=== PATIENT | male | born 1970 | race Caucasian/White ===

== ENCOUNTER → 2024-03-19 | Outpatient (CLI) | payer BC, SELFPAY ==
[2024-03-19 14:05] LABS: Absolute Neutrophil Count 3.6 X10^3/uL (2.0-7.7); Basophil# 0.04 X10^3/uL; Basophil% 0.6 % (0-1); Eosinophil# 0.04 X10^3/uL; Eosinophils% 0.6 % (0-5); Hematocrit 43.3 % (40-54); Hemoglobin 15.1 g/dL (13.0-16.5); Lymphocyte % 36.5 % (19-41); Mean Corp Hgb Conc 34.9 g/dL (32-36); Mean Corpuscular Volume 80.3 fL (80-94); Mean Platelet Vol. 10.5 fl (6.2-12.0); Monocyte# 0.48 X10^3/uL; Monocyte% 7.3 % (0-10); NRBC Flagged by Analyzer 0 % (0-5); Neutrophil % 54.8 % (47-70); Platelet Count 256 K/mm3 (150-450); RBC Distribution Width CV 13.5 % (11.6-14.6); RBC Distribution Width SD 38.9 fl (35.1-43.9); Red Blood Count 5.39 M/mm3 (4.6-6.2); White Blood Count 6.6 K/mm3 (4.4-11.0)
[2024-03-19 15:43] LABS: ALB/GLOB Ratio 0.8 RATIO (0.9-2.4); AST(SGOT) 39 U/L (15-37); Alanine Aminotransfer ALT/SGPT 36 U/L (16-61); Albumin, Serum 3.1 g/dL (3.2-5.0); Alkaline Phosphatase 90 U/L (45-117); Anion Gap 10 (5-15); BUN 10 mg/dL (7-18); BUN/Creat Ratio 11.9 RATIO (10-20); Calcium,Total 8.3 mg/dL (8.5-10.1); Chloride 100 mmol/L (98-107); Creatinine, Serum 0.84 mg/dL (0.70-1.30); EST Glomerular Filtration Rate 102 mL/min (>60); Est Glom Filt Rate - Afr Amer 123 mL/min (>60); Globulin 3.7 g/dL (2.2-4.2); Glucose 394 mg/dL (74-106); Potassium 4.3 mmol/L (3.5-5.1); Protein, Total 6.8 g/dL (6.4-8.2); Sodium Level 134 mmol/L (136-145)
== END | disposition home or self-care (01) ==
PROVIDERS: PCP Family Medicine
DX: Z01.818 Encounter for other preprocedural examination (principal); R10.9 Unspecified abdominal pain
CPT/HCPCS: 36415; 80053; 85025

== ENCOUNTER → 2024-03-22 | Outpatient (CLI) | payer BC, SELFPAY ==
--- NOTE | 2024-03-22 17:52 | CT_ITS ---
INDICATION: abdominal pain COMPARISON: None. IV Contrast dosage and agent: Oral Tamp;amp; IV Readi-CAT Tamp;amp; 100mL Isovue-300 IV. A radiation dose optimization technique was used for this scan. RADIATION DOSAGE (If Supplied By Facility): CTDIvol/DLP = ( 13.67 ) / ( 920.97 ) mGy/mGycm FINDINGS: Contrast enhanced serial CT axial images through the abdomen and pelvis with coronal and sagittal reformatted series. PANCREAS: No peripancreatic fat stranding. BOWEL/MESENTERY: No dilated bowel loops. No significant free fluid. No free air. GALLBLADDER: No pericholecystic fat stranding. LIVER/STOMACH: Marked fatty infiltration the liver. Likely associated hepatomegaly measuring up to 23 cm in the craniocaudal dimension. APPENDIX: Absent appendix with pericecal suture line. URINARY COLLECTING SYSTEM/ KIDNEYS: No obstructing ureteral calculus. No significant renal parenchymal abnormality. LUNG BASES: 10 mm posterior left lower lobe pulmonary nodule. BONES: Unremarkable for age. CT/Abdomen/Pelvis WITH Contrast IMPRESSION: Marked fatty infiltration the liver. Likely associated hepatomegaly. 10 mm posterior left lower lobe pulmonary nodule. Recommend comparison with previous imaging to document long-term stability versus follow-up evaluation as per Fleischner guidelines as neoplastic process is not excluded. No acute abdominal abnormality is identified. Electronically Signed: Dheeraj Maloney MD at 7:13 EDT ,
== END | disposition home or self-care (01) ==
LOC: CT 17:50
PROVIDERS: PCP Family Medicine; Referring Provider Surgery; Visit Provider Surgery
DX: R10.9 Unspecified abdominal pain (principal)
CPT/HCPCS: 74177; Q9967

== ENCOUNTER → 2024-03-26 | Outpatient (CLI) | payer BC, SELFPAY ==
--- NOTE | 2024-03-26 13:47 | EKG12_ITS ---
Test Reason : PREOP Blood Pressure : / mmHG Vent. Rate : 089 BPM Atrial Rate : 089 BPM P-R Int : 184 ms QRS Dur : 116 ms QT Int : 366 ms P-R-T Axes : 029 -11 010 degrees QTc Int : 445 ms Normal sinus rhythm Inferior infarct , age undetermined Abnormal ECG Confirmed by Tor Sykes ([id number]), assistant production editor FRANK MARINO ([id number]) on 03/27/2024 8:53:29 AM Referred By: MICHA CLEMENS Confirmed By:Tor Sykes
[2024-03-26 14:32] LABS: Absolute Neutrophil Count 4.1 X10^3/uL (2.0-7.7); Basophil# 0.05 X10^3/uL; Basophil% 0.7 % (0-1); Eosinophil# 0.07 X10^3/uL; Eosinophils% 0.9 % (0-5); Hematocrit 44.4 % (40-54); Hemoglobin 15.2 g/dL (13.0-16.5); Lymphocyte % 37.9 % (19-41); Mean Corp Hgb Conc 34.2 g/dL (32-36); Mean Corpuscular Hgb 27.7 pg (27.0-32.0); Mean Platelet Vol. 10.5 fl (6.2-12.0); Monocyte# 0.51 X10^3/uL; Monocyte% 6.7 % (0-10); NRBC Flagged by Analyzer 0 % (0-5); Neutrophil # 4.09 X10^3/uL (2.7-7.7); Neutrophil % 53.4 % (47-70); Platelet Count 258 K/mm3 (150-450); RBC Distribution Width CV 13.2 % (11.6-14.6); RBC Distribution Width SD 38.7 fl (35.1-43.9); Red Blood Count 5.48 M/mm3 (4.6-6.2); White Blood Count 7.7 K/mm3 (4.4-11.0)
[2024-03-26 15:13] LABS: AST(SGOT) 16 U/L (15-37); Alanine Aminotransfer ALT/SGPT 32 U/L (16-61); Albumin, Serum 3.5 g/dL (3.2-5.0); Alkaline Phosphatase 81 U/L (45-117); Anion Gap 9 (5-15); BUN 12 mg/dL (7-18); BUN/Creat Ratio 13.3 RATIO (10-20); Calcium,Total 8.8 mg/dL (8.5-10.1); Chloride 100 mmol/L (98-107); EST Glomerular Filtration Rate 94 mL/min (>60); Est Glom Filt Rate - Afr Amer 113 mL/min (>60); Globulin 3.5 g/dL (2.2-4.2); Glucose 234 mg/dL (74-106); Potassium 3.7 mmol/L (3.5-5.1); Sodium Level 132 mmol/L (136-145)
== END | disposition home or self-care (01) ==
PROVIDERS: PCP Family Medicine
DX: Z01.818 Encounter for other preprocedural examination (principal); R10.9 Unspecified abdominal pain
CPT/HCPCS: 36415; 80053; 85025; 93005

== ENCOUNTER → 2024-08-16 | Outpatient (CLI) | payer BC, SELFPAY ==
--- NOTE | 2024-08-16 10:25 | RAD_ITS ---
INDICATION: left thumb injury EXAMINATION/TECHNIQUE: X-RAY - LEFT HAND XR Fingers Min 2 Views 4 VIEWS COMPARISON: No relevant prior comparison study available FINDINGS: SOFT TISSUES: Mild soft tissue swelling involving the distal aspect of the thumb. No soft tissue gas. No radiopaque foreign body. BONES/JOINTS: No acute fracture or subluxation.. Normal alignment. Preservation of the joint space.. No sclerotic or destructive changes observed. RAD/Finger(s) Min 2 Views IMPRESSION: 1. Soft tissue swelling involving the distal thumb. No evidence of fracture, malalignment, no soft tissue gas or radiopaque foreign body noted. Electronically Signed: Navarro Suggs MD at 19:51 EDT ,
== END | disposition home or self-care (01) ==
LOC: MTRAD 10:21
PROVIDERS: PCP Family Medicine; Referring Provider Family Medicine; Visit Provider Family Medicine
DX: S69.90XA Unspecified injury of unspecified wrist, hand and finger(s), initial encounter (principal); X58.XXXA Exposure to other specified factors, initial encounter
CPT/HCPCS: 73140

== ENCOUNTER → 2025-07-24 | Outpatient (CLI) | payer OTHER, SELFPAY ==
[2025-07-24 12:32] LABS: Hematocrit 45.8 % (40-54); Hemoglobin 15.8 g/dL (13.0-16.5); Mean Corp Hgb Conc 34.5 g/dL (32-36); Mean Corpuscular Volume 81.8 fL (80-94); Mean Platelet Vol. 10.3 fl (6.2-12.0); Platelet Count 266 K/mm3 (150-450); RBC Distribution Width CV 12.8 % (11.6-14.6); RBC Distribution Width SD 38.2 fl (35.1-43.9); Red Blood Count 5.60 M/mm3 (4.6-6.2); White Blood Count 7.3 K/mm3 (4.4-11.0)
[2025-07-24 18:30] LABS: AST(SGOT) 17 U/L (<=37); Alanine Aminotransfer ALT/SGPT 22 U/L (<=46); Albumin, Serum 3.9 g/dL (3.5-5.0); Alkaline Phosphatase 78 U/L (40-129); Anion Gap 13 (5-15); BUN 8 mg/dL (4-19); BUN/Creat Ratio 10.9 RATIO (10-20); Calcium,Total 9.2 mg/dL (7.6-11.0); Carbon Dioxide 21.0 mmol/L (21.0-32.0); Chloride 100 mmol/L (98-108); Cholesterol 339 mg/dL (<=200); Globulin 2.9 g/dL (2.2-4.2); Glucose 235 mg/dL (70-99); Low Density Lipoprotein Calc. 174 mg/dL; Potassium 4.1 mmol/L (3.3-5.1); Triglycerides 629 mg/dL; Very Low Density Lipoprotein 126 mg/dL (5-40); cholesterol:hdl ratio screen 8.60
== END | disposition home or self-care (01) ==
LOC: MFPLAB 11:25
PROVIDERS: PCP Family Medicine; Visit Provider Family Medicine
DX: Z13.220 Encounter for screening for lipoid disorders (principal); R73.03 Prediabetes; R03.0 Elevated blood-pressure reading, without diagnosis of hypertension
CPT/HCPCS: 36415; 80053; 80061; 83036; 84443; 85027

== ENCOUNTER 2025-08-17 19:12 | Emergency (ER) | payer OTHER, SELFPAY ==
[2025-08-17 19:13] VITALS: BP 136/88; PULSE 101; RESP 17; TEMP 36.8; O2SAT 100; BMI 27.9
[2025-08-17 19:56] LABS: Hematocrit 44.5 % (40-54); Hemoglobin 15.2 g/dL (13.0-16.5); Immature Granulocytes Count 0.020 X10^3/uL (0.0-0.0); Mean Corp Hgb Conc 34.2 g/dL (32-36); Mean Corpuscular Volume 81.7 fL (80-94); Mean Platelet Vol. 9.1 fl (6.2-12.0); NRBC Flagged by Analyzer 0 % (0-5); Platelet Count 299 K/mm3 (150-450); RBC Distribution Width CV 12.5 % (11.6-14.6); RBC Distribution Width SD 37.2 fl (35.1-43.9); Red Blood Count 5.45 M/mm3 (4.6-6.2); White Blood Count 7.4 K/mm3 (4.4-11.0)
[2025-08-17] MEDS: 0.9% Normal Saline (1000mL) 1,000 ML 999 ML IV (19:57)
--- NOTE | 2025-08-17 20:14 | EDS_ITS ---
HPI HPI - GI History of Present Illness Chief Complaint: Abd Pain Informant: patient Abdominal Pain/Flank Pain Onset: Weeks (1-2) Context: Gradual Onset Timing: Continuous Quality: Stabbing Location: LLQ Worsened by: Nothing Relieved by: Nothing Nausea/Vomiting/Emesis GI Symptom: Positive for Nausea and Vomiting Quality: Positive for Nonbilious; Negative for Blood streaks, Coffee ground or Hematemesis Diarrhea/Melena/Hematochezia GI Symptom: Negative for Diarrhea, Melena or Hematochezia Associated Symptoms Associated Symptoms: Negative for Dysuria, Frequency or Hematuria Narrative Narrative: Patient presents with abdominal pain that has been getting worse over the past 1 to 2 weeks. Patient states his pain is mainly over the left lower abdomen. Patient describes it as stabbing. Patient states it has been constant. Patient states his pain radiates up into the left side of his neck and back. Patient states nothing makes it worse and nothing makes it better. Patient admits to some nausea and vomiting. Patient denies any hematemesis or coffee-ground emesis. Patient denies any diarrhea, melena, or hematochezia. Patient denies any dysuria, frequency, or hematuria. [facility] Medical History Abdominal pain Abdominal hernia Home Medications ?Medication ?Instructions ?Recorded ?Last Taken ?Type amlodipine 5 mg tablet 5 mg PO DAILY 08/17/25 Unkno wn History ciprofloxacin HCl 500 mg tablet 500 mg PO Q8H 08/17/25 Unknown History glipizide 5 mg tablet 5 mg PO DAILY 08/17/25 Unkno wn History hydrocodone-acetaminophen 5-325mg 1 tab PO Q6H PRN PRN Pain 3 days 08/17/25 Unknown Rx 5mg-325mg #10 TABLETS metformin 500 mg tablet 500 mg PO BID 08/17/25 Unkno wn History ondansetron HCl 4 mg tablet 4 mg PO BID PRN PRN nausea and 08/17/25 Unknown History vomiting semaglutide 0.25 mg or 0.5 mg (2 0.5 mg subcut QWEEK 1 Unknown History mg/3 mL) subcutaneous pen injector (Ozempic) trazodone 50 mg tablet 50 mg PO QHS 08/17/25 Unknow n History Allergy/AdvReac Type Severity Reaction Status Date / Time Penicillins Allergy Severe Hives Verified 08/17/25 19:19 Family History (System 04/10/24 @ 12:38 by Vianney Kelly) Father Diabetes Heart disease Hypertension CVA (cerebral vascular accident) High cholesterol Surgical History History of eye surgery History of appendectomy Social History Smoking Status: Never smoker alcohol intake: current alcohol intake frequency: a few times a month substance use type: does not use ROS ROS ED Constitutional Constitutional ED: Denies chills or fever(s) Eyes Eyes: Denies blurry vision or change in vision ENT ENT ED: Denies rhinorrhea or sore throat Cardiovascular Cardiovascular: Denies chest pain or palpitations Respiratory/Chest Respiratory/Chest: Denies cough or dyspnea Gastrointestinal Gastrointestinal: Reports abdominal pain, nausea and vomiting Genitourinary Genitourinary ED: Denies dysuria or hematuria Musculoskeletal Musculoskeletal: Reports neck pain; Denies back pain Integumentary Denies abscess or rash Neurologic Neurologic: Reports headache(s); Denies weakness Allergic/Immunologic Allergic/Immunologic ED: Denies mouth swelling or urticaria EXAM Physical Exam Const Vital Signs: 08/17/25 19:13 08/17/25 21:13 08/17/25 23:00 Temperature 98.3 F Temperature Source Oral Pulse Rate 101 H 68 77 Respiratory Rate 17 16 18 Blood Pressure 136/88 H 117/84 H 116/78 Blood Pressure Mean 104 95 90 Pulse Ox 100 97 97 Oxygen Delivery Method Room Air Room Air Room Air 08/17/25 23:50 Temperature 98.1 F Temperature Source Pulse Rate 74 Respiratory Rate 18 Blood Pressure 118/84 H Blood Pressure Mean 95 Pulse Ox 98 Oxygen Delivery Method Positive well nourished and well developed Constitutional Narrative: BMI is 29.0. General Appearance ED: well developed and NAD HEENT Reports moist mucous membranes normocephalic and atraumatic Neck supple and no JVD Resp normal respiratory effort and clear to auscultation bilaterally Cardio regular rate and regular rhythm GI non-distended Palpation: soft and tender LLQ and LUQ; Negative for guarding or rebound tenderness present Neuro CN's II-XII intact bilaterally, moves all extremities and no sensory deficits noted Sensorium / Orientation: alert Motor Exam: strength 5/5 throughout Psych mental status grossly normal MDM MDM MDM Narrative Medical decision making narrative: Differential diagnosis includes but is not limited to bowel obstruction, perforation, diverticulitis, electrolyte abnormality, urinary tract infection, pyelonephritis, ureteral calculus, and viral illness. CBC will be obtained to assess for leukocytosis and anemia. Comprehensive metabolic profile will be obtained to assess for hepatic function, renal function, and electrolyte abnormality. Urinalysis will be obtained to assess for urinary tract infection and hematuria. CT scan of the abdomen and pelvis will be obtained to assess for bowel obstruction, diverticulitis, ureteral calculus, pyelonephritis, and bowel perforation. Lab Data Attestation: I reviewed the patient's lab results. Lab results narrative: CBC was reviewed and was within normal limits. Comprehensive metabolic profile was reviewed. Glucose was mildly elevated at 186. The remainder is within normal limits. Urinalysis was reviewed. There is no evidence of urinary tract infection or hematuria. Labs: Laboratory Results - last 24 hr 08/17/25 08/17/25 19:42 22:45 WBC 7.4 RBC 5.45 Hgb 15.2 Hct 44.5 MCV 81.7 MCH 27.9 MCHC 34.2 RDW Std Deviation 37.2 RDW Coeff of Mike 12.5 Plt Count 299 MPV 9.1 Immature Gran % (Auto) 0.300 Neut % (Auto) 54.3 Lymph % (Auto) 35.0 [place] % (Auto) 9.7 Eos % (Auto) 0.4 Baso % (Auto) 0.3 Absolute Neuts (auto) 4.0 Absolute Lymphs (auto) 2.60 Nucleated RBC % 0 Sodium 137 Potassium 4.3 Chloride 101 Carbon Dioxide 23.9 Anion Gap 12 BUN 17 Creatinine 0.74 Estim Creat Clear Calc 108.76 Est GFR (MDRD) Non-Af 108 BUN/Creatinine Ratio 22.6 H Glucose 186 H Calcium 9.4 Total Bilirubin 0.66 AST 14 ALT 20 Alkaline Phosphatase 68 Total Protein 7.2 Albumin 4.3 Globulin 2.9 Albumin/Globulin Ratio 1.5 Urine Color Yellow Urine Clarity Clear Urine pH 6.0 Ur Specific [place] 1.010 Urine Protein Negative Urine Glucose (UA) 50 H Urine Ketones Negative Urine Occult Blood Negative Urine Nitrite Negative Urine Bilirubin Negative Urine Urobilinogen Normal Ur Leukocyte Esterase Negative Urine RBC 0 SEEN Urine WBC 0 SEEN Ur Squamous Epith Cells 0 SEEN Urine Bacteria 0 SEEN Urine Mucus 0 SEEN Radiography Diagnostic Testing: Clinical Impression(s) from Imaging Studies Abdomen/Pelvis CT 08/17/25 20:52 IMPRESSION: 3 mm obstructive stone at the right UVJ with associated minimal upstream hydroureteronephrosis. Reading Location: [facility] CT scan of the abdomen and pelvis was obtained. There is a 3 mm obstructive stone at the right ureterovesicular junction causing hydronephrosis and hydroureter. There is no free air or free fluid. There is no other acute abnormality noted. This was interpreted by the radiologist and was also independently reviewed by myself. Treatment and Re-Evaluation :: Patient was given IV fluids, morphine, and Zofran. Patient was advised of his findings. Patient was instructed to drink plenty of fluids. Patient was given a prescription for [place]. Patient was instructed to follow-up with his primary care physician in 5 to 7 days. Patient was also given a referral for urology. Patient understood and was agreeable with the plan. All questions were answered. Discharge Plan Triage Chief Complaint: Abd Pain ED Provider: Brandon Abraham Dx/Rx/DC Orders Clinical Impression: Calculus of distal right ureter, Abdominal pain Instructions: ED Kidney Stone with Pain Prescriptions: New hydrocodone-acetaminophen 5-325 mg tablet 1 tab PO Q6H PRN PRN (Reason: Pain) 3 Days Qty: 10 0RF No Action amlodipine 5 mg tablet 5 mg PO DAILY ciprofloxacin HCl 500 mg tablet 500 mg PO Q8H metformin 500 mg tablet 500 mg PO BID trazodone 50 mg tablet 50 mg PO QHS ondansetron HCl 4 mg tablet 4 mg PO BID PRN PRN (Reason: nausea and vomiting) glipizide 5 mg tablet 5 mg PO DAILY Ozempic 0.25 mg or 0.5 mg (2 mg/3 mL) pen injector 0.5 mg subcut QWEEK Stand Alone Forms: ED Work / School Excuse Primary Care Provider: Ronald Tong Referrals: Ronald Tong MD [Primary Care Provider, Family Practice] - 3-5 Days Zachariah Garcia MD [Med Staff - Active Staff, Urology] - 3-5 Days Print Language: Macanese Disposition Disposition: Home, Self Care Discharge Date/Time: 08/17/25 23:53
[2025-08-17 20:19] LABS: AST(SGOT) 14 U/L (<=37); Alanine Aminotransfer ALT/SGPT 20 U/L (<=46); Albumin, Serum 4.3 g/dL (3.5-5.0); Alkaline Phosphatase 68 U/L (40-129); Anion Gap 12 (5-15); BUN 17 mg/dL (4-19); BUN/Creat Ratio 22.6 RATIO (10-20); Calcium,Total 9.4 mg/dL (7.6-11.0); Carbon Dioxide 23.9 mmol/L (21.0-32.0); Chloride 101 mmol/L (98-108); Estimated Creatinine Clearance 108.76 ml/min (50-250); Globulin 2.9 g/dL (2.2-4.2); Glucose 186 mg/dL (70-99); Potassium 4.3 mmol/L (3.3-5.1)
--- NOTE | 2025-08-17 20:52 | CT_ITS ---
PROCEDURE: ABDOMEN/PELVIS W IV CONT ONLY 08/17/2025 REASON FOR EXAM: ABDOMINAL PAIN TECHNIQUE: Procedure Code: CTABDPELIV Modality: CT Procedure: ABDOMEN/PELVIS W IV CONT ONLY Coronal and Sagittal reconstruction series were provided. CONTRAST: 100 mL of Isovue 370 One or more dose reduction techniques were used (e.g., Automated exposure control, adjustment of the mA and/or kV according to patient size, use of iterative reconstruction technique. RADIATION DOSE SUMMARY: DLP: 768 mGycm COMPARISON: None FINDINGS: Limited sections of the lung bases demonstrate no focal pulmonary mass or consolidations. The liver, spleen, pancreas, and both adrenal glands demonstrate no acute findings. Hepatic steatosis. Minimal hepatomegaly. The gallbladder is unremarkable. The stomach is unremarkable. The small bowel loops are not dilated. The appendix is surgically removed No colonic obstruction. Scattered colonic diverticuli without acute diverticulitis. There is no free air or significant free fluid. 3 mm obstructive stone at the right UVJ with associated minimal upstream hydroureteronephrosis. The left kidney is unremarkable. The urinary bladder is distended. The pelvic structures are intact. There is no solid pelvic mass. No significant lymphadenopathy. The aorta and IVC demonstrate no acute findings. Visualized osseous structures demonstrate no acute abnormality. CT/Abdomen/Pelvis W IV Cont ONLY IMPRESSION: 3 mm obstructive stone at the right UVJ with associated minimal upstream hydrou reteronephrosis. Reading Location: [id number]
[2025-08-17 21:13] VITALS: BP 117/84; PULSE 68; RESP 16; O2SAT 97
[2025-08-17 22:50] LABS: Mucous, Urine 0 SEEN /hpf (<or=2+); Red Blood Cells-Urine 0 SEEN /hpf (0-5); Squamous Epithelial Cells - UA 0 SEEN /hpf (0-5)
[2025-08-17 22:54] LABS: Color, Urine Yellow (Yellow); Glucose, Dipstick 50 mg/dl (Normal); Ketone-Dipstick Negative (Negative); Leukocyte Esterase-Dipstick Negative /ul (Negative); Nitrite-Dipstick Negative (Negative); Occult Blood-Urine Negative /ul (Negative); Protein-Dipstick Negative (Negative); Specific Gravity, Urine 1.010 (1.002-1.030); Urine Bilirubin Dipstick Negative (Negative)
[2025-08-17 23:00] VITALS: BP 116/78; PULSE 77; RESP 18; O2SAT 97
[2025-08-17 23:50] VITALS: BP 118/84; PULSE 74; RESP 18; TEMP 36.7; O2SAT 98
== END 2025-08-17 23:53 | disposition home or self-care (01) ==
PROVIDERS: Emergency Provider Emergency Medicine; PCP Family Medicine; Visit Provider Emergency Medicine
DX: N20.1 Calculus of ureter (principal); R10.9 Unspecified abdominal pain; R11.2 Nausea with vomiting, unspecified; Z79.899 Other long term (current) drug therapy; Z79.84 Long term (current) use of oral hypoglycemic drugs; Z79.85 Long-term (current) use of injectable non-insulin antidiabetic drugs
CPT/HCPCS: 74177; 80053; 81001; 85025; 96361; 96374; 96375; 99283; Q9967; A4216; J2405

== ENCOUNTER 2025-08-25 16:19 | Inpatient (IN) | payer OTHER, SELFPAY ==
[2025-08-25 16:19] VITALS: BP 132/80; PULSE 84; RESP 14; TEMP 36.6; O2SAT 98
[2025-08-25 16:30] VITALS: BMI 26.8
[2025-08-25] MEDS: Lactated Ringers 1,000 ML 125 ML IV (17:29)
[2025-08-25] MEDS: Cefazolin 2 GM in 0.9% Normal Saline (100mL Bag) 100 ML IV ×2 (17:30→21:06)
[2025-08-25] MEDS: 0.9% Saline Lock 10 ML Syringe IV (17:30)
[2025-08-25 17:42] LABS: Hematocrit 45.5 % (40-54); Hemoglobin 15.8 g/dL (13.0-16.5); Immature Granulocytes Count 0.080 X10^3/uL (0.0-0.0); Mean Corp Hgb Conc 34.7 g/dL (32-36); Mean Corpuscular Volume 82.1 fL (80-94); Mean Platelet Vol. 9.9 fl (6.2-12.0); NRBC Flagged by Analyzer 0 % (0-5); Platelet Count 280 K/mm3 (150-450); RBC Distribution Width CV 12.3 % (11.6-14.6); RBC Distribution Width SD 37.1 fl (35.1-43.9); Red Blood Count 5.54 M/mm3 (4.6-6.2); White Blood Count 15.3 K/mm3 (4.4-11.0)
[2025-08-25 19:09] LABS: Anion Gap 15 (5-15); BUN 11 mg/dL (4-19); BUN/Creat Ratio 10.6 RATIO (10-20); Calcium,Total 9.3 mg/dL (7.6-11.0); Carbon Dioxide 22.6 mmol/L (21.0-32.0); Chloride 95 mmol/L (98-108); Estimated Creatinine Clearance 73.27 ml/min (50-250); Glucose 235 mg/dL (70-99); Potassium 4.6 mmol/L (3.3-5.1)
[2025-08-25 21:20] VITALS: BP 114/73; PULSE 83; RESP 16; TEMP 36.8; O2SAT 96
[2025-08-26] MEDS: Lactated Ringers 1,000 ML 125 ML IV ×4 (01:45→21:10)
[2025-08-26 02:40] VITALS: BP 107/68; PULSE 93; RESP 16; TEMP 36.9; O2SAT 98
[2025-08-26] MEDS: Cefazolin 2 GM in 0.9% Normal Saline (100mL Bag) 100 ML IV ×3 (05:25→21:08)
--- NOTE | 2025-08-26 07:35 | PCM.HP.STD ---
HPI - General General Date of Admission: 08/25/25 Date of Service: 08/26/25 Chief Complaint: Renal colic HPI Narrative ANDRIA HERNANDEZ, is a 55 male who underwent ureteroscopy dilation of the ureter and stent placement for stone, no stone was found but you have a very tight ureter so the ureter was dilated and the stent was placed did not presented to my office in severe renal colic and stent so we agreed to take the stent out and see how you do having nausea and vomiting. Stent was removed and then later that Kam presented back to my office and needing more severe pain we did a CAT scan that demonstrated ureter with some ureteritis and inflammation along the ureter but no stone no obstruction some mild hydronephrosis so I admitted the patient for pain control this morning the patient's pain is much better he is feeling much better blood count was done yesterday looks okay. If he does okay then we Pyke and then go home later this morning or this afternoon [facility] Medical History (Updated 08/25/25 @ 16:37 by Shahnaz Garcia) Diabetes Kidney stones Hypertension Abdominal pain Abdominal hernia Home Medications ?Medication ?Instructions ?Recorded ?Last Taken ?Type amlodipine 5 mg tablet 5 mg PO DAILY bp 08/17/25 Unknown History glipizide 5 mg tablet 5 mg PO DAILY dm 08/17/25 Unknown History hydrocodone-acetaminophen 5-325mg 1 tab PO Q6H PRN PRN Pain 3 days 08/17/25 Unknown Rx 5mg-325mg #10 TABLETS metformin 500 mg tablet 500 mg PO BID dm 08/17/25 Unknown History ondansetron HCl 4 mg tablet 4 mg PO BID PRN PRN nausea and 08/17/25 Unknown History vomiting atorvastatin 20 mg tablet 20 mg PO DAILY cholesterol 08/25/25 Unknown History tamsulosin 0.4 mg capsule 0.4 mg PO DAILY bph 08/25/25 Unknown History Allergy/AdvReac Type Severity Reaction Status Date / Time Penicillins Allergy Severe Hives Verified 08/17/25 19:19 Family History (System 04/10/24 @ 12:38 by Vianney Kelly) Father Diabetes Heart disease Hypertension CVA (cerebral vascular accident) High cholesterol Surgical History History of eye surgery History of appendectomy Social History Smoking Status: Never smoker alcohol intake: current alcohol intake frequency: a few times a month substance use type: does not use Vital Signs Vital Signs Vital Signs: 08/25/25 16:19 08/25/25 21:00 08/25/25 21:20 Temperature 97.8 F 98.3 F Temperature Source Oral Temporal Pulse Rate 84 83 Respiratory Rate 14 16 Respiratory Effort Normal Non-Labored Respiratory Depth Normal Respiratory Pattern Normal Blood Pressure 132/80 H 114/73 Blood Pressure Mean 97 86 Blood Pressure Source Monitor Monitor Blood Pressure Position Semi-Fowlers Semi-Fowlers Blood Pressure Location Right Arm Right Arm Pulse Ox 98 96 Oxygen Delivery Method Room Air Room Air Room Air 08/26/25 02:40 Temperature 98.4 F Temperature Source Temporal Pulse Rate 93 Respiratory Rate 16 Respiratory Effort Respiratory Depth Respiratory Pattern Blood Pressure 107/68 Blood Pressure Mean 81 Blood Pressure Source Monitor Blood Pressure Position Semi-Fowlers Blood Pressure Location Right Arm Pulse Ox 98 Oxygen Delivery Method Room Air Weight Weight: 75.296 kg Body Mass Index (BMI) 26.8 Results Lab / Micro Data 08/25/25 16:49 08/25/25 16:49 Labs: Laboratory Results - last 24 hr 08/25/25 16:49: WBC 15.3 H, RBC 5.54, Hgb 15.8, Hct 45.5, MCV 82.1, MCH 28.5, MCHC 34.7, RDW Std Deviation 37.1, RDW Coeff of Mike 12.3, Plt Count 280, MPV 9.9, Immature Gran % (Auto) 0.500, Neut % (Auto) 87.0 H, Lymph % (Auto) 4.9 L, [place] % (Auto) 7.2, Eos % (Auto) 0.1, Baso % (Auto) 0.3, Absolute Neuts (auto) 13.4 H, Absolute Lymphs (auto) 0.75 L, Nucleated RBC % 0, Sodium 133, Potassium 4.6, Chloride 95 L, Carbon Dioxide 22.6, Anion Gap 15, BUN 11, Creatinine 1.04, Estim Creat Clear Calc 73.27, Est GFR (MDRD) Non-Af 85, BUN/Creatinine Ratio 10.6, Glucose 235 H, Calcium 9.3 08/25/25 21:05: POC Glucose 226 H
[2025-08-26 07:57] VITALS: BP 110/66; PULSE 77; RESP 14; TEMP 36.6; O2SAT 97
[2025-08-26] MEDS: 0.9% Saline Lock 10 ML Syringe IV ×2 (09:01→12:03)
--- NOTE | 2025-08-26 12:24 | CASEMGMT ---
Dx:kidney spasm/pain LACE:1 6-Clicks:24 Medical record reviewed and patient evaluated for identification of discharge planning needs. Based on this review, at this time criteria are not present to indicate a need for discharge planning. Will remain available to assist with discharge planning needs as identified or requested.
[2025-08-26 15:03] VITALS: BP 123/81; PULSE 92; RESP 15; TEMP 36.4; O2SAT 98
--- NOTE | 2025-08-26 15:46 | CHAPLAIN ---
Type of Pastoral Visit _x__ Initial Visit ___ Follow-up Visit ___ On-call Visit ___ General Patient Visit ___ Spiritual Assessment ___ Family Conference ___ Bereavement ___ Rapid Response ___ Code Blue ___ Other (describe below) Pastoral Care Referral From _x__ Patient ___ Family ___ Nurse ___ Physician ___ Aerospace Engineer ___ Regrinder ___ Other (describe below) Sacrament/Intervention _x__ Active listening ___ Anointing ___ Protestant ___ Bereavement ___ Communion ___ Diana exploration ___ _x__ Life review _x__ Prayer ___ Reconciliation ___ Sacrament of Sick _x__ Supportive presence ___ Wedding ___ Other (describe below) Pastoral Comments
[2025-08-26 20:30] VITALS: BP 126/75; PULSE 59; RESP 16; TEMP 37.3; O2SAT 94
[2025-08-27] VITALS (21 sets, daily range): BP systolic 100–153; BP diastolic 57–89; PULSE 85–145; RESP 18–26; TEMP 36.2–39.4; O2SAT 90–100; BMI 26.8; BMI 28.5
[2025-08-27] MEDS: 0.9% Saline Lock 10 ML Syringe IV ×3 (01:25→23:22)
[2025-08-27] MEDS: Lactated Ringers 1,000 ML 125 ML IV ×2 (05:23→20:02)
[2025-08-27] MEDS: Cefazolin 2 GM in 0.9% Normal Saline (100mL Bag) 100 ML IV ×2 (05:24→14:12)
--- NOTE | 2025-08-27 07:25 | PCM.DC.SUM ---
Providers Date of Admission: 08/25/25 Date of Discharge: 08/27/25 Primary Care Physician: Ronald Tong MD Reason For Visit: KIDNESY SPASM/PAIN Medications at Discharge Home Medications amlodipine 5 mg tablet 5 mg PO DAILY bp 08/17/25 glipizide 5 mg tablet 5 mg PO DAILY dm 08/17/25 hydrocodone-acetaminophen 5-325mg 5mg-325mg 1 tab PO Q6H PRN PRN Pain 3 days #10 TABLETS 08/17/25 metformin 500 mg tablet 500 mg PO BID dm 08/17/25 ondansetron HCl 4 mg tablet 4 mg PO BID PRN PRN nausea and vomiting 08/17/25 atorvastatin 20 mg tablet 20 mg PO DAILY cholesterol 08/25/25 tamsulosin 0.4 mg capsule 0.4 mg PO DAILY bph 08/25/25 Hospital Course Summary of Care Provided Minutes Spent on Discharge: 15 Hospital Course: Patient was admitted to the hospital for stent spasms and stent pain after the stent was removed he was have a lot of spasms in his ureter CAT scan was done and demonstrated no obstruction but about a ureteritis and inflammation along course of the ureter and spasms pain was not controlled as an outpatient so he was admitted to the hospital for IV Toradol pain medicine. He was possibly going home yesterday but he had an episode of severe pain today was not comfortable going home this morning he feels much more comfortable try to have a bowel movement feels little constipated we will give him some bowel laxative to get his bowels moving but he should be able to go home today follow-up in the office in 6 weeks for checkup. Weight / BMI Weight Weight: 75.3 kg Body Mass Index (BMI) 26.8 ABG / Lab / Microbiology Data 08/25/25 16:49 08/25/25 16:49 D/C Instructions DC O2, CPAP, BIPAP Needs Home O2 Discharge instructions: No Meaningful Use Info Meaningful Use Meaningful Use Diagnoses (Choose all that apply): None applicable Discharge Plan Admission Admit Date/Time: 08/25/25 16:19 Attending Provider: Zachariah Garcia Primary Care Provider: Ronald Tong Discharge Orders/Prescriptions Prescriptions: No Action amlodipine 5 mg tablet 5 mg PO DAILY metformin 500 mg tablet 500 mg PO BID ondansetron HCl 4 mg tablet 4 mg PO BID PRN PRN (Reason: nausea and vomiting) glipizide 5 mg tablet 5 mg PO DAILY hydrocodone-acetaminophen 5-325 mg tablet 1 tab PO Q6H PRN PRN (Reason: Pain) 3 Days Qty: 10 0RF atorvastatin 20 mg tablet 20 mg PO DAILY tamsulosin 0.4 mg capsule 0.4 mg PO DAILY Referrals / Follow Up: Ronald Tong MD [Primary Care Provider, Family Practice]
--- NOTE | 2025-08-27 07:30 | DCINST_ITS ---
Discharge Instructions
--- NOTE | 2025-08-27 07:30 | PCM.DC ---
Discharge Instructions DC O2, CPAP, BIPAP needs Home O2 Discharge instructions: No Dressing / Incision Discharge Activity: Return to Normal Activity and May Not Drive (while taking narcotic pain medications.) Dressing / Incision Call your doctor if you observe: Fever of 101 or Higher Follow Up Care Please Follow Up With: Zachariah Garcia MD When: Call [phone] for an appointment Test Results: Test results from this visit will be discussed in further detail at your follow-up appointment, if applicable. Discharge Plan Admission Admit Date/Time: 08/25/25 16:19 Primary Reason for Your Visit: Ureteral spasms Attending Provider: Zachariah Garcia Primary Care Provider: Ronald Tong Discharge Orders/Prescriptions Prescriptions: New ketorolac 10 mg tablet 10 mg PO Q6H Qty: 10 0RF Rx Instructions: maximum total duration of 5 days from all oral, intranasal, or parenteral formulations Continued amlodipine 5 mg tablet 5 mg PO DAILY metformin 500 mg tablet 500 mg PO BID ondansetron HCl 4 mg tablet 4 mg PO BID PRN PRN (Reason: nausea and vomiting) glipizide 5 mg tablet 5 mg PO DAILY hydrocodone-acetaminophen 5-325 mg tablet 1 tab PO Q6H PRN PRN (Reason: Pain) 3 Days Qty: 10 0RF atorvastatin 20 mg tablet 20 mg PO DAILY tamsulosin 0.4 mg capsule 0.4 mg PO DAILY Referrals / Follow Up: Ronald Tong MD [Primary Care Provider, Family Practice] Zachariah Garcia MD [Med Staff - Active Staff, Urology] Disposition Disposition (needs filled in before D/C Order can be placed): Home, Self Care
[2025-08-27] MEDS: Polyethylene Glycol 3350 17 GM PACKET PO (07:57)
--- NOTE | 2025-08-27 12:25 | PCM.PN.BLA ---
Progress Note Planning to discharge the patient home today but the nurse called me back said he is having more severe pain nausea vomiting and chills we will get a CBC and a BMP add him onto the schedule today for cystoscopy right stent placement.
--- NOTE | 2025-08-27 12:52 | PHA.DC_ITS ---
Pharmacy DC Med Rec Counseling
--- NOTE | 2025-08-27 12:52 | PHA.DC.MC.R ---
Pharmacy [facility] Counseling Pharmacy Service has performed discharge medication reconciliation and counseling for this patient. 1. KETOROLAC 10MG PO Q6 X 10 DOSES The patient's discharge medication list was reviewed for discrepancies and discrepancies were resolved. The patient was counseled on the following discharge medications and changes in medications for homegoing were reviewed. The Reason for Use, instructions for use, and potential side effects were reviewed for all new medications. The patient's questions regarding all of their medications were answered. The patient was able to verbally demonstrate an understanding of their discharge medications. Medications at Discharge Home Medications amlodipine 5 mg tablet 5 mg PO DAILY bp 08/17/25 glipizide 5 mg tablet 5 mg PO DAILY dm 08/17/25 hydrocodone-acetaminophen 5-325mg 5mg-325mg 1 tab PO Q6H PRN PRN Pain 3 days #10 TABLETS 08/17/25 metformin 500 mg tablet 500 mg PO BID dm 08/17/25 ondansetron HCl 4 mg tablet 4 mg PO BID PRN PRN nausea and vomiting 08/17/25 atorvastatin 20 mg tablet 20 mg PO DAILY cholesterol 08/25/25 tamsulosin 0.4 mg capsule 0.4 mg PO DAILY bph 08/25/25 ketorolac 10 mg tablet 10 mg PO Q6H #10 tabs 08/27/25
[2025-08-27 13:03] LABS: Hematocrit 38.7 % (40-54); Hemoglobin 13.7 g/dL (13.0-16.5); Immature Granulocytes Count 0.050 X10^3/uL (0.0-0.0); Mean Corp Hgb Conc 35.4 g/dL (32-36); Mean Corpuscular Volume 81.8 fL (80-94); Mean Platelet Vol. 9.3 fl (6.2-12.0); NRBC Flagged by Analyzer 0 % (0-5); POSITIVE DIFFERENTIAL YES; Platelet Count 202 K/mm3 (150-450); RBC Distribution Width CV 12.3 % (11.6-14.6); RBC Distribution Width SD 36.9 fl (35.1-43.9); Red Blood Count 4.73 M/mm3 (4.6-6.2); White Blood Count 15.3 K/mm3 (4.4-11.0)
[2025-08-27 13:43] LABS: Anion Gap 15 (5-15); BUN 13 mg/dL (4-19); BUN/Creat Ratio 9.5 RATIO (10-20); Calcium,Total 8.6 mg/dL (7.6-11.0); Carbon Dioxide 21.6 mmol/L (21.0-32.0); Chloride 97 mmol/L (98-108); Estimated Creatinine Clearance 54.05 ml/min (50-250); Glucose 269 mg/dL (70-99); Potassium 4.1 mmol/L (3.3-5.1)
--- NOTE | 2025-08-27 15:33 | PCM.PRE.AN2 ---
ASA Classification* ASA Classification ASA Classification: 2 and E Assessment & Plan Anesthesia* Anesthesia Assessment Anesthesia Assessment: Discussed sedation and/or anesthesia options, risks, benefits, and alternatives with patient/parents/legal guardian/POA. Questions invited. The patient/parents/legal guardian/POA seems to understand and agrees to proceed with anesthesia plan. Reviewed the physical assessment, medical history, allergy history and patient home medications list prior to surgery/procedure/anesthetic and documented any changes. Performed airway and anesthesia risk assessments. Anesthesia Type Anesthesia Type: MAC Anesthesia Focused Assessment* Temperature: 98.9 F Pulse Rate: 112 Blood Pressure: 129/76 Respiratory Rate: 18 Pulse Ox: 98 Airway Assessment Mouth opens: >3 cm Mallampati Score: II Labs Anesthesia Preop lab: CBC WBC, (4.4-11.0) 15.3 K/mm3 H Today, 12:56 RBC, (4.6-6.2) 4.73 M/mm3 Today, 12:56 Hgb, (13.0-16.5) 13.7 g/dL Today, 12:56 Hct, (40-54) 38.7 % L Today, 12:56 Plt Count, (150-450) 202 K/mm3 Today, 12:56 CHEMISTRY Potassium, (3.3-5.1) 4.1 mmol/L Today, 12:56 Sodium, (133-145) 133 mmol/L Today, 12:56 BUN, (4-19) 13 mg/dL Today, 12:56 Creatinine, (0.70-1.20) 1.41 mg/dL H Today, 12:56 Glucose, (70-99) 269 mg/dL H Today, 12:56 POC Glucose, (74-106) 268 mg/dL H Today, 13:58 TSH, (0.300-4.200) 2.090 uIU/mL 07/24/25, 11:26 COAG Pre-Assessment Diagnosis/Proposed Procedure Planned Operative Procedure(s): Cystoscopy stent placement Anesthesia History Anesthesia History - acute care certified nursing assistant: Anesthesia History - acute care certified nursing assistant Hx Hospitalization Any Problems With Anesthesia Cholinesterase deficiency You/Your Family Experience fever (hyperthermia) with Relationship Recent Exposure to Contagious Disease Does patient have nerve stimulator Patient instructed to have device shut off --Does patient have Pacemaker No 08/27/25 14:37 or ICD? When Was Last Pacemaker Check QUESTION #4 FULL TEXT: You/Your Family Experience fever (hyperthermia) with Anesthesia Last Oral Intake Last Oral intake: Last Oral Intake NPO since 09:00 08/27/25 14:37 Meds taken in AM with sips of Yes 08/27/25 14:37 water? Meds patient instructed to on EMAR 08/27/25 14:37 take am of surgery PONV PONV - acute care certified nursing assistant: PONV - acute care certified nursing assistant Female HX of Motion Sickness HX of N/V After Surgery Non-Smoker Duration of Surgery greater than 60 minutes Number of Risk Factors PONV Score Height & Weight Height & Weight: Anesthesia: Height & Weight Height 5 ft 6 in 08/27/25 14:37 Weight: 75.3 kg 08/27/25 14:37 Body Mass Index (BMI) 26.8 08/27/25 14:37 Respiratory Assessment Respiratory Assessment - acute care certified nursing assistant: Respiratory Tract Infection Hx - acute care certified nursing assistant Hx Respiratory Tract Infection STOP Sleep Apnea STOP Sleep Apnea - acute care certified nursing assistant: STOP Sleep Apnea - acute care certified nursing assistant Hx Hypertension Yes 08/25/25 16:30 Hx Sleep Apnea No 08/25/25 16:30 CPAP BIPAP Do you snore loudly (louder Yes 08/25/25 16:30 than talking or can be heard Do you often feel tired/ No 08/25/25 16:30 fatigued/ sleepy during daytime? Has anyone observed you stop No 08/25/25 16:30 breathing during sleep? STOP Results Positive 08/25/25 16:30 QUESTION #5 FULL TEXT : Do you snore loudly (louder than talking or can be heard through closed doors)? Tobacco Use History Tobacco Use History - acute care certified nursing assistant: Tobacco Use History - acute care certified nursing assistant Tobacco Use Smoking Status Never smoker 08/25/25 16:30 Hx Tobacco Use Yes 08/25/25 16:30 Years Smoking Packs Smoked per Day Smoking Cessation Date was within the last 15 years Hx Smoking Cessation Date Hx Smoking Cessation Counseling Hematologic Medial History Hematologic Hx - acute care certified nursing assistant: Hematologic Medical Hx - documentation improvement specialist Hx of Blood Transfusion No 08/25/25 16:30 Hx of Transfusion in last 3 No 08/25/25 16:30 Months Date of Last Transfusion (if within last 3 months) Ever experience any problems No 08/25/25 16:30 with transfusion(s)? Specify any problems Hx of Preganancy in last 3 N/A 08/25/25 16:30 Months Nurse Filling Out Transfusion TWOLF 08/25/25 16:30 & Questions: Date: 08/25/25 08/25/25 16:30 Time: 16:34 08/25/25 16:30 Patient unable to answer at this time (ie. confused, unrespo /Reproduction History /Reproductive History - acute care certified nursing assistant: /Reproductive Hx- acute care certified nursing assistant Hx Now Gestational Age (in weeks): EDC: Hx Hx Para Hx Section SAB Active Medications Active Medications: Current Medications Generic Name Dose Route Start Last Admin Trade Name Freq PRN Reason Stop Dose Admin Amlodipine Besylate 5 mg 08/25/25 20:00 08/27/25 08:04 Amlodipine 5 Mg Tablet PO 5 mg DAILY ANGEL Administration Protocol Atorvastatin Calcium 20 mg 08/25/25 22:00 08/26/25 21:08 Atorvastatin Calcium 20 Mg Tablet PO 20 mg HS ANGEL Administration Glipizide 5 mg 08/26/25 08:00 08/27/25 08:04 Glipizide 5 Mg Tablet PO 5 mg DAILYCM ANGEL Administration Lactated Ringer's 1,000 mls @ 125 mls/hr 08/25/25 16:30 08/27/25 05:23 IV 125 mls/hr .Q8H ANGEL Administration Sodium Chloride 250 mls @ 15 mls/hr 08/25/25 16:22 IV .[id number] PRN Saline Flush Sodium Chloride 250 mls @ 15 mls/hr 08/25/25 16:22 IV .[id number] PRN Additional IVPB Infusion Cefazolin Sodium 2 gm/ Sodium 110 mls @ 200 mls/hr 08/25/25 16:25 08/27/25 14:50 Chloride IV Infused Q8 ANGEL Infusion Ceftriaxone Sodium 1 gm in 50 mls @ 100 mls/hr 08/27/25 15:00 Rocephin IV Q12H ANGEL Ketorolac Tromethamine 10 mg 08/26/25 15:38 08/27/25 08:08 Ketorolac 10 Mg Tablet PO 08/31/25 15:38 10 mg Q6H PRN PRN Administration Pain Score 1-10 Metformin HCl 500 mg 08/25/25:00 08/27/25 08:04 Metformin Hcl 500 Mg Tablet PO 500 mg BIDCM ANGEL Administration Morphine Sulfate 2 mg 08/25/25 16:23 08/26/25 09:01 Morphine 2 Mg/Ml Syringe IV 2 mg Q2H PRN PRN Administration Pain Score 6-10 Ondansetron HCl 4 mg 08/25/25 16:23 08/27/25 12:17 Ondansetron 4 Mg/2 Ml Vial IV 4 mg Q6H PRN PRN Administration NAUSEA/VOMITING Sodium Chloride 10 - 40 ml 08/25/25 16:22 08/27/25 12:18 0.9% Saline Lock 10 Ml Syringe IV 10 ml UD PRN Administration SALINE FLUSH Tamsulosin HCl 0.4 mg 08/25/25 20:15 08/27/25 08:03 Tamsulosin Hcl 0.4 Mg Capsule PO 0.4 mg DAILY ANGEL Administration PFSH Medical History Diabetes Kidney stones Hypertension Abdominal pain Abdominal hernia Home Medications ?Medication ?Instructions ?Recorded ?Last Taken ?Type amlodipine 5 mg tablet 5 mg PO DAILY bp 08/17/25 Unknown History glipizide 5 mg tablet 5 mg PO DAILY dm 08/17/25 Unknown History hydrocodone-acetaminophen 5-325mg 1 tab PO Q6H PRN PRN Pain 3 days 08/17/25 Unknown Rx 5mg-325mg #10 TABLETS metformin 500 mg tablet 500 mg PO BID dm 08/17/25 Unknown History ondansetron HCl 4 mg tablet 4 mg PO BID PRN PRN nausea and 08/17/25 Unknown History vomiting atorvastatin 20 mg tablet 20 mg PO DAILY cholesterol 08/25/25 Unknown History tamsulosin 0.4 mg capsule 0.4 mg PO DAILY bph 08/25/25 Unknown History ketorolac 10 mg tablet 10 mg PO Q6H #10 tabs 08/27/25 Unknown Rx Allergy/AdvReac Type Severity Reaction Status Date / Time Penicillins Allergy Severe Hives Verified 08/17/25 19:19 Family History Father Diabetes Heart disease Hypertension CVA (cerebral vascular accident) High cholesterol Surgical History History of eye surgery History of appendectomy Social History Smoking Status: Never smoker alcohol intake: current alcohol intake frequency: a few times a month substance use type: does not use Review of Systems (Anesthesia) ROS Narrative System reviewed and no additional complaints, except as documented.
--- NOTE | 2025-08-27 16:12 | OP.PCM_ITS ---
Operative Report (Standard)
--- NOTE | 2025-08-27 16:12 | PCM.OPRPT ---
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 The urethra and genitals were prepped and draped in usual sterile fashion. Using a 21 Azerbaijani rigid cystourethroscope the entire length of the urethra was normal then went into the bladder. Identified the trigone the left and right ureteral orifice. I then cannulated the right ureteral orifice and advanced a wire up into the kidney. I then backloaded a 5 Azerbaijani open ended catheter over the wire and injected contrast to delineate the anatomy. After the retrograde was performed I then used fluoroscopic images and guidance to advanced a wire up into the kidney and over the 0.038 glidewire I advanced a 6 Azerbaijani by 26 cm double pigtail stent. I then pulled the 0.038 Glidewire off and the stent coiled in the kidney bladder good position. The bladder was then drained. We confirmed the position of the stent by fluoroscopy. Patient anesthetic was reversed and was taken back to the PACU in good condition. Surgical Findings: stent placed right side Complications Complications: No Admit VTE Documentation VTE Present on Admission: No VTE Mechan Device Prophylaxis: SCD's VTE Pharm Prophylaxis ordered?: No
[2025-08-27] MEDS: fentaNYL 100 MCG/2 ML Ampul 50 MCG IV (16:13)
[2025-08-27] MEDS: Midazolam 2 MG/2 ML Syringe IV (16:13)
[2025-08-27] MEDS: Lidocaine 1% (5 ml sdv) 5 ML Vial 2 ML IV (16:17)
[2025-08-27] MEDS: Lidocaine Jelly 2% 20 ML Syringe (URO-JET) 1 APPLIC (16:20)
--- NOTE | 2025-08-27 16:35 | POSTOP.ANE_ITS ---
Anesthesia: Postop Eval I
--- NOTE | 2025-08-27 16:35 | PCM.POST.ANE ---
Anesthesia: Postop Eval I Current Vital Signs Temperature: 99.4 F Pulse Rate: 120 Blood Pressure: 113/68 Respiratory Rate: 20 Pulse Ox: 93 Oxygen Delivery Method: Nasal Cannula Oxygen Flow Rate (L/min): 3 Assessment Airway patent: Yes Spontaneous unlabored respirations: Yes Mental status: Awake and Calm nausea: No Vomiting: No Anesthesia Complication: No Fluid Hydration Crystalloid volume administer (ml): 400 Total IV fluid infused: 400 Progress Note Anesthesia document: Postop Eval 1 completed: Yes
--- NOTE | 2025-08-27 17:11 | POSTOPAN2_ITS ---
Anesthesia Postop Eval I Sum
--- NOTE | 2025-08-27 17:11 | PCM.POSTANE2 ---
Anesthesia Postop Eval I Sum Postop Eval Completion status Anesthesia document: Postop Eval 1 completed: Yes Anesthesia Postop Eval I Summary Anesthesia Postop Eval I Summary: Anesthesia Postop Eval I: Assessment Summary Airway patent Yes 08/27/25 16:36 MARKET ASSET PROTECTION MANAGER.[email or web address] Spontaneous unlabored Yes 08/27/25 16:36 MARKET ASSET PROTECTION MANAGER.SHOF respirations Mental status Awake,Calm 08/27/25 16:36 MARKET ASSET PROTECTION MANAGER.SHOF nausea No 08/27/25 16:36 MARKET ASSET PROTECTION MANAGER.SHOF Vomiting No 08/27/25 16:36 MARKET ASSET PROTECTION MANAGER.SHOF Anesthesia Postop Eval I: Fluid Summary Crystalloid volume administer 400 08/27/25 16:36 MARKET ASSET PROTECTION MANAGER.SHOF (ml) Colloids volume administered ( ml) Blood Product volume administered (ml) Total IV fluid infused 400 08/27/25 16:36 MARKET ASSET PROTECTION MANAGER.SHOF Anesthesia Postop Eval I: Summary Notes Anesthesia Complication No 08/27/25 16:36 MARKET ASSET PROTECTION MANAGER.SHOF Anesthesia Complication Comment: Post-operative progress note Anesthesia: Postop Eval II Evaluation Mental status: Awake Pain Level: 0 nausea: No Vomiting: No
--- NOTE | 2025-08-27 17:29 | EKG12_ITS ---
Test Reason : TACHY
--- NOTE | 2025-08-27 17:35 | NURSING ---
TWILL CUTTER UPDATED ON PATIENT.
--- NOTE | 2025-08-27 17:50 | RAD_ITS ---
PROCEDURE: RAD/Chest 1 View (Portable)
--- NOTE | 2025-08-27 17:57 | NURSING ---
CALL CENTER COORDINATOR UPDATED AGAIN
--- NOTE | 2025-08-27 18:14 | PCM.CONS.GEN ---
Assessment & Plan Assessment/Plan (1) Sepsis: PLAN: Plan #Suspected sepsis 2/2 urinary source - Patient febrile with a temp of 103, tachycardic with a heart rate up to 150, tachypneic with respiratory rate of 26, white count 14.5, bicarb 18.6 with a gap of 17 and lactic acid found to be 5.2 with some confusion suspected to be acute metabolic encephalopathy - Bolus with 30 cc/kg, thus far no hypotension - Antibiotics broadened to cefepime due to penicillin allergy - UA and urine culture ordered, blood cultures ordered - Did obtain chest x-ray as patient would not answer any questions but chest x-ray with no acute infectious process - Did not seem to be tender when I was palpating his abdomen, was able to urinate in a urinal during my exam - Exam otherwise nonfocal so suspect underlying infection most likely urinary source - Given elevated lactic acid and significance of patient's tachycardia and temperature we will move patient to ICU, patient not hypotensive send indication for vasopressors, patient remigio stable can be changed to PCU status however still early in course this would benefit from closer monitoring #Renal colic - Status post right ureteral stent with Dr. Garcia 08/27/2025 - Management per primary #Type 2 diabetes mellitus -Glucose checks and sliding scale insulin -Hold home oral hypoglycemics #Chronic BPH with obstruction -Continue home medications #Hypertension - Hold due to the above #DVT ppx: SCDs Kenisha Mcgee MD Time spent in the patient's overall evaluation, decision-making process, review of diagnostic data, adjustment of management, discussion with other providers, nursing and ancillary staff involved in patient's care documentation, 62 Minutes HPI Consult Data Date of Consult: 08/27/25 HPI Narrative Reason for Consultation: Concern for sepsis HPI Narrative: ANDRIA HERNANDEZ, is a 55 y/o M w/ hx of DM II, HTN, BPH, kidney stone presented to [facility] 08/26/25 d/t severe renal colic. Per urology H&P he previously underwent ureteroscopy dilation of the ureter and stent placement for stone however no stone was found but had a very tight ureter so was dilated and stent was placed. Then had severe renal colic with stent so stent was taken out but he presented back to the office in more severe pain and a CAT scan demonstrated ureter with some ureteritis inflammation along the ureter with no stone but some mild hydronephrosis. He was admitted 08/26 for pain control. The following day plan was to send patient home however he was having more severe pain with nausea, vomiting, and chills so he underwent cystoscopy for right stent placement with Dr. Garcia. When he arrived to the floor after stent placement temp was 101.5, heart rate 140s and blood pressure 119/71. IV fluids at 125 an hour were still going and due to concerns for developing sepsis hospitalist contacted for consult. Patient evaluated bedside, temp 103, blood pressure in the 130 systolic but heart rate 140s to 150s with EKG revealing sinus tach. Patient irritable and uncooperative, would not answer specific questions and answered I do not know to every ROS question. Antibiotics broadened, cultures ordered and repeat labs obtained. [facility] Medical History Diabetes Kidney stones Hypertension Abdominal pain Abdominal hernia Home Medications ?Medication ?Instructions ?Recorded ?Last Taken ?Type amlodipine 5 mg tablet 5 mg PO DAILY bp 08/17/25 Unknown History glipizide 5 mg tablet 5 mg PO DAILY dm 08/17/25 Unknown History hydrocodone-acetaminophen 5-325mg 1 tab PO Q6H PRN PRN Pain 3 days 08/17/25 Unknown Rx 5mg-325mg #10 TABLETS metformin 500 mg tablet 500 mg PO BID dm 08/17/25 Unknown History ondansetron HCl 4 mg tablet 4 mg PO BID PRN PRN nausea and 08/17/25 Unknown History vomiting atorvastatin 20 mg tablet 20 mg PO DAILY cholesterol 08/25/25 Unknown History tamsulosin 0.4 mg capsule 0.4 mg PO DAILY bph 08/25/25 Unknown History ketorolac 10 mg tablet 10 mg PO Q6H #10 tabs 08/27/25 Unknown Rx Allergy/AdvReac Type Severity Reaction Status Date / Time Penicillins Allergy Severe Hives Verified 08/17/25 19:19 Family History Father Diabetes Heart disease Hypertension CVA (cerebral vascular accident) High cholesterol Surgical History History of eye surgery History of appendectomy Social History Smoking Status: Never smoker alcohol intake: current alcohol intake frequency: a few times a month substance use type: does not use ROS ROS Narrative Unable to obtain ROS secondary to patient's mental status and cooperation Physical Exam Narrative General: Patient awake but would not answer questions and only repeatedly said I do not know but unclear if there is component of confusion or reluctance of patient to participate in exam HEENT: Atraumatic, normocephalic Eyes: Anicteric, normal conjunctiva, extraocular movements grossly intact Neck: Supple Respiratory: Clear to auscultation bilaterally, slightly tachypneic Cardiovascular: Sinus tachycardia GI: Soft, nontender, nondistended Extremities: No edema Musculoskeletal: Moving all extremities Neuro: No overt focal neurological deficits Skin: No rashes appreciated Psych: Uncooperative Lab / Micro Data 08/27/25 18:07 08/27/25 18:07 Labs: Laboratory Results - last 24 hr 08/27/25 08:02: POC Glucose 275 H 08/27/25 12:12: POC Glucose 218 H 08/27/25 12:56: WBC 15.3 H, RBC 4.73, Hgb 13.7, Hct 38.7 L, MCV 81.8, MCH 29.0, MCHC 35.4, RDW Std Deviation 36.9, RDW Coeff of Mike 12.3, Plt Count 202, MPV 9.3, Immature Gran % (Auto) 0.300, Neut % (Auto) 93.1 H, Lymph % (Auto) 2.7 L, [place] % (Auto) 3.6, Eos % (Auto) 0.0, Baso % (Auto) 0.3, Absolute Neuts (auto) 14.3 H, Absolute Lymphs (auto) 0.41 L, Nucleated RBC % 0, Sodium 133, Potassium 4.1, Chloride 97 L, Carbon Dioxide 21.6, Anion Gap 15, BUN 13, Creatinine 1.41 H, Estim Creat Clear Calc 54.05, Est GFR (MDRD) Non-Af 59 L, BUN/Creatinine Ratio 9.5 L, Glucose 269 H, Calcium 8.6 08/27/25 13:58: POC Glucose 268 H Sepsis Attestation Sepsis Alert: Yes Sepsis Attestation: Agree w/Sepsis Date exam was performed: 08/27/25 Time exam was performed: 18:00 Possible Source of Sepsis: Genitourinary Sepsis Organ Dysfunction Criteria Present: Lactic Acid > 2 mmol/L, Serum CO2 < 20 mmol/L (on BMP) and New/Unexplained change in mental status Fluid Resuscitation Fluid resuscitation indicated?: Yes Fluid Resuscitation ordered: 30 ml/kg fluid bolus ordered Amount of fluid ordered: 2,500 Sepsis Note Date exam was performed: 08/27/25 Time exam was performed: 20:15 Sepsis Attestation: Sepsis re-evaluation was performed (Pt never became hypotensive, fluids ordered for elevated lactic acid, remains normotensive, no indication for vasopressors) Charges/Coding Visit Charges Office Visits / Consults: [id number] OV L5 Est 40min
[2025-08-27 18:40] LABS: Hematocrit 38.0 % (40-54); Hemoglobin 13.3 g/dL (13.0-16.5); Immature Granulocytes Count 0.060 X10^3/uL (0.0-0.0); Mean Corp Hgb Conc 35.0 g/dL (32-36); Mean Corpuscular Volume 81.0 fL (80-94); Mean Platelet Vol. 9.6 fl (6.2-12.0); NRBC Flagged by Analyzer 0 % (0-5); POSITIVE DIFFERENTIAL YES; Platelet Count 208 K/mm3 (150-450); RBC Distribution Width CV 12.5 % (11.6-14.6); RBC Distribution Width SD 36.2 fl (35.1-43.9); Red Blood Count 4.69 M/mm3 (4.6-6.2); White Blood Count 14.5 K/mm3 (4.4-11.0)
[2025-08-27 18:59] LABS: Prothrombin Time (Protime)PT. 15.8 SECONDS (11.7-14.9)
[2025-08-27 19:36] LABS: AST(SGOT) 17 U/L (<=37); Alanine Aminotransfer ALT/SGPT 8 U/L (<=46); Albumin, Serum 3.7 g/dL (3.5-5.0); Alkaline Phosphatase 53 U/L (40-129); Anion Gap 17 (5-15); BUN 13 mg/dL (4-19); BUN/Creat Ratio 9.9 RATIO (10-20); Calcium,Total 8.9 mg/dL (7.6-11.0); Carbon Dioxide 18.6 mmol/L (21.0-32.0); Chloride 98 mmol/L (98-108); Estimated Creatinine Clearance 56.87 ml/min (50-250); Globulin 2.8 g/dL (2.2-4.2); Glucose 265 mg/dL (70-99); Potassium 3.7 mmol/L (3.3-5.1)
[2025-08-27] MEDS: Cefepime HCl 2 GM in 0.9% Normal Saline (100mL MB+) 100 ML IV (20:02)
--- NOTE | 2025-08-27 20:33 | NURSING ---
Pt transferring to ICU due to sepsis per Dr. Mcgee. Report called to JON Pace.
[2025-08-27] MEDS: 0.9% Normal Saline (1000mL) 1,000 ML 999 ML IV ×3 (21:00→23:21)
[2025-08-27 22:33] LABS: Reflex Lactate? Y
[2025-08-28] VITALS (21 sets, daily range): BP systolic 105–146; BP diastolic 65–90; PULSE 74–93; RESP 12–20; TEMP 36.4–37.1; O2SAT 90–99; BMI 28.5
--- NOTE | 2025-08-28 00:05 | PCM.HOSP.N ---
Sepsis Attestation Sepsis Note Date exam was performed: 08/28/25 Time exam was performed: 00:06 Sepsis Attestation: Sepsis re-evaluation was performed Response to fluids: Fluid responsive hypotension (Pt did not have documented hypotension. Sepsis fluids infused for LA, which is now down to 1.8. )
[2025-08-28 03:20] LABS: Hematocrit 34.6 % (40-54); Hemoglobin 11.7 g/dL (13.0-16.5); Immature Granulocytes Count 0.040 X10^3/uL (0.0-0.0); Mean Corp Hgb Conc 33.8 g/dL (32-36); Mean Corpuscular Volume 82.2 fL (80-94); Mean Platelet Vol. 9.2 fl (6.2-12.0); NRBC Flagged by Analyzer 0 % (0-5); Platelet Count 158 K/mm3 (150-450); RBC Distribution Width CV 12.5 % (11.6-14.6); RBC Distribution Width SD 37.6 fl (35.1-43.9); Red Blood Count 4.21 M/mm3 (4.6-6.2); White Blood Count 8.9 K/mm3 (4.4-11.0)
[2025-08-28] MEDS: 0.9% Saline Lock 10 ML Syringe IV (03:20)
[2025-08-28 03:45] LABS: Anion Gap 8 (5-15); BUN 12 mg/dL (4-19); BUN/Creat Ratio 13.7 RATIO (10-20); Calcium,Total 8.1 mg/dL (7.6-11.0); Carbon Dioxide 24.1 mmol/L (21.0-32.0); Chloride 105 mmol/L (98-108); Estimated Creatinine Clearance 95.45 ml/min (50-250); Glucose 173 mg/dL (70-99); Potassium 3.8 mmol/L (3.3-5.1)
[2025-08-28] MEDS: Cefepime HCl 2 GM in 0.9% Normal Saline (100mL MB+) 100 ML IV ×3 (05:05→21:18)
[2025-08-28] MEDS: Lactated Ringers 1,000 ML 125 ML IV (05:06)
--- NOTE | 2025-08-28 07:32 | PCM.PN.GU ---
Subjective Subjective Status post stent placement last night we replaced a stent that was removed earlier this week but he had severe pain after the stent removal was admitted to the hospital for pain control but his pain continued start having fevers and chills I took him to surgery put a stent in afterwards he had developed symptoms criteria for sepsis he has been in the ICU for observation he is stable. Reports that his pain is much better continue with broad-spectrum antibiotics I did cultures of the urine while in surgery await the results of cultures Objective Data Objective Data Vital Signs: Vital Signs Temp Pulse Resp BP Pulse Ox O2 Del Method O2 Flow Rate 97.8 F 76 17 108/68 96 Room Air 2 08/28/25 03:00 08/28/25 07:00 08/28/25 07:00 08/28/25 07:00 08/28/25 07:00 08/28/25 07:00 08/28/25 04:00 Oxygen Flow Rate (L/min) 2 Oxygen Delivery Method Room Air Weight: 80.1 kg Body Mass Index (BMI) 28.5 Intake & Output: Intake and Output for Last 24 Hours 08/26/25 08/27/25 08/28/25 23:59 23:59 23:59 Intake Total 3698.75 / 3698.75 4920 / 4920 1600 / 1600 Output Total 700 / 700 550 / 550 Balance 3698.75 / 3698.75 4220 / 4220 1050 / 1050 Lab / Micro Data 08/28/25 03:14 08/28/25 03:14 Labs: Laboratory Results - last 24 hr 08/27/25 08:02: POC Glucose 275 H 08/27/25 12:12: POC Glucose 218 H 08/27/25 12:56: WBC 15.3 H, RBC 4.73, Hgb 13.7, Hct 38.7 L, MCV 81.8, MCH 29.0, MCHC 35.4, RDW Std Deviation 36.9, RDW Coeff of Mike 12.3, Plt Count 202, MPV 9.3, Immature Gran % (Auto) 0.300, Neut % (Auto) 93.1 H, Lymph % (Auto) 2.7 L, [place] % (Auto) 3.6, Eos % (Auto) 0.0, Baso % (Auto) 0.3, Absolute Neuts (auto) 14.3 H, Absolute Lymphs (auto) 0.41 L, Nucleated RBC % 0, Sodium 133, Potassium 4.1, Chloride 97 L, Carbon Dioxide 21.6, Anion Gap 15, BUN 13, Creatinine 1.41 H, Estim Creat Clear Calc 54.05, Est GFR (MDRD) Non-Af 59 L, BUN/Creatinine Ratio 9.5 L, Glucose 269 H, Calcium 8.6 08/27/25 13:58: POC Glucose 268 H 08/27/25 17:25: POC Glucose 259 H 08/27/25 18:07: WBC 14.5 H, RBC 4.69, Hgb 13.3, Hct 38.0 L, MCV 81.0, MCH 28.4, MCHC 35.0, RDW Std Deviation 36.2, RDW Coeff of Mike 12.5, Plt Count 208, MPV 9.6, Immature Gran % (Auto) 0.400, Neut % (Auto) 92.0 H, Lymph % (Auto) 3.0 L, [place] % (Auto) 4.4, Eos % (Auto) 0.1, Baso % (Auto) 0.1, Absolute Neuts (auto) 13.4 H, Absolute Lymphs (auto) 0.43 L, Nucleated RBC % 0, PT 15.8 H, INR 1.2, Sodium 134, Potassium 3.7, Chloride 98, Carbon Dioxide 18.6 L, Anion Gap 17 H, BUN 13, Creatinine 1.34 H, Estim Creat Clear Calc 56.87, Est GFR (MDRD) Non-Af 63, BUN/Creatinine Ratio 9.9 L, Glucose 265 H, Lactic Acid 5.2 H*, Calcium 8.9, Total Bilirubin 0.85, AST 17, ALT 8, Alkaline Phosphatase 53, Total Protein 6.5, Albumin 3.7, Globulin 2.8, Albumin/Globulin Ratio 1.3 08/27/25 21:56: POC Glucose 267 H 08/27/25 23:04: Lactic Acid 1.8 08/28/25 03:14: WBC 8.9, RBC 4.21 L, Hgb 11.7 L, Hct 34.6 L, MCV 82.2, MCH 27.8, MCHC 33.8, RDW Std Deviation 37.6, RDW Coeff of Mike 12.5, Plt Count 158, MPV 9.2, Immature Gran % (Auto) 0.400, Neut % (Auto) 86.0 H, Lymph % (Auto) 6.8 L, [place] % (Auto) 6.4, Eos % (Auto) 0.2, Baso % (Auto) 0.2, Absolute Neuts (auto) 7.7, Absolute Lymphs (auto) 0.61 L, Nucleated RBC % 0, Sodium 137, Potassium 3.8, Chloride 105, Carbon Dioxide 24.1, Anion Gap 8, BUN 12, Creatinine 0.88, Estim Creat Clear Calc 95.45, Est GFR (MDRD) Non-Af 102, BUN/Creatinine Ratio 13.7, Glucose 173 H, Calcium 8.1 08/28/25 03:54: POC Glucose 186 H 08/28/25 05:32: POC Glucose 203 H Radiography Diagnostic Testing: Radiology Impression Chest X-Ray 08/27/25 17:50 IMPRESSION: Suboptimal inspiration. No appreciable airspace consolidation or pleural effusion. Reading Location: [id number]
--- NOTE | 2025-08-28 09:41 | PN.HOSP_ITS ---
Reason for Visit
--- NOTE | 2025-08-28 09:41 | PCM.PN.HOSP ---
Reason for Visit Chief Complaint: Renal colic Subjective Subjective Saw patient at bedside this morning. Patient was resting comfortably in bed and in no acute distress. He did report some generalized fatigue and myalgias this morning, improved from yesterday. Denies any significant abdominal pain or discomfort. No other acute concerns this morning. Objective Data Objective Data Vital Signs: Vital Signs Temp Pulse Resp BP Pulse Ox O2 Del Method O2 Flow Rate 97.8 F 76 17 108/68 96 Room Air 2 08/28/25 03:00 08/28/25 07:00 08/28/25 07:00 08/28/25 07:00 08/28/25 07:00 08/28/25 07:00 08/28/25 04:00 Oxygen Flow Rate (L/min) 2 Oxygen Delivery Method Room Air Weight: 80.1 kg Body Mass Index (BMI) 28.5 Intake & Output: Intake and Output for Last 24 Hours 08/26/25 08/27/25 08/28/25 23:59 23:59 23:59 Intake Total 3698.75 / 3698.75 4920 / 4920 1600 / 1600 Output Total 700 / 700 550 / 550 Balance 3698.75 / 3698.75 4220 / 4220 1050 / 1050 Lab / Micro Data 08/28/25 03:14 08/28/25 03:14 Labs: Laboratory Results - last 24 hr 08/27/25 12:12: POC Glucose 218 H 08/27/25 12:56: WBC 15.3 H, RBC 4.73, Hgb 13.7, Hct 38.7 L, MCV 81.8, MCH 29.0, MCHC 35.4, RDW Std Deviation 36.9, RDW Coeff of Mike 12.3, Plt Count 202, MPV 9.3, Immature Gran % (Auto) 0.300, Neut % (Auto) 93.1 H, Lymph % (Auto) 2.7 L, [place] % (Auto) 3.6, Eos % (Auto) 0.0, Baso % (Auto) 0.3, Absolute Neuts (auto) 14.3 H, Absolute Lymphs (auto) 0.41 L, Nucleated RBC % 0, Sodium 133, Potassium 4.1, Chloride 97 L, Carbon Dioxide 21.6, Anion Gap 15, BUN 13, Creatinine 1.41 H, Estim Creat Clear Calc 54.05, Est GFR (MDRD) Non-Af 59 L, BUN/Creatinine Ratio 9.5 L, Glucose 269 H, Calcium 8.6 08/27/25 13:58: POC Glucose 268 H 08/27/25 17:25: POC Glucose 259 H 08/27/25 18:07: WBC 14.5 H, RBC 4.69, Hgb 13.3, Hct 38.0 L, MCV 81.0, MCH 28.4, MCHC 35.0, RDW Std Deviation 36.2, RDW Coeff of Mike 12.5, Plt Count 208, MPV 9.6, Immature Gran % (Auto) 0.400, Neut % (Auto) 92.0 H, Lymph % (Auto) 3.0 L, [place] % (Auto) 4.4, Eos % (Auto) 0.1, Baso % (Auto) 0.1, Absolute Neuts (auto) 13.4 H, Absolute Lymphs (auto) 0.43 L, Nucleated RBC % 0, PT 15.8 H, INR 1.2, Sodium 134, Potassium 3.7, Chloride 98, Carbon Dioxide 18.6 L, Anion Gap 17 H, BUN 13, Creatinine 1.34 H, Estim Creat Clear Calc 56.87, Est GFR (MDRD) Non-Af 63, BUN/Creatinine Ratio 9.9 L, Glucose 265 H, Lactic Acid 5.2 H*, Calcium 8.9, Total Bilirubin 0.85, AST 17, ALT 8, Alkaline Phosphatase 53, Total Protein 6.5, Albumin 3.7, Globulin 2.8, Albumin/Globulin Ratio 1.3 08/27/25 21:56: POC Glucose 267 H 08/27/25 23:04: Lactic Acid 1.8 08/28/25 03:14: WBC 8.9, RBC 4.21 L, Hgb 11.7 L, Hct 34.6 L, MCV 82.2, MCH 27.8, MCHC 33.8, RDW Std Deviation 37.6, RDW Coeff of Mike 12.5, Plt Count 158, MPV 9.2, Immature Gran % (Auto) 0.400, Neut % (Auto) 86.0 H, Lymph % (Auto) 6.8 L, [place] % (Auto) 6.4, Eos % (Auto) 0.2, Baso % (Auto) 0.2, Absolute Neuts (auto) 7.7, Absolute Lymphs (auto) 0.61 L, Nucleated RBC % 0, Sodium 137, Potassium 3.8, Chloride 105, Carbon Dioxide 24.1, Anion Gap 8, BUN 12, Creatinine 0.88, Estim Creat Clear Calc 95.45, Est GFR (MDRD) Non-Af 102, BUN/Creatinine Ratio 13.7, Glucose 173 H, Calcium 8.1 08/28/25 03:54: POC Glucose 186 H 08/28/25 05:32: POC Glucose 203 H Radiography Diagnostic Testing: Radiology Impression Chest X-Ray 08/27/25 17:50 IMPRESSION: Suboptimal inspiration. No appreciable airspace consolidation or pleural effusion. Reading Location: [facility] Physical Exam Const alert, oriented x3, no apparent distress and average body habitus Constitutional Narrative: Middle-age male, mildly fatigued appearing, otherwise laying back comfortably in bed, conversing normally, in no acute distress. General Appearance: cooperative and comfortable HEENT normocephalic, head/scalp atraumatic, hearing grossly normal bilaterally, nasal mucous membranes and turbinates normal and moist oral mucous membranes Eyes PERRL, EOMs intact bilaterally and conjunctivae normal Neck full ROM Chest inspection of chest normal Resp normal respiratory effort, normal air movement, no use of accessory muscles and clear to auscultation bilaterally Cardio regular rate, regular rhythm, no murmurs and peripheral pulses 2+ throughout GI normal to inspection, nondistended, normoactive bowel sounds, soft to palpation, non-tender and non-distended Bladder / Kidney Exam: bladder normal to palpation and no CVA tenderness Back/Spine normal ROM Extremity normal to inspection, full ROM and no pedal edema Skin no rashes or lesions noted Psych mental status grossly normal Assessment & Plan Assessment/Plan (1) Sepsis: PLAN: Plan Patient is a 55-year-old male who presented to [facility] on 08/27/2025 for ongoing right ureteral spasms and right ureteritis. Urology primary, cystoscopy with right ureteral stent placement done on 08/27. Given concern for sepsis postop placement, patient was admitted to the ICU and hospitalist was consulted for medical management. 1. Sepsis secondary to UTI, improving ? Urology primary. Had right ureteral stent placement on 08/27. Met sepsis criteria postoperatively with lactic acid 5.2, temp 103F, tachycardia, tachypnea and leukocytosis in setting of UTI. Given 30 cc/kg of IV fluids and patient blood pressure remained stable, has not required any pressors. Lactic acid resolved with IV fluid resuscitation and patient hemodynamically stable and clinically much improved on hospital day 2. Urine culture pending. Will continue to treat with IV cefepime for now. Patient stable for transfer to [facility] at this time. 2. Right ureteral spasms with right ureteritis and renal colic ? Urology primary as above. Had right ureteral stent placement on 08/27 for ongoing right ureteral spasms and right ureteritis with renal colic as above. Has had adequate urine output since the procedure. Further management per urology. Continue home Flomax. 3. ANA, resolved ? Creatinine 1.34 postoperatively, improved back to baseline 0.8 on hospital day 2 after IV fluid resuscitation. 4. Poorly controlled type 2 diabetes mellitus ? A1c 12.3% on 07/24. No prior A1c is available in our system. Home regimen of only glipizide 5 mg daily and metformin 500 twice daily. Patient with decreased p.o. intake to this point given sepsis as above. Okay to treat with sign scale insulin with meals as needed for now. Will need to discuss appropriate regimen for patient on discharge and patient will need close outpatient follow-up with PCP and would recommend establishing with endocrinology. 5. Hypertension/hyperlipidemia ? Holding amlodipine given sepsis as above. Okay to continue home atorvastatin. DVT prophylaxis: Lovenox Total clinical time spent by myself addressing the patient's medical issues, reviewing all the data, and collaborating with patient's care team: 37 minutes. Charges/Coding Visit Charges Inpatient E&M: 21553 Subs Hosp L2
--- NOTE | 2025-08-28 13:11 | CHAPLAIN ---
Type of Pastoral Visit ___ Initial Visit _x__ Follow-up Visit ___ On-call Visit ___ General Patient Visit ___ Spiritual Assessment ___ Family Conference ___ Bereavement ___ Rapid Response ___ Code Blue ___ Other (describe below) Pastoral Care Referral From _x__ Patient _x__ Family ___ Nurse ___ Physician ___ Motor Driver ___ Surgical Appliances Salesperson ___ Other (describe below) Sacrament/Intervention _x__ Active listening ___ Anointing ___ Buddhist ___ Bereavement ___ Communion ___ Diana exploration ___ _x__ Life review _x__ Prayer ___ Reconciliation ___ Sacrament of Sick _x__ Supportive presence ___ Wedding ___ Other (describe below) Pastoral Comments patient's condition declined and thus he had been moved to ICU since previously seen earlier this week; spouse is with him; pt realizes that he was gravely ill and speaks of his thoughts and feelings; spouse is also interactive in the conversation and concerned but optimistic now; presence and prayer welcomed
--- NOTE | 2025-08-28 15:57 | CASEMGMT ---
Social Work SW?to room to meet with patient for initial transition planning/care coordination?assessment.?SW?introduced self and role at [facility].? Pt voices understanding and consents to?assessment.? Pt is A/Ox4 and answers all questions appropriately.?? Care providers, pharmacy, and demographics verified. PCP: Alycia Specialists: Jose, urology Preferred [facility]acy: [facility] Insurance: [employer] Prescription Benefit:?yes Living Will/HPOA:?No. Pt would like additional information. SW to follow up LNOK: Pt Terrie and son Ronny Living Arrangements: Pt lives in a split level home with 2 steps in and steps throughout. 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 Transportation:?Pt drives DME: ? none HHC/SNF: none PLAN: Pt denies any concerns with returning home at time of discharge and denies all dc needs. SW/RNCM to follow if DC needs arise. SW will followup for advance directives. KENTON Cisneros
[2025-08-28] MEDS: 0.9% Normal Saline (250mL Bag) 250 ML 15 ML IV (21:18)
[2025-08-29 04:43] VITALS: BP 141/88; PULSE 84; RESP 15; TEMP 37.3; O2SAT 97
[2025-08-29] MEDS: Cefepime HCl 2 GM in 0.9% Normal Saline (100mL MB+) 100 ML IV ×3 (04:52→21:38)
[2025-08-29 06:05] LABS: Hematocrit 34.5 % (40-54); Hemoglobin 12.1 g/dL (13.0-16.5); Immature Granulocytes Count 0.030 X10^3/uL (0.0-0.0); Mean Corp Hgb Conc 35.1 g/dL (32-36); Mean Corpuscular Volume 79.9 fL (80-94); Mean Platelet Vol. 10.0 fl (6.2-12.0); NRBC Flagged by Analyzer 0 % (0-5); Platelet Count 165 K/mm3 (150-450); RBC Distribution Width CV 12.2 % (11.6-14.6); RBC Distribution Width SD 35.5 fl (35.1-43.9); Red Blood Count 4.32 M/mm3 (4.6-6.2); White Blood Count 6.3 K/mm3 (4.4-11.0)
[2025-08-29 06:27] LABS: Anion Gap 9 (5-15); BUN 7 mg/dL (4-19); BUN/Creat Ratio 11.9 RATIO (10-20); Calcium,Total 8.4 mg/dL (7.6-11.0); Carbon Dioxide 23.1 mmol/L (21.0-32.0); Chloride 100 mmol/L (98-108); Estimated Creatinine Clearance 135.47 ml/min (50-250); Glucose 195 mg/dL (70-99); Potassium 4.1 mmol/L (3.3-5.1)
[2025-08-29 06:40] VITALS: PULSE 86; RESP 15; TEMP 37.2; O2SAT 98
[2025-08-29 09:39] VITALS: BP 118/83; PULSE 80; RESP 16; TEMP 36.7; O2SAT 99
--- NOTE | 2025-08-29 11:25 | CASEMGMT ---
Social Work SW met w/pt regarding completing LW/POA. Pt declined to complete documents at this time. SW reviewed the documents w/pt, and provided to pt blank copies with the rack card to call the SW dept should he want assistance to complete the documents in the future as an outpt. TIO Sherman
--- NOTE | 2025-08-29 12:27 | DCINST_ITS ---
Discharge Instructions
--- NOTE | 2025-08-29 12:27 | PCM.DC ---
Discharge Instructions DC O2, CPAP, BIPAP needs Home O2 Discharge instructions: No Dressing / Incision Discharge Activity: Return to Normal Activity and May Not Drive (while taking narcotic pain medications.) Dressing / Incision Call your doctor if you observe: Fever of 101 or Higher Follow Up Care Please Follow Up With: Zachariah Garcia MD When: Call [phone] for an appointment, 2 weeks to remove stent Test Results: Test results from this visit will be discussed in further detail at your follow-up appointment, if applicable. Discharge Plan Admission Admit Date/Time: 08/25/25 16:19 Primary Reason for Your Visit: Ureteral spasms Attending Provider: Zachariah Garcia Primary Care Provider: Ronald Tong Consulting Providers: Kenisha Mcgee; Anthony Jaime; Lucho Maki Discharge Orders/Prescriptions Prescriptions: New ketorolac 10 mg tablet 10 mg PO Q6H Qty: 10 0RF Rx Instructions: maximum total duration of 5 days from all oral, intranasal, or parenteral formulations Continued amlodipine 5 mg tablet 5 mg PO DAILY metformin 500 mg tablet 500 mg PO BID ondansetron HCl 4 mg tablet 4 mg PO BID PRN PRN (Reason: nausea and vomiting) glipizide 5 mg tablet 5 mg PO DAILY hydrocodone-acetaminophen 5-325 mg tablet 1 tab PO Q6H PRN PRN (Reason: Pain) 3 Days Qty: 10 0RF atorvastatin 20 mg tablet 20 mg PO DAILY tamsulosin 0.4 mg capsule 0.4 mg PO DAILY Referrals / Follow Up: Ronald Tong MD [Primary Care Provider, Family Practice] Zachariah Garcia MD [Med Staff - Active Staff, Urology] Disposition Disposition (needs filled in before D/C Order can be placed): Home, Self Care
--- NOTE | 2025-08-29 12:28 | PCM.DC.SUM ---
Providers Date of Admission: 08/25/25 Primary Care Physician: Ronald Tong MD Consultations 08/27/25 15:03 Consult: Hospitalist Routine Consulting Provider: [facility] Reason for Consult: medical manegment EMERGENT Consult: No MD Notified: Yes Date Notified: 08/27/25 Time Notified: 17:25 Method of Notification: Text Reason For Visit: KIDNEY SPASM/PAIN Diagnosis Discharge Diagnosis (1) Sepsis: Status: Acute Code(s): A41.9 - Sepsis, unspecified organism Medications at Discharge Home Medications amlodipine 5 mg tablet 5 mg PO DAILY bp 08/17/25 glipizide 5 mg tablet 5 mg PO DAILY dm 08/17/25 hydrocodone-acetaminophen 5-325mg 5mg-325mg 1 tab PO Q6H PRN PRN Pain 3 days #10 TABLETS 08/17/25 metformin 500 mg tablet 500 mg PO BID dm 08/17/25 ondansetron HCl 4 mg tablet 4 mg PO BID PRN PRN nausea and vomiting 08/17/25 atorvastatin 20 mg tablet 20 mg PO DAILY cholesterol 08/25/25 tamsulosin 0.4 mg capsule 0.4 mg PO DAILY bph 08/25/25 ketorolac 10 mg tablet 10 mg PO Q6H #10 tabs 08/27/25 Hospital Course Summary of Care Provided Hospital Course: 55-year-old male who underwent ureteroscopic and stent placement for stone on the right side no stone was seen at the time he then came to my office with severe colic from the stent so the stent was removed in the office but he had more pain afterward so he was admitted to the hospital for pain control. He was about to go home to begin a discharge and but then he spiked a fever for fevers and chills and had signs of sepsis so he underwent stent placement after the stent placement he went up in the ICU with sepsis as lactate was elevated cultures came back positive from the blood he was managed by the hospitalist and at this point now he is stabilized and will go home he has a stent in place I will see him in 2 weeks for stent removal and we will keep him on antibiotics and discharge. Weight / BMI Weight Weight: 80.1 kg Body Mass Index (BMI) 28.5 ABG / Lab / Microbiology Data 08/29/25 05:07 08/29/25 05:07 Laboratory: Laboratory Results - last 24 hr 08/28/25 17:15: POC Glucose 279 H 08/28/25 22:28: POC Glucose 207 H 08/29/25 04:45: POC Glucose 192 H 08/29/25 05:07: WBC 6.3, RBC 4.32 L, Hgb 12.1 L, Hct 34.5 L, MCV 79.9 L, MCH 28.0, MCHC 35.1, RDW Std Deviation 35.5, RDW Coeff of Mike 12.2, Plt Count 165, MPV 10.0, Immature Gran % (Auto) 0.500, Neut % (Auto) 75.1 H, Lymph % (Auto) 13.6 L, [place] % (Auto) 10.0, Eos % (Auto) 0.5, Baso % (Auto) 0.3, Absolute Neuts (auto) 4.7, Absolute Lymphs (auto) 0.86, Nucleated RBC % 0, Sodium 133, Potassium 4.1, Chloride 100, Carbon Dioxide 23.1, Anion Gap 9, BUN 7, Creatinine 0.62 L, Estim Creat Clear Calc 135.47, Est GFR (MDRD) Non-Af 114, BUN/Creatinine Ratio 11.9, Glucose 195 H, Calcium 8.4 08/29/25 06:43: POC Glucose 193 H 08/29/25 11:23: POC Glucose 229 H Microbiology: Microbiology 08/27/25 Unknown Urine, Catheterized Urine Culture - 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 D/C Instructions Call your doctor if you observe: Fever of 101 or Higher DC O2, CPAP, BIPAP Needs Home O2 Discharge instructions: No Please Follow Up With: Zachariah Garcia MD When: Call [phone] for an appointment, 2 weeks to remove stent Meaningful Use Info Meaningful Use Meaningful Use Diagnoses (Choose all that apply): None applicable Discharge Plan Admission Admit Date/Time: 08/25/25 16:19 Primary Reason for Your Visit: Ureteral spasms Attending Provider: Zachariah Garcia Primary Care Provider: Ronald Tong Consulting Providers: Kenisha Mcgee; Anthony Jaime; Lucho Maki Discharge Orders/Prescriptions Prescriptions: New ketorolac 10 mg tablet 10 mg PO Q6H Qty: 10 0RF Rx Instructions: maximum total duration of 5 days from all oral, intranasal, or parenteral formulations Continued amlodipine 5 mg tablet 5 mg PO DAILY metformin 500 mg tablet 500 mg PO BID ondansetron HCl 4 mg tablet 4 mg PO BID PRN PRN (Reason: nausea and vomiting) glipizide 5 mg tablet 5 mg PO DAILY hydrocodone-acetaminophen 5-325 mg tablet 1 tab PO Q6H PRN PRN (Reason: Pain) 3 Days Qty: 10 0RF atorvastatin 20 mg tablet 20 mg PO DAILY tamsulosin 0.4 mg capsule 0.4 mg PO DAILY Referrals / Follow Up: Ronald Tong MD [Primary Care Provider, Family Practice] Zachariah Garcia MD [Med Staff - Active Staff, Urology] Disposition Disposition (needs filled in before D/C Order can be placed): Home, Self Care
--- NOTE | 2025-08-29 12:54 | PCM.PN.GU ---
Subjective Subjective clinically dong better wait to discharge once sens back. maybe home tomorrow Objective Data Objective Data Vital Signs: Vital Signs Temp Pulse Resp BP Pulse Ox O2 Del Method O2 Flow Rate 98.1 F 80 16 118/83 H 99 Room Air 2 08/29/25 09:39 08/29/25 09:39 08/29/25 09:39 08/29/25 09:39 08/29/25 09:39 08/29/25 09:39 08/28/25 04:00 Oxygen Flow Rate (L/min) 2 Oxygen Delivery Method Room Air Weight: 80.1 kg Body Mass Index (BMI) 28.5 Intake & Output: Intake and Output for Last 24 Hours 08/27/25 08/28/25 08/29/25 23:59 23:59 23:59 Intake Total 4920 / 4920 3050 / 3050 100 / 100 Output Total 700 / 700 1350 / 1350 Balance 4220 / 4220 1700 / 1700 100 / 100 Lab / Micro Data 08/29/25 05:07 08/29/25 05:07 Labs: Laboratory Results - last 24 hr 08/28/25 17:15: POC Glucose 279 H 08/28/25 22:28: POC Glucose 207 H 08/29/25 04:45: POC Glucose 192 H 08/29/25 05:07: WBC 6.3, RBC 4.32 L, Hgb 12.1 L, Hct 34.5 L, MCV 79.9 L, MCH 28.0, MCHC 35.1, RDW Std Deviation 35.5, RDW Coeff of Mike 12.2, Plt Count 165, MPV 10.0, Immature Gran % (Auto) 0.500, Neut % (Auto) 75.1 H, Lymph % (Auto) 13.6 L, [place] % (Auto) 10.0, Eos % (Auto) 0.5, Baso % (Auto) 0.3, Absolute Neuts (auto) 4.7, Absolute Lymphs (auto) 0.86, Nucleated RBC % 0, Sodium 133, Potassium 4.1, Chloride 100, Carbon Dioxide 23.1, Anion Gap 9, BUN 7, Creatinine 0.62 L, Estim Creat Clear Calc 135.47, Est GFR (MDRD) Non-Af 114, BUN/Creatinine Ratio 11.9, Glucose 195 H, Calcium 8.4 08/29/25 06:43: POC Glucose 193 H 08/29/25 11:23: POC Glucose 229 H Micro: Microbiology 08/27/25 18:11 Blood Culture (Wb) - Left Wrist Blood Culture - Preliminary Gram negative kimi 08/27/25 18:07 Blood Culture (Wb) - Anticubital Left Blood Culture - Preliminary Gram negative kimi 08/27/25 Unknown Urine, Catheterized Urine Culture - Preliminary GNR 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
--- NOTE | 2025-08-29 12:59 | PN.HOSP_ITS ---
Reason for Visit
--- NOTE | 2025-08-29 12:59 | PCM.PN.HOSP ---
Reason for Visit Chief Complaint: Renal colic Subjective Subjective Saw patient bedside this morning. Patient remained fatigued appearing but otherwise was laying back comfortably in bed and in no acute distress. No other new concerns morning. Objective Data Objective Data Vital Signs: Vital Signs Temp Pulse Resp BP Pulse Ox O2 Del Method O2 Flow Rate 98.1 F 80 16 118/83 H 99 Room Air 2 08/29/25 09:39 08/29/25 09:39 08/29/25 09:39 08/29/25 09:39 08/29/25 09:39 08/29/25 09:39 08/28/25 04:00 Oxygen Flow Rate (L/min) 2 Oxygen Delivery Method Room Air Weight: 80.1 kg Body Mass Index (BMI) 28.5 Intake & Output: Intake and Output for Last 24 Hours 08/27/25 08/28/25 08/29/25 23:59 23:59 23:59 Intake Total 4920 / 4920 3050 / 3050 100 / 100 Output Total 700 / 700 1350 / 1350 Balance 4220 / 4220 1700 / 1700 100 / 100 Lab / Micro Data 08/29/25 05:07 08/29/25 05:07 Labs: Laboratory Results - last 24 hr 08/28/25 17:15: POC Glucose 279 H 08/28/25 22:28: POC Glucose 207 H 08/29/25 04:45: POC Glucose 192 H 08/29/25 05:07: WBC 6.3, RBC 4.32 L, Hgb 12.1 L, Hct 34.5 L, MCV 79.9 L, MCH 28.0, MCHC 35.1, RDW Std Deviation 35.5, RDW Coeff of Mike 12.2, Plt Count 165, MPV 10.0, Immature Gran % (Auto) 0.500, Neut % (Auto) 75.1 H, Lymph % (Auto) 13.6 L, [place] % (Auto) 10.0, Eos % (Auto) 0.5, Baso % (Auto) 0.3, Absolute Neuts (auto) 4.7, Absolute Lymphs (auto) 0.86, Nucleated RBC % 0, Sodium 133, Potassium 4.1, Chloride 100, Carbon Dioxide 23.1, Anion Gap 9, BUN 7, Creatinine 0.62 L, Estim Creat Clear Calc 135.47, Est GFR (MDRD) Non-Af 114, BUN/Creatinine Ratio 11.9, Glucose 195 H, Calcium 8.4 08/29/25 06:43: POC Glucose 193 H 08/29/25 11:23: POC Glucose 229 H Micro: Microbiology 08/27/25 18:11 Blood Culture (Wb) - Left Wrist Blood Culture - Preliminary Gram negative kimi 08/27/25 18:07 Blood Culture (Wb) - Anticubital Left Blood Culture - Preliminary Gram negative kimi 08/27/25 Unknown Urine, Catheterized Urine Culture - Preliminary GNR lactose bilingual manager 08/27/25 22:37 Urine, Clean Catch Urine Culture - Preliminary Culture exhibits no growth. Physical Exam Const alert, oriented x3, no apparent distress and average body habitus Constitutional Narrative: Middle-age male, mildly fatigued appearing, otherwise laying back comfortably in bed, conversing normally, in no acute distress. Stable. General Appearance: cooperative and comfortable HEENT normocephalic, head/scalp atraumatic, hearing grossly normal bilaterally, nasal mucous membranes and turbinates normal and moist oral mucous membranes Eyes PERRL, EOMs intact bilaterally and conjunctivae normal Neck full ROM Chest inspection of chest normal Resp normal respiratory effort, normal air movement, no use of accessory muscles and clear to auscultation bilaterally Cardio regular rate, regular rhythm, no murmurs and peripheral pulses 2+ throughout GI normal to inspection, nondistended, normoactive bowel sounds, soft to palpation, non-tender and non-distended Bladder / Kidney Exam: bladder normal to palpation and no CVA tenderness Back/Spine normal ROM Extremity normal to inspection, full ROM and no pedal edema Skin no rashes or lesions noted Psych mental status grossly normal Assessment & Plan Assessment/Plan (1) Sepsis: PLAN: Plan Patient is a 55-year-old male who presented to [facility] on 08/27/2025 for ongoing right ureteral spasms and right ureteritis. Urology primary, cystoscopy with right ureteral stent placement done on 08/27. Given concern for sepsis postop placement, patient was admitted to the ICU and hospitalist was consulted for medical management. 1. Sepsis secondary to gram-negative bacteremia in setting of UTI ? Urology primary. Had right ureteral stent placement on 08/27. Met sepsis criteria postoperatively with lactic acid 5.2, temp 103F, tachycardia, tachypnea and leukocytosis in setting of UTI. Given 30 cc/kg of IV fluids and patient blood pressure remained stable, has not required any pressors. Lactic acid resolved with IV fluid resuscitation and patient hemodynamically stable and clinically much improved on hospital day 2. Stable for transfer to [facility] on 08/28. Blood cultures +2/2 and urine culture prelim positive for gram-negative rods. Will continue to treat with IV cefepime for now, follow-up final cultures. 2. Right ureteral spasms with right ureteritis and renal colic ? Urology primary as above. Had right ureteral stent placement on 08/27 for ongoing right ureteral spasms and right ureteritis with renal colic as above. Has had adequate urine output since the procedure. Further management per urology. Continue home Flomax. 3. ANA, resolved ? Creatinine 1.34 postoperatively, improved back to baseline 0.8 on hospital day 2 after IV fluid resuscitation. 4. Poorly controlled type 2 diabetes mellitus ? A1c 12.3% on 07/24. No prior A1c is available in our system. Home regimen of only glipizide 5 mg daily and metformin 500 twice daily. Patient with decreased p.o. intake to this point given sepsis as above. Okay to treat with sign scale insulin with meals as needed for now. Will need to discuss appropriate regimen for patient on discharge and patient will need close outpatient follow-up with PCP and would recommend establishing with endocrinology. 5. Hypertension/hyperlipidemia ? Holding amlodipine given sepsis as above. Okay to continue home atorvastatin. DVT prophylaxis: Lovenox Total clinical time spent by myself addressing the patient's medical issues, reviewing all the data, and collaborating with patient's care team: 37 minutes. Charges/Coding Visit Charges Inpatient E&M: 60583 Subs Hosp L2
[2025-08-29 15:30] VITALS: BP 128/83; PULSE 76; RESP 16; TEMP 36.9; O2SAT 98
[2025-08-29 20:12] LABS: Mucous, Urine 0 SEEN /hpf (<or=2+); Squamous Epithelial Cells - UA 0 SEEN /hpf (0-5)
[2025-08-29 20:20] LABS: Color, Urine Red (Yellow); Glucose, Dipstick 1000 mg/dl (Normal); Ketone-Dipstick 5 mg/dl (Negative); Leukocyte Esterase-Dipstick 100 /ul (Negative); Nitrite-Dipstick Positive (Negative); Occult Blood-Urine 250 /ul (Negative); Protein-Dipstick 100 mg/dl (Negative); Specific Gravity, Urine 1.015 (1.002-1.030); Urine Bilirubin Dipstick Negative (Negative)
[2025-08-29 20:29] LABS: Red Blood Cells-Urine > 100 SEEN /hpf (0-5)
[2025-08-29 21:37] VITALS: BP 136/82; PULSE 84; RESP 16; TEMP 36.7; O2SAT 97
[2025-08-30 03:44] VITALS: BP 137/86; PULSE 79; RESP 16; TEMP 36.7; O2SAT 97
[2025-08-30 05:41] VITALS: BMI 26.9
[2025-08-30] MEDS: Cefepime HCl 2 GM in 0.9% Normal Saline (100mL MB+) 100 ML IV (06:24)
[2025-08-30 06:56] LABS: Hematocrit 36.3 % (40-54); Hemoglobin 12.9 g/dL (13.0-16.5); Immature Granulocytes Count 0.050 X10^3/uL (0.0-0.0); Mean Corp Hgb Conc 35.5 g/dL (32-36); Mean Corpuscular Volume 79.8 fL (80-94); Mean Platelet Vol. 9.6 fl (6.2-12.0); NRBC Flagged by Analyzer 0 % (0-5); Platelet Count 215 K/mm3 (150-450); RBC Distribution Width CV 12.4 % (11.6-14.6); RBC Distribution Width SD 35.6 fl (35.1-43.9); Red Blood Count 4.55 M/mm3 (4.6-6.2); White Blood Count 6.6 K/mm3 (4.4-11.0)
--- NOTE | 2025-08-30 07:16 | PCM.PN.GU ---
Subjective Subjective home today w antibioics doing well. Objective Data Objective Data Vital Signs: Vital Signs Temp Pulse Resp BP Pulse Ox O2 Del Method O2 Flow Rate 98.1 F 79 16 137/86 H 97 Room Air 2 08/30/25 03:44 08/30/25 03:44 08/30/25 03:44 08/30/25 03:44 08/30/25 03:44 08/30/25 03:44 08/28/25 04:00 Oxygen Flow Rate (L/min) 2 Oxygen Delivery Method Room Air Weight: 75.6 kg Body Mass Index (BMI) 26.9 Intake & Output: Intake and Output for Last 24 Hours 08/28/25 08/29/25 08/30/25 23:59 23:59 23:59 Intake Total 3050 / 3050 750 / 850 100 / 100 Output Total 1350 / 1350 1100 / 1100 Balance 1700 / 1700 -350 / -250 100 / 100 Lab / Micro Data 08/30/25 06:45 08/29/25 05:07 Labs: Laboratory Results - last 24 hr 08/29/25 11:23: POC Glucose 229 H 08/29/25 16:11: POC Glucose 210 H 08/29/25 20:00: Urine Color Red, Urine Clarity Turbid, Urine pH 8.0, Ur Specific [place] 1.015, Urine Protein 100 H, Urine Glucose (UA) 1000 H, Urine Ketones 5 H, Urine Occult Blood 250 H, Urine Nitrite Positive H, Urine Bilirubin Negative, Urine Urobilinogen 1 H, Ur Leukocyte Esterase 100 H, Urine RBC > 100 SEEN, Urine WBC 5-10 SEEN, Ur Squamous Epith Cells 0 SEEN, Urine Bacteria 1+, Urine Mucus 0 SEEN 08/29/25 21:42: POC Glucose 349 H 08/30/25 06:27: POC Glucose 197 H 08/30/25 06:45: WBC 6.6, RBC 4.55 L, Hgb 12.9 L, Hct 36.3 L, MCV 79.8 L, MCH 28.4, MCHC 35.5, RDW Std Deviation 35.6, RDW Coeff of [place] 12.4, Plt Count 215, MPV 9.6, Immature Gran % (Auto) 0.800, Neut % (Auto) 58.3, Lymph % (Auto) 27.2, [place] % (Auto) 11.4 H, Eos % (Auto) 2.0, Baso % (Auto) 0.3, Absolute Neuts (auto) 3.8, Absolute Lymphs (auto) 1.79, Nucleated RBC % 0 Micro: Microbiology 08/27/25 18:11 Blood Culture (Wb) - Left Wrist Blood Culture - Preliminary Gram negative kimi 08/27/25 18:07 Blood Culture (Wb) - Anticubital Left Blood Culture - Preliminary Gram negative kimi 08/27/25 Unknown Urine, Catheterized Urine Culture - Preliminary GNR lactose payroll consultant 08/27/25 22:37 Urine, Clean Catch Urine Culture - Preliminary Culture exhibits no growth.
[2025-08-30 07:21] LABS: Anion Gap 10 (5-15); BUN 9 mg/dL (4-19); BUN/Creat Ratio 14.6 RATIO (10-20); Calcium,Total 8.7 mg/dL (7.6-11.0); Carbon Dioxide 23.8 mmol/L (21.0-32.0); Chloride 103 mmol/L (98-108); Estimated Creatinine Clearance 119.07 ml/min (50-250); Glucose 228 mg/dL (70-99); Potassium 3.8 mmol/L (3.3-5.1)
[2025-08-30 08:45] VITALS: BP 138/84; PULSE 76; RESP 17; TEMP 36.4; O2SAT 100
== END 2025-08-30 14:16 | disposition home or self-care (01) | DRG 659 ==
LOC: MS3 08-28 16:50 → ICU 08-29 14:42
PROVIDERS: Internal Medicine; Admitting Provider Urology; PCP Family Medicine; Referring Provider Urology; Visit Provider Urology
PROC: 0T768DZ Dilation of Right Ureter with Intraluminal Device, Via Natural or Artificial Opening Endoscopic (ICD-10-PCS; principal; 2025-08-27 15:50)
DX: N13.6 Pyonephrosis (principal); G93.41 Metabolic encephalopathy; A41.59 Other Gram-negative sepsis; N13.8 Other obstructive and reflux uropathy; E11.65 Type 2 diabetes mellitus with hyperglycemia; N17.9 Acute kidney failure, unspecified; B96.89 Other specified bacterial agents as the cause of diseases classified elsewhere; I10 Essential (primary) hypertension; E11.69 Type 2 diabetes mellitus with other specified complication; E78.00 Pure hypercholesterolemia, unspecified; N40.1 Benign prostatic hyperplasia with lower urinary tract symptoms; Z79.84 Long term (current) use of oral hypoglycemic drugs; Z79.899 Other long term (current) drug therapy
CPT/HCPCS: 36415; 71045; 76000; 80048; 80053; 81001; 82962; 83605; 85025; 85610; 87040; 87077; 87086; 87088; 87186; 93005; 97802; 99406; A4216; C1769; C2617; J2405

== ENCOUNTER → 2025-08-25 | Outpatient (CLI) | payer OTHER, SELFPAY ==
--- NOTE | 2025-08-25 14:35 | CT_ITS ---
PROCEDURE: ABDOMEN/PELVIS WITHOUT CONT 08/25/2025 REASON FOR EXAM: FLANK PAIN, KIDNEY STONE TECHNIQUE: Procedure Code: CTABDPEL Modality: CT Procedure: ABDOMEN/PELVIS WITHOUT CONT Noncontrast technique limits evaluation of the abdominal and pelvic viscera. Coronal and Sagittal reconstruction series were provided. One or more dose reduction techniques were used (e.g., Automated exposure control, adjustment of the mA and/or kV according to patient size, use of iterative reconstruction technique). RADIATION DOSE SUMMARY: DLP: 446 mGycm COMPARISON: 08/17/2025 FINDINGS: Limited sections of the lung bases demonstrate no focal pulmonary mass or consolidations. 10 mm posterior left lower lobe calcified pulmonary nodule, stable The liver, spleen, pancreas, and both adrenal glands demonstrate no acute findings. Hepatic steatosis and hepatomegaly to 18.5 cm. The gallbladder is unremarkable. Tiny hiatal hernia; otherwise stomach is unremarkable. The small bowel loops are not dilated. The appendix is normal. No colonic obstruction. Colonic diverticulosis without acute diverticulitis. There is no free air or significant free fluid. [id number] right hydroureteronephrosis without definite CT evidence of obstructive ureteral stone although recent passage of stone or ascending infection is not entirely excluded. The left collecting system is unremarkable. The urinary bladder is collapsed The pelvic structures are intact. There is no solid pelvic mass. No significant lymphadenopathy. The aorta and IVC demonstrate no acute findings. Visualized osseous structures demonstrate no acute abnormality. CT/Abdomen/Pelvis without Cont IMPRESSION: [id number] right hydroureteronephrosis without definite CT evidence of ob structive ureteral stone although recent passage of stone or ascending infection is not entirely excluded. Reading Location: [id number]
== END | disposition home or self-care (01) ==
LOC: CT 14:27
PROVIDERS: PCP Family Medicine; Referring Provider Urology; Visit Provider Urology
DX: N20.9 Urinary calculus, unspecified (principal)
CPT/HCPCS: 74176

== ENCOUNTER → 2025-09-05 | Outpatient (CLI) | payer OTHER, SELFPAY ==
[2025-09-05 17:50] LABS: Hematocrit 44.3 % (40-54); Hemoglobin 15.1 g/dL (13.0-16.5); Immature Granulocytes Count 0.170 X10^3/uL (0.0-0.0); Mean Corp Hgb Conc 34.1 g/dL (32-36); Mean Corpuscular Volume 82.8 fL (80-94); Mean Platelet Vol. 8.9 fl (6.2-12.0); NRBC Flagged by Analyzer 0 % (0-5); Platelet Count 489 K/mm3 (150-450); RBC Distribution Width CV 12.9 % (11.6-14.6); RBC Distribution Width SD 38.5 fl (35.1-43.9); Red Blood Count 5.35 M/mm3 (4.6-6.2); White Blood Count 7.9 K/mm3 (4.4-11.0)
== END | disposition home or self-care (01) ==
LOC: MFPLAB 14:48
PROVIDERS: PCP Family Medicine; Visit Provider Family Medicine
DX: D64.9 Anemia, unspecified (principal)
CPT/HCPCS: 36415; 85025

== ENCOUNTER 2025-09-20 11:22 | Emergency (ER) | payer OTHER, SELFPAY ==
[2025-09-20 11:23] VITALS: BP 137/100; PULSE 107; RESP 18; TEMP 36.6; O2SAT 97; BMI 27.5
--- NOTE | 2025-09-20 11:42 | CT_ITS ---
PROCEDURE: ABDOMEN/PELVIS WITHOUT CONT 09/20/2025 REASON FOR EXAM: FLANK PAIN TECHNIQUE: Procedure Code: CTABDPEL Modality: CT Procedure: ABDOMEN/PELVIS WITHOUT CONT Noncontrast technique limits evaluation of the abdominal and pelvic viscera. Coronal and Sagittal reconstruction series were provided. One or more dose reduction techniques were used (e.g., Automated exposure control, adjustment of the mA and/or kV according to patient size, use of iterative reconstruction technique). RADIATION DOSE SUMMARY: CTDlvol: 6.04 mGy DLP: 486.66 mGycm COMPARISON: CT abdomen and pelvis August 2025. FINDINGS: Lung bases: Clear. Liver: Liver steatosis. Gallbladder: Unremarkable. No biliary dilation. Spleen: Unremarkable. Pancreas: Unremarkable. Adrenals: Unremarkable. Kidneys: Perinephric fat stranding. No hydronephrosis. No nephrolithiasis. Bladder: Unremarkable. Reproductive Organs: Unremarkable. Bowel: No bowel obstruction. Colonic diverticulosis. Appendix: Appendectomy. Lymph nodes: No lymphadenopathy. Vasculature: No aneurysm. Peritoneum / Retroperitoneum: No free air or free fluid. Bones: No acute bony elements. CT/Abdomen/Pelvis without Cont IMPRESSION: Perinephric fat stranding concerning for urinary tract infection. No hydroneph rosis or nephrolithiasis. Reading Location: [facility]
--- NOTE | 2025-09-20 11:43 | EX.ED.DYSGE1 ---
HPI History of Present Illness Chief Complaint: Flank Pain Detail of Chief Complaint: Flank pain and generalized weakness Informant: patient Narrative Narrative: Patient presents with flank pain and generalized weakness for the last 3 to 4 days. Recent history of kidney stone with stent placement. He subsequently became septic and spent some time in the ICU 3 weeks ago. Had to have another stent placed. He had the stent removed by urology 5 days ago. Started feeling poorly again with chills and low back pain and pain at times radiating to his groin. No fever. Rates the pain an 8 out of 10. concerned he may be getting septic again. [facility] Medical History Diabetes Kidney stones Hypertension Abdominal pain Abdominal hernia Home Medications Medication Instructions Recorded Last Taken Type amlodipine 5 mg tablet 5 mg PO DAILY bp 08/17/25 Unknown History glipizide 5 mg tablet 5 mg PO DAILY dm 08/17/25 Unknown History hydrocodone-acetaminophen 5-325mg 1 tab PO Q6H PRN PRN Pain 3 days 08/17/25 Unknown Rx 5mg-325mg #10 TABLETS metformin 500 mg tablet 500 mg PO BID dm 08/17/25 Unknown History ondansetron HCl 4 mg tablet 4 mg PO BID PRN PRN nausea and 08/17/25 Unknown History vomiting atorvastatin 20 mg tablet 20 mg PO DAILY cholesterol 08/25/25 Unknown History tamsulosin 0.4 mg capsule 0.4 mg PO DAILY bph 08/25/25 Unknown History ketorolac 10 mg tablet 10 mg PO Q6H #10 tabs 08/27/25 Unknown Rx sulfamethoxazole 800 1 tab PO BID #14 tabs 08/30/25 Unknown Rx mg-trimethoprim 160 mg tablet (Bactrim DS) ondansetron 4 mg disintegrating 4 mg PO Q8H PRN PRN Nausea #10 tabs 09/20/25 Unknown Rx tablet Allergy/AdvReac Type Severity Reaction Status Date / Time Penicillins Allergy Severe Hives Verified 09/20/25 11:22 Family History Father Diabetes Heart disease Hypertension CVA (cerebral vascular accident) High cholesterol Surgical History History of eye surgery History of appendectomy Social History Smoking Status: Never smoker alcohol intake: current alcohol intake frequency: a few times a month substance use type: does not use ROS ROS ED Review of Systems ROS Unobtainable: other Constitutional Constitutional ED: Reports lethargy; Denies chills, fever(s), sweats or weight loss Eyes Eyes: Denies blurry vision, change in vision or diplopia ENT ENT ED: Denies rhinorrhea or sore throat Cardiovascular Cardiovascular: Denies chest pain, orthopnea or racing heartbeat Respiratory/Chest Respiratory/Chest: Denies cough, dyspnea, dyspnea on exertion, orthopnea or sputum Gastrointestinal Gastrointestinal: Reports nausea; Denies abdominal pain, diarrhea or vomiting Genitourinary Genitourinary ED: Denies dysuria, hematuria or urinary frequency Musculoskeletal Musculoskeletal: Reports back pain; Denies arthralgias, myalgias or neck pain Integumentary Denies abscess, Abrasions or rash Neurologic Neurologic: Denies headache(s) or weakness Psychiatric Psychiatric: Denies anxiety, depression or suicidal thoughts Endocrine Endocrinology: Denies polydipsia, polyphagia or polyuria Hematologic/Lymphatic Hematologic/Lymphatic: Denies easy bleeding, easy bruising or lymphadenopathy Allergic/Immunologic Allergic/Immunologic ED: Denies mouth swelling, tongue swelling or urticaria EXAM Physical Exam Const Vital Signs: 09/20/25 11:23 09/20/25 13:22 Temperature 98 F Temperature Source Temporal Pulse Rate 107 H 83 Respiratory Rate 18 14 Blood Pressure 137/100 H 116/80 Blood Pressure Mean 112 92 Pulse Ox 97 96 Oxygen Delivery Method Room Air Room Air Positive well nourished and well developed General Appearance ED: well developed and NAD HEENT Reports TM's clear and moist mucous membranes normocephalic and atraumatic; Negative for trauma or tenderness Tympanic Membrane ED: Yes TM's clear Eyes PERRL and EOMs intact bilaterally General Eye ED: Negative for pale conjunctiva or scleral icterus Neck no lymphadenopathy, supple and no JVD General: Negative for tenderness Chest Wall inspection of chest normal and palpation of chest normal Chest: Negative for tenderness Resp normal respiratory effort and clear to auscultation bilaterally Effort and Inspection: Negative for respiratory distress or pain with movement Auscultation: Negative for rhonchi, wheezes or diminished lung sounds Cardio regular rate, regular rhythm, S1 normal heart sound, S2 normal heart sound and no murmurs Peripheral Pulses: pulses 2+ throughout GI normal to inspection, nondistended, normoactive bowel sounds, soft to palpation, non-tender, non-distended and no masses Back/Spine no thoracic nor lumbar tenderness; Negative for no CVA tenderness Back/Spine Narrative: Mild bilateral CVA tenderness on exam. Extremity normal to inspection General Extremety ED: Negative for edema General Extremity: Negative for edema Neuro oriented x3, CN's II-XII intact bilaterally, no sensory deficits noted and gait normal Sensorium / Orientation: awake, alert, oriented to person, oriented to place and oriented to time Motor Exam: strength 5/5 throughout and strength abnormal Psych mental status grossly normal Skin no rashes or lesions noted and no wounds MDM MDM MDM Narrative Medical decision making narrative: Patient presents with multiple complaints of generalized weakness and some chills. He has not been feeling well. Has been sick for about a month where he had a kidney stone that required stenting and then once it was removed he became septic and had another stent put in it which was removed 5 days ago. He is been on multiple rounds of antibiotics. He denies fevers at home. He has had no vomiting. He does complain of some bilateral back pain that at times radiates to his groin. Clinically looks well on exam. IV line established on arrival. He was medicated with morphine and Toradol. CBC with differential showed a white count of 9.9 with hemoglobin 14.6 and platelet count of 232. Chemistries were unremarkable other than a slightly depressed sodium of 129. LFTs were normal. Urinalysis was normal without white cells or bacteria or leukocyte esterase. Urine culture was sent. CT flank obtained showed some perinephric stranding which may be indicative of infection however his urinalysis is unremarkable. Discussed case with urology and they recommended sending off a urine culture but did not feel any further treatment or antibiotics was indicated. Patient has Toradol at home for pain and does not want thing for pain. He got an appointment with his primary care physician in 2 days and he will keep that. Patient advised to return if worsening pain, fever, vomiting, or condition should worsen anyway. Lab Data Attestation: I reviewed the patient's lab results. Labs: Laboratory Results - last 24 hr 09/20/25 09/20/25 11:46 12:30 WBC 9.9 RBC 5.18 Hgb 14.6 Hct 42.2 MCV 81.5 MCH 28.2 MCHC 34.6 RDW Std Deviation 37.3 RDW Coeff of Mike 12.7 Plt Count 232 MPV 9.5 Immature Gran % (Auto) 0.500 Neut % (Auto) 67.8 Lymph % (Auto) 19.4 [place] % (Auto) 11.6 H Eos % (Auto) 0.3 Baso % (Auto) 0.4 Absolute Neuts (auto) 6.7 Absolute Lymphs (auto) 1.92 Nucleated RBC % 0 Sodium 129 L Potassium 4.1 Chloride 93 L Carbon Dioxide 22.7 Anion Gap 14 BUN 10 Creatinine 0.80 Estim Creat Clear Calc 103.38 Est GFR (MDRD) Non-Af 105 BUN/Creatinine Ratio 12.0 Glucose 297 H Calcium 9.2 Total Bilirubin 0.94 AST 12 ALT 16 Alkaline Phosphatase 86 Total Protein 7.4 Albumin 3.9 Globulin 3.5 Albumin/Globulin Ratio 1.1 Urine Color Yellow Urine Clarity Clear Urine pH 6.0 Ur Specific [place] 1.015 Urine Protein 30 H Urine Glucose (UA) 1000 H Urine Ketones 50 H Urine Occult Blood Negative Urine Nitrite Negative Urine Bilirubin Negative Urine Urobilinogen Normal Ur Leukocyte Esterase Negative Urine RBC 0 SEEN Urine WBC 0 SEEN Ur Squamous Epith Cells 0 SEEN Urine Bacteria 0 SEEN Urine Mucus 0 SEEN Radiography Diagnostic Testing: Clinical Impression(s) from Imaging Studies Abdomen/Pelvis CT 09/20/25 11:42 IMPRESSION: Perinephric fat stranding concerning for urinary tract infection. No hydronephrosis or nephrolithiasis. Reading Location: [facility] Discharge Plan Triage Chief Complaint: Flank Pain ED Provider: Van Veronica Dx/Rx/DC Orders Clinical Impression: Back pain, Weakness Instructions: ED Back Pain (Acute or Chronic), ED Weakness Uncertain Cause Prescriptions: New ondansetron 4 mg tablet,disintegrating 4 mg PO Q8H PRN PRN (Reason: Nausea) Qty: 10 0RF No Action amlodipine 5 mg tablet 5 mg PO DAILY metformin 500 mg tablet 500 mg PO BID ondansetron HCl 4 mg tablet 4 mg PO BID PRN PRN (Reason: nausea and vomiting) glipizide 5 mg tablet 5 mg PO DAILY hydrocodone-acetaminophen 5-325 mg tablet 1 tab PO Q6H PRN PRN (Reason: Pain) 3 Days Qty: 10 0RF atorvastatin 20 mg tablet 20 mg PO DAILY tamsulosin 0.4 mg capsule 0.4 mg PO DAILY ketorolac 10 mg tablet 10 mg PO Q6H Qty: 10 0RF Rx Instructions: maximum total duration of 5 days from all oral, intranasal, or parenteral formulations sulfamethoxazole-trimethoprim [Bactrim DS] 800-160 mg tablet 1 tab PO BID Qty: 14 0RF Primary Care Provider: Ronald Tong Referrals: Ronald Tong MD [Primary Care Provider, Family Practice] - 2 Days Print Language: Indonesian Disposition Disposition: Home, Self Care
[2025-09-20] MEDS: 0.9% Normal Saline (1000mL) 1,000 ML 1000 ML IV (11:56)
--- OUTSIDE RECORDS SUMMARY | 2025-09-20 11:59 | XMS RPT_ITS | CCD ---
Author Organization [facility] Care Team Providers Care Building Inspection Engineer Name Role Phone Kathleen Adorno LPN Unavailable Unavailab Oumou Duque Unavailable Unavailable Oumou Landry Unavailable Unavailable Kathleen Adorno LPN Unavailable Unavailab james HANSEN, MR M JAYNE Primary Care Physician LYNDON HANSEN, MR M JAYNE Primary Care Physician Juan Jose Haney PA-C Primary Care Provider [phone] Ronald Tong MD Primary Care Physician Ronald Tong MD Attending Physician Dr. Brandon Abraham DO Attending Physician Dr. Brandon Abraham DO Emergency Department Physi bashir Dr. Zachariah Mota MD Attending Physician Dr. Zachariah Mota MD Referring Provider Dr. Zachariah Mota MD Admitting Physician Dr. Kenisha Mcgee MD Nurse Practitioner Dr. Anthony Jaime DO Nurse Practitioner Shanthi YU, Dr. Lucho Cisneros Nurse Practitioner Jose YU, Dr. Zachariah Heller Nurse Practitioner [phone] Dr. Kenisha cMgee MD Attending Physician Joseline Britton Attending Physician Dr. Anthony Jaime DO Attending Physician LYNDON HANSEN, MR Juan Jose GODOY Primary Care Unavailthompson MOTA MD, DR ZACHARIAH HELLER Attending Ezra HANSEN, MR Juan Jose GODOY Primary Care Unavailthompson MOTA MD, DR ZACHARIAH HELLER Attending Ronald Levy Attending Unavailable Alycia, Chalon Primary Care Unavailable Kenisha Mcgee Consulting Unavailable Jose, Zachariah Heller Attending Unavailable Jose, Zachariah Heller Referring Unavailable Jose, Zachariah Heller Admitting Unavailable Alycia, Chalon Primary Care Unavailable Anthony Jaime Consulting Unavailable Lucho Maki Consulting Unavailable Anthony Jaime Attending Unavailable Alycia, Chalon Primary Care Unavailable Kenisha Mcgee Consulting Unavailable Jose, Zachariah Heller Referring Unavailable Jose, Zachariah Heller Admitting Unavailable Anthony Jaime Consulting Unavailable Lucho Maki Consulting Unavailable Jose, Zachariah Heller Consulting Unavailable Kenisha Mcgee Attending Unavailable Alycia, Ronald Attending Unavailable Alycia, Chalon Primary Care Unavailable Jose, Zachariah Heller Attending Unavailable Jose, Zachariah Heller Referring Unavailable Alycia, Chalon Primary Care Unavailable Brandon Abraham Attending Unavailable Alycia, Chalon Primary Care Unavailable Allergies Allergy Classification Reported Allergen(s) Allergy Type Date of Onset Reaction(s) Facility (4 sources) penicillin v drug allergy 7 hives and unable to breath [facility] (4 sources) Penicillin; Translations: [penicillins] Drug Allergy Difficulty breathing (finding) [facility] (1 source) Penicillins Drug Intolerance 4 Hives, Swelling [facility] (1 source) Seasonal allergy Allergy to substance 8 Other: See Comments [facility] (2 sources) Penicillins Allergy to substance 4 Hives [facility] Comment on above: SOB (1 source) Penicillins Drug allergy (disorder) 5 [facility] Repository Medications Current Medications Medication Drug Class(es) Dates Sig (Normalized) Sig (Original) 0.25 MG, 0.5 MG Dose 3 ML semaglutide 0.68 MG/ML Pen Injector (2 sources) Start: 08-20-2025 semaglutide 2 mg/3 mL (0.25 mg or 0.5 mg dose) subcutaneous solution Dose : 0.5 mg =, Subcutaneous, Monday, # 1 EA, 0 Refill(s), generic OZEMPIC Start Date: 08/20/25 Status: Ordered Medication Dispense Status: Completed Quantity: 1.0 Unit: EA Total Allowed Fills: 1 Fills Dispensed: 0 acetaminophen 325 mg / HYDROcodone bitartrate 5 mg oral tablet (3 sources) Opioid Agonist Start: 08-20-2025 take 1 tablet by mouth every six hours as needed for pain acetaminophen-hydro codone 325 mg-5 mg oral tablet Dose = 1 tab(s), Oral, q6h, PRN for pain, # 12 tab(s), 0 Refill(s), 77.3 Start Date: 08/20/25 Status: Ordered Medication Dispense Status: Completed Quantity: 12.0 Unit: tab(s) Total Allowed Fills: 1 Fills Dispensed: 0 Start: 08-17-2025 take 1 tablet by mouth every s ix hours as needed for pain [id number] 200 actuat albuterol 0.09 mg/actuat metered dose inhaler (2 sources) beta2-Adrenergic Agonist Start: 10-12-2021 take 2 puff(s) by inhalation every four hours Proventil HFA MDI (90 mcg/inh) inhalation aerosol 2 puff(s), Inhalation, q4h, # 17 gram(s), 0 Refill(s), COVID-19 Hypokalemia Start Date: 10/12/21 Status: Ordered Start: 10-12-2021 take 2 puff(s) by in halation every four hours Proventil HFA MDI (90 mcg/inh) inhalation aerosol 2 puff(s), Inhalation, q4h, # 17 gram(s), 0 Refill(s), COVID-19 Hypokalemia Start Date: 10/12/21 Status: Ordered amLODIPine 5 mg oral tablet (3 sources) Dihydropyridine Calcium Channel Fazal Start: 08-20-2025 amLODIPine 5 mg oral tablet Dose : 5 mg = 1 tab(s), Oral, qDay, # 30 tab(s), 0 Refill(s) Start Date: 08/20/25 Status: Ordered Medication Dispense Status: Completed Quantity: 30.0 Unit: tab(s) Total Allowed Fills: 1 Fills Dispensed: 0 Start: 08-17-2025 take 1 tablet by mouth once da tania atorvastatin 20 mg oral tablet (6 sources) HMG-CoA Reductase Inhibitor Start: 08-25-2025 take 1 tablet by mouth once daily Start: 08-20-2025 atorvastatin 2 0 mg oral tablet Dose : 20 mg = 1 tab(s), Oral, Daily, 0 Refill(s) Start Date: 08/20/25 Status: Ordered Medication Dispense Status: Completed Total Allowed Fills: 1 Fills Dispensed: 0 Start: 01-12-2021 take 1 tablet by abel th once daily at bedtime for hyperlipidemia atorvastatin (LIPITOR) 20 mg tablet Take 1 tablet by mouth daily at bedtime. For cholesterol. 90 tablet 0 01/12/2021 Active Start: 09-08-2018 atorvastatin 1 0 mg oral tablet Dose : 10 mg = 1 tab(s), Oral, qDay, # 30 tab(s), 0 Refill(s) Start Date: 09/08/18 Status: Ordered Blood-Glucose Meter (ONETOUCH VERIO FLEX) misc (1 source) Start: 07-23-2019 Blood-Glucose Meter (ONETOUCH VERIO FLEX) misc Dispense One Kit - Verio Meter Kit Dx: Type 2 DM - Controlled E11.9 1 Each 0 07/23/2019 Active Blood-Glucose Meter (ONETOUCH VERIO SYSTEM) misc (1 source) Start: 07-22-2019 Blood-Glucose Meter (ONETOUCH VERIO SYSTEM) misc Dispense One Kit - Verio Meter Kit Dx: Type 2 DM - Controlled E11.9 1 Each 0 07/22/2019 Active ciprofloxacin 500 mg oral tablet (2 sources) Quinolone Antimicrobial Start: 08-17-2025 End: 08-27-2025 Cipro 500 mg oral tablet Dose : 500 mg = 1 tab(s), Oral, q12h, X 5 day(s), # 10 tab(s), 0 Refill(s), 08/27/25 2:01:00 PM EDT, Pharmacy: [id number], 167, cm, 08/22/25 12:01:00 EDT, Height, 77, kg, 08/22/25 12:01:00 EDT, Dosing Weight Start Date: 08/22/25 Stop Date: 08/27/25 Status: Ordered Medication Dispense Status: Completed Quantity: 10.0 Unit: tab(s) Total Allowed Fills: 1 Fills Dispensed: 0 0.5 ml dulaglutide 3 mg/ml auto-injector (1 source) GLP-1 Receptor Agonist Start: 01-12-2021 dulaglutide (TRULICITY) 1.5 mg/0.5 mL pen injector Indications: Type 2 diabetes mellitus with complication, without long-term current use of insulin (HCC) Inject 1.5 mg subcutaneously one time a week. Inject once per week. Discard Pen After 4 Each 0 01/12/2021 Active fenofibrate 145 mg oral tablet (1 source) Peroxisome Proliferator Receptor alpha Agonist Start: 01-12-2021 take 1 tablet by mouth once daily fenofibrate nanocrystallized (TRICOR) 145 mg tablet Indications: Hypertriglyceridemia Take 1 tablet by mouth once daily. 90 tablet 0 01/12/2021 Active glipiZIDE 5 mg oral tablet (3 sources) Sulfonylurea Start: 08-20-2025 glipiZIDE 5 mg oral tablet Dose : 5 mg = 1 tab(s), Oral, qDayAC, 0 Refill(s) Start Date: 08/20/25 Status: Ordered Medication Dispense Status: Completed Total Allowed Fills: 1 Fills Dispensed: 0 Start: 08-17-2025 take 1 tablet by mouth once da tania ketorolac tromethamine 10 mg oral tablet (1 source) Nonsteroidal Anti-inflammatory Drug, Cyclooxygenase Inhibitor Start: 08-27-2025 take 1 tablet by mouth every six hours Start: 08-27-2025 take 1 tablet by mouth every s ix hours metFORMIN hydrochloride 500 mg oral tablet (6 sources) Biguanide Start: 08-20-2025 metFORMIN 500 mg oral tablet (IR) Dose : 500 mg = 1 tab(s), Oral, BID, # 60 tab(s), 0 Refill(s) Start Date: 08/20/25 Status: Ordered Medication Dispense Status: Completed Quantity: 60.0 Unit: tab(s) Total Allowed Fills: 1 Fills Dispensed: 0 Start: 08-17-2025 take 1 tablet by abel th twice daily Start: 09-08-2018 take 1 tablet by abel th twice daily at mealtime metFORMIN (GLUCOPHAGE) 1,000 mg tablet Indications: Type 2 diabetes mellitus without complication, without long-term current use of insulin (HCC) Take 1 tablet by mouth twice daily with meals. 180 tablet 0 01/12/2021 Active ondansetron 4 mg oral tablet (3 sources) Serotonin-3 Receptor Antagonist Start: 08-20-2025 End: 08-25-2025 ondansetron 4 mg oral tablet Dose : 4 mg = 1 tab(s), Oral, q12h, PRN Nausea/Vomiting Start Date: 08/20/25 Stop Date: 08/25/25 Status: Ordered Medication Dispense Status: Completed Total Allowed Fills: 1 Fills Dispensed: 0 Start: 08-17-2025 take 1 tablet by abel th twice daily as needed for nausea and vomiting oxyCODONE hydrochloride 5 mg oral tablet (1 source) Opioid Agonist Start: 08-22-2025 End: 08-25-2025 oxyCODONE 5 mg oral tablet ( IMMEDIATE release ) Dose : 5 mg = 1 tab(s), Oral, q6h, PRN for pain, X 3 day(s), # 12 tab(s), 0 Refill(s), 08/25/25 2:00:00 PM EDT, Pharmacy: [id number], Bilateral kidney stones, 167, cm, 08/22/25 12:01:00 EDT, Height, 77, kg, 08/22/25 12:01:00 EDT, Dosing Weight Start Date: 08/22/25 Stop Date: 08/25/25 Status: Ordered Medication Dispense Status: Completed Quantity: 12.0 Unit: tab(s) Total Allowed Fills: 1 Fills Dispensed: 0 Indications: Calculus of kidney; Semaglutide [Semaglutide 0.25 Mg Or 0.5 Mg (2 Mg/3 Ml) Subcutaneous Pen Injector] (1 source) Start: 08-17-2025 End: 08-25-2025 Semaglutide [Semaglutide 0.25 Mg Or 0.5 Mg (2 Mg/3 Ml) Subcutaneous Pen Injector] (Semaglutide 0.25 Mg Or 0.5 Mg (2 Mg/3 Ml) Subcutaneous Pen ) 0.25 mg or 0.5 mg (2 mg/3 mL) pen injector Discontinued 0.5 mg SC EVERY WEEK August 17, 2025 12:00am August 25, 2025 4:41pm sulfamethoxazole 800 mg / trimethoprim 160 mg oral tablet (1 source) Dihydrofolate Reductase Inhibitor Antibacterial, Sulfonamide Antimicrobial Start: 08-30-2025 Start: 08-30-2025 tamsulosin hydrochloride 0.4 mg oral capsule (3 sources) alpha-Adrenergic Fazal Start: 08-25-2025 take 1 capsule by mouth once daily Start: 08-20-2025 tamsulosin 0.4 mg oral capsule Dose : 0.4 mg = 1 cap(s), Oral, qDayPC, 0 Refill(s) Start Date: 08/20/25 Status: Ordered Medication Dispense Status: Completed Total Allowed Fills: 1 Fills Dispensed: 0 tiZANidine 4 mg oral tablet (2 sources) Central alpha-2 Adrenergic Agonist Start: 08-20-2025 tiZANidine 4 mg oral tablet Dose : 4 mg = 1 tab(s), Oral, q12h, PRN as needed for muscle spasm, # 90 tab(s), 0 Refill(s) Start Date: 08/20/25 Status: Ordered Medication Dispense Status: Completed Quantity: 90.0 Unit: tab(s) Total Allowed Fills: 1 Fills Dispensed: 0 traZODone hydrochloride 50 mg oral tablet (3 sources) Serotonin Reuptake Inhibitor Start: 08-17-2025 End: 08-25-2025 traZODone 50 mg oral tablet Dose : 50 mg = 1 tab(s), Oral, qHS, PRN Insomnia, # 30 tab(s), 0 Refill(s) Start Date: 08/20/25 Status: Ordered Medication Dispense Status: Completed Quantity: 30.0 Unit: tab(s) Total Allowed Fills: 1 Fills Dispensed: 0 Vitamin D3 50,000 intl units oral capsule (2 sources) Start: 09-08-2018 Vitamin D3 50, 000 intl units oral capsule Dose : 50,000 International_Unit = 1 cap(s), Oral, qWeek, 0 Refill(s) Start Date: 09/08/18 Status: Ordered Completed/Discontinued Medications Medication Drug Class(es) Dates Sig (Normalized) Sig (Original) predniSONE 50 mg oral tablet (2 sources) Start: 10-12-2021 End: 10-17-2021 predniSONE 50 mg oral tablet Dose : 50 mg = 1 tab(s), PO, Daily, # 5 tab(s), 0 Refill(s), COVID-19 Hypokalemia Start Date: 10/12/21 Stop Date: 10/17/21 Status: Ordered Problems Active Problems Problem Classification Problem Date Documented Date Episodic/Chronic Abdominal hernia (2 sources) Hernia of abdominal cavity; Translations: [Unspecified abdominal hernia without obstruction or gangrene] 03-11-2024 Episodic Abdominal pain (3 sources) Abdominal pain; Translations: [Unspecified abdominal pain] Onset: 08-22-2025 03-11-2024 Episodic Administrative/social admission (2 sources) Administrative reason for encounter; Translations: [Encounter for other administrative examinations] 03-14-2019 Episodic Calculus of urinary tract (4 sources) Kidney stone; Translations: [Calculus of kidney] Onset: 08-22-2025 Episodic Deficiency and other anemia (1 source) Anemia, unspecified; Translations: [Anemia, unspecified] Onset: 09-17-2025 Episodic Diabetes mellitus with complications (1 source) Type 2 diabetes mellitus; Translations: [Type 2 diabetes mellitus with unspecified complications] Onset: 04-05-2019 04-05-2019 Chronic Diabetes mellitus without complication (1 source) Hyperglycemia; Translations: [Hyperglycemia, unspecified] Onset: 10-12-2021 Episodic Disorders of lipid metabolism (2 sources) Mixed hyperlipidemia; Translations: [Mixed hyperlipidemia] Onset: 07-11-2019 07-11-2019 Chronic Fluid and electrolyte disorders (1 source) Hypokalemia; Translations: [Hypokalemia] Onset: 10-12-2021 Episodic Intracranial injury (1 source) Concussion with no loss of consciousness; Translations: [Concussion without loss of consciousness, initial encounter] Onset: 02-09-2022 Episodic Other diseases of kidney and ureters (1 source) Hydronephrosis with ureteral stricture, not elsewhere classified; Translations: [Hydronephrosis with ureteral stricture, not elsewhere classified] Onset: 09-17-2025 Episodic Other injuries and conditions due to external causes (1 source) Injury of head; Translations: [Unspecified injury of head, initial encounter] Onset: 02-09-2022 Episodic Other screening for suspected conditions (not mental disorders or infectious disease) (2 sources) Decreased vitamin D; Translations: [Other specified abnormal findings of blood chemistry] Onset: 07-11-2019 07-11-2019 Episodic Other upper respiratory disease (1 source) Seasonal allergic rhinitis; Translations: [Other seasonal allergic rhinitis] Onset: 01-26-2023 01-26-2023 Chronic Septicemia (except in labor) (3 sources) Sepsis; Translations: [Sepsis, unspecified organism] Onset: 09-02-2025 08-27-2025 Episodic Sprains and strains (5 sources) Strain of unspecified muscle(s) and tendon(s) at lower leg level, unspecified leg, initial encounter; Translations: [Injury of muscle and tendon at neck level] Onset: 2017 2017 Episodic Past or Other Problems Problem Classification Problem Date Documented Da te Episodic/Chronic Viral infection (1 source) Disease caused by 2019-nCoV; Translations: [COVID-19] Onset: 10-12-2021 Results Test Name Value Interpretation Reference Range Facility CBC W/Diff, Automatedon 10-3 Absolute Lymph 3.19 X10 3/uL Normal 0.83-4.51 [facility] Comment on above: Performed By: #### L 500.2500, L100.0100 #### [facility] [address] [facility] [place], [address] Absolute Neut 3.6 X10 3/uL Normal 2.0-7.7 [facility] Comment on above: Performed By: #### L 500.2500, L100.0100 #### [facility] [address] [place], [address] Basophils/100 WBC (Bld) 0.8 % Normal 0-1 [facility] Comment on above: Performed By: #### L 500.2500, L100.0100 #### [facility] [address] [facility] [place], [address] Eosinophils/100 WBC (Bld) 2.4 % Normal 0-5 [facility] Comment on above: Performed By: #### L 500.2500, L100.0100 #### [facility] [address] [place], [address] Erythrocyte distribution width (RBC) [Ratio] 12.9 % Normal 11.6-14.6 [facility] Comment on above: Performed By: #### L 500.2500, L100.0100 #### [facility] [address] [place], [address] Hematocrit (Bld) [Volume fraction] 44.3 % Normal 40-54 [facility] Comment on above: Performed By: #### L 500.2500, L100.0100 #### [facility] [address] [place], [address] Hemoglobin (Bld) [Mass/Vol] 15.1 g/dL Normal 13.0-16.5 [facility] Comment on above: Performed By: #### L 500.2500, L100.0100 #### [facility] [address] [place], [address] IG% 2.200 High 0.0-0.9 [facility] Comment on above: Result Comment: IG% - Immature Granulocytes (promyelocytes, myelocytes and metamyelocytes) > 1% indicates that a LEFT SHIFT is Present. Performed By: #### L 500.2500, L100.0100 #### [facility] [address] [place], [address] Lymphocytes/100 WBC (Bld) 40.5 % Normal 19-41 [facility] Comment on above: Performed By: #### L 500.2500, L100.0100 #### [facility] [address] [place], [address] MCH (RBC) [Entitic mass] 28.2 pg Normal 27.0-32.0 [facility] Comment on above: Performed By: #### L 500.2500, L100.0100 #### [facility] [address] [place], [address] MCHC (RBC) [Mass/Vol] 34.1 g/dL Normal 32-36 [facility] Comment on above: Performed By: #### L 500.2500, L100.0100 #### [facility] [address] [place], [address] MCV (RBC) [Entitic vol] 82.8 fL Normal 80-94 [facility] Comment on above: Performed By: #### L 500.2500, L100.0100 #### [facility] [address] [place], [address] Monocytes/100 WBC (Bld) 8.6 % Normal 0-10 [facility] Comment on above: Performed By: #### L 500.2500, L100.0100 #### [facility] [address] [place], [address] Neutrophils/100 WBC (Bld) 45.5 % Low 47-70 [facility] Comment on above: Performed By: #### L 500.2500, L100.0100 #### [facility] [address] [place], [address] Nucleated RBC (Bld) [#/Vol] 0 10*3/uL Normal 0-5 [facility] Comment on above: Performed By: #### L 500.2500, L100.0100 #### [facility] [address] [place], [address] Platelet mean volume (Bld) [Entitic vol] 8.9 fL Normal 6.2-12.0 [facility] Comment on above: Performed By: #### L 500.2500, L100.0100 #### [facility] [address] [place], [address] Platelets (Bld) [#/Vol] 489 10*3/uL High 150-450 [facility] Comment on above: Performed By: #### L 500.2500, L100.0100 #### [facility] [address] [place], [address] RBC (Bld) [#/Vol] 5.35 10*6/uL Normal 4.6-6.2 [facility] Comment on above: Performed By: #### L 500.2500, L100.0100 #### [facility] [address] [place], [address] RDW SD 38.5 fl Normal 35.1-43.9 [facility] Comment on above: Performed By: #### L 500.2500, L100.0100 #### [facility] [address] [place], [address] WBC (Bld) [#/Vol] 7.9 10*3/uL Normal 4.4-11.0 [facility] Comment on above: Performed By: #### L 500.2500, L100.0100 #### [facility] [address] [place], [address] Basic Metabolic Profile (BMP )on 09-03-2025 BUN Normal - [facility] Comment on above: Result Comment: Canc elled via OM: Order cancelled - Patient discharged Performed By: #### L 500.2500, L100.0100 #### [facility] [address] [place], [address] BUN/CRE Normal - [facility] Comment on above: Result Comment: Canc elled via OM: Order cancelled - Patient discharged Performed By: #### L 500.2500, L100.0100 #### [facility] [address] [place], [address] Calcium Normal 7.6-11.0 [facility] Comment on above: Result Comment: Canc elled via OM: Order cancelled - Patient discharged Performed By: #### L 500.2500, L100.0100 #### [facility] [address] [place], [address] CL Normal 98-108 [facility] Comment on above: Result Comment: Canc elled via OM: Order cancelled - Patient discharged Performed By: #### L 500.2500, L100.0100 #### [facility] [address] [place], [address] CO2 Normal 21.0-32.0 [facility] Comment on above: Result Comment: Canc elled via OM: Order cancelled - Patient discharged Performed By: #### L 500.2500, L100.0100 #### [facility] [address] [place], [address] CREAT,SERUM Normal 0.70-1.20 [facility] Comment on above: Result Comment: Canc elled via OM: Order cancelled - Patient discharged Performed By: #### L 500.2500, L100.0100 #### [facility] [address] [place], [address] eGFR Normal >60 [facility] Comment on above: Result Comment: Canc elled via OM: Order cancelled - Patient discharged Performed By: #### L 500.2500, L100.0100 #### [facility] [address] [place], [address] GAP Normal 5-15 [facility] Comment on above: Result Comment: Canc elled via OM: Order cancelled - Patient discharged Performed By: #### L 500.2500, L100.0100 #### [facility] [address] [place], [address] GLU Normal 70-99 [facility] Comment on above: Result Comment: Canc elled via OM: Order cancelled - Patient discharged Performed By: #### L 500.2500, L100.0100 #### [facility] [address] [place], [address] Potassium Normal 3.3-5.1 [facility] Comment on above: Result Comment: Canc elled via OM: Order cancelled - Patient discharged Performed By: #### L 500.2500, L100.0100 #### [facility] [address] [place], [address] Basic Metabolic Profile (BMP) Normal 133-145 [facility] Comment on above: Result Comment: Canc elled via OM: Order cancelled - Patient discharged Performed By: #### L 500.2500, L100.0100 #### [facility] [address] [place], [address] CBC W/Diff, Automatedon 10-2 Absolute Neut Normal 2.0-7.7 [facility] Comment on above: Result Comment: Canc elled via OM: Order cancelled - Patient discharged Performed By: #### L 500.2500, L100.0100 #### [facility] [address] [place], [address] HCT Normal 40-54 [facility] Comment on above: Result Comment: Canc elled via OM: Order cancelled - Patient discharged Performed By: #### L 500.2500, L100.0100 #### [facility] [address] [place], [address] HGB Normal 13.0-16.5 [facility] Comment on above: Result Comment: Canc elled via OM: Order cancelled - Patient discharged Performed By: #### L 500.2500, L100.0100 #### [facility] [address] [place], [address] MCH Normal 27.0-32.0 [facility] Comment on above: Result Comment: Canc elled via OM: Order cancelled - Patient discharged Performed By: #### L 500.2500, L100.0100 #### [facility] [address] [place], [address] MCHC Normal 32-36 [facility] Comment on above: Result Comment: Canc elled via OM: Order cancelled - Patient discharged Performed By: #### L 500.2500, L100.0100 #### [facility] [address] [place], [address] MCV Normal 80-94 [facility] Comment on above: Result Comment: Canc elled via OM: Order cancelled - Patient discharged Performed By: #### L 500.2500, L100.0100 #### [facility] [address] [place], [address] NEUT% Normal 47-70 [facility] Comment on above: Result Comment: Canc elled via OM: Order cancelled - Patient discharged Performed By: #### L 500.2500, L100.0100 #### [facility] [address] [place], [address] PLT Normal 150-450 [facility] [facility] Comment on above: Result Comment: Canc elled via OM: Order cancelled - Patient discharged Performed By: #### L 500.2500, L100.0100 #### [facility] [address] [place], [address] RBC Normal 4.6-6.2 [facility] Comment on above: Result Comment: Canc elled via OM: Order cancelled - Patient discharged Performed By: #### L 500.2500, L100.0100 #### [facility] [address] [place], [address] RDW CV Normal 11.6-14.6 [facility] Comment on above: Result Comment: Canc elled via OM: Order cancelled - Patient discharged Performed By: #### L 500.2500, L100.0100 #### [facility] [address] [place], [address] RDW SD Normal 35.1-43.9 [facility] Comment on above: Result Comment: Canc elled via OM: Order cancelled - Patient discharged Performed By: #### L 500.2500, L100.0100 #### [facility] [address] [place], [address] WBC Normal 4.4-11.0 [facility] Comment on above: Result Comment: Canc elled via OM: Order cancelled - Patient discharged Performed By: #### L 500.2500, L100.0100 #### [facility] [address] [place], [address] Basic Metabolic Profile (BMP )on 09-02-2025 BUN Normal 4-19 [facility] Comment on above: Result Comment: Canc elled via OM: Order cancelled - Patient discharged Performed By: #### L 501.080 #### [facility] [address] [place], [address] BUN/CRE Normal 10-20 [facility] Comment on above: Result Comment: Canc elled via OM: Order cancelled - Patient discharged Performed By: #### L 501.080 #### [facility] [address] [place], [address] Calcium Normal 7.6-11.0 [facility] Comment on above: Result Comment: Canc elled via OM: Order cancelled - Patient discharged Performed By: #### L 501.080 #### [facility] [address] [place], [address] CL Normal 98-108 [facility] Comment on above: Result Comment: Canc elled via OM: Order cancelled - Patient discharged Performed By: #### L 501.080 #### [facility] [address] [place], [address] CO2 Normal 21.0-32.0 [facility] Comment on above: Result Comment: Canc elled via OM: Order cancelled - Patient discharged Performed By: #### L 501.080 #### [facility] [address] [place], [address] CREAT,SERUM Normal 0.70-1.20 [facility] Comment on above: Result Comment: Canc elled via OM: Order cancelled - Patient discharged Performed By: #### L 501.080 #### [facility] [address] [place], [address] eGFR Normal >60 [facility] Comment on above: Result Comment: Canc elled via OM: Order cancelled - Patient discharged Performed By: #### L 501.080 #### [facility] [address] [place], [address] GAP Normal 5-15 [facility] Comment on above: Result Comment: Canc elled via OM: Order cancelled - Patient discharged Performed By: #### L 501.080 #### [facility] [address] [place], [address] GLU Normal 70-99 [facility] Comment on above: Result Comment: Canc elled via OM: Order cancelled - Patient discharged Performed By: #### L 501.080 #### [facility] [address] [place], [address] Potassium Normal 3.3-5.1 [facility] Comment on above: Result Comment: Canc elled via OM: Order cancelled - Patient discharged Performed By: #### L 501.080 #### [facility] [address] [place], [address] Basic Metabolic Profile (BMP) Normal 133-145 [facility] Comment on above: Result Comment: Canc elled via OM: Order cancelled - Patient discharged Performed By: #### L 501.080 #### [facility] [address] [place], [address] CBC W/Diff, Automatedon 10-2 Absolute Neut Normal 2.0-7.7 [facility] Comment on above: Result Comment: Canc elled via OM: Order cancelled - Patient discharged Performed By: #### L 501.080 #### [facility] [address] [place], [address] HCT Normal 40-54 [facility] Comment on above: Result Comment: Canc elled via OM: Order cancelled - Patient discharged Performed By: #### L 501.080 #### [facility] [address] [place], [address] HGB Normal 13.0-16.5 [facility] Comment on above: Result Comment: Canc elled via OM: Order cancelled - Patient discharged Performed By: #### L 501.080 #### [facility] [address] [place], [address] MCH Normal 27.0-32.0 [facility] Comment on above: Result Comment: Canc elled via OM: Order cancelled - Patient discharged Performed By: #### L 501.080 #### [facility] [address] [place], [address] MCHC Normal 32-36 [facility] Comment on above: Result Comment: Canc elled via OM: Order cancelled - Patient discharged Performed By: #### L 501.080 #### [facility] [address] [place], [address] MCV Normal 80-94 [facility] Comment on above: Result Comment: Canc elled via OM: Order cancelled - Patient discharged Performed By: #### L 501.080 #### [facility] [address] [place], [address] NEUT% Normal 47-70 [facility] Comment on above: Result Comment: Canc elled via OM: Order cancelled - Patient discharged Performed By: #### L 501.080 #### [facility] [address] [place], [address] PLT Normal 150-450 [facility] Comment on above: Result Comment: Canc elled via OM: Order cancelled - Patient discharged Performed By: #### L 501.080 #### [facility] [address] [place], [address] RBC Normal 4.6-6.2 [facility] Comment on above: Result Comment: Canc elled via OM: Order cancelled - Patient discharged Performed By: #### L 501.080 #### [facility] [address] [place], [address] RDW CV Normal 11.6-14.6 [facility] Comment on above: Result Comment: Canc elled via OM: Order cancelled - Patient discharged Performed By: #### L 501.080 #### [facility] [address] [place], [address] RDW SD Normal 35.1-43.9 [facility] Comment on above: Result Comment: Canc elled via OM: Order cancelled - Patient discharged Performed By: #### L 501.080 #### [facility] [address] [place], [address] WBC Normal 4.4-11.0 [facility] Comment on above: Result Comment: Canc elled via OM: Order cancelled - Patient discharged Performed By: #### L 501.080 #### [facility] [address] [place], [address] Basic Metabolic Profile (BMP )on 09-01-2025 BUN Normal 4-19 [facility] Comment on above: Result Comment: Canc elled via OM: Order cancelled - Patient discharged Performed By: #### L 500.2500, L100.0100 #### [facility] [address] [place], [address] BUN/CRE Normal 10-20 [facility] Comment on above: Result Comment: Canc elled via OM: Order cancelled - Patient discharged Performed By: #### L 500.2500, L100.0100 #### [facility] [address] [place], [address] Calcium Normal 7.6-11.0 [facility] Comment on above: Result Comment: Canc elled via OM: Order cancelled - Patient discharged Performed By: #### L 500.2500, L100.0100 #### [facility] [address] [place], [address] CL Normal 98-108 [facility] Comment on above: Result Comment: Canc elled via OM: Order cancelled - Patient discharged Performed By: #### L 500.2500, L100.0100 #### [facility] [address] [place], [address] CO2 Normal 21.0-32.0 [facility] Comment on above: Result Comment: Canc elled via OM: Order cancelled - Patient discharged Performed By: #### L 500.2500, L100.0100 #### [facility] [address] [place], [address] CREAT,SERUM Normal 0.70-1.20 [facility] Comment on above: Result Comment: Canc elled via OM: Order cancelled - Patient discharged Performed By: #### L 500.2500, L100.0100 #### [facility] [address] [place], [address] eGFR Normal >60 [facility] Comment on above: Result Comment: Canc elled via OM: Order cancelled - Patient discharged Performed By: #### L 500.2500, L100.0100 #### [facility] [address] [place], [address] GAP Normal 5-15 [facility] Comment on above: Result Comment: Canc elled via OM: Order cancelled - Patient discharged Performed By: #### L 500.2500, L100.0100 #### [facility] [address] [place], [address] GLU Normal 70-99 [facility] Comment on above: Result Comment: Canc elled via OM: Order cancelled - Patient discharged Performed By: #### L 500.2500, L100.0100 #### [facility] [address] [place], [address] Potassium Normal 3.3-5.1 [facility] Comment on above: Result Comment: Canc elled via OM: Order cancelled - Patient discharged Performed By: #### L 500.2500, L100.0100 #### [facility] [address] [place], [address] Basic Metabolic Profile (BMP) Normal 133-145 [facility] Comment on above: Result Comment: Canc elled via OM: Order cancelled - Patient discharged Performed By: #### L 500.2500, L100.0100 #### [facility] [address] [place], [address] CBC W/Diff, Automatedon 10-2 -2024 Absolute Neut Normal 2.0-7.7 [facility] Comment on above: Result Comment: Canc elled via OM: Order cancelled - Patient discharged Performed By: #### L 500.2500, L100.0100 #### [facility] [address] [place], [address] HCT Normal 40-54 [facility] Comment on above: Result Comment: Canc elled via OM: Order cancelled - Patient discharged Performed By: #### L 500.2500, L100.0100 #### [facility] [address] [place], [address] HGB Normal 13.0-16.5 [facility] Comment on above: Result Comment: Canc elled via OM: Order cancelled - Patient discharged Performed By: #### L 500.2500, L100.0100 #### [facility] [address] [place], [address] MCH Normal 27.0-32.0 [facility] Comment on above: Result Comment: Canc elled via OM: Order cancelled - Patient discharged Performed By: #### L 500.2500, L100.0100 #### [facility] [address] [place], [address] MCHC Normal 32-36 [facility] Comment on above: Result Comment: Canc elled via OM: Order cancelled - Patient discharged Performed By: #### L 500.2500, L100.0100 #### [facility] [address] [place], [address] MCV Normal 80-94 [facility] Comment on above: Result Comment: Canc elled via OM: Order cancelled - Patient discharged Performed By: #### L 500.2500, L100.0100 #### [facility] [address] [place], [address] NEUT% Normal 47-70 [facility] Comment on above: Result Comment: Canc elled via OM: Order cancelled - Patient discharged Performed By: #### L 500.2500, L100.0100 #### [facility] [address] [place], [address] PLT Normal 150-450 [facility] Comment on above: Result Comment: Canc elled via OM: Order cancelled - Patient discharged Performed By: #### L 500.2500, L100.0100 #### [facility] [address] [place], [address] RBC Normal 4.6-6.2 [facility] Comment on above: Result Comment: Canc elled via OM: Order cancelled - Patient discharged Performed By: #### L 500.2500, L100.0100 #### [facility] [address] [place], [address] RDW CV Normal 11.6-14.6 [facility] Comment on above: Result Comment: Canc elled via OM: Order cancelled - Patient discharged Performed By: #### L 500.2500, L100.0100 #### [facility] [address] [place], [address] RDW SD Normal 35.1-43.9 [facility] Comment on above: Result Comment: Canc elled via OM: Order cancelled - Patient discharged Performed By: #### L 500.2500, L100.0100 #### [facility] [address] [place], [address] WBC Normal 4.4-11.0 [facility] Comment on above: Result Comment: Canc elled via OM: Order cancelled - Patient discharged Performed By: #### L 500.2500, L100.0100 #### [facility] [address] [place], [address] Basic Metabolic Profile (BMP )on 08-31-2025 BUN Normal 4-19 [facility] Comment on above: Result Comment: Canc elled via OM: Order cancelled - Patient discharged Performed By: #### L 500.2500, L100.0100 #### [facility] [address] [place], [address] BUN/CRE Normal 10-20 [facility] Comment on above: Result Comment: Canc elled via OM: Order cancelled - Patient discharged Performed By: #### L 500.2500, L100.0100 #### [facility] [address] [place], [address] Calcium Normal 7.6-11.0 [facility] Comment on above: Result Comment: Canc elled via OM: Order cancelled - Patient discharged Performed By: #### L 500.2500, L100.0100 #### [facility] [address] [place], [address] CL Normal 98-108 [facility] Comment on above: Result Comment: Canc elled via OM: Order cancelled - Patient discharged Performed By: #### L 500.2500, L100.0100 #### [facility] [address] [place], [address] CO2 Normal 21.0-32.0 [facility] Comment on above: Result Comment: Canc elled via OM: Order cancelled - Patient discharged Performed By: #### L 500.2500, L100.0100 #### [facility] [address] [place], [address] CREAT,SERUM Normal 0.70-1.20 [facility] Comment on above: Result Comment: Canc elled via OM: Order cancelled - Patient discharged Performed By: #### L 500.2500, L100.0100 #### [facility] [address] [place], [address] eGFR Normal >60 [facility] Comment on above: Result Comment: Canc elled via OM: Order cancelled - Patient discharged Performed By: #### L 500.2500, L100.0100 #### [facility] [address] [place], [address] GAP Normal 5-15 [facility] Comment on above: Result Comment: Canc elled via OM: Order cancelled - Patient discharged Performed By: #### L 500.2500, L100.0100 #### [facility] [address] [place], [address] GLU Normal 70-99 [facility] Comment on above: Result Comment: Canc elled via OM: Order cancelled - Patient discharged Performed By: #### L 500.2500, L100.0100 #### [facility] [address] [place], [address] Potassium Normal 3.3-5.1 [facility] Comment on above: Result Comment: Canc elled via OM: Order cancelled - Patient discharged Performed By: #### L 500.2500, L100.0100 #### [facility] [address] [place], [address] Basic Metabolic Profile (BMP) Normal 133-145 [facility] Comment on above: Result Comment: Canc elled via OM: Order cancelled - Patient discharged Performed By: #### L 500.2500, L100.0100 #### [facility] [address] [place], [address] CBC W/Diff, Automatedon 10-2 Absolute Neut Normal 2.0-7.7 [facility] Comment on above: Result Comment: Canc elled via OM: Order cancelled - Patient discharged Performed By: #### L 500.2500, L100.0100 #### [facility] [address] [place], [address] HCT Normal 40-54 [facility] Comment on above: Result Comment: Canc elled via OM: Order cancelled - Patient discharged Performed By: #### L 500.2500, L100.0100 #### [facility] [address] [place], [address] HGB Normal 13.0-16.5 [facility] Comment on above: Result Comment: Canc elled via OM: Order cancelled - Patient discharged Performed By: #### L 500.2500, L100.0100 #### [facility] [address] [place], [address] MCH Normal 27.0-32.0 [facility] Comment on above: Result Comment: Canc elled via OM: Order cancelled - Patient discharged Performed By: #### L 500.2500, L100.0100 #### [facility] [address] [place], [address] MCHC Normal 32-36 [facility] Comment on above: Result Comment: Canc elled via OM: Order cancelled - Patient discharged Performed By: #### L 500.2500, L100.0100 #### [facility] [address] [place], [address] MCV Normal 80-94 [facility] Comment on above: Result Comment: Canc elled via OM: Order cancelled - Patient discharged Performed By: #### L 500.2500, L100.0100 #### [facility] [address] [place], [address] NEUT% Normal 47-70 [facility] Comment on above: Result Comment: Canc elled via OM: Order cancelled - Patient discharged Performed By: #### L 500.2500, L100.0100 #### [facility] [address] [place], [address] PLT Normal 150-450 [facility] Comment on above: Result Comment: Canc elled via OM: Order cancelled - Patient discharged Performed By: #### L 500.2500, L100.0100 #### [facility] [address] [place], [address] RBC Normal 4.6-6.2 [facility] Comment on above: Result Comment: Canc elled via OM: Order cancelled - Patient discharged Performed By: #### L 500.2500, L100.0100 #### [facility] [address] [place], [address] RDW CV Normal 11.6-14.6 [facility] Comment on above: Result Comment: Canc elled via OM: Order cancelled - Patient discharged Performed By: #### L 500.2500, L100.0100 #### [facility] [address] [place], [address] RDW SD Normal 35.1-43.9 [facility] Comment on above: Result Comment: Canc elled via OM: Order cancelled - Patient discharged Performed By: #### L 500.2500, L100.0100 #### [facility] [address] [place], [address] WBC Normal 4.4-11.0 [facility] Comment on above: Result Comment: Canc elled via OM: Order cancelled - Patient discharged Performed By: #### L 500.2500, L100.0100 #### [facility] [address] [place], [address] Absolute lymphocyte countOrd ered By: Kenisha Mcgee on 08-30-2025 Lymphocytes Auto (Unsp spec) [#/Vol] 1.79 10*3/uL 0.83-4.51 [facility] Absolute neutrophil countOrd ered By: Kenisha Mcgee on 08-30-2025 Neutrophils (Bld) [#/Vol] 3.8 10*3/uL 2.0-7.7 [facility] Anion gap in Serum or Plasma Ordered By: Kenisha Mcgee on 08-30-2025 Anion gap [Moles/Vol] 10 mmol/L - [facility] Automated lymphocyte count a s percentage of total leukocytesOrdered By: Kenisha Mcgee on 08-30-2025 Lymphocytes/100 WBC Auto (Unsp spec) 27.2 % - [facility] BUN/creatinine ratioOrdered By: Kenisha Mcgee on 08-30-2025 Urea nitrogen/Creatinine [Mass ratio] 14.6 mg/mg - [facility] Basic Metabolic Profile (BMP )on 08-30-2025 BUN/CRE 14.6 RATIO Normal - [facility] Comment on above: Performed By: #### L 500.2500, L100.0100 #### [facility] [address] [place], [address] Calcium [Mass/Vol] 8.7 mg/dL Normal 7.6-11.0 [facility] Comment on above: Performed By: #### L 500.2500, L100.0100 #### [facility] [address] [place], [address] Chloride [Moles/Vol] 103 mmol/L Normal 98-108 [facility] Comment on above: Performed By: #### L 500.2500, L100.0100 #### [facility] [address] [place], [address] CO2 [Moles/Vol] 23.8 mmol/L Normal 21.0-32.0 [facility] Comment on above: Performed By: #### L 500.2500, L100.0100 #### [facility] [address] [place], [address] Creatinine [Mass/Vol] 0.64 mg/dL Low 0.70-1.20 [facility] Comment on above: Performed By: #### L 500.2500, L100.0100 #### [facility] [address] [place], [address] ECRCL 119.07 ml/min Normal 50-250 [facility] Comment on above: Performed By: #### L 500.2500, L100.0100 #### [facility] [address] [place], [address] GAP 10 Normal 5-15 [facility] Comment on above: Performed By: #### L 500.2500, L100.0100 #### [facility] [address] [place], [address] GFR/1.73 sq M.predicted among non-blacks MDRD (S/P/Bld) [Vol rate/Area] 112 mL/min/{1.73_m2} Normal >60 [facility] Comment on above: Result Comment: mL/m in/1.73m2 CKD-EPI Creatinine Equation (2020) Performed By: #### L 500.2500, L100.0100 #### [facility] [address] [place], [address] Glucose [Mass/Vol] 228 mg/dL High 70-99 [facility] Comment on above: Performed By: #### L 500.2500, L100.0100 #### [facility] [address] [place], [address] Potassium [Moles/Vol] 3.8 mmol/L Normal 3.3-5.1 [facility] Comment on above: Performed By: #### L 500.2500, L100.0100 #### [facility] [address] [place], [address] Sodium [Moles/Vol] 136 mmol/L Normal 133-145 [facility] Comment on above: Performed By: #### L 500.2500, L100.0100 #### [facility] [address] [place], [address] Urea nitrogen [Mass/Vol] 9 mg/dL Normal 4-19 [facility] Comment on above: Performed By: #### L 500.2500, L100.0100 #### [facility] [address] [place], [address] Basophil percentageOrdered B y: Kenishacamilo Mcgee on 08-30-2025 Basophils/100 WBC (Bld) 0.3 % 0-1 [facility] Bedside Glucoseon 08-30-2025 [place] GLU 197 mg/dL High 74-106 [facility] Comment on above: Result Comment: KATIE BENJAMIN OF PATIENT CARE PER NURSING PROTOCOL Performed By: #### L 501.080 #### [facility] [address] [place], [address] CBC W/Diff, Automatedon 08-07 Absolute Lymph 1.79 X10 3/uL Normal 0.83-4.51 [facility] Comment on above: Performed By: #### L 500.2500, L100.0100 #### [facility] [address] [place], [address] Absolute Neut 3.8 X10 3/uL Normal 2.0-7.7 [facility] Comment on above: Performed By: #### L 500.2500, L100.0100 #### [facility] [address] [place], [address] Basophils/100 WBC (Bld) 0.3 % Normal 0-1 [facility] Comment on above: Performed By: #### L 500.2500, L100.0100 #### [facility] [address] [place], [address] Eosinophils/100 WBC (Bld) 2.0 % Normal 0-5 [facility] Comment on above: Performed By: #### L 500.2500, L100.0100 #### [facility] [address] [place], [address] Erythrocyte distribution width (RBC) [Ratio] 12.4 % Normal 11.6-14.6 [facility] Comment on above: Performed By: #### L 500.2500, L100.0100 #### [facility] [address] [place], [address] Hematocrit (Bld) [Volume fraction] 36.3 % Low 40-54 [facility] Comment on above: Performed By: #### L 500.2500, L100.0100 #### [facility] [address] [place], [address] Hemoglobin (Bld) [Mass/Vol] 12.9 g/dL Low 13.0-16.5 [facility] Comment on above: Performed By: #### L 500.2500, L100.0100 #### [facility] [address] [place], [address] IG% 0.800 Normal 0.0-0.9 [facility] Comment on above: Result Comment: IG% - Immature Granulocytes (promyelocytes, myelocytes and metamyelocytes) > 1% indicates that a LEFT SHIFT is Present. Performed By: #### L 500.2500, L100.0100 #### [facility] [address] [place], [address] Lymphocytes/100 WBC (Bld) 27.2 % Normal 19-41 [facility] Comment on above: Performed By: #### L 500.2500, L100.0100 #### [facility] [address] [place], [address] MCH (RBC) [Entitic mass] 28.4 pg Normal 27.0-32.0 [facility] Comment on above: Performed By: #### L 500.2500, L100.0100 #### [facility] [address] [place], [address] MCHC (RBC) [Mass/Vol] 35.5 g/dL Normal 32-36 [facility] Comment on above: Performed By: #### L 500.2500, L100.0100 #### [facility] [address] [place], [address] MCV (RBC) [Entitic vol] 79.8 fL Low 80-94 [facility] Comment on above: Performed By: #### L 500.2500, L100.0100 #### [facility] [address] [place], [address] Monocytes/100 WBC (Bld) 11.4 % High 0-10 [facility] Comment on above: Performed By: #### L 500.2500, L100.0100 #### [facility] [address] [place], [address] Neutrophils/100 WBC (Bld) 58.3 % Normal 47-70 [facility] Comment on above: Performed By: #### L 500.2500, L100.0100 #### [facility] [address] [place], [address] Nucleated RBC (Bld) [#/Vol] 0 10*3/uL Normal 0-5 [facility] Comment on above: Performed By: #### L 500.2500, L100.0100 #### [facility] [address] [place], [address] Platelet mean volume (Bld) [Entitic vol] 9.6 fL Normal 6.2-12.0 [facility] Comment on above: Performed By: #### L 500.2500, L100.0100 #### [facility] [address] [place], [address] Platelets (Bld) [#/Vol] 215 10*3/uL Normal 150-450 [facility] Comment on above: Performed By: #### L 500.2500, L100.0100 #### [facility] [address] [place], [address] RBC (Bld) [#/Vol] 4.55 10*6/uL Low 4.6-6.2 [facility] Comment on above: Performed By: #### L 500.2500, L100.0100 #### [facility] [address] [place], [address] RDW SD 35.6 fl Normal 35.1-43.9 [facility] Comment on above: Performed By: #### L 500.2500, L100.0100 #### [facility] [address] [place], [address] WBC (Bld) [#/Vol] 6.6 10*3/uL Normal 4.4-11.0 [facility] Comment on above: Performed By: #### L 500.2500, L100.0100 #### [facility] [address] [place], [address] Carbon dioxide, total [Moles /volume] in Central venous bloodOrdered By: Kenisha Mcgee on 08-30-2025 CO2 [Moles/Vol] 23.8 mmol/L 21.0-32.0 [facility] Chloride assayOrdered By: Willy Mcgee on 08-30-2025 Chloride [Moles/Vol] 103 mmol/L 98-108 [facility] Culture, Blood (WB)on 2024 CUB Blood cultures x2, f rom two different sites AEROBIC BOTTLE GRAM STAIN: GRAM NEGATIVE RODS Culture, Blood (WB) RESULTS CALLED TO LON DUGGAN 08/28/25 181 Milan Duncan. REPORT READ BACK BY SAME. Culture, Blood (WB) Copy of report sent to Infection Control Printer [id number] 08/30/25 1313 ASNLING. Burkholderia gladioli Amount Growth Growth Burkholderia gladioli: REACTION Aztreonam Islt SATHISH 32 Doxycycline Islt SATHISH 1 S Imipenem Islt SATHISH <=0.5 S levoFLOXacin Islt SATHISH 1 S Meropenem Islt SATHISH 1 S Pip+Tazo Islt SATHISH <=4 S TMP SMX Islt SATHISH <=20 S Normal [facility] Comment on above: Performed By: #### L 500.2500, L100.0100 #### [facility] [address] [place], [address] Eosinophil percentageOrdered By: Kenisha Mcgee on 08-30-2025 Eosinophils/100 WBC (Bld) 2.0 % 0-5 [facility] Erythrocyte distribution wid th ratioOrdered By: Kenisha Mcgee on 08-30-2025 Erythrocyte distribution width (RBC) [Ratio] 12.4 % 11.6-14.6 [facility] Erythrocyte distribution wid th standard deviationOrdered By: Kenisha Mcgee on 08-30-2025 Erythrocyte distribution width (RBC) [Ratio] 35.6 fl 35.1-43.9 [facility] Glomerular filtration rate ( GFR) estimation/1.73 sq m using serum, plasma, or whole bOrdered By: Kenisha Mcgee on 08-30-2025 GFR/1.73 sq M.predicted among non-blacks MDRD (S/P/Bld) [Vol rate/Area] 112 mL/min/{1.73_m2} >60 [facility] Comment on above: mL/min/1.73m2 CKD-EP I Creatinine Equation (2020) [facility] deOrdered By: Zachariah oMta on 08-30-2025 Glucose [Mass/Vol] 197 mg/dL High 74-106 [facility] Comment on above: MANAGEMENT OF PATIEN T CARE PER NURSING PROTOCOL Hematocrit Auto (Bld) [Volum e fraction]Ordered By: Kenisha Mcgee on 08-30-2025 Hematocrit (Bld) [Volume fraction] 36.3 % Low 40-54 [facility] Hemoglobin measurementOrdere d By: Kenisha Mcgee on 08-30-2025 Hemoglobin (Bld) [Mass/Vol] 12.9 g/dL Low 13.0-16.5 [facility] Immature granulocytes/100 WB C Auto (Bld)Ordered By: Kenisha Mcgee on 08-30-2025 Immature granulocytes/100 WBC (Bld) 0.800 % 0.0-0.9 [facility] Comment on above: IG% - Immature Granu locytes (promyelocytes, myelocytes and metamyelocytes) > 1% indicates that a LEFT SHIFT is Present. MCV (mean corpuscular volume ) determinationOrdered By: Kenisha Mcgee on 08-30-2025 MCV (RBC) [Entitic vol] 79.8 fL Low 80-94 [facility] Mean corpuscular hemoglobin (MCH) determinationOrdered By: Kenisha Mcgee on 08-30-2025 MCH (RBC) [Entitic mass] 28.4 pg 27.0-32.0 [facility] Mean corpuscular hemoglobin concentration (MCHC) determinationOrdered By: Kenisha Mcgee on 08-30-2025 MCHC (RBC) [Mass/Vol] 35.5 g/dL 32-36 [facility] Mean platelet volume determi nationOrdered By: Kenisha Mcgee on 08-30-2025 Platelet mean volume (Bld) [Entitic vol] 9.6 fL 6.2-12.0 [facility] Monocyte percentageOrdered B y: Kenisha Mcgee on 08-30-2025 Monocytes/100 WBC (Bld) 11.4 % High 0-10 [facility] Neutrophil percentageOrdered By: Kenisha Mcgee on 08-30-2025 Neutrophils/100 WBC (Bld) 58.3 % 47-70 [facility] Nucleated red blood cell per centageOrdered By: Kenisha Mcgee on 08-30-2025 Nucleated RBC/100 WBC (Bld) [Ratio] 0 % 0-5 [facility] Platelet countOrdered By: Willy Mcgee on 08-30-2025 Platelets (Bld) [#/Vol] 215 10*3/uL 150-450 [facility] Potassium measurement (mass/ volume)Ordered By: Kenisha Mcgee on 08-30-2025 Potassium (Unsp spec) [Mass/Vol] 3.8 mmol/L 3.3-5.1 [facility] RBC Auto (Bld) [#/Vol]Ordere d By: Kenisha Mcgee on 08-30-2025 RBC (Bld) [#/Vol] 4.55 10*6/uL Low 4.6-6.2 [facility] Serum creatinine measurement (mass/volume)Ordered By: Kenisha Mcgee on 08-30-2025 Creatinine [Mass/Vol] 0.64 mg/dL Low 0.70-1.20 [facility] Serum glucose measurement (m ass/volume)Ordered By: Kenisha Mcgee on 08-30-2025 Glucose [Mass/Vol] 228 mg/dL High 70-99 [facility] Serum or plasma calcium agus urement (mass/volume)Ordered By: Kenisha Mcgee on 08-30-2025 Calcium [Mass/Vol] 8.7 mg/dL 7.6-11.0 [facility] Serum or plasma urea nitroge n measurement (mass/volume)Ordered By: Kenisha Mcgee on 08-30-2025 Urea nitrogen [Mass/Vol] 9 mg/dL 4-19 [facility] Sodium levelOrdered By: Lola Mcgee on 08-30-2025 Sodium [Moles/Vol] 136 mmol/L 133-145 [facility] Urine Cultureon 08-30-2025 [facility] Comments: urine for culture collected in OR Burkholderia glachen [place] Count 11,000-25,000 Burkholderia gladioli: REACTION levoFLOXacin Islt SATHISH 1 Meropenem Islt SATHISH 1 S Pip+Tazo Islt SATHISH <=4 S TMP SMX Islt SATHISH <=20 S Normal [facility] Comment on above: Performed By: #### L 501.080 #### [facility] [address] [place], [place], [id number] [facility] Culture exhibits no growth. Normal [facility] Comment on above: Performed By: #### L 500.2500, L100.0100 #### [facility] [address] [place], [address] White blood cell (WBC) count Ordered By: Kenisha Mcgee on 08-30-2025 WBC (Bld) [#/Vol] 6.6 10*3/uL 4.4-11.0 [facility] Basic Metabolic Profile (BMP )on 08-29-2025 BUN/CRE 11.9 RATIO Normal 10-20 [facility] Comment on above: Performed By: #### L 500.2500, L100.0100 #### [facility] [address] [place], [address] Calcium [Mass/Vol] 8.4 mg/dL Normal 7.6-11.0 [facility] Comment on above: Performed By: #### L 500.2500, L100.0100 #### [facility] [address] [place], [address] Chloride [Moles/Vol] 100 mmol/L Normal 98-108 [facility] Comment on above: Performed By: #### L 500.2500, L100.0100 #### [facility] [address] [place], [address] CO2 [Moles/Vol] 23.1 mmol/L Normal 21.0-32.0 [facility] Comment on above: Performed By: #### L 500.2500, L100.0100 #### [facility] [address] [place], [address] Creatinine [Mass/Vol] 0.62 mg/dL Low 0.70-1.20 [facility] Comment on above: Performed By: #### L 500.2500, L100.0100 #### [facility] [address] [place], [address] ECRCL 135.47 ml/min Normal 50-250 [facility] Comment on above: Performed By: #### L 500.2500, L100.0100 #### [facility] [address] [place], [address] GAP 9 Normal 5-15 [facility] Comment on above: Performed By: #### L 500.2500, L100.0100 #### [facility] [address] [place], [address] GFR/1.73 sq M.predicted among non-blacks MDRD (S/P/Bld) [Vol rate/Area] 114 mL/min/{1.73_m2} Normal >60 [facility] Comment on above: Result Comment: mL/m in/1.73m2 CKD-EPI Creatinine Equation (2020) Performed By: #### L 500.2500, L100.0100 #### [facility] [address] [place], [address] Glucose [Mass/Vol] 195 mg/dL High 70-99 [facility] Comment on above: Performed By: #### L 500.2500, L100.0100 #### [facility] [address] [place], [address] Potassium [Moles/Vol] 4.1 mmol/L Normal 3.3-5.1 [facility] Comment on above: Performed By: #### L 500.2500, L100.0100 #### [facility] [address] [place], [address] Sodium [Moles/Vol] 133 mmol/L Normal 133-145 [facility] Comment on above: Performed By: #### L 500.2500, L100.0100 #### [facility] [address] [place], [address] Urea nitrogen [Mass/Vol] 7 mg/dL Normal 4-19 [facility] Comment on above: Performed By: #### L 500.2500, L100.0100 #### [facility] [address] [place], [address] Bedside Glucoseon 10-24-2025 FINGERSTICK GLU 349 mg/dL High [address] [place] [address] Comment on above: Result Comment: KATIE GEMENT OF PATIENT CARE PER NURSING PROTOCOL Performed By: #### L 500.2500, L100.0100 #### [facility] [address] [place], [address] FINGERSTICK GLU 210 mg/dL [address] Comment on above: Result Comment: KATIE GEMENT OF PATIENT CARE PER NURSING PROTOCOL Performed By: #### L 500.2500, L100.0100 #### [facility] [address] [place], [address] FINGERSTICK GLU 229 mg/dL High [address] [place] [address] Comment on above: Result Comment: KATIE GEMENT OF PATIENT CARE PER NURSING PROTOCOL Performed By: #### L 501.080 #### [facility] [address] [place], [address] FINGERSTICK GLU 193 mg/dL [address] Comment on above: Result Comment: KATIE GEMENT OF PATIENT CARE PER NURSING PROTOCOL Performed By: #### L 501.080 #### [facility] [address] [place], [address] FINGERSTICK GLU 192 mg/dL [address] Comment on above: Result Comment: KATIE GEMENT OF PATIENT CARE PER NURSING PROTOCOL Performed By: #### L 500.2500, L100.0100 #### [facility] [address] [place], [address] Bilirubin Test strip Ql (U)O rdered By: Kenisha Mcgee on 08-29-2025 Bilirubin Ql (U) Negative Negative [facility] CBC W/Diff, Automatedon 08-07 Absolute Lymph 0.86 X10 3/uL Normal 0.83-4.51 [facility] Comment on above: Performed By: #### L 500.2500, L100.0100 #### [facility] [address] [place], [address] Absolute Neut 4.7 X10 3/uL Normal 2.0-7.7 [facility] Comment on above: Performed By: #### L 500.2500, L100.0100 #### [facility] [address] [place], [address] Basophils/100 WBC (Bld) 0.3 % Normal 0-1 [facility] Comment on above: Performed By: #### L 500.2500, L100.0100 #### [facility] [address] [place], [address] Eosinophils/100 WBC (Bld) 0.5 % Normal 0-5 [facility] Comment on above: Performed By: #### L 500.2500, L100.0100 #### [facility] [address] [place], [address] Erythrocyte distribution width (RBC) [Ratio] 12.2 % Normal 11.6-14.6 [facility] Comment on above: Performed By: #### L 500.2500, L100.0100 #### [facility] [address] [place], [address] Hematocrit (Bld) [Volume fraction] 34.5 % Low 40-54 [facility] Comment on above: Performed By: #### L 500.2500, L100.0100 #### [facility] [address] [place], [address] Hemoglobin (Bld) [Mass/Vol] 12.1 g/dL Low 13.0-16.5 [facility] Comment on above: Performed By: #### L 500.2500, L100.0100 #### [facility] [address] [place], [address] IG% 0.500 Normal 0.0-0.9 [facility] Comment on above: Result Comment: IG% - Immature Granulocytes (promyelocytes, myelocytes and metamyelocytes) > 1% indicates that a LEFT SHIFT is Present. Performed By: #### L 500.2500, L100.0100 #### [facility] [address] [place], [address] Lymphocytes/100 WBC (Bld) 13.6 % Low 19-41 [facility] Comment on above: Performed By: #### L 500.2500, L100.0100 #### [facility] [address] [place], [address] MCH (RBC) [Entitic mass] 28.0 pg Normal 27.0-32.0 [facility] Comment on above: Performed By: #### L 500.2500, L100.0100 #### [facility] [address] [place], [address] MCHC (RBC) [Mass/Vol] 35.1 g/dL Normal 32-36 [facility] Comment on above: Performed By: #### L 500.2500, L100.0100 #### [facility] [address] [place], [address] MCV (RBC) [Entitic vol] 79.9 fL Low 80-94 [facility] Comment on above: Performed By: #### L 500.2500, L100.0100 #### [facility] [address] [place], [address] Monocytes/100 WBC (Bld) 10.0 % Normal 0-10 [facility] Comment on above: Performed By: #### L 500.2500, L100.0100 #### [facility] [address] [place], [address] Neutrophils/100 WBC (Bld) 75.1 % High 47-70 [facility] Comment on above: Performed By: #### L 500.2500, L100.0100 #### [facility] [address] [place], [address] Nucleated RBC (Bld) [#/Vol] 0 10*3/uL Normal 0-5 [facility] Comment on above: Performed By: #### L 500.2500, L100.0100 #### [facility] [address] [place], [address] Platelet mean volume (Bld) [Entitic vol] 10.0 fL Normal 6.2-12.0 [facility] Comment on above: Performed By: #### L 500.2500, L100.0100 #### [facility] [address] [place], [address] Platelets (Bld) [#/Vol] 165 10*3/uL Normal 150-450 [facility] Comment on above: Performed By: #### L 500.2500, L100.0100 #### [facility] [address] [place], [address] RBC (Bld) [#/Vol] 4.32 10*6/uL Low 4.6-6.2 [facility] Comment on above: Performed By: #### L 500.2500, L100.0100 #### [facility] [address] [place], [address] RDW SD 35.5 fl Normal 35.1-43.9 [facility] Comment on above: Performed By: #### L 500.2500, L100.0100 #### [facility] [address] [place], [address] WBC (Bld) [#/Vol] 6.3 10*3/uL Normal 4.4-11.0 [facility] Comment on above: Performed By: #### L 500.2500, L100.0100 #### [facility] [address] [place], [address] Discharge Instructionon 08-07 Discharge Instruction [facility] Medical Records Department [address] [place] [address] Instructions for Home/Discharge Instructions 08/29/25 1227 MR#: [id number] Acct: [id number] Name: ANDRIA HERNANDEZ Rep #: [id number] : 1970 55 From: Zachariah Mota MD PCP: Dr. Ronald Tong MD Status:ADM IN Discharge Instructions DC O2, CPAP, BIPAP needs Home O2 Discharge instructions: No Dressing / Incision Discharge Activity: Return to Normal Activity and May Not Drive (while taking narcotic pain medications.) Dressing / Incision Call your doctor if you observe: Fever of 101 or Higher Follow Up Care Please Follow Up With: Zachariah Mota MD When: Call [phone] for an appointment, 2 weeks to remove stent Test Results: Test results from this visit will be discussed in further detail at your follow-up appointment, if applicable. Discharge Plan Admission Admit Date/Time: 08/25/25 16:19 Primary Reason for Your Visit: Ureteral spasms Attending Provider: Zachariah Mota Primary Care Provider: Ronald Tong Consulting Providers: Kenisha Mcgee; Anthony Jaime; Lucho Maki Discharge Orders/Prescriptions Prescriptions: New ketorolac 10 mg tablet 10 mg PO Q6H Qty: 10 0RF Rx Instructions: maximum total duration of 5 days from all oral, intranasal, or parenteral formulations Continued amlodipine 5 mg tablet 5 mg PO DAILY metformin 500 mg tablet 500 mg PO BID ondansetron HCl 4 mg tablet 4 mg PO BID PRN PRN (Reason: nausea and vomiting) glipizide 5 mg tablet 5 mg PO DAILY hydrocodone-acetaminoph en 5-325 mg tablet 1 tab PO Q6H PRN PRN (Reason: Pain) 3 Days Qty: 10 0RF atorvastatin 20 mg tablet 20 mg PO DAILY tamsulosin 0.4 mg capsule 0.4 mg PO DAILY Referrals / Follow Up: Ronald Tong MD [Primary Care Provider, Family Practice] Zachariah Mota MD [Med Staff - Active Staff, Urology] Disposition Disposition (needs filled in before D/C Order can be placed): Home, Self Care 08/29/25 1228 Zachariah Mota MD CC: Dr. Anthony Jaime DO; Dr. Ronald Tong MD; Dr. Lucho Maki MD; Dr. Kenisha Mcgee MD Signed Normal [facility] Ketones Test strip Ql (U)Ord ered By: Kenisha Mcgee on 08-29-2025 Ketones Ql (U) 5 mg/dl High Negative [facility] Microscopic analysis of urin e for red blood cells (RBC)Ordered By: Kenisha Mcgee on 08-29-2025 Microscopic analysis of urine for red blood cells (RBC) > 100 SEEN /hpf 0-5 [facility] Mucus LM Ql (Urine sed)Order ed By: Kenisha Mcgee on 08-29-2025 Mucus Ql (Urine sed) 0 SEEN /hpf [facility] Nitrite Test strip Ql (U)Ord ered By: Kenisha Mcgee on 08-29-2025 Nitrite Ql (U) Positive High Negative [facility] Protein Test strip Ql (U)Ord ered By: Kenisha Mcgee on 08-29-2025 Protein Ql (U) 100 mg/dl High Negative [facility] Squamous epithelial cells de tection in urine sediment by light microscopyOrdered By: Kenisha Mcgee on 08-29-2025 Epithelial cells.squamous LM Ql (Urine sed) 0 SEEN /hpf 0- [facility] Urinalysis, Completeon 08-29 BACTERIA 1+ /hpf Normal None Seen [facility] Comment on above: Order Comment: COLOR OF URINE MAY AFFECT DIPSTICK RESULTS.CLEAN CATCH Performed By: #### L 500.2500, L100.0100 #### [facility] [address] [place], [address] RBC > 100 SEEN Normal 0-5 [facility] Comment on above: Order Comment: COLOR OF URINE MAY AFFECT DIPSTICK RESULTS.CLEAN CATCH Performed By: #### L 500.2500, L100.0100 #### [facility] [address] [place], [address] WBC 5-10 SEEN Normal 0-5 [facility] Comment on above: Order Comment: COLOR OF URINE MAY AFFECT DIPSTICK RESULTS.CLEAN CATCH Performed By: #### L 500.2500, L100.0100 #### [facility] [address] [place], [address] EPI,SQUAMOUS 0 SEEN Normal 0-5 [facility] Comment on above: Order Comment: COLOR OF URINE MAY AFFECT DIPSTICK RESULTS.CLEAN CATCH Performed By: #### L 500.2500, L100.0100 #### [facility] [address] [place], [address] Mucus Ql (Urine sed) [address] [facility] Comment on above: Order Comment: COLOR OF URINE MAY AFFECT DIPSTICK RESULTS.CLEAN CATCH Performed By: #### L 500.2500, L100.0100 #### [facility] [address] [place], [address] Urine clarityOrdered By: Rena Mcgee on 08-29-2025 Clarity (U) Turbid Clear [facility] Urine color determinationOrd ered By: Kenisha Mcgee on 08-29-2025 Color (U) Red Yellow [facility] Urine cultureOrdered By: Rena Mcgee on 08-29-2025 Bacteria identified Cx Nom (U) Culture exhibits no growth. [facility] Urine glucose detectionOrder ed By: Kenisha Mcgee on 08-29-2025 Glucose Ql (U) 1000 mg/dl High Normal [facility] Urine leukocyte esterase det ection by dipstickOrdered By: Kenisha Mcgee on 08-29-2025 Leukocyte esterase Test strip Ql (U) 100 /ul High Negative [facility] Urine pHOrdered By: Kenisha hannah on 08-29-2025 pH (U) 8.0 [pH] 5.0 - 8.0 [facility] Urine sediment bacteria coun t by microscopy (number/high power field)Ordered By: Kenisha Mcgee on 08-29-2025 Bacteria LM.HPF (Urine sed) [#/Area] 1 /[HPF] None Seen [facility] Urine specific gravity measu rementOrdered By: Kenisha Mcgee on 08-29-2025 Specific gravity (U) [Rel density] 1.015 1.002-1.030 [facility] Urine urobilinogen measureme ntOrdered By: Kenisha Mcgee on 08-29-2025 Urobilinogen Ql (U) 1 mg/dl High Normal [facility] White blood cell countOrdere d By: Kenisha Mcgee on 08-29-2025 White blood cell count 5-10 SEEN /hpf 0-5 [facility] Basic Metabolic Profile (BMP )on 08-28-2025 BUN/CRE 13.7 RATIO Normal 10-20 [facility] Comment on above: Performed By: #### L 500.2500, L100.0100 #### [facility] [address] [place], [address] Calcium [Mass/Vol] 8.1 mg/dL Normal 7.6-11.0 [facility] Comment on above: Performed By: #### L 500.2500, L100.0100 #### [facility] [address] [place], [address] Chloride [Moles/Vol] 105 mmol/L Normal 98-108 [facility] Comment on above: Performed By: #### L 500.2500, L100.0100 #### [facility] [address] [place], [address] CO2 [Moles/Vol] 24.1 mmol/L Normal 21.0-32.0 [facility] Comment on above: Performed By: #### L 500.2500, L100.0100 #### [facility] [address] [place], [address] Creatinine [Mass/Vol] 0.88 mg/dL Normal 0.70-1.20 [facility] Comment on above: Performed By: #### L 500.2500, L100.0100 #### [facility] [address] [place], [address] ECRCL 95.45 ml/min Normal 50-250 [facility] Comment on above: Performed By: #### L 500.2500, L100.0100 #### [facility] [address] [place], [address] GAP 8 Normal 5-15 [facility] Comment on above: Performed By: #### L 500.2500, L100.0100 #### [facility] [address] [place], [address] GFR/1.73 sq M.predicted among non-blacks MDRD (S/P/Bld) [Vol rate/Area] 102 mL/min/{1.73_m2} Normal >60 [facility] Comment on above: Result Comment: mL/m in/1.73m2 CKD-EPI Creatinine Equation (2020) Performed By: #### L 500.2500, L100.0100 #### [facility] [address] [place], [address] Glucose [Mass/Vol] 173 mg/dL High 70-99 [facility] Comment on above: Performed By: #### L 500.2500, L100.0100 #### [facility] [address] [place], [address] Potassium [Moles/Vol] 3.8 mmol/L Normal 3.3-5.1 [facility] Comment on above: Performed By: #### L 500.2500, L100.0100 #### [facility] [address] [place], [address] Sodium [Moles/Vol] 137 mmol/L Normal 133-145 [facility] Comment on above: Performed By: #### L 500.2500, L100.0100 #### [facility] [address] [place], [address] Urea nitrogen [Mass/Vol] 12 mg/dL Normal 4-19 [facility] Comment on above: Performed By: #### L 500.2500, L100.0100 #### [facility] [address] [place], [address] Bedside Glucoseon 08-28-2025 FINGERSTICK GLU 207 mg/dL High 74-106 [facility] Comment on above: Result Comment: KATIE GEMENT OF PATIENT CARE PER NURSING PROTOCOL Performed By: #### L 500.2499, L100.0100 #### [facility] [address] [place], [address] FINGERSTICK GLU 279 mg/dL High -106 [facility] Comment on above: Result Comment: KATIE GEMENT OF PATIENT CARE PER NURSING PROTOCOL Performed By: #### L 501.080 #### [facility] [address] [place], [address] FINGERSTICK GLU 162 mg/dL High [facility]106 [facility] Comment on above: Result Comment: KATIE GEMENT OF PATIENT CARE PER NURSING PROTOCOL Performed By: #### L 500.2499, L100.0100 #### [facility] [address] [place], [address] FINGERSTICK GLU 203 mg/dL High [facility]106 [facility] Comment on above: Result Comment: KATIE GEMENT OF PATIENT CARE PER NURSING PROTOCOL Performed By: #### L 501.080 #### [facility] [address] [place], [address] FINGERSTICK GLU 186 mg/dL High -106 [facility] Comment on above: Result Comment: KATIE GEMENT OF PATIENT CARE PER NURSING PROTOCOL Performed By: #### L 500.2499, L100.0100 #### [facility] [address] [place], [address] CBC W/Diff, Automatedon 10-2 Absolute Lymph 0.61 X10 3/uL Low 0.83-4.51 [facility] Comment on above: Performed By: #### L 500.2500, L100.0100 #### [facility] [address] [place], [address] Absolute Neut 7.7 X10 3/uL Normal 2.0-7.7 [facility] Comment on above: Performed By: #### L 500.2500, L100.0100 #### [facility] [address] [place], [address] Basophils/100 WBC (Bld) 0.2 % Normal 0-1 [facility] Comment on above: Performed By: #### L 500.2500, L100.0100 #### [facility] [address] [place], [address] Eosinophils/100 WBC (Bld) 0.2 % Normal 0-5 [facility] Comment on above: Performed By: #### L 500.2500, L100.0100 #### [facility] [address] [place], [address] Erythrocyte distribution width (RBC) [Ratio] 12.5 % Normal 11.6-14.6 [facility] Comment on above: Performed By: #### L 500.2500, L100.0100 #### [facility] [address] [place], [address] Hematocrit (Bld) [Volume fraction] 34.6 % Low 40-54 [facility] Comment on above: Performed By: #### L 500.2500, L100.0100 #### [facility] [address] [place], [address] Hemoglobin (Bld) [Mass/Vol] 11.7 g/dL Low 13.0-16.5 [facility] Comment on above: Performed By: #### L 500.2500, L100.0100 #### [facility] [address] [place], [address] IG% 0.400 Normal 0.0-0.9 [facility] Comment on above: Result Comment: IG% - Immature Granulocytes (promyelocytes, myelocytes and metamyelocytes) > 1% indicates that a LEFT SHIFT is Present. Performed By: #### L 500.2500, L100.0100 #### [facility] [address] [place], [address] Lymphocytes/100 WBC (Bld) 6.8 % Low 19-41 [facility] Comment on above: Performed By: #### L 500.2500, L100.0100 #### [facility] [address] [place], [address] MCH (RBC) [Entitic mass] 27.8 pg Normal 27.0-32.0 [facility] Comment on above: Performed By: #### L 500.2500, L100.0100 #### [facility] [address] [place], [address] MCHC (RBC) [Mass/Vol] 33.8 g/dL Normal 32-36 [facility] Comment on above: Performed By: #### L 500.2500, L100.0100 #### [facility] [address] [place], [address] MCV (RBC) [Entitic vol] 82.2 fL Normal 80-94 [facility] Comment on above: Performed By: #### L 500.2500, L100.0100 #### [facility] [address] [place], [address] Monocytes/100 WBC (Bld) 6.4 % Normal 0-10 [facility] Comment on above: Performed By: #### L 500.2500, L100.0100 #### [facility] [address] [place], [address] Neutrophils/100 WBC (Bld) 86.0 % High 47-70 [facility] Comment on above: Performed By: #### L 500.2500, L100.0100 #### [facility] [address] [place], [address] Nucleated RBC (Bld) [#/Vol] 0 10*3/uL Normal 0-5 [facility] Comment on above: Performed By: #### L 500.2500, L100.0100 #### [facility] [address] [place], [address] Platelet mean volume (Bld) [Entitic vol] 9.2 fL Normal 6.2-12.0 [facility] Comment on above: Performed By: #### L 500.2500, L100.0100 #### [facility] [address] [place], [address] Platelets (Bld) [#/Vol] 158 10*3/uL Normal 150-450 [facility] Comment on above: Performed By: #### L 500.2500, L100.0100 #### [facility] [address] [place], [address] RBC (Bld) [#/Vol] 4.21 10*6/uL Low 4.6-6.2 [facility] Comment on above: Performed By: #### L 500.2500, L100.0100 #### [facility] [address] [place], [address] RDW SD 37.6 fl Normal 35.1-43.9 [facility] Comment on above: Performed By: #### L 500.2500, L100.0100 #### [facility] [address] [place], [address] WBC (Bld) [#/Vol] 8.9 10*3/uL Normal 4.4-11.0 [facility] Comment on above: Performed By: #### L 500.2500, L100.0100 #### [facility] [address] [place], [address] Urine Cultureon 08-28-2025 URC Culture exhibits no growth. Normal [facility] Comment on above: Performed By: #### M 100.2200 #### [facility] [address] [place], [address] 12 Lead EKGon 08-27-2025 12 Lead EKG [facility] [address] [place] [address] 12 Lead EKG 08/27/25 1734 MR#: [id number] Acct: [id number] Name: ANDRIA HERNANDEZ Rep #: [id number] : 1970 55 From: Tor Sykes MD Attending Dr: Dr. Zachariah Mota MD Status: ADM IN Ordering Dr: Kenisha Mcgee MD Date: 08/27/25 Location: [facility]3 Sex: M C Admitted: 08/25/25 Test Reason : TACHY Blood Pressure : */* mmHG Vent. Rate : 137 BPM Atrial Rate : 137 BPM P-R Int : 120 ms QRS Dur : 110 ms QT Int : 340 ms P-R-T Axes : * -8 22 degrees QTcB Int : 513 ms Sinus tachycardia Incomplete right bundle branch block Inferior infarct , age undetermined Abnormal ECG When compared with ECG of 27-Aug-2025 14:01, MANUAL COMPARISON REQUIRED DATA IS UNCONFIRMED Confirmed by Tor Sykes ([id number]), fan mail editor CHEVY MOLINA ([id number]) on 08/29/2025 7:09:41 AM Referred By: Zachariah Mota Confirmed By: Tor Sykes 08/29/25 0709 Date Tor Sykes MD CC: Dr. Ronald Tong MD; Dr. Zachariah Mota MD; Dr. Kenisha Mcgee MD Signed Normal [facility] 12 Lead EKG [facility] [address] [facility] [place] [address] 12 Lead EKG 08/27/25 1401 MR#: [id number] Acct: [id number] Name: ANDRIA HERNANDEZ Rep #: [id number] : 1970 55 From: Tor Sykes MD Attending Dr: Dr. Zachariah Mota MD Status: ADM IN Ordering Dr: Craig Rudolph MD Date: 08/27/25 Location: [facility]3 Sex: M C Admitted: 08/25/25 Test Reason : P Blood Pressure : */* mmHG Vent. Rate : 112 BPM Atrial Rate : 112 BPM P-R Int : 196 ms QRS Dur : 110 ms QT Int : 312 ms P-R-T Axes : 28 4 20 degrees QTcB Int : 425 ms Sinus tachycardia Incomplete right bundle branch block Inferior infarct (cited on or before 26-Mar-2024) Abnormal ECG When compared with ECG of 26-Mar-2024 13:53, No significant change was found Confirmed by Tor Sykes ([id number]), fan mail editor CHEVY MOLINA ([id number]) on 08/29/2025 7:09:51 AM Referred By: Zachariah Mota Confirmed By: Tor Sykes 08/29/25708 Date Tor Sykes MD CC: Dr. Craig Rudolph MD; Dr. Ronald Tong MD; Dr. Zachariah Mota MD Signed Normal [facility] Basic Metabolic Profile (BMP )on 08-27-2025 BUN/CRE 9.5 RATIO Low 08-25 [facility] Comment on above: Performed By: #### L 500.2500, L100.0100 #### [facility] [address] [place], [address] Calcium [Mass/Vol] 8.6 mg/dL Normal 7.6-11.0 [facility] Comment on above: Performed By: #### L 500.2500, L100.0100 #### [facility] [address] [place], [address] Chloride [Moles/Vol] 97 mmol/L Low 98-108 [facility] Comment on above: Performed By: #### L 500.2500, L100.0100 #### [facility] [address] [place], [address] CO2 [Moles/Vol] 21.6 mmol/L Normal 21.0-32.0 [facility] Comment on above: Performed By: #### L 500.2500, L100.0100 #### [facility] [address] [place], [address] Creatinine [Mass/Vol] 1.41 mg/dL High 0.70-1.20 [facility] Comment on above: Performed By: #### L 500.2500, L100.0100 #### [facility] [address] [place], [address] ECRCL 54.05 ml/min Normal 50-250 [facility] Comment on above: Performed By: #### L 500.2500, L100.0100 #### [facility] [address] [place], [address] GAP 15 Normal 5-15 [facility] Comment on above: Performed By: #### L 500.2500, L100.0100 #### [facility] [address] [place], [address] GFR/1.73 sq M.predicted among non-blacks MDRD (S/P/Bld) [Vol rate/Area] 59 mL/min/{1.73_m2} Low >60 [facility] Comment on above: Result Comment: mL/m in/1.73m2 CKD-EPI Creatinine Equation (2020) Performed By: #### L 500.2500, L100.0100 #### [facility] [address] [place], [address] Glucose [Mass/Vol] 269 mg/dL High 70-99 [facility] Comment on above: Performed By: #### L 500.2500, L100.0100 #### [facility] [address] [place], [address] Potassium [Moles/Vol] 4.1 mmol/L Normal 3.3-5.1 [facility] Comment on above: Performed By: #### L 500.2500, L100.0100 #### [facility] [address] [place], [address] Sodium [Moles/Vol] 133 mmol/L Normal 133-145 [facility] Comment on above: Performed By: #### L 500.2500, L100.0100 #### [facility] [address] [place], [address] Urea nitrogen [Mass/Vol] 13 mg/dL Normal 4-19 [facility] Comment on above: Performed By: #### L 500.2500, L100.0100 #### [facility] [address] [place], [address] Bedside Glucoseon 08-27-2025 FINGERSTICK GLU 267 mg/dL High 74-106 [facility] Comment on above: Result Comment: KATIE GEMENT OF PATIENT CARE PER NURSING PROTOCOL Performed By: #### L 500.2500, L100.0100 #### [facility] [address] [place], [address] FINGERSTICK GLU 259 mg/dL High 74-106 [facility] Comment on above: Result Comment: KATIE GEMENT OF PATIENT CARE PER NURSING PROTOCOL Performed By: #### L 500.2500, L100.0100 #### [facility] [address] [place], [address] FINGERSTICK GLU 268 mg/dL High 74-106 [facility] Comment on above: Result Comment: KATIE GEMENT OF PATIENT CARE PER NURSING PROTOCOL Performed By: #### L 500.2500, L100.0100 #### [facility] [address] [place], [address] FINGERSTICK GLU 218 mg/dL High 74-106 [facility] Comment on above: Result Comment: KATIE GEMENT OF PATIENT CARE PER NURSING PROTOCOL Performed By: #### L 501.080 #### [facility] [address] [place], [address] FINGERSTICK GLU 275 mg/dL High 74-106 [facility] Comment on above: Result Comment: KATIE BENJAMIN OF PATIENT CARE PER NURSING PROTOCOL Performed By: #### L 500.2500, L100.0100 #### [facility] [address] [place], [address] Bilirubin, totalOrdered By: Kenisha Mcgee on 08-27-2025 Bilirubin [Mass/Vol] 0.85 mg/dL 0.00-1.30 [facility] Blood cultureOrdered By: Rena Mcgee on 08-27-2025 Bacteria identified Cx Nom (Bld) Negative Abnormal [facility] Bacteria identified Cx Nom (Bld) Burkholderia gladioli Abnormal [facility] CBC W/Diff, Automatedon 08-07 Absolute Lymph 0.43 X10 3/uL Low 0.83-4.51 [facility] Comment on above: Performed By: #### L 501.080 #### [facility] [address] [place], [address] Absolute Neut 13.4 X10 3/uL High 2.0-7.7 [facility] Comment on above: Performed By: #### L 501.080 #### [facility] [address] [place], [address] Basophils/100 WBC (Bld) 0.1 % Normal 0-1 [facility] Comment on above: Performed By: #### L 501.080 #### [facility] [address] [place], [address] Eosinophils/100 WBC (Bld) 0.1 % Normal 0-5 [facility] Comment on above: Performed By: #### L 501.080 #### [facility] [address] [place], [address] Erythrocyte distribution width (RBC) [Ratio] 12.5 % Normal 11.6-14.6 [facility] Comment on above: Performed By: #### L 501.080 #### [facility] [address] [place], [address] Hematocrit (Bld) [Volume fraction] 38.0 % Low 40-54 [facility] Comment on above: Performed By: #### L 501.080 #### [facility] [address] [place], [address] Hemoglobin (Bld) [Mass/Vol] 13.3 g/dL Normal 13.0-16.5 [facility] Comment on above: Performed By: #### L 501.080 #### [facility] [address] [place], [address] IG% 0.400 Normal 0.0-0.9 [facility] Comment on above: Result Comment: IG% - Immature Granulocytes (promyelocytes, myelocytes and metamyelocytes) > 1% indicates that a LEFT SHIFT is Present. Performed By: #### L 501.080 #### [facility] [address] [place], [address] Lymphocytes/100 WBC (Bld) 3.0 % Low 19-41 [facility] Comment on above: Performed By: #### L 501.080 #### [facility] [address] [place], [address] MCH (RBC) [Entitic mass] 28.4 pg Normal 27.0-32.0 [facility] Comment on above: Performed By: #### L 501.080 #### [facility] [address] [place], [address] MCHC (RBC) [Mass/Vol] 35.0 g/dL Normal 32-36 [facility] Comment on above: Performed By: #### L 501.080 #### [facility] [address] [place], [address] MCV (RBC) [Entitic vol] 81.0 fL Normal 80-94 [facility] Comment on above: Performed By: #### L 501.080 #### [facility] [address] [place], [address] Monocytes/100 WBC (Bld) 4.4 % Normal 0-10 [facility] Comment on above: Performed By: #### L 501.080 #### [facility] [address] [place], [address] Neutrophils/100 WBC (Bld) 92.0 % High 47-70 [facility] Comment on above: Performed By: #### L 501.080 #### [facility] [address] [place], [address] Nucleated RBC (Bld) [#/Vol] 0 10*3/uL Normal 0-5 [facility] Comment on above: Performed By: #### L 501.080 #### [facility] [address] [place], [address] Platelet mean volume (Bld) [Entitic vol] 9.6 fL Normal 6.2-12.0 [facility] Comment on above: Performed By: #### L 501.080 #### [facility] [address] [place], [address] Platelets (Bld) [#/Vol] 208 10*3/uL Normal 150-450 [facility] Comment on above: Performed By: #### L 501.080 #### [facility] [address] [place], [address] RBC (Bld) [#/Vol] 4.69 10*6/uL Normal 4.6-6.2 [facility] Comment on above: Performed By: #### L 501.080 #### [facility] [address] [place], [address] RDW SD 36.2 fl Normal 35.1-43.9 [facility] Comment on above: Performed By: #### L 501.080 #### [facility] [address] [place], [address] WBC (Bld) [#/Vol] 14.5 10*3/uL High 4.4-11.0 [facility] Comment on above: Performed By: #### L 501.080 #### [facility] [address] [place], [address] Absolute Lymph 0.41 X10 3/uL Low 0.83-4.51 [facility] Comment on above: Performed By: #### L 500.2500, L100.0100 #### [facility] [address] [place], [address] Absolute Neut 14.3 X10 3/uL High 2.0-7.7 [facility] Comment on above: Performed By: #### L 500.2500, L100.0100 #### [facility] [address] [place], [address] Basophils/100 WBC (Bld) 0.3 % Normal 0-1 [facility] Comment on above: Performed By: #### L 500.2500, L100.0100 #### [facility] [address] [place], [address] Eosinophils/100 WBC (Bld) 0.0 % Normal 0-5 [facility] Comment on above: Performed By: #### L 500.2500, L100.0100 #### [facility] [address] [place], [address] Erythrocyte distribution width (RBC) [Ratio] 12.3 % Normal 11.6-14.6 [facility] Comment on above: Performed By: #### L 500.2500, L100.0100 #### [facility] [address] [place], [address] Hematocrit (Bld) [Volume fraction] 38.7 % Low 40-54 [facility] Comment on above: Performed By: #### L 500.2500, L100.0100 #### [facility] [address] [place], [address] Hemoglobin (Bld) [Mass/Vol] 13.7 g/dL Normal 13.0-16.5 [facility] Comment on above: Performed By: #### L 500.2500, L100.0100 #### [facility] [address] [place], [address] IG% 0.300 Normal 0.0-0.9 [facility] Comment on above: Result Comment: IG% - Immature Granulocytes (promyelocytes, myelocytes and metamyelocytes) > 1% indicates that a LEFT SHIFT is Present. Performed By: #### L 500.2500, L100.0100 #### [facility] [address] [place], [address] Lymphocytes/100 WBC (Bld) 2.7 % Low 19-41 [facility] Comment on above: Performed By: #### L 500.2500, L100.0100 #### [facility] [address] [place], [address] MCH (RBC) [Entitic mass] 29.0 pg Normal 27.0-32.0 [facility] Comment on above: Performed By: #### L 500.2500, L100.0100 #### [facility] [address] [place], [address] MCHC (RBC) [Mass/Vol] 35.4 g/dL Normal 32-36 [facility] Comment on above: Performed By: #### L 500.2500, L100.0100 #### [facility] [address] [place], [address] MCV (RBC) [Entitic vol] 81.8 fL Normal 80-94 [facility] Comment on above: Performed By: #### L 500.2500, L100.0100 #### [facility] [address] [place], [address] Monocytes/100 WBC (Bld) 3.6 % Normal 0-10 [facility] Comment on above: Performed By: #### L 500.2500, L100.0100 #### [facility] [address] [place], [address] Neutrophils/100 WBC (Bld) 93.1 % High 47-70 [facility] Comment on above: Performed By: #### L 500.2500, L100.0100 #### [facility] [address] [place], [address] Nucleated RBC (Bld) [#/Vol] 0 10*3/uL Normal 0-5 [facility] Comment on above: Performed By: #### L 500.2500, L100.0100 #### [facility] [address] [place], [address] Platelet mean volume (Bld) [Entitic vol] 9.3 fL Normal 6.2-12.0 [facility] Comment on above: Performed By: #### L 500.2500, L100.0100 #### [facility] [address] [place], [address] Platelets (Bld) [#/Vol] 202 10*3/uL Normal 150-450 [facility] Comment on above: Performed By: #### L 500.2500, L100.0100 #### [facility] [address] [place], [address] RBC (Bld) [#/Vol] 4.73 10*6/uL Normal 4.6-6.2 [facility] Comment on above: Performed By: #### L 500.2500, L100.0100 #### [facility] [address] [place], [address] RDW SD 36.9 fl Normal 35.1-43.9 [facility] Comment on above: Performed By: #### L 500.2500, L100.0100 #### [facility] [address] [place], [address] WBC (Bld) [#/Vol] 15.3 10*3/uL High 4.4-11.0 [facility] Comment on above: Performed By: #### L 500.2500, L100.0100 #### [facility] [address] [place], [address] Chest 1 View (Portable)on Chest 1 View (Portable) [facility] Imaging Services [address] [place] [address] Chest 1 View (Portable) MR#: [id number] Acct: [id number] Name: ANDRIA HERNANDEZ Rep #: [id number] : 1970 M 55 From: Anthony Andujar MD PCP: Dr. Ronald Tong MD Status: ADM IN Study: Chest 1 View (Portable) Date of Exam: 08/27/25 Exam# [id number] Ordering Dr: Kenisha Mcgee MD PROCEDURE: CHEST 1 VIEW (PORTABLE) 08/27/2025 REASON FOR EXAM: CONCERN FOR SEPSIS TECHNIQUE: Frontal view of the chest. COMPARISON: None. FINDINGS: Suboptimal inspiration. No appreciable consolidation, pneumothorax or pleural effusion. Cardiac silhouette appears normal in size. No vascular congestion. No significant osseous abnormality. RAD/Chest 1 View (Portable) IMPRESSION: Suboptimal inspiration. No appreciable airspace consolidation or pleural effusion. Reading Location: [id number] CC: Dr. Ronald Tong MD; Dr. Kenisha Mcgee MD Bisque Cleaner: Signed Normal [facility] Comprehensive Metabolic Prof ilon 08-27-2025 Albumin [Mass/Vol] 3.7 g/dL Normal 3.5-5.0 [facility] Comment on above: Performed By: #### L 501.080 #### [facility] [address] [place], [address] Albumin/Globulin [Mass ratio] 1.3 {ratio} Normal 0.9-2.4 [facility] Comment on above: Performed By: #### L 501.080 #### [facility] [address] [place], [address] ALK PHOS 53 U/L Normal 40-129 [facility] Comment on above: Performed By: #### L 501.080 #### [facility] [address] [place], [address] ALT [Catalytic activity/Vol] 8 U/L Normal <=46 [facility] Comment on above: Performed By: #### L 501.080 #### [facility] [address] [place], [address] AST [Catalytic activity/Vol] 17 U/L Normal <=37 [facility] Comment on above: Performed By: #### L 501.080 #### [facility] [address] [place], [address] Bilirubin [Mass/Vol] 0.85 mg/dL Normal 0.00-1.30 [facility] Comment on above: Performed By: #### L 501.080 #### [facility] [address] [place], [address] BUN/CRE 9.9 RATIO Low 10-20 [facility] Comment on above: Performed By: #### L 501.080 #### [facility] [address] [place], [address] Calcium [Mass/Vol] 8.9 mg/dL Normal 7.6-11.0 [facility] Comment on above: Performed By: #### L 501.080 #### [facility] [address] [place], [address] Chloride [Moles/Vol] 98 mmol/L Normal 98-108 [facility] Comment on above: Performed By: #### L 501.080 #### [facility] [address] [place], [address] CO2 [Moles/Vol] 18.6 mmol/L Low 21.0-32.0 [facility] Comment on above: Performed By: #### L 501.080 #### [facility] [address] [place], [address] Creatinine [Mass/Vol] 1.34 mg/dL High 0.70-1.20 [facility] Comment on above: Performed By: #### L 501.080 #### [facility] [address] [place], [address] ECRCL 56.87 ml/min Normal 50-250 [facility] Comment on above: Performed By: #### L 501.080 #### [facility] [address] [place], [address] GAP 17 High 5-15 [facility] Comment on above: Performed By: #### L 501.080 #### [facility] [address] [place], [address] GFR/1.73 sq M.predicted among non-blacks MDRD (S/P/Bld) [Vol rate/Area] 63 mL/min/{1.73_m2} Normal >60 [facility] Comment on above: Result Comment: mL/m in/1.73m2 CKD-EPI Creatinine Equation (2020) Performed By: #### L 501.080 #### [facility] [address] [place], [address] Globulin (S) [Mass/Vol] 2.8 g/dL Normal 2.2-4.2 [facility] Comment on above: Performed By: #### L 501.080 #### [facility] [address] [place], [address] Glucose [Mass/Vol] 265 mg/dL High 70-99 [facility] Comment on above: Performed By: #### L 501.080 #### [facility] [address] [place], [address] Potassium [Moles/Vol] 3.7 mmol/L Normal 3.3-5.1 [facility] Comment on above: Performed By: #### L 501.080 #### [facility] [address] [place], [address] Sodium [Moles/Vol] 134 mmol/L Normal 133-145 [facility] Comment on above: Performed By: #### L 501.080 #### [facility] [address] [place], [address] T PROT 6.5 g/dL Normal 5.9-8.4 [facility] Comment on above: Performed By: #### L 501.080 #### [facility] [address] [place], [address] Urea nitrogen [Mass/Vol] 13 mg/dL Normal 4-19 [facility] Comment on above: Performed By: #### L 501.080 #### [facility] [address] [place], [address] Consultation - [facility]iston 08-27-2025 Consultation - Hospitalist [facility] Medical Records Department [address] [place] [address] Consultation - Hospitalist 08/27/25 1814 MR#: [id number] Acct: [id number] Name: ANDRIA HERNANDEZ Rep #: [id number] : 1970 55 From: Kenisha Mcgee MD PCP: Dr. Ronald Tong MD Status:ADM IN [facility] Plan Assessment/Plan (1) Sepsis: PLAN: Plan #Suspected sepsis 2/2 urinary source - Patient febrile with a temp of 103, tachycardic with a heart rate up to 150, tachypneic with respiratory rate of 26, white count 14.5, bicarb 18.6 with a gap of 17 and lactic acid found to be 5.2 with some confusion suspected to be acute metabolic encephalopathy - Bolus with 30 cc/kg, thus far no hypotension - Antibiotics broadened to cefepime due to penicillin allergy - UA and urine culture ordered, blood cultures ordered - Did obtain chest x-ray as patient would not answer any questions but chest x-ray with no acute infectious process - Did not seem to be tender when I was palpating his abdomen, was able to urinate in a urinal during my exam - Exam otherwise nonfocal so suspect underlying infection most likely urinary source - Given elevated lactic acid and significance of patient's tachycardia and temperature we will move patient to ICU, patient not hypotensive send indication for vasopressors, patient remigio stable can be changed to PCU status however still early in course this would benefit from closer monitoring #Renal colic - Status post right ureteral stent with Dr. Mota 08/27/2025 - Management per primary #Type 2 diabetes mellitus -Glucose checks and sliding scale insulin -Hold home oral hypoglycemics #Chronic BPH with obstruction -Continue home medications #Hypertension - Hold due to the above #DVT ppx: SCDs Kenisha Mcgee MD Time spent in the patient's overall evaluation, decision-making process, review of diagnostic data, adjustment of management, discussion with other providers, nursing and ancillary staff involved in patient's care documentation, 62 Minutes HPI Consult Data Date of Consult: 08/27/25 HPI Narrative Reason for Consultation: Concern for sepsis HPI Narrative: ANDRIA HERNANDEZ, is a 55 y/o M w/ hx of DM II, HTN, BPH, kidney stone presented to [facility] 08/26/25 d/t severe renal colic. Per urology H P he previously underwent ureteroscopy dilation of the ureter and stent placement for stone however no stone was found but had a very tight ureter so was dilated and stent was placed. Then had severe renal colic with stent so stent was taken out but he presented back to the office in more severe pain and a CAT scan demonstrated ureter with some ureteritis inflammation along the ureter with no stone but some mild hydronephrosis. He was admitted 08/26 for pain control. The following day plan was to send patient home however he was having more severe pain with nausea, vomiting, and chills so he underwent cystoscopy for right stent placement with Dr. Mota. When he arrived to the floor after stent placement temp was 101.5, heart rate 140s and blood pressure 119/71. IV fluids at 125 an hour were still going and due to concerns for developing sepsis hospitalist contacted for consult. Patient evaluated bedside, temp 103, blood pressure in the 130 systolic but heart rate 140s to 150s with EKG revealing sinus tach. Patient irritable and uncooperative, would not answer specific questions and answered "I do not know" to every ROS question. Antibiotics broadened, cultures ordered and repeat labs obtained. [facility] Medical History Diabetes Kidney stones Hypertension Abdominal pain Abdominal hernia Home Medications ???Medication ???Instructions ???Recorded ???Last Taken ???Type amlodipine 5 mg tablet 5 mg PO DAILY bp 08/17/25 Unknown History glipizide 5 mg tablet 5 mg PO DAILY dm 08/17/25 Unknown History hydrocodone-acetaminoph en 5-325mg 1 tab PO Q6H PRN PRN Pain 3 days 08/17/25 Unknown Rx 5mg-325mg #10 TABLETS metformin 500 mg tablet 500 mg PO BID dm 08/17/25 Unknown History ondansetron HCl 4 mg tablet 4 mg PO BID PRN PRN nausea and 10/30 Unknown History vomiting atorvastatin 20 mg tablet 20 mg PO DAILY cholesterol 5 Unknown History tamsulosin 0.4 mg capsule 0.4 mg PO DAILY bph 08/25/25 Unkno wn History ketorolac 10 mg tablet 10 mg PO Q6H #10 tabs 08/27/25 Unk nown Rx Allergy/AdvReac Type Severity Reaction Status Date / Time Penicillins Allergy Severe Hives Verified 08/17/25 19:19 Family History Father Diabetes Heart disease Hypertension CVA (cerebral vascular accident) High cholesterol Surgical History History of eye (more content not included)... Normal [facility] Discharge Instructionon 10-2 Discharge Instruction [facility] Medical Records Department [address] [place] [address] Instructions for Home/Discharge Instructions 08/27/25729 MR#: [id number] Acct: [id number] Name: ANDRIA HERNANDEZ Rep #: [id number] : 1970 55 From: Zachariah Mota MD PCP: Dr. Ronald Tong MD Status:ADM IN Discharge Instructions DC O2, CPAP, BIPAP needs Home O2 Discharge instructions: No Dressing / Incision Discharge Activity: Return to Normal Activity and May Not Drive (while taking narcotic pain medications.) Dressing / Incision Call your doctor if you observe: Fever of 101 or Higher Follow Up Care Please Follow Up With: Zachariah Mota MD When: Call [phone] for an appointment Test Results: Test results from this visit will be discussed in further detail at your follow-up appointment, if applicable. Discharge Plan Admission Admit Date/Time: 08/25/25 16:19 Primary Reason for Your Visit: Ureteral spasms Attending Provider: Zachariah Mota Primary Care Provider: Ronald Tong Discharge Orders/Prescriptions Prescriptions: New ketorolac 10 mg tablet 10 mg PO Q6H Qty: 10 0RF Rx Instructions: maximum total duration of 5 days from all oral, intranasal, or parenteral formulations Continued amlodipine 5 mg tablet 5 mg PO DAILY metformin 500 mg tablet 500 mg PO BID ondansetron HCl 4 mg tablet 4 mg PO BID PRN PRN (Reason: nausea and vomiting) glipizide 5 mg tablet 5 mg PO DAILY hydrocodone-acetaminoph en 5-325 mg tablet 1 tab PO Q6H PRN PRN (Reason: Pain) 3 Days Qty: 10 0RF atorvastatin 20 mg tablet 20 mg PO DAILY tamsulosin 0.4 mg capsule 0.4 mg PO DAILY Referrals / Follow Up: Ronald Tong MD [Primary Care Provider, Family Practice] Zachariah Mota MD [Med Staff - Active Staff, Urology] Disposition Disposition (needs filled in before D/C Order can be placed): Home, Self Care 08/27/25729 Zachariah Mota MD CC: Dr. Ronald Tong MD Signed Normal [facility] International normalized rat io (INR) calculationOrdered By: Kenisha Mcgee on 08-27-2025 INR Coag (Bld) [Relative time] 1.2 {INR} [facility] - Chemistry and C hemistry - challengeOrdered By: Kenisha Mcgee on 08-27-2025 AST [Catalytic activity/Vol] 17 U/L <38 [facility] Lactic Acidon 08-27-2025 Lactate [Moles/Vol] 1.8 mmol/L Normal 0.0-2.0 [facility] Comment on above: Performed By: #### L 500.2500, L100.0100 #### [facility] [address] [facility] [facility] [place], [address] Lactate [Moles/Vol] 5.2 mmol/L Invalid Interpretation Code 0.0-2.0 [facility] Comment on above: Order Comment: Comme nts: if result >2, system reflex orders 2nd test @ 4hrsY Result Comment: Crit ical Result(s) Called ANY at: 1950 by: ONEAL??Results read back by same. Performed By: #### L 500.2500, L100.0100 #### [facility] [address] [place], [address] Lactic acid measurementOrder ed By: Kenisha Mcgee on 08-27-2025 Lactate [Moles/Vol] 1.8 mmol/L 0.0-2.0 [facility] MR/POSTOP.ANEon 08-27-2025 MR/POSTOP.ANE [facility] Medical Records Department [address] [place] [address] Anesthesia Postop Eval I 08/27/25 1635 MR#: [id number] Acct: [id number] Name: ANDRIA HERNANDEZ Rep #: [id number] : 1970 55 From: Huang Iniguez CRNA PCP: Dr. Ronald Tong MD Status:ADM IN Y Race: C [facility] Anesthesia: Postop Eval I Current Vital Signs Temperature: 99.4 F Pulse Rate: 120 Blood Pressure: 113/68 Respiratory Rate: 20 Pulse Ox: 93 Oxygen Delivery Method: Nasal Cannula Oxygen Flow Rate (L/min): 3 Assessment Airway patent: Yes Spontaneous unlabored respirations: Yes Mental status: Awake and Calm nausea: No Vomiting: No Anesthesia Complication: No Fluid Hydration Crystalloid volume administer (ml): 400 Total IV fluid infused: 400 Progress Note Anesthesia document: Postop Eval 1 completed: Yes 08/27/25 1636 Date Huang Iniguez CELLULOSE INSULATION HELPER Cosigner Signature: Date CC: Signed Normal [facility]/[id number] 08-27-2025 /[facility] Medical Records Department [address] [place] [address] Anesthesia Postop Eval II 08/27/25 1711 MR#: [id number] Acct: [id number] Name: ANDRIA HERNANDEZ SORAIDA Rep #: [id number] : 1970 55 From: Craig Rudolph MD PCP: Dr. Ronald Tong MD Status:ADM IN Y Race: C Location: [place] [address] Anesthesia Postop Eval I Sum Postop Eval Completion status Anesthesia document: Postop Eval 1 completed: Yes Anesthesia Postop Eval I Summary Anesthesia Postop Eval I Summary: Anesthesia Postop Eval I: Assessment Summary Airway patent Yes 08/27/25 16:36 CELLULOSE INSULATION HELPER.SHOF Spontaneous unlabored Yes 08/27/25 16:36 CELLULOSE INSULATION HELPER.SHOF respirations Mental status Awake,Calm 08/27/25 16:36 CELLULOSE INSULATION HELPER.SHOF nausea No 08/27/25 16:36 CELLULOSE INSULATION HELPER.SHOF Vomiting No 08/27/25 16:36 CELLULOSE INSULATION HELPER.SHOF Anesthesia Postop Eval I: Fluid Summary Crystalloid volume administer 400 08/27/25 16:36 CELLULOSE INSULATION HELPER.SHOF (ml) Colloids volume administered ( ml) Blood Product volume administered (ml) Total IV fluid infused 400 08/27/25 16:36 CELLULOSE INSULATION HELPER.SHOF Anesthesia Postop Eval I: Summary Notes Anesthesia Complication No 08/27/25 16:36 CELLULOSE INSULATION HELPER.SHOF Anesthesia Complication Comment: Post-operative progress note Anesthesia: Postop Eval II Evaluation Mental status: Awake Pain Level: 0 nausea: No Vomiting: No 08/27/25 1712 Date Craig Kaufman Signature: Date CC: Signed Normal [facility] Operative Reporton 5 Operative Report [facility] Medical Records Department [address] [place] [address] Operative Report 08/27/25 1612 MR#: [id number] Acct: [id number] Name: ANDRIA HERNANDEZ Rep #: [id number] : 1970 55 From: Zachariah Mota MD PCP: Dr. Ronald Tong MD Status:ADM IN [facility] Oper[facility] Report (Standard) Operative Information Date of Procedure: 08/27/25 Pre-Operative Diagnosis: Right ureteral spasms right ureteritis Post-Operative Diagnosis: The same Surgery/Procedure Performed: Cystoscopy right retrograde pyelogram right stent placement disability insurance claim examiner: No Type of Anesthesia: General RN Documented Start/Stop Times: Operation Date: 08/27/25 16:00 Case Time Into Pre-Op 08/27/25 14:45 Anesthesia Start 08/27/25 16:05 Into Room 08/27/25 16:05 Procedure Start Time: 16:13 Procedure Stop Time: 16:25 Select all DRAINS/GRAFTS/IMPLANTS that apply: Drains Drain details: right stent Estimated Blood Loss: 0 Specimen collected: Yes Description of specimen(s) removed: urine Cx Description of surgery: Patient was taken back to the operating room after induction of general anesthesia, the patient was placed in dorsolithotomy position. The urethra and genitals were prepped and draped in usual sterile fashion. Using a 21 [place] rigid cystourethroscope the entire length of the urethra was normal then went into the bladder. Identified the trigone the left and right ureteral orifice. I then cannulated the right ureteral orifice and advanced a wire up into the kidney. I then backloaded a 5 [place] open ended catheter over the wire and injected contrast to delineate the anatomy. After the retrograde was performed I then used fluoroscopic images and guidance to advanced a wire up into the kidney and over the 0.038 glidewire I advanced a 6 [place] by 26 cm double pigtail stent. I then pulled the 0.038 Glidewire off and the stent coiled in the kidney bladder good position. The bladder was then drained. We confirmed the position of the stent by fluoroscopy. Patient anesthetic was reversed and was taken back to the PACU in good condition. Surgical Findings: stent placed right side Complications Complications: No Admit VTE Documentation VTE Present on Admission: No VTE Mechan Device Prophylaxis: SCD's VTE Pharm Prophylaxis ordered?: No 08/27/25 6070 Cosigner Signature (if applicable): CC: Dr. Ronald Tong MD; Dr. Zachariah Mota MD Signed Normal [facility] Prothrombin Time w/INRon INR Coag (PPP) [Relative time] 1.2 {INR} Normal [facility] Comment on above: Performed By: #### L 501.080 #### [facility] [address] [place], [place], [id number] (107) PT Coag (PPP) [Time] 15.8 s High 11.7-14.9 [facility] Comment on above: Performed By: #### L 501.080 #### [facility] [address] [place], [address] Prothrombin timeOrdered By: Kenisha Mcgee on 08-27-2025 PT Coag (PPP) [Time] 15.8 s High 11.7-14.9 [facility] Serum globulin measurementOr dered By: Kenisha Mcgee on 08-27-2025 Globulin (S) [Mass/Vol] 2.8 g/dL 2.2-4.2 [facility] Serum or plasma alanine dixon otransferase (ALT) measurementOrdered By: Kenisha Mcgee on 08-27-2025 ALT [Catalytic activity/Vol] 8 U/L <47 [facility] Serum or plasma albumin agus urement (mass/volume)Ordered By: Kenisha Mcgee on 08-27-2025 Albumin [Mass/Vol] 3.7 g/dL 3.5-5.0 [facility] Serum or plasma albumin/glob ulin mass ratioOrdered By: Kenisha Mcgee on 08-27-2025 Albumin/Globulin [Mass ratio] 1.3 {ratio} 0.9-2.4 [facility] Serum or plasma alkaline tom sphatase measurementOrdered By: Kenisha Mcgee on 08-27-2025 ALP [Catalytic activity/Vol] 53 U/L 40-129 [facility] Total proteinOrdered By: Rena Mcgee on 08-27-2025 Protein [Mass/Vol] 6.5 g/dL 5.9-8.4 [facility] Urine cultureOrdered By: Wing Mota on 08-27-2025 Bacteria identified Cx Nom (U) Burkholderia gladioli Abnormal [facility] Bacteria identified Cx Nom (U) Culture exhibits no growth. [facility] Abdomen/Pelvis without Conto n 08-25-2025 Abdomen/Pelvis without Cont [facility] Imaging Services [address] [place] [address] Abdomen/Pelvis without Cont MR#: [id number] Acct: [id number] Name: ANDRIA HERNANDEZ Rep #: [id number] : 1970 M 55 From: Phu Ford PCP: Dr. Ronald Tong MD Status: REG CLI Study: Abdomen/Pelvis without Cont Date of Exam: 08/07 Exam# [id number] Ordering Dr: Zachariah Mota MD PROCEDURE: ABDOMEN/PELVIS WITHOUT CONT 08/25/2025 REASON FOR EXAM: FLANK PAIN, KIDNEY STONE TECHNIQUE: Procedure Code: CTABDPEL Modality: CT Procedure: ABDOMEN/PELVIS WITHOUT CONT Noncontrast technique limits evaluation of the abdominal and pelvic viscera. Coronal and Sagittal reconstruction series were provided. One or more dose reduction techniques were used (e.g., Automated exposure control, adjustment of the mA and/or kV according to patient size, use of iterative reconstruction technique). RADIATION DOSE SUMMARY: DLP: 446 mGycm COMPARISON: 08/17/2025 FINDINGS: Limited sections of the lung bases demonstrate no focal pulmonary mass or consolidations. 10 mm posterior left lower lobe calcified pulmonary nodule, stable The liver, spleen, pancreas, and both adrenal glands demonstrate no acute findings. Hepatic steatosis and hepatomegaly to 18.5 cm. The gallbladder is unremarkable. Tiny hiatal hernia; otherwise stomach is unremarkable. The small bowel loops are not dilated. The appendix is normal. No colonic obstruction. Colonic diverticulosis without acute diverticulitis. There is no free air or significant free fluid. Zkql-ot-ckmahfwo right hydroureteronephrosis without definite CT evidence of obstructive ureteral stone although recent passage of stone or ascending infection is not entirely excluded. The left collecting system is unremarkable. The urinary bladder is collapsed The pelvic structures are intact. There is no solid pelvic mass. No significant lymphadenopathy. The aorta and IVC demonstrate no acute findings. Visualized osseous structures demonstrate no acute abnormality. CT/Abdomen/Pelvis without Cont IMPRESSION: Ysjr-[id number]-umvaaxrv right hydroureteronephrosis without definite CT evidence of obstructive ureteral stone although recent passage of stone or ascending infection is not entirely excluded. Reading Location: [facility] CC: Dr. Ronald Tong MD; Dr. Zachariah Mota MD Bisque Cleaner: Signed Normal [facility] Basic Metabolic Profile (BMP )on 08-25-2025 BUN/CRE 10.6 RATIO Normal 08-25 [facility] Comment on above: Performed By: #### L 501.080 #### [facility] [address] [place], [address] Calcium [Mass/Vol] 9.3 mg/dL Normal 7.6-11.0 [facility] Comment on above: Performed By: #### L 501.080 #### [facility] [address] [place], [address] Chloride [Moles/Vol] 95 mmol/L Low 98-108 [facility] Comment on above: Performed By: #### L 501.080 #### [facility] [address] [place], [address] CO2 [Moles/Vol] 22.6 mmol/L Normal 21.0-32.0 [facility] Comment on above: Performed By: #### L 501.080 #### [facility] [address] [place], [address] Creatinine [Mass/Vol] 1.04 mg/dL Normal 0.70-1.20 [facility] Comment on above: Performed By: #### L 501.080 #### [facility] [address] [place], [address] ECRCL 73.27 ml/min Normal 50-250 [facility] Comment on above: Performed By: #### L 501.080 #### [facility] [address] [place], [address] GAP 15 Normal 5-15 [facility] Comment on above: Performed By: #### L 501.080 #### [facility] [address] [place], [address] GFR/1.73 sq M.predicted among non-blacks MDRD (S/P/Bld) [Vol rate/Area] 85 mL/min/{1.73_m2} Normal >60 [facility] Comment on above: Result Comment: mL/m in/1.73m2 CKD-EPI Creatinine Equation (2020) Performed By: #### L 501.080 #### [facility] [address] [place], [address] Glucose [Mass/Vol] 235 mg/dL High 70-99 [facility] Comment on above: Performed By: #### L 501.080 #### [facility] [address] [place], [address] Potassium [Moles/Vol] 4.6 mmol/L Normal 3.3-5.1 [facility] Comment on above: Performed By: #### L 501.080 #### [facility] [address] [place], [address] Sodium [Moles/Vol] 133 mmol/L Normal 133-145 [facility] Comment on above: Performed By: #### L 501.080 #### [facility] [address] [place], [address] Urea nitrogen [Mass/Vol] 11 mg/dL Normal 4-19 [facility] Comment on above: Performed By: #### L 501.080 #### [facility] [address] [place], [address] Bedside Glucoseon --2024 FINGERSTICK GLU 226 mg/dL High 74-106 [facility] Comment on above: Result Comment: KATIE BENJAMIN OF PATIENT CARE PER NURSING PROTOCOL Performed By: #### L 501.080 #### [facility] [address] [place], [address] CBC W/Diff, Automatedon 10-2 0-2024 Absolute Lymph 0.75 X10 3/uL Low 0.83-4.51 [facility] Comment on above: Performed By: #### L 100.0100, L500.2500 #### [facility] [address] [place], [address] Absolute Neut 13.4 X10 3/uL High 2.0-7.7 [facility] Comment on above: Performed By: #### L 100.0100, L500.2500 #### [facility] [address] [place], [address] Basophils/100 WBC (Bld) 0.3 % Normal 0-1 [facility] Comment on above: Performed By: #### L 100.0100, L500.2500 #### [facility] [address] [place], [address] Eosinophils/100 WBC (Bld) 0.1 % Normal 0-5 [facility] Comment on above: Performed By: #### L 100.0100, L500.2500 #### [facility] [address] [place], [address] Erythrocyte distribution width (RBC) [Ratio] 12.3 % Normal 11.6-14.6 [facility] Comment on above: Performed By: #### L 100.0100, L500.2500 #### [facility] [address] [place], [address] Hematocrit (Bld) [Volume fraction] 45.5 % Normal 40-54 [facility] Comment on above: Performed By: #### L 100.0100, L500.2500 #### [facility] [address] [place], [address] Hemoglobin (Bld) [Mass/Vol] 15.8 g/dL Normal 13.0-16.5 [facility] Comment on above: Performed By: #### L 100.0100, L500.2500 #### [facility] [address] [place], [address] IG% 0.500 Normal 0.0-0.9 [facility] Comment on above: Result Comment: IG% - Immature Granulocytes (promyelocytes, myelocytes and metamyelocytes) > 1% indicates that a LEFT SHIFT is Present. Performed By: #### L 100.0100, L500.2500 #### [facility] [address] [place], [address] Lymphocytes/100 WBC (Bld) 4.9 % Low 19-41 [facility] Comment on above: Performed By: #### L 100.0100, L500.2500 #### [facility] [address] [place], [address] MCH (RBC) [Entitic mass] 28.5 pg Normal 27.0-32.0 [facility] Comment on above: Performed By: #### L 100.0100, L500.2500 #### [facility] [address] [place], [address] MCHC (RBC) [Mass/Vol] 34.7 g/dL Normal 32-36 [facility] Comment on above: Performed By: #### L 100.0100, L500.2500 #### [facility] [address] [place], [address] MCV (RBC) [Entitic vol] 82.1 fL Normal 80-94 [facility] Comment on above: Performed By: #### L 100.0100, L500.2500 #### [facility] [address] [place], [address] Monocytes/100 WBC (Bld) 7.2 % Normal 0-10 [facility] Comment on above: Performed By: #### L 100.0100, L500.2500 #### [facility] [address] [place], [address] Neutrophils/100 WBC (Bld) 87.0 % High 47-70 [facility] Comment on above: Performed By: #### L 100.0100, L500.2500 #### [facility] [address] [place], [address] Nucleated RBC (Bld) [#/Vol] 0 10*3/uL Normal 0-5 [facility] Comment on above: Performed By: #### L 100.0100, L500.2500 #### [facility] [address] [place], [address] Platelet mean volume (Bld) [Entitic vol] 9.9 fL Normal 6.2-12.0 [facility] Comment on above: Performed By: #### L 100.0100, L500.2500 #### [facility] [address] [place], [address] Platelets (Bld) [#/Vol] 280 10*3/uL Normal 150-450 [facility] Comment on above: Performed By: #### L 100.0100, L500.2500 #### [facility] [address] [place], [address] RBC (Bld) [#/Vol] 5.54 10*6/uL Normal 4.6-6.2 [facility] Comment on above: Performed By: #### L 100.0100, L500.2500 #### [facility] [address] [place], [address] RDW SD 37.1 fl Normal 35.1-43.9 [facility] Comment on above: Performed By: #### L 100.0100, L500.2500 #### [facility] [address] [place], [address] WBC (Bld) [#/Vol] 15.3 10*3/uL High 4.4-11.0 [facility] Comment on above: Performed By: #### L 100.0100, L500.2500 #### [facility] [address] [place], [address] LABORATORYOrdered By: Ivone Hitchcock on 08-22-2025 Glucose [Mass/Vol] 193 mg/dL High 70 - 110 mg/dL [facility] XR FLUORO < 1HR TECH TIMEon 08-22-2025 XR FLUORO < 1HR TECH TIME ORIGINAL Images acquired, not reported on this accession number. Normal [facility] Abdomen/Pelvis W IV Cont ONL Yon 08-17-2025 Abdomen/Pelvis W IV Cont ONLY [facility] Services [address] [place] [address] Abdomen/Pelvis W IV Cont ONLY MR#: [id number] Acct: [id number] Name: ANDRIA HERNANDEZ Rep #: [id number] : 1970 M 55 From: [place] PCP: Dr. Ronald Tong MD Status: REG ER Study: Abdomen/Pelvis W IV Cont ONLY Date of Exam: Exam# [id number] Ordering Dr: Brandon Abraham DO PROCEDURE: ABDOMEN/PELVIS W IV CONT ONLY 08/17/2025 REASON FOR EXAM: ABDOMINAL PAIN TECHNIQUE: Procedure Code: [id number] Modality: CT Procedure: ABDOMEN/PELVIS W IV CONT ONLY Coronal and Sagittal reconstruction series were provided. CONTRAST: 100 mL of Isovue 370 One or more dose reduction techniques were used (e.g., Automated exposure control, adjustment of the mA and/or kV according to patient size, use of iterative reconstruction technique. RADIATION DOSE SUMMARY: DLP: 768 mGycm COMPARISON: None FINDINGS: Limited sections of the lung bases demonstrate no focal pulmonary mass or consolidations. The liver, spleen, pancreas, and both adrenal glands demonstrate no acute findings. Hepatic steatosis. Minimal hepatomegaly. The gallbladder is unremarkable. The stomach is unremarkable. The small bowel loops are not dilated. The appendix is surgically removed No colonic obstruction. Scattered colonic diverticuli without acute diverticulitis. There is no free air or significant free fluid. 3 mm obstructive stone at the right UVJ with associated minimal upstream hydroureteronephrosis. The left kidney is unremarkable. The urinary bladder is distended. The pelvic structures are intact. There is no solid pelvic mass. No significant lymphadenopathy. The aorta and IVC demonstrate no acute findings. Visualized osseous structures demonstrate no acute abnormality. CT/Abdomen/Pelvis W IV Cont ONLY IMPRESSION: 3 mm obstructive stone at the right UVJ with associated minimal upstream hydroureteronephrosis. Reading Location: [facility] CC: Dr. Ronald Tong MD; Dr. Brandon Abraham DO Bisque Cleaner: Signed Normal [facility] Absolute lymphocyte countOrd ered By: Brandon Abraham on 08-17-2025 Lymphocytes Auto (Unsp spec) [#/Vol] 2.60 10*3/uL 0.83-4.51 [facility] Absolute neutrophil countOrd ered By: Brandon Abraham on 08-17-2025 Neutrophils (Bld) [#/Vol] 4.0 10*3/uL 2.0-7.7 [facility] Anion gap in Serum or Plasma Ordered By: Brandon Abraham on 08-17-2025 Anion gap [Moles/Vol] 12 mmol/L - [facility] Automated lymphocyte count a s percentage of total leukocytesOrdered By: Brandon Abraham on 08-17-2025 Lymphocytes/100 WBC Auto (Unsp spec) 35.0 % [facility] BUN/creatinine ratioOrdered By: Brandon Abraham on 08-17-2025 Urea nitrogen/Creatinine [Mass ratio] 22.6 mg/mg High 08-25 [facility] Basophil percentageOrdered B y: Brandon Abraham on 08-17-2025 Basophils/100 WBC (Bld) 0.3 % 0-1 [facility] Bilirubin Test strip Ql (U)O rdered By: Brandon Abraham on 08-17-2025 Bilirubin Ql (U) Negative Negative [facility] Bilirubin, totalOrdered By: Brandon Abraham on 08-17-2025 Bilirubin [Mass/Vol] 0.66 mg/dL 0.00-1.30 [facility] CBC W/Diff, Automatedon 08-06 Absolute Lymph 2.60 X10 3/uL Normal 0.83-4.51 [facility] Comment on above: Performed By: #### L 501.080 #### [facility] [address] [place], [address] Absolute Neut 4.0 X10 3/uL Normal 2.0-7.7 [facility] Comment on above: Performed By: #### L 501.080 #### [facility] [address] [place], [address] Basophils/100 WBC (Bld) 0.3 % Normal 0-1 [facility] Comment on above: Performed By: #### L 501.080 #### [facility] [address] [place], [address] Eosinophils/100 WBC (Bld) 0.4 % Normal 0-5 [facility] Comment on above: Performed By: #### L 501.080 #### [facility] [address] [place], [address] Erythrocyte distribution width (RBC) [Ratio] 12.5 % Normal 11.6-14.6 [facility] Comment on above: Performed By: #### L 501.080 #### [facility] [address] [place], [address] Hematocrit (Bld) [Volume fraction] 44.5 % Normal 40-54 [facility] Comment on above: Performed By: #### L 501.080 #### [facility] [address] [place], [address] Hemoglobin (Bld) [Mass/Vol] 15.2 g/dL Normal 13.0-16.5 [facility] Comment on above: Performed By: #### L 501.080 #### [facility] [address] [place], [address] IG% 0.300 Normal 0.0-0.9 [facility] Comment on above: Result Comment: IG% - Immature Granulocytes (promyelocytes, myelocytes and metamyelocytes) > 1% indicates that a LEFT SHIFT is Present. Performed By: #### L 501.080 #### [facility] [address] [place], [address] Lymphocytes/100 WBC (Bld) 35.0 % Normal 19-41 [facility] Comment on above: Performed By: #### L 501.080 #### [facility] [address] [place], [address] MCH (RBC) [Entitic mass] 27.9 pg Normal 27.0-32.0 [facility] Comment on above: Performed By: #### L 501.080 #### [facility] [address] [place], [address] MCHC (RBC) [Mass/Vol] 34.2 g/dL Normal 32-36 [facility] Comment on above: Performed By: #### L 501.080 #### [facility] [address] [place], [address] MCV (RBC) [Entitic vol] 81.7 fL Normal 80-94 [facility] Comment on above: Performed By: #### L 501.080 #### [facility] [address] [place], [address] Monocytes/100 WBC (Bld) 9.7 % Normal 0-10 [facility] Comment on above: Performed By: #### L 501.080 #### [facility] [address] [place], [address] Neutrophils/100 WBC (Bld) 54.3 % Normal 47-70 [facility] Comment on above: Performed By: #### L 501.080 #### [facility] [address] [place], [address] Nucleated RBC (Bld) [#/Vol] 0 10*3/uL Normal 0-5 [facility] Comment on above: Performed By: #### L 501.080 #### [facility] [address] [place], [address] Platelet mean volume (Bld) [Entitic vol] 9.1 fL Normal 6.2-12.0 [facility] Comment on above: Performed By: #### L 501.080 #### [facility] [address] [place], [address] Platelets (Bld) [#/Vol] 299 10*3/uL Normal 150-450 [facility] Comment on above: Performed By: #### L 501.080 #### [facility] [address] [place], [address] RBC (Bld) [#/Vol] 5.45 10*6/uL Normal 4.6-6.2 [facility] Comment on above: Performed By: #### L 501.080 #### [facility] [address] [place], [address] RDW SD 37.2 fl Normal 35.1-43.9 [facility] Comment on above: Performed By: #### L 501.080 #### [facility] [address] [place], [address] WBC (Bld) [#/Vol] 7.4 10*3/uL Normal 4.4-11.0 [facility] Comment on above: Performed By: #### L 501.080 #### [facility] [address] [place], [address] Carbon dioxide, total [Moles /volume] in Central venous bloodOrdered By: Brandon Abraham on 08-17-2025 CO2 [Moles/Vol] 23.9 mmol/L 21.0-32.0 [facility] Chloride assayOrdered By: Kwesi Abraham on 08-17-2025 Chloride [Moles/Vol] 101 mmol/L 98-108 [facility] Comprehensive Metabolic Prof ilon 08-17-2025 Albumin [Mass/Vol] 4.3 g/dL Normal 3.5-5.0 [facility] Comment on above: Performed By: #### L 501.080 #### [facility] [address] [place], [address] Albumin/Globulin [Mass ratio] 1.5 {ratio} Normal 0.9-2.4 [facility] Comment on above: Performed By: #### L 501.080 #### [facility] [address] [place], [address] ALK PHOS 68 U/L Normal 40-129 [facility] Comment on above: Performed By: #### L 501.080 #### [facility] [address] [place], [address] ALT [Catalytic activity/Vol] 20 U/L Normal <=46 [facility] Comment on above: Performed By: #### L 501.080 #### [facility] [address] [place], [address] AST [Catalytic activity/Vol] 14 U/L Normal <=37 [facility] Comment on above: Performed By: #### L 501.080 #### [facility] [address] [place], [address] Bilirubin [Mass/Vol] 0.66 mg/dL Normal 0.00-1.30 [facility] Comment on above: Performed By: #### L 501.080 #### [facility] [address] [place], [address] BUN/CRE 22.6 RATIO High 10-20 [facility] Comment on above: Performed By: #### L 501.080 #### [facility] [address] [place], [address] Calcium [Mass/Vol] 9.4 mg/dL Normal 7.6-11.0 [facility] Comment on above: Performed By: #### L 501.080 #### [facility] [address] [place], [address] Chloride [Moles/Vol] 101 mmol/L Normal 98-108 [facility] Comment on above: Performed By: #### L 501.080 #### [facility] [address] [place], [address] CO2 [Moles/Vol] 23.9 mmol/L Normal 21.0-32.0 [facility] Comment on above: Performed By: #### L 501.080 #### [facility] [address] [place], [address] Creatinine [Mass/Vol] 0.74 mg/dL Normal 0.70-1.20 [facility] Comment on above: Performed By: #### L 501.080 #### [facility] [address] [place], [address] ECRCL 108.76 ml/min Normal 50-250 [facility] Comment on above: Performed By: #### L 501.080 #### [facility] [address] [place], [address] GAP 12 Normal 5-15 [facility] Comment on above: Performed By: #### L 501.080 #### [facility] [address] [place], [address] GFR/1.73 sq M.predicted among non-blacks MDRD (S/P/Bld) [Vol rate/Area] 108 mL/min/{1.73_m2} Normal >60 [facility] Comment on above: Result Comment: mL/m in/1.73m2 CKD-EPI Creatinine Equation (2020) Performed By: #### L 501.080 #### [facility] [address] [place], [address] Globulin (S) [Mass/Vol] 2.9 g/dL Normal 2.2-4.2 [facility] Comment on above: Performed By: #### L 501.080 #### [facility] [address] [place], [address] Glucose [Mass/Vol] 186 mg/dL High 70-99 [facility] Comment on above: Performed By: #### L 501.080 #### [facility] [address] [place], [address] Potassium [Moles/Vol] 4.3 mmol/L Normal 3.3-5.1 [facility] Comment on above: Performed By: #### L 501.080 #### [facility] [address] [place], [place], [address] Sodium [Moles/Vol] 137 mmol/L Normal 133-145 [facility] Comment on above: Performed By: #### L 501.080 #### [facility] [address] [place], [place], [address] T PROT 7.2 g/dL Normal 5.9-8.4 [facility] Comment on above: Performed By: #### L 501.080 #### [facility] [address] [place], [place], [address] Urea nitrogen [Mass/Vol] 17 mg/dL Normal 4-19 [facility] Comment on above: Performed By: #### L 501.080 #### [facility] [address] [place], [place], [address] Emergency Department Summary on 08-17-2025 Emergency Department Summary [facility] Medical Records Department [address] [place] [address] Emergency Department Summary 08/17/25 MR#: [id number] Acct: [id number] Name: ANDRIA HERNANDEZ Rep #: [id number] : 1970 55 From: Brandon Abraham DO PCP: Dr. Ronald Tong MD Status:DEP ER Location: ED HPI HPI - GI History of Present Illness Chief Complaint: Abd Pain Informant: patient Abdominal Pain/Flank Pain Onset: Weeks (1-2) Context: Gradual Onset Timing: Continuous Quality: Stabbing Location: LLQ Worsened by: Nothing Relieved by: Nothing Nausea/Vomiting/Emesis GI Symptom: Positive for Nausea and Vomiting Quality: Positive for Nonbilious; Negative for Blood streaks, Coffee ground or Hematemesis Diarrhea/Melena/Hematoc hezia GI Symptom: Negative for Diarrhea, Melena or Hematochezia Associated Symptoms Associated Symptoms: Negative for Dysuria, Frequency or Hematuria Narrative Narrative: Patient presents with abdominal pain that has been getting worse over the past 1 to 2 weeks. Patient states his pain is mainly over the left lower abdomen. Patient describes it as stabbing. Patient states it has been constant. Patient states his pain radiates up into the left side of his neck and back. Patient states nothing makes it worse and nothing makes it better. Patient admits to some nausea and vomiting. Patient denies any hematemesis or coffee-ground emesis. Patient denies any diarrhea, melena, or hematochezia. Patient denies any dysuria, frequency, or hematuria. [facility] Medical History Abdominal pain Abdominal hernia Home Medications ???Medication ???Instructions ???Recorded ???Last Taken ???Type amlodipine 5 mg tablet 5 mg PO DAILY 08/17/25 Unknown His tory ciprofloxacin HCl 500 mg tablet 500 mg PO Q8H 08/17/25 Unknown His tory glipizide 5 mg tablet 5 mg PO DAILY 08/17/25 Unknown His tory hydrocodone-acetaminoph en 5-325mg 1 tab PO Q6H PRN PRN Pain 3 days 08/17/25 Unknown Rx 5mg-325mg #10 TABLETS metformin 500 mg tablet 500 mg PO BID 08/17/25 Unknown His tory ondansetron HCl 4 mg tablet 4 mg PO BID PRN PRN nausea and 10/30 Unknown History vomiting semaglutide 0.25 mg or 0.5 mg (2 0.5 mg subcut QWEEK 08/17/25 Unkno wn History mg/3 mL) subcutaneous pen injector (Ozempic) trazodone 50 mg tablet 50 mg PO QHS 08/17/25 Unknown Hist ory Allergy/AdvReac Type Severity Reaction Status Date / Time Penicillins Allergy Severe Hives Verified 08/17/25 19:19 Family History (System 04/10/24 @ 12:38 by Vianney Kelly) Father Diabetes Heart disease Hypertension CVA (cerebral vascular accident) High cholesterol Surgical History History of eye surgery History of appendectomy Social History Smoking Status: Never smoker alcohol intake: current alcohol intake frequency: a few times a month substance use type: does not use ROS ROS ED Constitutional Constitutional ED: Denies chills or fever(s) Eyes Eyes: Denies blurry vision or change in vision ENT ENT ED: Denies rhinorrhea or sore throat Cardiovascular Cardiovascular: Denies chest pain or palpitations Respiratory/Chest Respiratory/Chest: Denies cough or dyspnea Gastrointestinal Gastrointestinal: Reports abdominal pain, nausea and vomiting Genitourinary Genitourinary ED: Denies dysuria or hematuria Musculoskeletal Musculoskeletal: Reports neck pain; Denies back pain Integumentary Denies abscess or rash Neurologic Neurologic: Reports headache(s); Denies weakness Allergic/Immunologic Allergic/Immunologic ED: Denies mouth swelling or urticaria EXAM Physical Exam Const Vital Signs: 08/17/25 19:13 08/17/25 21:13 08/17/25 23:00 Temperature 98.3 F Temperature Source Oral Pulse Rate 101 H 68 77 Respiratory Rate 17 16 18 Blood Pressure 136/88 H 117/84 H 116/78 Blood Pressure Mean 104 95 90 Pulse Ox 100 97 97 Oxygen Delivery Method Room Air Room Air Room Air 08/17/25 23:50 Temperature 98.1 F Temperature Source Pulse Rate 74 Respiratory Rate 18 Blood Pressure 118/84 H Blood Pressure Mean 95 Pulse Ox 98 Oxygen Delivery Method Positive well nourished and well developed Constitutional Narrative: BMI is 29.0. General Appearance ED: well developed and NAD HEENT Reports moist mucous membranes normocephalic and atraumatic Neck supple and no JVD Resp normal respiratory effort and clear to auscultation bilaterally Cardio regular rate and regular rhythm GI non-distended Palpation: soft and tender LLQ and LUQ; Negative for guarding or rebound tenderness present Neuro CN's II-XII intact bilaterally, moves (more content not included)... Normal [facility] Eosinophil percentageOrdered By: Brandon Abraham on 08-17-2025 Eosinophils/100 WBC (Bld) 0.4 % 0-5 [facility] Erythrocyte distribution wid th ratioOrdered By: Brandon Abraham on 08-17-2025 Erythrocyte distribution width (RBC) [Ratio] 12.5 % 11.6-14.6 [facility] Erythrocyte distribution wid th standard deviationOrdered By: Brandon Abraham on 08-17-2025 Erythrocyte distribution width (RBC) [Ratio] 37.2 fl 35.1-43.9 [facility] Glomerular filtration rate ( GFR) estimation/1.73 sq m using serum, plasma, or whole bOrdered By: Brandon Abraham on 08-17-2025 GFR/1.73 sq M.predicted among non-blacks MDRD (S/P/Bld) [Vol rate/Area] 108 mL/min/{1.73_m2} >60 [facility] Comment on above: mL/min/1.73m2 CKD-EP I Creatinine Equation (2020) Hematocrit Auto (Bld) [Volum e fraction]Ordered By: Brandon Abraham on 08-17-2025 Hematocrit (Bld) [Volume fraction] 44.5 % 40-54 [facility] Hemoglobin measurementOrdere d By: Brandon Abraham on 08-17-2025 Hemoglobin (Bld) [Mass/Vol] 15.2 g/dL 13.0-16.5 [facility] Immature granulocytes/100 WB C Auto (Bld)Ordered By: Brandon Abraham on 08-17-2025 Immature granulocytes/100 WBC (Bld)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 W/O VELA Patrizia 02-09-2022 CT SPINE CERVICAL W/O CONTRAST ORIGINAL EXAMINATION: CT OF THE CERVICAL SPINE WITHOUT CONTRAST02/09/2022 8:18 pm TECHNIQUE: CT of the cervical spine was performed without the administration of intravenous contrast. Multiplanar reformatted images are provided for review. Dose modulation, iterative reconstruction, and/or weight based adjustment of the mA/kV was utilized to reduce the radiation dose to as low as reasonably achievable. COMPARISON: None. HISTORY: ORDERING SYSTEM PROVIDED HISTORY: Reason for Exam: INJURY FINDINGS: No fracture or traumatic malalignment. Vertebral body heights are maintained. There are mild multilevel degenerative changes. The prevertebral and paraspinal soft tissues demonstrate no acute abnormality. IMPRESSION: No acute fracture or traumatic malalignment. Interpreted by: Kam Casiano MD Preliminary Report By: Kam Casiano MD Electronically signed By Kam Casiano MD Dictated Date: 02/09/2022 8:40:14 PM Prelim Date: 02/09/2022 8:42:02 PM Sign Date: 02/09/2022 8:42:02 PM Ordering Provider: ESTEFANI [facility] ([place]) .Auto Diffon 10-12-2021 Basophil, Absolute 0.00 10 3/mcL Normal 0.00-0.19 [facility] ([place]) Comment on above: Performed By: #### P BNP, TROPHS, BMP, GFR, CBC, ADIFF, ANEU #### [address] [address] Basophils/100 WBC (Bld) 0.2 % Normal 0.0-2.5 [facility] ([place]) Comment on above: Performed By: #### P BNP, TROPHS, BMP, GFR, CBC, ADIFF, ANEU #### [address] [address] Eosinophil, Absolute 0.00 10 3/mcL Normal 0.00-0.40 A [facility] ([place]) Comment on above: Performed By: #### P BNP, TROPHS, BMP, GFR, CBC, ADIFF, ANEU #### [address] [address] Eosinophils/100 WBC (Bld) 0.0 % Normal 0.0-7.0 [facility] ([place]) Comment on above: Performed By: #### P BNP, TROPHS, BMP, GFR, CBC, ADIFF, ANEU #### [address] [address] Lymphocyte, Absolute 0.70 10 3/mcL Low 0.77-3.85 A [facility] ([place]) Comment on above: Performed By: #### P BNP, TROPHS, BMP, GFR, CBC, ADIFF, ANEU #### [address] [address] Lymphocytes/100 WBC (Bld) 10.3 % Normal 10.0-50.0 [facility] ([place]) Comment on above: Performed By: #### P BNP, TROPHS, BMP, GFR, CBC, ADIFF, ANEU #### [address] [address] Monocyte, Absolute 0.60 10 3/mcL Normal 0.15-1.00 [facility] ([place]) Comment on above: Performed By: #### P BNP, TROPHS, BMP, GFR, CBC, ADIFF, ANEU #### [address] [address] Monocytes/100 WBC (Bld) 8.0 % Normal 1.7-13.0 [facility] ([place]) Comment on above: Performed By: #### P BNP, TROPHS, BMP, GFR, CBC, ADIFF, ANEU #### [address] [address] Neutrophils/100 WBC (Bld) 81.5 % High 37.0-80.0 [facility] ([place]) Comment on above: Performed By: #### P BNP, TROPHS, BMP, GFR, CBC, ADIFF, ANEU #### [address] [address] .GFRon 10-12-2021 GFR 114 ml/min/1.73sqm Normal [facility] ([place]) Comment on above: Result Comment: GFR Population mean for , Non- Americans Ages 20-29 = 116 mL/min/1.73 sq.m. Ages 30-39 = 107 mL/min/1.73 sq.m. Ages 40-49 = 99 mL/min/1.73 sq.m. Ages 50-59 = 93 mL/min/1.73 sq.m. Ages 60-69 = 85 mL/min/1.73 sq.m. Ages 70+ = 75 mL/min/1.73 sq.m. Chronic Kidney Disease: Less than 60 mL/min/1.73 square meters End Stage Renal Disease: Less than 15 mL/min/1.73 square meters Performed By: #### P BNP, TROPHS, BMP, GFR, CBC, ADIFF, ANEU #### [address] [address] GFR Non- 94 ml/min/1.73sqm Normal [facility] ([place]) Comment on above: Result Comment: GFR Population mean for , Non- Americans Ages 20-29 = 116 mL/min/1.73 sq.m. Ages 30-39 = 107 mL/min/1.73 sq.m. Ages 40-49 = 99 mL/min/1.73 sq.m. Ages 50-59 = 93 mL/min/1.73 sq.m. Ages 60-69 = 85 mL/min/1.73 sq.m. Ages 70+ = 75 mL/min/1.73 sq.m. Chronic Kidney Disease: Less than 60 mL/min/1.73 square meters End Stage Renal Disease: Less than 15 mL/min/1.73 square meters Performed By: #### P BNP, TROPHS, BMP, GFR, CBC, ADIFF, ANEU #### [address] [address] .NEUABSon 10-12-2021 Neutrophil, Absolute 5.70 10 3/mcL Normal 2.85-6.16 A [facility] ([place]) Comment on above: Performed By: #### P BNP, TROPHS, BMP, GFR, CBC, ADIFF, ANEU #### [address] [address] BMPon 10-12-2021 BUN/Creatinine Ratio 10 ratio Normal 7-27 [facility] ([place]) Comment on above: Performed By: #### P BNP, TROPHS, BMP, GFR, CBC, ADIFF, ANEU #### [address] [address] Calcium [Mass/Vol] 8.4 mg/dL Normal 8.4-10.2 [facility] ([place]) Comment on above: Performed By: #### P BNP, TROPHS, BMP, GFR, CBC, ADIFF, ANEU #### [address] [address] Chloride [Moles/Vol] 94 mmol/L Low 98-107 [facility] ([place]) Comment on above: Performed By: #### P BNP, TROPHS, BMP, GFR, CBC, ADIFF, ANEU #### [address] [address] CO2 [Moles/Vol] 26 mmol/L Normal 22-29 [facility] ([place]) Comment on above: Performed By: #### P BNP, TROPHS, BMP, GFR, CBC, ADIFF, ANEU #### [address] [address] Creatinine [Mass/Vol] 0.86 mg/dL Normal 0.70-1.30 [facility] ([place]) Comment on above: Performed By: #### P BNP, TROPHS, BMP, GFR, CBC, ADIFF, ANEU #### [address] [address] Electrolyte Balance 13.0 mEq/L Normal [facility] ([place]) Comment on above: Performed By: #### P BNP, TROPHS, BMP, GFR, CBC, ADIFF, ANEU #### [address] [address] Glucose [Mass/Vol] 259 mg/dL High 70-105 [facility] ([place]) Comment on above: Performed By: #### P BNP, TROPHS, BMP, GFR, CBC, ADIFF, ANEU #### [address] [address] Potassium [Moles/Vol] 3.3 mmol/L Low 3.5-5.1 [facility] ([place]) Comment on above: Performed By: #### P BNP, TROPHS, BMP, GFR, CBC, ADIFF, ANEU #### [address] [address] Sodium [Moles/Vol] 133 mmol/L Low 136-145 [facility] ([place]) Comment on above: Performed By: #### P BNP, TROPHS, BMP, GFR, CBC, ADIFF, ANEU #### [address] [address] Urea nitrogen [Mass/Vol] 9 mg/dL Normal 7-18 [facility] ([place]) Comment on above: Performed By: #### P BNP, TROPHS, BMP, GFR, CBC, ADIFF, ANEU #### [address] [address] CBCon 10-12-2021 Erythrocyte distribution width (RBC) [Ratio] 13.6 % Normal 11.5-14.5 [facility] ([place]) Comment on above: Performed By: #### P BNP, TROPHS, BMP, GFR, CBC, ADIFF, ANEU #### [place] [address] Hematocrit (Bld) [Volume fraction] 42.8 % Normal 42.0-52.0 [facility] ([place] Comment on above: Performed By: #### P BNP, TROPHS, BMP, GFR, CBC, ADIFF, ANEU #### [place] [address] Hgb 14.6 G/dL Normal 14.0-18.0 [facility] ([place]) Comment on above: Performed By: #### P BNP, TROPHS, BMP, GFR, CBC, ADIFF, ANEU #### [place] [address] MCH (RBC) [Entitic mass] 27.5 pg Normal 27.0-31.2 [facility] ([place] Comment on above: Performed By: #### P BNP, TROPHS, BMP, GFR, CBC, ADIFF, ANEU #### [place] [address] MCHC 34.1 G/dL Normal 31.8-35.4 [facility] ([place] Comment on above: Performed By: #### P BNP, TROPHS, BMP, GFR, CBC, ADIFF, ANEU #### [place] [address] MCV (RBC) [Entitic vol] 80.6 fL Normal 80.0-94.0 [facility] ([place]) Comment on above: Performed By: #### P BNP, TROPHS, BMP, GFR, CBC, ADIFF, ANEU #### [place] [id number] Platelet 338 10 3/mcL Normal 130-400 [facility] ([place] Comment on above: Performed By: #### P BNP, TROPHS, BMP, GFR, CBC, ADIFF, ANEU #### [place] [address] Platelet mean volume (Bld) [Entitic vol] 8.3 fL Normal 7.4-10.4 [facility] ([place] Comment on above: Performed By: #### P BNP, TROPHS, BMP, GFR, CBC, ADIFF, ANEU #### [place] [address] RBC 5.31 10 6/mcL Normal 4.04-6.13 [facility] ([place] Comment on above: Performed By: #### P BNP, TROPHS, BMP, GFR, CBC, ADIFF, ANEU #### [place] [address] WBC 7.00 10 3/mcL Normal 4.60-10.80 [facility] ([place]) Comment on above: Performed By: #### P BNP, TROPHS, BMP, GFR, CBC, ADIFF, ANEU #### [place] [address] [id number] 10-12-2021 Date of Onset [id number] Invalid Interpretation Code [facility] ([place] Comment on above: Performed By: #### C OVD19 #### [place] [address] Employed in Healthcare No [facility] ([place]) Comment on above: Performed By: #### C OVD19 #### [place] [address] First Test No [facility] ([place]) Comment on above: Performed By: #### C OVD19 #### [place] [address] Hospitalized No [facility] ([place]) Comment on above: Performed By: #### C OVD19 #### [place] [address] ICU No [facility] ([place]) Comment on above: Performed By: #### C OVD19 #### [place] [address] Not [facility] ([place]) Comment on above: Performed By: #### C OVD19 #### [place] [id number] [place], [place] [address] Resides in Congregate Care Setting No Normal [facility] ([place] Comment on above: Performed By: #### C OVD19 #### [place] [id number] [place], [place] [address] SARS-CoV-2 (COVID-19) RNA JULY+probe Ql (Unsp spec) Positive Abnormal Negative [facility] ([place]) Comment on above: Performed By: #### C OVD19 #### [place] [address] SARS-CoV-2 (COVID-19) RNA JULY+probe Ql (Unsp spec) Normal [facility] ([place]) Comment on above: Result Comment: Posi tive results are indicative of the presence of SARS-CoV-2 RNA; clinical correlation with patient history and other diagnostic information is necessary to determine patient infection status. Positive results do not rule out bacterial infection or co-infection with other viruses. The agent detected may not be the definite cause of disease. Laboratories within the [facility] and its territories are required to report all positive results to the appropriate public health authorities. Detection of analyte target(s) does not imply that the corresponding virus(es) are infectious or are the causative agents for clinical symptoms. There is a risk of false positive values resulting from cross-contamination by target organisms, their nucleic acids or amplified product, or from non-specific signals in the assay. ARIEL SARS-CoV-2 Assay is a Real-Time reverse-transcriptase polymerase chain reaction (RT-PCR) based qualitative in vitro diagnostic test intended for the qualitative detection of nucleic acid from the SARS-CoV-2 in nasopharyngeal swab specimens collected from individuals suspected of COVID-19 by their healthcare provider. Testing is limited to laboratories certified under the Clinical Laboratory Improvement Amendments of 1988 (CLIA), 42 U.S.C. ?263a, to perform moderate and high complexity tests. COVID-19 Int Performed By: #### C OVD19 #### [place] [address] [address] Symptomatic as Defined by CDC Yes Normal [facility] ([place]) Comment on above: Performed By: #### C OVD19 #### [facility] [address] [place], [place] [address] LABORATORYOrdered By: Lulú Lo on 10-12-2021 Blood Glucose Interventions Notify physician (10/12/21 8:29 AM) [facility] Blood Glucose Testing Reason Routine (10/12/21 8:29 AM) [facility] Glucose [Mass/Vol] 302 mg/dL Invalid Interpretation Code 70 - 110 mg/dL [facility] LABORATORYOrdered By: Jessica Siegel on 10-12-2021 ADMITTED TO INTENSIVE CARE UNIT FOR CONDITION OF INTEREST:FIND:PT:^SHAWNA ENT:ORD: No (10/12/21 1:37 AM) Invalid Interpretation Code AO Auto Urine SS Basophil, Absolute 0.00 103/mcL Invalid Interpretation Code 0.00 - 0.19 10^3/mcL AO Auto Heme SS Basophils/100 WBC (Bld) 0.2 % Invalid Interpretation Code 0.0 - 2.5 % AO Auto Heme SS Calcium [Mass/Vol] 8.4 mg/dL Invalid Interpretation Code 8.4 - 10.2 mg/dL AO ADM SS Chloride [Moles/Vol] 94 mmol/L Invalid Interpretation Code 98 - 107 mmol/L AO ADM SS CO2 [Moles/Vol] 26 mmol/L Invalid Interpretation Code 22 - 29 mmol/L AO ADM SS Creatinine [Mass/Vol] 0.86 mg/dL Invalid Interpretation Code 0.70 - 1.30 mg/dL AO ADM SS Electrolyte Balance 13.0 mEq/L Invalid Interpretation Code AO ADM SS EMPLOYED IN A HEALTHCARE SETTING:FIND:PT:^PATIE NT:ORD: No (10/12/21 1:37 AM) Invalid Interpretation Code AO Auto Urine SS Eosinophil, Absolute 0.00 103/mcL Invalid Interpretation Code 0.00 - 0.40 10^3/mcL AO Auto Heme SS Eosinophils/100 WBC (Bld) 0.0 % Invalid Interpretation Code 0.0 - 7.0 % AO Auto Heme SS Erythrocyte distribution width (RBC) [Ratio] 13.6 % Invalid Interpretation Code 11.5 - 14.5 % AO Auto Heme SS FIRST TEST FOR CONDITION OF INTEREST:FIND:PT:^SHAWNA ENT:ORD: No (10/12/21 1:37 AM) Invalid Interpretation Code AO Auto Urine SS Glucose [Mass/Vol] 259 mg/dL Invalid Interpretation Code 70 - 105 mg/dL AO ADM SS HAS SYMPTOMS RELATED TO CONDITION OF INTEREST:FIND:PT:^SHAWNA ENT:ORD: Yes (10/12/21 1:37 AM) Invalid Interpretation Code AO Auto Urine SS Hematocrit (Bld) [Volume fraction] 42.8 % Invalid Interpretation Code 42.0 - 52.0 % AO Auto Heme SS Hemoglobin (Bld) [Mass/Vol] 14.6 G/dL Invalid Interpretation Code 14.0 - 18.0 G/dL AO Auto Heme SS Illness or injury onset date and time [id number] Invalid Interpretation Code AO Auto Urine SS Lymphocyte, Absolute 0.70 103/mcL Invalid Interpretation Code 0.77 - 3.85 10^3/mcL AO Auto Heme SS Lymphocytes/100 WBC (Bld) 10.3 % Invalid Interpretation Code 10.0 - 50.0 % AO Auto Heme SS MCH (RBC) [Entitic mass] 27.5 pg Invalid Interpretation Code 27.0 - 31.2 pg AO Auto Heme SS MCHC (RBC) [Mass/Vol] 34.1 G/dL Invalid Interpretation Code 31.8 - 35.4 G/dL AO Auto Heme SS MCV (RBC) [Entitic vol] 80.6 fL Invalid Interpretation Code 80.0 - 94.0 fL AO Auto Heme SS Monocyte, Absolute 0.60 103/mcL Invalid Interpretation Code 0.15 - 1.00 10^3/mcL AO Auto Heme SS Monocytes/100 WBC (Bld) 8.0 % Invalid Interpretation Code 1.7 - 13.0 % AO Auto Heme SS Natriuretic peptide.B prohormone N-Terminal [Mass/Vol] 27 pg/mL Invalid Interpretation Code 0 - 125 pg/mL AO ADM SS Neutrophil, Absolute 5.70 103/mcL Invalid Interpretation Code 2.85 - 6.16 10^3/mcL AO Auto Heme SS Neutrophils/100 WBC (Bld) 81.5 % Invalid Interpretation Code 37.0 - 80.0 % AO Auto Heme SS Patient was hospitalized because of this condition No (10/12/21 1:37 AM) Invalid Interpretation Code AO Auto Urine SS Platelet mean volume (Bld) [Entitic vol] 8.3 fL Invalid Interpretation Code 7.4 - 10.4 fL AO Auto Heme SS Platelets (Bld) [#/Vol] 338 103/mcL Invalid Interpretation Code 130 - 400 10^3/mcL AO Auto Heme SS Potassium [Moles/Vol] 3.3 mmol/L Invalid Interpretation Code 3.5 - 5.1 mmol/L AO ADM SS status Not (10/12/21 1:37 AM) Invalid Interpretation Code AO Auto Urine SS RBC (Bld) [#/Vol] 5.31 106/mcL Invalid Interpretation Code 4.04 - 6.13 10^6/mcL AO Auto Heme SS RESIDES IN A CONGREGATE CARE SETTING:FIND:PT:^PATIE NT:ORD: No (10/12/21 1:37 AM) Invalid Interpretation Code AO Auto Urine SS SARS-CoV-2 (COVID-19) RNA JULY+probe Ql (Resp) Positive *ABN* (10/12/21 1:37 AM) Invalid Interpretation Code Negative AO Auto Urine SS SARS-CoV-2 (COVID-19) RNA JULY+probe Ql (Unsp spec) Positive results are indicative of the presence of SARS-CoV-2 RNA; clinical correlation with patient history and other diagnostic information is necessary to determine patient infection status. Positive results do not rule out bacterial infection or co-infection with other viruses. The agent detected may not be the definite cause of disease. Laboratories within the [place] and its territories are required to report all positive results to the appropriate public health authorities.Detection of analyte target(s) does not imply that the corresponding virus(es) are infectious or are the causative agents for clinical symptoms.There is a risk of false positive values resulting from cross-contamination by target organisms, their nucleic acids or amplified product, or from non-specific signals in the assay.ARIEL SARS-CoV-2 Assay is a Real-Time reverse-transcriptase polymerase chain reaction (RT-PCR) based qualitative in vitro diagnostic test intended for the qualitative detection of nucleic acid from the SARS-CoV-2 in nasopharyngeal swab specimens collected from individuals suspected of COVID-19 by their healthcare provider. Testing is limited to laboratories certified under the Clinical Laboratory Improvement Amendments of 1988 (CLIA), 42 U.S.C. 263a, to perform moderate and high complexity tests. Invalid Interpretation Code AO Auto Urine SS Sodium [Moles/Vol] 133 mmol/L Invalid Interpretation Code 136 - 145 mmol/L AO ADM SS Troponin I.cardiac DL <= 0.01 ng/mL [Mass/Vol] 12.7 ng/L Invalid Interpretation Code 0.0 - 76.2 ng/L AO ADM SS Urea nitrogen [Mass/Vol] 9 mg/dL Invalid Interpretation Code 7 - 18 mg/dL AO ADM SS Urea nitrogen/Creatinine [Mass ratio] 10 ratio Invalid Interpretation Code 7 - 27 ratio AO ADM SS WBC (Bld) [#/Vol] 7.00 103/mcL Invalid Interpretation Code 4.60 - 10.80 10^3/mcL AO Auto Heme SS LABORATORYOrdered By: SYSTEM SYSTEM on 10-12-2021 GFR 114 ml/min/1.73sqm Invalid Interpretation Code AO Chemistry S GFR Non- 94 ml/min/1.73sqm Invalid Interpretation Code AO Chemistry S PBNPon 10-12-2021 Natriuretic peptide B (Bld) [Mass/Vol] 27 pg/mL Normal 0-125 [facility] [place] Comment on above: Result Comment: NT-p roBNP results of less than 300 pg/mL effectively rules out acute congestive heart failure with 99% negative predictive value. Performed By: #### P BNP, TROPHS, BMP, GFR, CBC, ADIFF, ANEU #### [address] 10-12-2021 Troponin I High Sensitivity 12.7 ng/L Normal 0.0-76.2 [facility] ([place]) Comment on above: Performed By: #### P BNP, TROPHS, BMP, GFR, CBC, ADIFF, ANEU #### [address] [address] XR CHEST 1 VIEWon 10-12-2021 XR CHEST 1 VIEW ORIGINAL EXAMINATION: ONE XRAY VIEW OF THE CHEST10/12/2021 3:20 am COMPARISON: None. HISTORY: ORDERING SYSTEM PROVIDED HISTORY: Reason for Exam: SOB/cough/fever. FINDINGS: Mediastinum: Cardiomediastinal contours are normal. No pneumomediastinum. Lungs: Airspace and interstitial opacities are noted predominantly involving the right lung base. Pleura: No pleural effusion or pneumothorax. Bones: Bony thorax is unremarkable. IMPRESSION: Airspace and interstitial disease most prominent in the right lung base his concerning for pneumonia. I have personally reviewed the images of this examination, and agree with the resident's findings and interpretation. Interpreted by: Rylan Padgett MD Preliminary Report By: Edd Garcia Electronically signed By Rylan Padgett MD Dictated Date: 10/12/2021 3:25:39 AM Prelim Date: 10/12/2021 3:27:36 AM Sign Date: 10/12/2021 3:57:42 AM Ordering Provider: HUANG WEN [facility] ([place]) Office Visit: [facility] f/u: R knee injuryon 05-29-2017 Documentation of current medications (procedure) Done Invalid Interpretation Code [facility] Work Phone: Documentation of current medications (procedure) T Invalid Interpretation Code [facility] Work Phone: Fall risk assessment No [facility] Work Phone: Protein mass conc Done [facility] Work Phone: Protein mass conc T [facility] Work Phone: Tobacco smoking status NHIS Current [facility] Work Phone: Tobacco smoking status NHIS Never smoker [facility] [facility] Work Phone: Tobacco use HS Never smoker Invalid Interpretation Code [facility] Work Phone: Office Visit: [facility], rt. knee injury, [place] 2017 Documentation of current medications (procedure) Done Invalid Interpretation Code [facility] Documentation of current medications (procedure) T Invalid Interpretation Code [facility] Tobacco smoking status NHIS Current Invalid Interpretation Code [facility] Tobacco use CPHS Never smoker Invalid Interpretation Code [facility] Vital Signs Date Time Vital Sign Value Performing Clinician Facility 08-30-2025 08:45-0400 Body temperature 97.5 [degF] Ronald Tong MD Work Phone: [facility] 08-30-2025 08:45-0400 Diastolic blood pressure 84 mm[Hg] Ronald Tong MD Work Phone: [facility] 08-30-2025 08:45-0400 Heart rate 76 /min Ronald Tong MD Work Phone: [facility] 08-30-2025 08:45-0400 Respiratory rate 17 /min Ronald Tong MD Work Phone: [facility] 08-30-2025 08:45-0400 SaO2% (BldA) [Mass fraction] 100 % Ronald Tong MD Work Phone: [facility] 08-30-2025 08:45-0400 Systolic blood pressure 138 mm[Hg] Ronald Tong MD Work Phone: [facility] 08-30-2025 05:41-0400 Body mass index (BMI) [Ratio] 26.9 kg/m2 Ronald Tong MD Work Phone: [facility] 08-30-2025 05:41-0400 Body weight 75.6 kg Ronald Tong MD Work Phone: [facility] 08-28-2025 04:00-0400 Inhaled oxygen flow rate 2 L/min Ronald Tong MD Work Phone: [facility] 08-27-2025 14:37-0400 Body height 167.64 cm Ronald Tong MD Work Phone: [facility] 08-22-2025 14:40-0400 Diastolic Blood Pressure Non-Invasive 84 mm[Hg] DR ZACHARIAH MOTA MD [facility] 08-22-2025 14:40-0400 Heart rate 78 /min DR ZACHARIAH MOTA MD [facility] 08-22-2025 14:40-0400 Respiratory rate 12 /min DR ZACHARIAH MOTA MD [facility] 08-22-2025 14:40-0400 Systolic Blood Pressure Non-Invasive 130 mm[Hg] DR ZACHARIAH MOTA MD [facility] 08-22-2025 14:35-0400 Diastolic Blood Pressure Non-Invasive 86 mm[Hg] DR ZACHARIAH MOTA MD [facility] 08-22-2025 14:35-0400 Heart rate 80 /min DR ZACHARIAH MOTA MD [facility] 08-22-2025 14:35-0400 Respiratory rate 13 /min DR ZACHARIAH MOTA MD [facility] 08-22-2025 14:35-0400 Systolic Blood Pressure Non-Invasive 124 mm[Hg] DR ZACHARIAH MOTA MD [facility] 08-22-2025 14:30-0400 Diastolic Blood Pressure Non-Invasive 87 mm[Hg] DR ZACHARIAH MOTA MD [facility] 08-22-2025 14:30-0400 Heart rate 85 /min DR ZACHARIAH MOTA MD [facility] 08-22-2025 14:30-0400 Respiratory rate 16 /min DR ZACHARIAH MOTA MD [facility] 08-22-2025 14:30-0400 Systolic Blood Pressure Non-Invasive 132 mm[Hg] DR ZACHARIAH MOTA MD [facility] 08-22-2025 14:00-0400 Body temperature 97.34 [degF] DR ZACHARIAH MOTA MD [facility] 08-22-2025 13:55-0400 Respiratory Rate - Anes 12 br/min DR ZACHARIAH MOTA MD [facility] 08-22-2025 13:50-0400 Respiratory Rate - Anes 14 br/min DR ZACHARIAH MOTA MD [facility] 08-22-2025 13:45-0400 Respiratory Rate - Anes 13 br/min DR ZACHARIAH MOTA MD [facility] 08-22-2025 13:30-0400 Body temperature 96.8 [degF] DR ZACHARIAH MOTA MD [facility] 08-22-2025 13:25-0400 Body temperature 96.8 [degF] DR ZACHARIAH MOTA MD [facility] 08-22-2025 11:56-0400 Body height [address] ZACHARIAH MOTA MD [facility] 08-22-2025 11:56-0400 Body temperature 96.98 [degF] DR ZACHARIAH MOTA MD [facility] 08-22-2025 11:56-0400 Body weight [address] ZACHARIAH MOTA MD [facility] 08-22-2025 11:56-0400 Heart rate 87 /min DR ZACHARIAH MOTA MD [facility] 08-20-2025 11:07-0400 Body height 167.[address] ZACHARIAH MOTA MD [facility] 08-20-2025 11:07-0400 Body weight 77.[address] ZACHARIAH MOTA MD [facility] 08-20-2025 11:07-0400 Body weight 27.52 kg/m2 DR ZACHARIAH MOTA MD [facility] 08-20-2025 11:07-0400 Diastolic Blood Pressure Non-Invasive 86 mm[Hg] DR ZACHARIAH MOTA MD [facility] 08-20-2025 11:07-0400 Heart rate 92 /min DR ZACHARIAH MOTA MD [facility] 08-20-2025 11:07-0400 Respiratory rate 20 /min DR ZACHARIAH MOTA MD [facility] 08-20-2025 11:07-0400 Systolic Blood Pressure Non-Invasive 147 mm[Hg] DR ZACHARIAH MOTA MD [facility] 08-17-2025 23:50-0400 Body temperature 98.1 [degF] Ronald Tong MD Work Phone: [facility] 08-17-2025 23:50-0400 Diastolic blood pressure 84 mm[Hg] Ronald Tong MD Work Phone: [facility] 08-17-2025 23:50-0400 Heart rate 74 /min Ronald Tong MD Work Phone: [facility] 08-17-2025 23:50-0400 Respiratory rate 18 /min Ronald Tong MD Work Phone: [facility] 08-17-2025 23:50-0400 SaO2% (BldA) [Mass fraction] 98 % Ronald Tong MD Work Phone: [facility] 08-17-2025 23:50-0400 Systolic blood pressure 118 mm[Hg] Ronald Tong MD Work Phone: [facility] 08-17-2025 19:13-0400 Body mass index (BMI) [Ratio] 27.9 kg/m2 Ronald Tong MD Work Phone: [facility] 08-17-2025 19:13-0400 Body weight 76.2 kg Ronald Tong MD Work Phone: [facility] 02-09-2022 19:45-0400 Body height 167.6 cm ESTEFANI ROMO MD [facility] 02-09-2022 19:45-0400 Body temperature 98.06 [degF] ESTEFANI ROMO MD [facility] 02-09-2022 19:45-0400 Body weight 77.3 kg ESTEFANI ROMO MD [facility] 02-09-2022 19:45-0400 Diastolic blood pressure 95 mm[Hg] ESTEFANI ROMO MD [facility] 02-09-2022 19:45-0400 Heart rate 92 /min ESTEFANI ROMO MD [facility] 02-09-2022 19:45-0400 Respiratory rate 18 /min ESTEFANI ROMO MD [facility] 02-09-2022 19:45-0400 Systolic blood pressure 146 mm[Hg] ESTEFANI ROMO MD [facility] 10-12-2021 11:00-0500 Diastolic blood pressure 78 mm[Hg] KIMBERLEE FROMMELT DO [facility] 10-12-2021 11:00-0500 Systolic blood pressure 134 mm[Hg] KIMBERLEE FROMMELT DO [facility] 10-12-2021 09:32-0500 Diastolic blood pressure 87 mm[Hg] KIMBERLEE FROMMELT DO [facility] 10-12-2021 09:32-0500 Heart rate 82 /min KIMBERLEE FROMMELT DO [facility] 10-12-2021 09:32-0500 Respiratory rate 16 /min KIMBERLEE FROMBRIGETTET DO [facility] 10-12-2021 09:32-0500 Systolic blood pressure 136 mm[Hg] KIMBERLEE FROMMELT DO [facility] 10-12-2021 08:30-0500 Body temperature 97.52 [degF] KIMBERLEE FROMMELT DO [facility] 10-12-2021 08:30-0500 Diastolic blood pressure 99 mm[Hg] KIMBERLEE FROMBRIGETTET DO [facility] 10-12-2021 08:30-0500 Heart rate 83 /min KIMBERLEE GRIFFITHT DO [facility] 10-12-2021 08:30-0500 Systolic blood pressure 145 mm[Hg] KIMBERLEE FROMMELT DO [facility] 10-12-2021 02:30-0500 Body temperature 99.14 [degF] KIMBERLEE FROMMELT DO [facility] 10-12-2021 01:01-0500 Body height 165.1 cm KIMBERLEE FROMMELT DO [facility] 10-12-2021 01:01-0500 Body temperature 101.48 [degF] KIMBERLEE FROMMELT DO [facility] 10-12-2021 01:01-0500 Body weight 80.9 kg KIMBERLEE MCRAE DO [facility] 10-12-2021 01:01-0500 Heart rate 111 /min KIMBERLEE MCRAE DO [facility] 05-29-2017 08:49-0400 BMI (Body Mass Index) 32.54 kg/m2 Kathleen Adorno [facility] Work Phone: 05-29-2017 08:49-0400 Body Temperature 98.6 [degF] Kathleen Adorno [facility] Work Phone: 05-29-2017 08:49-0400 BP Diastolic 82 mm[Hg] Kathleen Adorno [facility] Work Phone: 05-29-2017 08:49-0400 BP Systolic 126 mm[Hg] Kathleen Adorno [employer] [facility] Work Phone: 05-29-2017 08:49-0400 Height 167.64 cm Kathleen Adorno LPN [facility] Work Phone: 05-29-2017 08:49-0400 Pulse (Heart Rate) 95 /min Kathleen Adorno [facility] Work Phone: 05-29-2017 08:49-0400 Respiratory Rate 14 /min Kathleen Adorno [employer] [facility] Work Phone: 05-29-2017 08:49-0400 Weight 91.45 kg Kathleen Adorno LPN [facility] Work Phone: 2017 09:24-0400 BMI (Body Mass Index) 32.83 kg/m2 [facility] 2017 09:24-0400 Body Temperature 98.8 [degF] [facility] 2017 09:24-0400 BP Diastolic 92 mm[Hg] [facility] 2017 09:24-0400 BP Systolic 138 mm[Hg] [facility] 2017 09:24-0400 Height 167.64 cm [facility] 2017 09:24-0400 Pulse (Heart Rate) 96 /min [facility] 2017 09:24-0400 Respiratory Rate 12 /min [facility] 2017 09:24-0400 Weight 92.26 kg [facility] Encounters Encounter Date Encounter Type Care Provider Facility Start: 09-05-2025 End: 09-05-2025 ambulatory Ronald oTng Facility:[facility] Start: 08-25-2025 ambulatory Anthony Packer ility:[facility] Start: 08-25-2025 End: 08-30-2025 Evaluation and management of inpatient Kenisha Mcgee Facility:[facility] Start: 08-25-2025 End: 08-25-2025 ambulatory Zachariah Mota Facility:[facility] Start: 08-22-2025 End: 08-22-2025 ambulatory MR Ingram JAYNE HANSEN Facility:[facility] Start: 08-22-2025 End: 08-22-[address] ZACHARIAH MOTA MD [facility] Start: 08-20-2025 End: 08-20-[address] ZACHARIAH MOTA MD [facility] Start: 08-20-2025 End: 08-20-2025 ambulatory MR Ingram JAYNE HANSEN Facility:[facility] Start: 08-17-2025 End: 08-17-2025 Emergency department patient visit Dr. Brandon Abraham DO -Emergency Department Work Phone: Start: 07-24-2025 End: 07-24-2025 ambulatory Ronald Tong MD Work Phone: -Laboratory [facility] Start: 07-24-2025 End: 07-24-[address] Ronald Tong MD -Laboratory [facility] Start: 07-24-2025 End: 07-24-2025 ambulatory Ronald Tong Facility:[facility] Start: 02-07-2024 Admission to [facility] Juan Jose Jayne Haney PA-C Work Phone: Ambulatory Surgery Comment on above: colorectal cancer sc reening Start: 02-07-2024 ambulatory Juan Jose Jayne dennis PA-C Work Phone: Ambulatory Surgery Start: 02-09-2022 End: 02-09-2022 Emergency department patient visit ESTEFANI ROMO MD [facility] Start: 10-12-2021 End: 10-12-2021 Emergency department patient visit KIMBERLEE MCRAE DO [facility] Procedures Date Procedure Procedure Detail Performing Clinician Start: 08-30-2025 Estimated creatinine clearance Ronald Tong MD Work Phone: Start: 08-29-2025 Urnls dip stick/tabl et reagent auto microscopy Ronald Tong MD Work Phone: Start: 08-22-2025 History of ureterosc opic laser fragmentation of ureteric calculus DR ZACHARIAH MOTA MD Start: 08-17-2025 Urnls dip stick/tabl et reagent auto microscopy Ronald Tong MD Work Phone: Start: 08-17-2025 Ct abdomen & pelvis w/contrast material Ronald Tong MD Work Phone: Start: 08-17-2025 Estimated creatinine clearance Ronald Tong MD Work Phone: Appendectomy DR ZACHARIAH MOTA MD Structure of eye pro per (body structure) KIMBERLEE MCRAE DO Structure of eye pro per (body structure) DR ZACHARIAH MOTA MD Comment on above: bilateral Plan of Treatment Date Care Activity Detail Author Start: 09-08-2028 Urine microalbumin profile DTaP,Tdap,Td Vaccine (3 - Td or Tdap) [facility] Start: 08-30-2025 Patient discharge [facility] Start: 08-29-2025 Urine culture Urine Culture [facility] Start: 08-29-2025 Non-patient / Non-visit Non-patient / Non-visit -[facility] Work Phone: Start: 08-28-2025 [facility] Start: 08-28-2025 Non-patient / Non-visit Non-patient / Non-visit -[facility] Work Phone: Start: 08-27-2025 Non-patient / Non-visit Non-patient / Non-visit -[facility] Work Phone: Start: 08-27-2025 Plain chest X-ray Chest 1 View (Portable) [facility] Start: 08-27-2025 Care regimes management [facility] Start: 08-27-2025 Notification of physician [facility] Start: 08-27-2025 Catheterization of vein [facility] Start: 08-27-2025 End: 08-27-2025 [facility] Start: 08-27-2025 Fluoroscopic guidance O.R. Fluoro for C-Arm [facility] Start: 08-27-2025 Introduction to urinary tract Cysto,Insertion Stent (Right) [facility] Start: 08-27-2025 Consultation [facility] Start: 08-27-2025 Blood culture Blood Culture [facility] Start: 08-27-2025 Urine culture Urine Culture [facility] Start: 08-27-2025 [facility] Start: 08-25-2025 Application of intermittent pneumatic compression device [facility] Start: 08-25-2025 Following clinical pathway protocol [facility] Start: 08-25-2025 Vital signs measurements [facility] Start: 08-25-2025 Admission procedure [facility] Start: 08-25-2025 End: 08-30-2025 Evaluation and management of inpatient Sepsis -[facility] 3 Work Phone: Start: 08-25-2025 CT of abdomen and pelvis without contrast Abdomen/Pelvis without Cont [facility] Start: 08-25-2025 End: 08-25-2025 Patient encounter procedure Departed Clinical -Cat Scan [facility] Work Phone: Start: 08-25-2025 Patient referral to dietitian [facility] Start: 08-17-2025 [facility] Start: 07-07-2024 Influenza vaccination Influenza Vaccine (Season Ended) [facility] Start: 01-27-2024 Annual PCP Team Chronic Disease Visit Annual PCP Team Chronic Disease Visit [facility] Start: 01-27-2024 Diabetic foot examination Diabetic Foot Exam [facility] Start: 12-12-2023 Glaucoma screening Dilated Retinal Exam [facility] Start: 11-06-2023 Behavioral Health Screening Behavioral Health Screening [facility] Start: 2021 Shingrix Vaccine (1 of 2) Shingrix Vaccine (1 of 2) [facility] Start: 12-27-2020 Hepatitis B surface antibody level LDL Cholesterol [facility] Start: 03-26-2020 [facility] Start: 05-29-2017 End: 05-29-2017 Appointment [facility] Start: 2017 End: 2017 Appointment Appointment [facility] Start: 2016 Screening for malignant neoplasm of colon [facility] Start: 1990 Hepatitis B Vaccine (1 of 3 - 19+ 3-dose series) Hepatitis B Vaccine (1 of 3 - 19+ 3-dose series) [facility] Start: 1989 Hepatitis C screening Hepatitis C Screening [facility] Start: 1989 HIV screening HIV Screening [facility] Start: 1977 Pneumococcal vaccination Pneumococcal Vaccine (1 of 2 - PCV) [facility] Patient Education ED Kidney Ston e with Pain [facility] Work Phone: Immunizations Immunization Date Immunization Notes Care Provider Fa cyrus 09-08-2018 tetanus toxoid, redu kris diphtheria toxoid, and acellular pertussis vaccine, adsorbed KIMBERLEE MCRAE DO [facility] 10-06-2016 influenza virus vaccine, unspecified formulation HERACLIO Haney YULY Work Phone: [facility] 03-30-2016 tetanus toxoid, redu kris diphtheria toxoid, and acellular pertussis vaccine, adsorbed NA Lyndon EMERY Work Phone: [facility] Payers Date Payer Category Payer Private Health Insurance [id number] 2025 Private Health Insurance [id number] 2025 Self-pay 2022 Unknown [employer] PPO OOS [id number] 2022-Present [phone] [address] [place] [address] PPO [id number] 1970 Unknown [id number] 1970 Unknown [id number] Self-pay [id number] Unknown [id number] Unknown . Unknown [id number] Unknown [id number] Unknown [id number] Unknown [id number] Unknown [id number] Unknown [id number] Unknown [id number] Unknown 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 Monthly or less [facility] How many standard dr inks containing alcohol do you have on a typical day? 1 or 2 [facility] How often do you hav e 6 or more drinks on 1 occasion? Never [facility] Do you feel stress - tense, restless, nervous, or anxious, or unable to sleep at night because your mind is troubled all the time - these days [OSQ] Not at all [facility] (I/We) worried annabelle (my/our) food would run out before (I/we) got money to buy more. Never true [facility] In the past 12 month s, was there a time when you were not able to pay the mortgage or rent on time? No [facility] Start: 04-22-2020 Education 12 [facility] Start: 1970 Sex Assigned At Not on file [facility] Start: 1970 Sex Assigned At Male [facility] Start: 08-20-2025 Tobacco smoking status Ex-smoker (fi nding) [facility] Start: 02-06-2015 Sex Male (finding) [facility] Start: 08-20-2025 End: 08-22-2025 Not applicable (qualifier value) [facility] Medical Equipment Procedure Code Equipment Code Equipment Origin al Text Equipment Identifier Dates Cystoscopic insertion of stent STENT,URETERAL PIGTAIL [id number] FDA Start: 08-27-2025 Test blood sugar (s) 2 times daily. Dx: Type 2 DM - Controlled E11.9 Insulin: Yes [id number] Start: 07-26-2019 Test blood sugar (s) 2 daily. Dx: Type 2 DM - Controlled E11.9 Insulin: Yes [id number] Start: 07-26-2019 Goals Date Patient Goal Desired Activity /State Functional Status Date Assessment Result Facility 08-30-2025 Functional status Independent [facility] Work Phone: 08-27-2025 Functional status Patient Activity Ambula nisha [facility] Work Phone: 08-22-2025 Functional Status Repositions self [facility] 08-22-2025 Functional Status Maintained, More than 8 hours [facility] 08-20-2025 Functional Status Sensory Deficits None A [facility] 02-09-[address] [facility] 02-09-[address] [facility] Mental Status Date Assessment Result Facility 08-30-2025 Cognitive function Voice/Name [facility] Work Phone: 08-22-2025 Mental Status Orientation Oriented x 4 [facility] 08-22-2025 [facility] 02-09-2022 Mental Status [facility] 02-09-2022 Mental Status [facility] Clinical Notes 10-12-2021 to 08-29-2025 Note Date & Type Note Facility 08-29-2025 Note [facility] Medical Records Department [address] [place] [address] Discharge Summary 08/29/25 1228 MR#: [id number] Acct: [id number] Name: ANDRIA HERNANDEZ Rep #: [id number] : 1970 55 From: Zachariah Mota MD PCP: Dr. Ronald Tong MD Status:[id number] Prov[facility] Date of Admission: 08/25/25 Primary Care Physician: Ronald Tong MD Consultations 08/27/25 15:03 Consult: Hospitalist Routine Consulting Provider: [facility] Reason for Consult: medical manegment EMERGENT Consult: No MD Notified: Yes Date Notified: 08/27/25 Time Notified: 17:25 Method of Notification: Text Reason For Visit: KIDNEY SPASM/PAIN Diagnosis Discharge Diagnosis (1) Sepsis: Status: Acute Code(s): A41.9 - Sepsis, unspecified organism Medications at Discharge Home Medications amlodipine 5 mg tablet 5 mg PO DAILY bp 08/17/25 glipizide 5 mg tablet 5 mg PO DAILY dm 08/17/25 hydrocodone-acetaminophen 5-325mg 5mg-325mg 1 tab PO Q6H PRN PRN Pain 3 days #10 TABLETS 08/17/25 metformin 500 mg tablet 500 mg PO BID dm 08/17/25 ondansetron HCl 4 mg tablet 4 mg PO BID PRN PRN nausea and vomiting 08/17/25 atorvastatin 20 mg tablet 20 mg PO DAILY cholesterol 08/25/25 tamsulosin 0.4 mg capsule 0.4 mg PO DAILY bph 08/25/25 ketorolac 10 mg tablet 10 mg PO Q6H #10 tabs 08/27/25 Hospital Course Summary of Care Provided Hospital Course: 55-year-old male who underwent ureteroscopic and stent placement for stone on the right side no stone was seen at the time he then came to my office with severe colic from the stent so the stent was removed in the office but he had more pain afterward so he was admitted to the hospital for pain control. He was about to go home to begin a discharge and but then he spiked a fever for fevers and chills and had signs of sepsis so he underwent stent placement after the stent placement he went up in the ICU with sepsis as lactate was elevated cultures came back positive from the blood he was managed by the hospitalist and at this point now he is stabilized and will go home he has a stent in place I will see him in 2 weeks for stent removal and we will keep him on antibiotics and discharge. Weight / BMI Weight Weight: 80.1 kg Body Mass Index (BMI) 28.5 ABG / Lab / Microbiology Data 08/29/25 05:07 08/29/25 05:07 Laboratory: Laboratory Results - last 24 hr 08/28/25 17:15: POC Glucose 279 H 08/28/25 22:28: POC Glucose 207 H 08/29/25 04:45: POC Glucose 192 H 08/29/25 05:07: WBC 6.3, RBC 4.32 L, Hgb 12.1 L, Hct 34.5 L, MCV 79.9 L, MCH 28.0, MCHC 35.1, RDW Std Deviation 35.5, RDW Coeff of Mike 12.2, Plt Count 165, MPV 10.0, Immature Gran % (Auto) 0.500, N eut % (Auto) 75.1 H, Lymph % (Auto) 13.6 L, Hamb[place] % (Auto) 10.0, Eos % (Auto) 0.5, Baso % (Auto) 0.3, Absolute Neuts (auto) 4.7, Absolute Lymphs (auto) 0.86, Nucleated RBC % 0, Sodium 133, Potassium 4.1, Chloride 100, Carbon Dioxide 23.1, Anion Gap 9, BUN 7, Creatinine 0.62 L, Estim Creat Clear Calc 135.47, Est GFR (MDRD) Non-Af 114, BUN/Creatinine Ratio 11.9, Glucose 195 H, Calcium 8.4 08/29/25 06:43: POC Glucose 193 H 08/29/25 11:23: POC Glucose 229 H Microbiology: Microbiology 08/27/25 Unknown Urine, Catheterized Urine Culture - Preliminary GNR lactose vp packaging 08/27/25 18:11 Blood Culture (Wb) - Left Wrist Blood Culture - Preliminary 08/27/25 18:07 Blood Culture (Wb) - Anticubital Left Blood Culture - Preliminary 08/27/25 22:37 Urine, Clean Catch Urine Culture - Preliminary Culture exhibits no growth. D/C Instructions Call your doctor if you observe: Fever of 101 or Higher DC O2, CPAP, BIPAP Needs Home O2 Discharge instructions: No Please Follow Up With: Zachariah Mota MD When: Call [phone] for an appointment, 2 weeks to remove stent Meaningful Use Info Meaningful Use Meaningful Use Diagnoses (Choose all that apply): None applicable Discharge Plan Admission Admit Date/Time: 08/25/25 16:19 Primary Reason for Your Visit: Ureteral spasms Attending Provider: Zachariah Mota Primary Care Provider: Ronald Tong Consulting Providers: Kenisha Mcgee; Anthony Jaime; Lucho Maki Discharge Orders/Prescriptions Prescriptions: New ketorolac 10 mg tablet 10 mg PO Q6H Qty: 10 0RF Rx Instructions: maximum total duration of 5 days from all oral, intranasal, or parenteral formulations Continued amlodipine 5 mg tablet 5 mg PO DAILY metformin 500 mg tablet 500 mg PO BID ondansetron HCl 4 mg tablet 4 mg PO BID PRN PRN (Reason: nausea and vomiting) glipizide 5 mg tablet 5 mg PO DAILY hydrocodone-acetaminophen 5-325 mg tablet 1 tab PO Q6H PRN PRN (Reason: Pain) 3 Days Qty: 10 0RF atorvastatin 20 mg tablet 20 mg PO DAILY tamsulosin 0.4 mg capsule 0.4 mg PO DAILY Refe (more content not included)... [facility] 08-27-2025 Note [facility] Medical Records Department [address] [place] [address] Discharge Summary 08/27/25 0725 MR#: [id number] Acct: [id number] Name: ANDRIA HERNANDEZ Rep #: [id number] : 1970 55 From: Zachariah Mota MD PCP: Dr. Ronald Tong MD Status:ADM IN Location: [facility] [place] [id number] Providers Date of Admission: 08/25/25 Date of Discharge: 08/27/25 Primary Care Physician: Ronald Tong MD Reason For Visit: KIDNESY SPASM/PAIN Medications at Discharge Home Medications amlodipine 5 mg tablet 5 mg PO DAILY bp 08/17/25 glipizide 5 mg tablet 5 mg PO DAILY dm 08/17/25 hydrocodone-acetaminophen 5-325mg 5mg-325mg 1 tab PO Q6H PRN PRN Pain 3 days #10 TABLETS 08/17/25 metformin 500 mg tablet 500 mg PO BID dm 08/17/25 ondansetron HCl 4 mg tablet 4 mg PO BID PRN PRN nausea and vomiting 08/17/25 atorvastatin 20 mg tablet 20 mg PO DAILY cholesterol 08/25/25 tamsulosin 0.4 mg capsule 0.4 mg PO DAILY bph 08/25/25 Hospital Course Summary of Care Provided Minutes Spent on Discharge: 15 Hospital Course: Patient was admitted to the hospital for stent spasms and stent pain after the stent was removed he was have a lot of spasms in his ureter CAT scan was done and demonstrated no obstruction but about a ureteritis and inflammation along course of the ureter and spasms pain was not controlled as an outpatient so he was admitted to the hospital for IV Toradol pain medicine. He was possibly going home yesterday but he had an episode of severe pain today was not comfortable going home this morning he feels much more comfortable try to have a bowel movement feels little constipated we will give him some bowel laxative to get his bowels moving but he should be able to go home today follow- up in the office in 6 weeks for checkup. Weight / BMI Weight Weight: 75.3 kg Body Mass Index (BMI) 26.8 ABG / Lab / Microbiology Data 08/25/25 16:49 08/25/25 16:49 D/C Instructions DC O2, CPAP, BIPAP Needs Home O2 Discharge instructions: No Meaningful Use Info Meaningful Use Meaningful Use Diagnoses (Choose all that apply): None applicable Discharge Plan Admission Admit Date/Time: 08/25/25 16:19 Attending Provider: Zachariah Mota Primary Care Provider: Ronald Tong Discharge Orders/Prescriptions Prescriptions: No Action amlodipine 5 mg tablet 5 mg PO DAILY metformin 500 mg tablet 500 mg PO BID ondansetron HCl 4 mg tablet 4 mg PO BID PRN PRN (Reason: nausea and vomiting) glipizide 5 mg tablet 5 mg PO DAILY hydrocodone-acetaminophen 5-325 mg tablet 1 tab PO Q6H PRN PRN (Reason: Pain) 3 Days Qty: 10 0RF atorvastatin 20 mg tablet 20 mg PO DAILY tamsulosin 0.4 mg capsule 0.4 mg PO DAILY Referrals / Follow Up: Ronald Tong MD [Primary Care Provider, Family Practice] 08/27/25 0727 Cosigner Signature (if applicable): CC: Dr. Ronald Tong MD; Dr. Zachariah Mota MD Signed [facility] 08-26-2025 Note [facility] Medical Records Department [address] [place] [address] History Physical Exam 08/26/25 0735 MR#: [id number] Acct: [id number] Name: ANDRIA HERNANDEZ Rep #: [id number] : 1970 55 From: Zachariah Mota MD PCP: Dr. Ronald Tong MD Status:ADM IN Location: [facility] [id number] HPI - General General Date of Admission: 08/25/25 Date of Service: 08/26/25 Chief Complaint: Renal colic HPI Narrative ANDRIA HERNANDEZ, is a 55 male who underwent ureteroscopy dilation of the ureter and stent placement for stone, no stone was found but you have a very tight ureter so the ureter was dilated and the stent was placed did not presented to my office in severe renal colic and stent so we agreed to take the stent out and see how you do having nausea and vomiting. Stent was removed and then later that Kam presented back to my office and needing more severe pain we did a CAT scan that demonstrated ureter with some ureteritis and inflammation along the ureter but no stone no obstruction some mild hydronephrosis so I admitted the patient for pain control this morning the patient's pain is much better he is feeling much better blood count was done yesterday looks okay. If he does okay then we Pyke and then go home later this morning or this afternoon [facility] Medical History (Updated 08/25/25 @ 16:37 by Shahnaz Garcia) Diabetes Kidney stones Hypertension Abdominal pain Abdominal hernia Home Medications ???Medication ???Instructions ???Recorded ???Last Taken ???Type amlodipine 5 mg tablet 5 mg PO DAILY bp 08/17/25 Unknown History glipizide 5 mg tablet 5 mg PO DAILY dm 08/17/25 Unknown History hydrocodone-acetaminophen 5-325mg 1 tab PO Q6H PRN PRN Pain 3 days 08/17/25 Unknown Rx 5mg-325mg #10 TABLETS metformin 500 mg tablet 500 mg PO BID dm 08/17/25 Unknown History ondansetron HCl 4 mg tablet 4 mg PO BID PRN PRN nausea and 10/30 Unknown History vomiting atorvastatin 20 mg tablet 20 mg PO DAILY cholesterol 5 Unknown History tamsulosin 0.4 mg capsule 0.4 mg PO DAILY bph 08/25/25 Unkno wn History Allergy/AdvReac Type Severity Reaction Status Date / Time Penicillins Allergy Severe Hives Verified 08/17/25 19:19 Family History (System 04/10/24 @ 12:38 by Vianney Kelly) Father Diabetes Heart disease Hypertension CVA (cerebral vascular accident) High cholesterol Surgical History History of eye surgery History of appendectomy Social History Smoking Status: Never smoker alcohol intake: current alcohol intake frequency: a few times a month substance use type: does not use Vital Signs Vital Signs Vital Signs: 08/25/25 16:19 08/25/25 21:00 08/25/25 21:20 Temperature 97.8 F 98.3 F Temperature Source Oral Temporal Pulse Rate 84 83 Respiratory Rate 14 16 Respiratory Effort Normal Non-Labored Respiratory Depth Normal Respiratory Pattern Normal Blood Pressure 132/80 H 114/73 Blood Pressure Mean 97 86 Blood Pressure Source Monitor Monitor Blood Pressure Position Semi-Fowlers Semi-Fowlers Blood Pressure Location Right Arm Right Arm Pulse Ox 98 96 Oxygen Delivery Method Room Air Room Air Room Air 08/26/25 02:40 Temperature 98.4 F Temperature Source Temporal Pulse Rate 93 Respiratory Rate 16 Respiratory Effort Respiratory Depth Respiratory Pattern Blood Pressure 107/68 Blood Pressure Mean 81 Blood Pressure Source Monitor Blood Pressure Position Semi-Fowlers Blood Pressure Location Right Arm Pulse Ox 98 Oxygen Delivery Method Room Air Weight Weight: 75.296 kg Body Mass Index (BMI) 26.8 Results Lab / Micro Data 08/25/25 16:49 08/25/25 16:49 Labs: Laboratory Results - last 24 hr 08/25/25 16:49: WBC 15.3 H, RBC 5.54, Hgb 15.8, Hct 45.5, MCV 82.1, MCH 28.5, MCHC 34.7, RDW Std Deviation 37.1, RDW Coeff of Mike 12.3, Plt Count 280, MPV 9.9, Immature Gran % (Auto) 0.500, Neut % (Auto) 87.0 H, Lymph % (Auto) 4.9 L, Hamblen % (Auto) 7.2, Eos % (Auto) 0.1, Baso % (Auto) 0.3, A bsolute Neuts (auto) 13.4 H, Absolute Lymphs (auto) 0.75 L, Nucleated RBC % 0, Sodium 133, Potassium 4.6, Chloride 95 L, Carbon Dioxide 22.6, Anion Gap 15, BUN 11, Creatinine 1.04, Estim Creat Clear Calc 73.27, Est GFR (MDRD) Non-Af 85, BUN/Creatinine Ratio 10.6, Glucose 235 H, Calcium 9.3 08/25/25 21:05: POC Glucose 226 H 08/26/25 0737 Cosigner Signature (if applicable): CC: Dr. Ronald Tong MD; Dr. Zachariah Mota MD Signed [facility] 08-22-2025 Hospital Discharge instructions Patient Education 08/22/2025 14:37:22 How to Use an Incentive Spirometer How To Use an Incentive Spirometer An incentive spirometer is a tool that measures how well you are filling your lungs with each breath. Learning to take long, deep breaths using this tool can help you keep your lungs clear and active. This may help to reverse or lessen your chance of developing breathing (pulmonary) problems, especially infection. You may be asked to use a spirometer: After a surgery. If you have a lung problem or a history of smoking. After a long period of time when you have been unable to move or be active. If the spirometer includes an indicator to show the highest number that you have reached, your health care provider or respiratory therapist will help you set a goal. Keep a list (log) of your progress as told by your health care provider. What are the risks? Breathing too quickly may cause dizziness or cause you to pass out. Take your time so you do not get dizzy or light-headed. If you are in pain, you may need to take pain medicine before doing incentive spirometry. It is harder to take a deep breath if you are having pain. How to use your incentive spirometer 1.Sit up on the edge of your bed or on a chair. 2.Hold the incentive spirometer so that it is in an upright position. 3.Before you use the spirometer, breathe out normally. 4.Place the mouthpiece in your mouth. Make sure your lips are closed tightly around it. 5.Breathe in slowly and as deeply as you can through your mouth, causing the piston or the ball to rise toward the top of the chamber. 6.Hold your breath for 3 5 seconds, or for as long as possible. If the spirometer includes a coach builder indicator, use this to guide you in breathing. Slow down your breathing if the indicator goes above the marked areas. 7.Remove the mouthpiece from your mouth and breathe out normally. The piston or ball will return to the bottom of the chamber. 8.Rest for a few seconds, then repeat the steps 10 or more times. Take your time and take a few normal breaths between deep breaths so that you do not get dizzy or light-headed. Do this every 1 2 hours when you are awake. 9.If the spirometer includes a goal marker to show the highest number you have reached (best effort), use this as a goal to work toward during each repetition. 10.After each set of 10 deep breaths, cough a few times. This will help to make sure that your lungs are clear. If you have an incision on your chest or abdomen from surgery, place a pillow or a rolled-up towel firmly against the incision when you cough. This can help to reduce pain from coughing. General tips When you become able to get out of bed, walk around often and continue to cough to help clear your lungs. Keep using the incentive spirometer until your health care provider says it is okay to stop using it. If you have been in the hospital, you may be told to keep using the spirometer at home. Contact a health care provider if: You are having difficulty using the spirometer. You have trouble using the spirometer as often as instructed. Your pain medicine is not giving enough relief for you to use the spirometer as told. You have a fever. You develop shortness of breath. Get help right away if: You develop a cough with bloody mucus from the lungs (bloody sputum). You have fluid or blood coming from an incision site after you cough. Summary An incentive spirometer is a tool that can help you learn to take long, deep breaths to keep your lungs clear and active. You may be asked to use a spirometer after a surgery, if you have a lung problem or a history of smoking, or if you have been inactive for a long period of time. Use your incentive spirometer as instructed every 1 2 hours while you are awake. If you have an incision on your chest or abdomen, place a pillow or a rolled-up towel firmly against your incision when you cough. This will help to reduce pain. This information is not intended to replace advice given to you by your health care provider. Make sure you discuss any questions you have with your health care provider. Document Released: 03/04/2008 Document Revised: 11/15/2018 Document Reviewed: 09/05/2018 [employer] Patient Education 2020 [employer]. 08/22/2025 14:37:15 Ureteral Stent Implantation, Care After Ureteral Stent Implantation, Care After This sheet gives you information about how to care for yourself after your procedure. Your health care provider may also give you more specific instructions. If you have problems or questions, contact your health care provider. What can I expect after the procedure? After the procedure, it is common to have: Nausea. Mild pain when you urinate. You may feel this pain in your lower back or lower abdomen. The pain should stop within a few minutes after you urinate. This may last for up to 1 week. A small amount of blood in your urine for several days. Follow these instructions at home: Medicines Take camq-uuw-gfisugu and prescription medicines only as told by your health care provider. If you were prescribed an antibiotic medicine, take it as told by your health care provider. Do not stop taking the antibiotic even if you start to feel better. Do not drive for 24 hours if you were given a sedative during your procedure. Ask your health care provider if the medicine prescribed to you requires you to avoid driving or using heavy machinery. Activity Rest as told by your health care provider. Avoid sitting for a long time without moving. Get up to take short walks every 1 2 hours. This is important to improve blood flow and breathing. Ask for help if you feel weak or unsteady. Return to your normal activities as told by your health care provider. Ask your health care provider what activities are safe for you. General instructions Watch for any blood in your urine. Call your health care provider if the amount of blood in your urine increases. If you have a catheter: ?Follow instructions from your health care provider about taking care of your catheter and collection bag. ?Do not take baths, swim, or use a hot tub until your health care provider approves. Ask your health care provider if you may take showers. You may only be allowed to take sponge baths. Drink enough fluid to keep your urine pale yellow. Do not use any products that contain nicotine or tobacco, such as cigarettes, e-cigarettes, and chewing tobacco. These can delay healing after surgery. If you need help quitting, ask your health care provider. Keep all follow-up visits as told by your health care provider. This is important. Contact a health care provider if: You have pain that gets worse or does not get better with medicine, especially pain when you urinate. You have difficulty urinating. You feel nauseous or you vomit repeatedly during a period of more than 2 days after the procedure. Get help right away if: Your urine is dark red or has blood clots in it. You are leaking urine (have incontinence). The end of the stent comes out of your urethra. You cannot urinate. You have sudden, sharp, or severe pain in your abdomen or lower back. You have a fever. You have swelling or pain in your legs. You have difficulty breathing. Summary After the procedure, it is common to have mild pain when you urinate that goes away within a few minutes after you urinate. This may last for up to 1 week. Watch for any blood in your urine. Call your health care provider if the amount of blood in your urine increases. Take [id number]-zipqcsj and prescription medicines only as told by your health care provider. Drink enough fluid to keep your urine pale yellow. This information is not intended to replace advice given to you by your health care provider. Make sure you discuss any questions you have with your health care provider. Document Released: 06/25/2014 Document Revised: 07/30/2019 Document Reviewed: 07/31/2019 [employer] Patient Education 2020 [employer]. 08/22/2025 14:37:03 Ureteroscopy, Care After Ureteroscopy, Care After This sheet gives you information about how to care for yourself after your procedure. Your health care provider may also give you more specific instructions. If you have problems or questions, contact your health care provider. What can I expect after the procedure? After the procedure, it is common to have: A burning sensation when you urinate. Blood in your urine. Mild discomfort in the bladder area or kidney area when urinating. Needing to urinate more often or urgently. Follow these instructions at home: Medicines Take dtxh-qpp-nrpmkfc and prescription medicines only as told by your health care provider. If you were prescribed an antibiotic medicine, take it as told by your health care provider. Do not stop taking the antibiotic even if you start to feel better. General instructions Do not drive for 24 hours if you were given a medicine to help you relax (sedative) during your procedure. To relieve burning, try taking a warm bath or holding a warm washcloth over your groin. Drink enough fluid to keep your urine clear or pale yellow. ?Drink two 8-ounce glasses of water every hour for the first 2 hours after you get home. ?Continue to drink water often at home. You can eat what you usually do. Keep all follow-up visits as told by your health care provider. This is important. ?If you had a tube placed to keep urine flowing (ureteral stent), ask your health care provider when you need to return to have it removed. Contact a health care provider if: You have chills or a fever. You have burning pain for longer than 24 hours after the procedure. You have blood in your urine for longer than 24 hours after the procedure. Get help right away if: You have large amounts of blood in your urine. You have blood clots in your urine. You have very bad pain. You have chest pain or trouble breathing. You are unable to urinate and you have the feeling of a full bladder. This information is not intended to replace advice given to you by your health care provider. Make sure you discuss any questions you have with your health care provider. Document Released: 10/28/2014 Document Revised: 10/05/2018 Document Reviewed: 08/04/2017 [employer] Patient Education 2020 [employer] 08/22/2025 14:36:40 General Anesthesia, Adult, Care After General Anesthesia, Adult, Care After This sheet gives you information about how to care for yourself after your procedure. Your health care provider may also give you more specific instructions. If you have problems or questions, contact your health care provider. What can I expect after the procedure? After the procedure, the following side effects are common: Pain or discomfort at the IV site. Nausea. Vomiting. Sore throat. Trouble concentrating. Feeling cold or chills. Weak or tired. Sleepiness and fatigue. Soreness and body aches. These side effects can affect parts of the body that were not involved in surgery. Follow these instructions at home: For at least 24 hours after the procedure: Have a responsible adult stay with you. It is important to have someone help care for you until you are awake and alert. Rest as needed. Do not: ?Participate in activities in which you could fall or become injured. ?Drive. ?Use heavy machinery. ?Drink alcohol. ?Take sleeping pills or medicines that cause drowsiness. ?Make important decisions or sign legal documents. ?Take care of children on your own. Eating and drinking Follow any instructions from your health care provider about eating or drinking restrictions. When you feel hungry, start by eating small amounts of foods that are soft and easy to digest (bland), such as toast. Gradually return to your regular diet. Drink enough fluid to keep your urine pale yellow. If you vomit, rehydrate by drinking water, juice, or clear broth. General instructions If you have sleep apnea, surgery and certain medicines can increase your risk for breathing problems. Follow instructions from your health care provider about wearing your sleep device: ?Anytime you are sleeping, including during daytime naps. ?While taking prescription pain medicines, sleeping medicines, or medicines that make you drowsy. Return to your normal activities as told by your health care provider. Ask your health care provider what activities are safe for you. Take bkwd-vpa-tvxtnmk and prescription medicines only as told by your health care provider. If you smoke, do not smoke without supervision. Keep all follow-up visits as told by your health care provider. This is important. Contact a health care provider if: You have nausea or vomiting that does not get better with medicine. You cannot eat or drink without vomiting. You have pain that does not get better with medicine. You are unable to pass urine. You develop a skin rash. You have a fever. You have redness around your IV site that gets worse. Get help right away if: You have difficulty breathing. You have chest pain. You have blood in your urine or stool, or you vomit blood. Summary After the procedure, it is common to have a sore throat or nausea. It is also common to feel tired. Have a responsible adult stay with you for the first 24 hours after general anesthesia. It is important to have someone help care for you until you are awake and alert. When you feel hungry, start by eating small amounts of foods that are soft and easy to digest (bland), such as toast. Gradually return to your regular diet. Drink enough fluid to keep your urine pale yellow. Return to your normal activities as told by your health care provider. Ask your health care provider what activities are safe for you. This information is not intended to replace advice given to you by your health care provider. Make sure you discuss any questions you have with your health care provider. Document Released: 01/29/2002 Document Revised: 10/26/2018 Document Reviewed: 06/08/2018 [employer] Patient Education 2020 [employer]. Follow Up Care 08/19/2025 14:47:18 With:ZACHARIAH MOTA Address: [address] [facility] [place] [place] [address]- [phone] Business (1) When: Unknown Comments:CALL TO SCHEDULE FOLLOW UP WITHIN 2 WEEKS [facility] 08-22-2025 Note Discharge Instructions Thank you for allowing [facility] to assist you with your healthcare needs. The following is important discharge information regarding your hospital visit. Your Care Team Juan Jose HANEY Your Diagnosis Bilateral kidney stones What to do next Follow Up Appointments Follow Up with ZACHARIAH MOTA Where:[address] [place] [address]- [phone] Business (1) Additional Information: CALL TO SCHEDULE FOLLOW UP WITHIN 2 WEEKS Allergies penicillin Difficulty breathing Medications Please ask your primary doctor or pharmacist before taking any other medication not listed, including over the counter drugs, herbal medications, vitamins and or supplements as they may interact with your home medications. What How Much When Why Instructions Last Dose New ciprofloxacin (Cipro 500 mg oral tablet) 1 tab(s) by mouth Every 12 hours Duration: 5 Days Pickup at [facility] New oxyCODONE (oxyCODONE 5 mg oral tablet ( IMMEDIATE release )) 1 tab(s) by mouth Every 6 hours as needed for for pain Bilateral kidney stones Duration: 3 Days Pickup at [facility] Unchanged acetaminophen-hydrocodone (acetaminophen-hydrocodone 325 mg-5 mg oral tablet) 1 tab(s) by mouth Every 6 hours as needed for for pain Unchanged amLODIPine (amLODIPine 5 mg oral tablet) 1 tab(s) by mouth Once a day Unchanged atorvastatin (atorvastatin 20 mg oral tablet) 1 tab(s) by mouth Every day Unchanged glipiZIDE (glipiZIDE 5 mg oral tablet) 1 tab(s) by mouth Once a day before a meal Unchanged metFORMIN (metFORMIN 500 mg oral tablet (IR)) 1 tab(s) by mouth Two (2) times a day Unchanged ondansetron (ondansetron 4 mg oral tablet) 1 tab(s) by mouth Every 12 hours as needed for Nausea/Vomiting Unchanged semaglutide (semaglutide 2 mg/ 3 mL (0.25 mg or 0.5 mg dose) subcutaneous solution) 0.5 Milligram Subcutaneous Every Monday Unchanged tamsulosin (tamsulosin 0.4 mg oral capsule) 1 cap by mouth Once a day after a meal Unchanged tiZANidine (tiZANidine 4 mg oral tablet) 1 tab(s) by mouth Every 12 hours as needed for as needed for muscle spasm Unchanged traZODone (traZODone 50 mg oral tablet) 1 tab(s) by mouth Daily at bedtime as needed for Insomnia Pharmacy Information [facility]: [address] [place], [place] [phone] Please take this list to your next doctor s visit. Bring all medications you take, including over the counter medications, herbals and other supplements with you to your doctor s visit. Patients and families are reminded to discard old lists and to update any records with all medication providers or retail pharmacies. Education Materials How To Use an Incentive Spirometer An incentive spirometer is a tool that measures how well you are filling your lungs with each breath. Learning to take long, deep breaths using this tool can help you keep your lungs clear and active. This may help to reverse or lessen your chance of developing breathing (pulmonary) problems, especially infection. You may be asked to use a spirometer: After a surgery. If you have a lung problem or a history of smoking. After a long period of time when you have been unable to move or be active. If the spirometer includes an indicator to show the highest number that you have reached, your health care provider or respiratory therapist will help you set a goal. Keep a list (log) of your progress as told by your health care provider. What are the risks? Breathing too quickly may cause dizziness or cause you to pass out. Take your time so you do not get dizzy or light-headed. If you are in pain, you may need to take pain medicine before doing incentive spirometry. It is harder to take a deep breath if you are having pain. How to use your incentive spirometer 1. Sit up on the edge of your bed or on a chair. 2. Hold the incentive spirometer so that it is in an upright position. 3. Before you use the spirometer, breathe out normally. 4. Place the mouthpiece in your mouth. Make sure your lips are closed tightly around it. 5. Breathe in slowly and as deeply as you can through your mouth, causing the piston or the ball to rise toward the top of the chamber. 6. Hold your breath for 3 5 seconds, or for as long as possible. If the spirometer includes a coach builder indicator, use this to guide you in breathing. Slow down your breathing if the indicator goes above the marked areas. 7. Remove the mouthpiece from your mouth and breathe out normally. The piston or ball will return to the bottom of the chamber. 8. Rest for a few seconds, then repeat the steps 10 or more times. Take your time and take a few normal breaths between deep breaths so that you do not get dizzy or light-headed. Do this every 1 2 hours when you are awake. 9. If the spirometer includes a goal marker to show the highest number you have reached (best effort), use this as a goal to work toward during each repetition. 10. After each set of 10 deep breaths, cough a few times. This will help to make sure that your lungs are clear. If you have an incision on your chest or abdomen from surgery, place a pillow or a rolled-up towel firmly against the incision when you cough. This can help to reduce pain from coughing. General tips When you become able to get out of bed, walk around often and continue to cough to help clear your lungs. Keep using the incentive spirometer until your health care provider says it is okay to stop using it. If you have been in the hospital, you may be told to keep using the spirometer at home. Contact a health care provider if: You are having difficulty using the spirometer. You have trouble using the spirometer as often as instructed. Your pain medicine is not giving enough relief for you to use the spirometer as told. You have a fever. You develop shortness of breath. Get help right away if: You develop a cough with bloody mucus from the lungs (bloody sputum). You have fluid or blood coming from an incision site after you cough. Summary An incentive spirometer is a tool that can help you learn to take long, deep breaths to keep your lungs clear and active. You may be asked to use a spirometer after a surgery, if you have a lung problem or a history of smoking, or if you have been inactive for a long period of time. Use your incentive spirometer as instructed every 1 2 hours while you are awake. If you have an incision on your chest or abdomen, place a pillow or a rolled-up towel firmly against your incision when you cough. This will help to reduce pain. This information is not intended to replace advice given to you by your health care provider. Make sure you discuss any questions you have with your health care provider. Document Released: 03/04/2008 Document Revised: 11/15/2018 Document Reviewed: 09/05/2018 [employer] Patient Education 2020 [employer] Ureteral Stent Implantation, Care After This sheet gives you information about how to care for yourself after your procedure. Your health care provider may also give you more specific instructions. If you have problems or questions, contact your health care provider. What can I expect after the procedure? After the procedure, it is common to have: Nausea. Mild pain when you urinate. You may feel this pain in your lower back or lower abdomen. The pain should stop within a few minutes after you urinate. This may last for up to 1 week. A small amount of blood in your urine for several days. Follow these instructions at home: Medicines Take lban-rad-rjbljou and prescription medicines only as told by your health care provider. If you were prescribed an antibiotic medicine, take it as told by your health care provider. Do not stop taking the antibiotic even if you start to feel better. Do not drive for 24 hours if you were given a sedative during your procedure. Ask your health care provider if the medicine prescribed to you requires you to avoid driving or using heavy machinery. Activity Rest as told by your health care provider. Avoid sitting for a long time without moving. Get up to take short walks every 1 2 hours. This is important to improve blood flow and breathing. Ask for help if you feel weak or unsteady. Return to your normal activities as told by your health care provider. Ask your health care provider what activities are safe for you. General instructions Watch for any blood in your urine. Call your health care provider if the amount of blood in your urine increases. If you have a catheter: ? Follow instructions from your health care provider about taking care of your catheter and collection bag. ? Do not take baths, swim, or use a hot tub until your health care provider approves. Ask your health care provider if you may take showers. You may only be allowed to take sponge baths. Drink enough fluid to keep your urine pale yellow. Do not use any products that contain nicotine or tobacco, such as cigarettes, e-cigarettes, and chewing tobacco. These can delay healing after surgery. If you need help quitting, ask your health care provider. Keep all follow-up visits as told by your health care provider. This is important. Contact a health care provider if: You have pain that gets worse or does not get better with medicine, especially pain when you urinate. You have difficulty urinating. You feel nauseous or you vomit repeatedly during a period of more than 2 days after the procedure. Get help right away if: Your urine is dark red or has blood clots in it. You are leaking urine (have incontinence). The end of the stent comes out of your urethra. You cannot urinate. You have sudden, sharp, or severe pain in your abdomen or lower back. You have a fever. You have swelling or pain in your legs. You have difficulty breathing. Summary After the procedure, it is common to have mild pain when you urinate that goes away within a few minutes after you urinate. This may last for up to 1 week. Watch for any blood in your urine. Call your health care provider if the amount of blood in your urine increases. Take uppr-tdd-ovklcsu and prescription medicines only as told by your health care provider. Drink enough fluid to keep your urine pale yellow. This information is not intended to replace advice given to you by your health care provider. Make sure you discuss any questions you have with your health care provider. Document Released: 06/25/2014 Document Revised: 07/30/2019 Document Reviewed: 07/31/2019 [employer] Patient Education 2020 [employer]. Ureteroscopy, Care After This sheet gives you information about how to care for yourself after your procedure. Your health care provider may also give you more specific instructions. If you have problems or questions, contact your health care provider. What can I expect after the procedure? After the procedure, it is common to have: A burning sensation when you urinate. Blood in your urine. Mild discomfort in the bladder area or kidney area when urinating. Needing to urinate more often or urgently. Follow these instructions at home: Medicines Take spgt-ult-slbwjit and prescription medicines only as told by your health care provider. If you were prescribed an antibiotic medicine, take it as told by your health care provider. Do not stop taking the antibiotic even if you start to feel better. General instructions Do not drive for 24 hours if you were given a medicine to help you relax (sedative) during your procedure. To relieve burning, try taking a warm bath or holding a warm washcloth over your groin. Drink enough fluid to keep your urine clear or pale yellow. ? Drink two 8-ounce glasses of water every hour for the first 2 hours after you get home. ? Continue to drink water often at home. You can eat what you usually do. Keep all follow-up visits as told by your health care provider. This is important. ? If you had a tube placed to keep urine flowing (ureteral stent), ask your health care provider when you need to return to have it removed. Contact a health care provider if: You have chills or a fever. You have burning pain for longer than 24 hours after the procedure. You have blood in your urine for longer than 24 hours after the procedure. Get help right away if: You have large amounts of blood in your urine. You have blood clots in your urine. You have very bad pain. You have chest pain or trouble breathing. You are unable to urinate and you have the feeling of a full bladder. This information is not intended to replace advice given to you by your health care provider. Make sure you discuss any questions you have with your health care provider. Document Released: 10/28/2014 Document Revised: 10/05/2018 Document Reviewed: 08/04/2017 [employer] Patient Education 2020 [employer]. General Anesthesia, Adult, Care After This sheet gives you information about how to care for yourself after your procedure. Your health care provider may also give you more specific instructions. If you have problems or questions, contact your health care provider. What can I expect after the procedure? After the procedure, the following side effects are common: Pain or discomfort at the IV site. Nausea. Vomiting. Sore throat. Trouble concentrating. Feeling cold or chills. Weak or tired. Sleepiness and fatigue. Soreness and body aches. These side effects can affect parts of the body that were not involved in surgery. Follow these instructions at home: For at least 24 hours after the procedure: Have a responsible adult stay with you. It is important to have someone help care for you until you are awake and alert. Rest as needed. Do not: ? Participate in activities in which you could fall or become injured. ? Drive. ? Use heavy machinery. ? Drink alcohol. ? Take sleeping pills or medicines that cause drowsiness. ? Make important decisions or sign legal documents. ? Take care of children on your own. Eating and drinking Follow any instructions from your health care provider about eating or drinking restrictions. When you feel hungry, start by eating small amounts of foods that are soft and easy to digest (bland), such as toast. Gradually return to your regular diet. Drink enough fluid to keep your urine pale yellow. If you vomit, rehydrate by drinking water, juice, or clear broth. General instructions If you have sleep apnea, surgery and certain medicines can increase your risk for breathing problems. Follow instructions from your health care provider about wearing your sleep device: ? Anytime you are sleeping, including during daytime naps. ? While taking prescription pain medicines, sleeping medicines, or medicines that make you drowsy. Return to your normal activities as told by your health care provider. Ask your health care provider what activities are safe for you. Take ehfl-wlc-ihzncxa and prescription medicines only as told by your health care provider. If you smoke, do not smoke without supervision. Keep all follow-up visits as told by your health care provider. This is important. Contact a health care provider if: You have nausea or vomiting that does not get better with medicine. You cannot eat or drink without vomiting. You have pain that does not get better with medicine. You are unable to pass urine. You develop a skin rash. You have a fever. You have redness around your IV site that gets worse. Get help right away if: You have difficulty breathing. You have chest pain. You have blood in your urine or stool, or you vomit blood. Summary After the procedure, it is common to have a sore throat or nausea. It is also common to feel tired. Have a responsible adult stay with you for the first 24 hours after general anesthesia. It is important to have someone help care for you until you are awake and alert. When you feel hungry, start by eating small amounts of foods that are soft and easy to digest (bland), such as toast. Gradually return to your regular diet. Drink enough fluid to keep your urine pale yellow. Return to your normal activities as told by your health care provider. Ask your health care provider what activities are safe for you. This information is not intended to replace advice given to you by your health care provider. Make sure you discuss any questions you have with your health care provider. Document Released: 01/29/2002 Document Revised: 10/26/2018 Document Reviewed: 06/08/2018 [employer] Patient Education 2020 [employer]. Additional Information VACCINATE! IT SAVES LIVES! Members of the community who have not yet received the COVID-19 vaccine and would like to receive it can visit one of [facility] vaccine clinics. There are many vaccine clinic locations within the [facility]. For locations and available times, please visit https://[email or web address].o hio.gov/. It is important to note that some COVID mobile vaccine clinics are held outdoors and may be canceled in rainy or stormy conditions. To learn more about pediatric vaccinations (ages 5-11), we invite you to visit the [facility] webpage. [email or web address] To learn more about the COVID-19 vaccine, we invite you to visit the CDC website for a list of frequently asked questions.https://www.cdc.gov/co ronavirus/2019-ncov/vaccines/faq .html [facility] Patient Portal Access Instructions: Stay connected with your healthcare team and access your personal medical information anytime with the [facility] Patient Portal. Please follow the directions below to create your [facility] account: 1.Access the email account you provided upon registration to the hospital/physician office.2.Look for an invitation email from [facility].3.Open the email and access the invitation link: Accept Invitation to [facility].4.Fill in the required stuart to create your account. To access your account, visit [email or web address] or scan the [email or web address] code above. Click the blue button labeled "Access Patient Portal" and then log in with the username and password that you created in the steps above. You will be able to view your test results, lab results, a summary of your visits, upcoming appointments and more. There is also a convenient messaging option where you can send secure messages to your provider. In addition, you will have the ability to download any documents or summaries to your computer and/or send the information securely to a physician. Remember that your healthcare information is confidential, so carefully consider who you will allow to register on the [facility] Patient Portal for access to your information. You can also access the [facility] Patient Portal on the [facility] stoney. Simply click on "Patient Portal" and then log into your account. If you would like to receive a full copy of your medical records, please contact the [facility] Medical Records Department by calling [phone], Monday through Monday between 8 a.m. and 4:30 p.m. HOW TO SAFELY DISPOSE OF PRESCRIPTION MEDICATIONS Please use one of the following methods to safely dispose of your unused medications. 1.Use a drug disposal kit: the drug disposal pouch allows you to safely discard your old and unused drugs. Ask your nurse to give you one when you are discharged.2.Visit a local take-back location: Many local pharmacies and police departments have programs that collect old and unwanted prescription drugs. Call your local pharmacy or go to http://bit.ly/2I3Hn6d to find one close to you.3.Make use of household items: Use cat litter or old coffee grounds to dispose medications if other options are not available. Mix your drugs with these household products, seal them in an airtight container and throw it into the garbage. Call [facility]: [phone] to be sure your drugs can be disposed of in this way. Some medicines may require a different approach.4.Never flush your medications down the toilet. IF YOU HAVE BEEN PRESCRIBED AN OPIOID FOR PAIN If you have been prescribed an opioid (such as hydrocodone, oxycodone or morphine), it is critical to understand the possible side effects and risks of opioid pain medications. Even when taken as directed, opioids can have several side effects including: Tolerance, meaning you might need to take more of a medication for the same pain relief. Nausea, vomiting and/or constipation. Sleepiness, dizziness, dry mouth, confusion, depression or itching. Physical dependence, meaning you have withdrawal symptoms when a medication is stopped, can develop within a few days. KNOW YOUR RESPONSIBILITIES It is important to know exactly how much and how often to take the opioid pain medications you are prescribed. Never take opioids in higher amounts or more often than prescribed. Do not combine opioids with alcohol or other drugs that cause drowsiness, such as benzodiazepines, also known as benzos, including diazepam and alprazolam, muscle relaxants or sleep aids. Never sell or share prescription opioids. This is illegal. Store opioids in a secure place and out of reach of others (including children, family, friends and visitors). The last page of this document has been signed and retained as a CHART COPY. Signatures Patient Education Materials How to Use an Incentive Spirometer Ureteral Stent Implantation, Care After Ureteroscopy, Care After General Anesthesia, Adult, Care After Medication Leaflets My discharge plan and instructions have been reviewed and explained to me and I,ANDRIA HERNANDEZ understand my current condition and have read and understand these discharge instructions. I have received a written copy of the plan/instructions. If I have questions, I am aware that I should contact my doctor. 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 [facility]10-17-2025 Anesthesiology Consult note Patient: ANDRIA HERNANDEZ Age: 55 years Sex: Male : 1970 Associated Diagnoses: None Author: MYRTLE CORDOVA CHIEF BUSINESS OFFICER-CELLULOSE INSULATION HELPER Assessment Postanesthesia assessment Vitals: Vital signs from flowsheet : Vital Signs 08/22/2025 13:55 EDT Respiratory Rate - Anes 12 br/min br/min 08/22/2025 13:50 EDT Heart Rate Monitored 75 bpm bpm Respiratory Rate - Anes 14 br/min br/min Systolic Blood Pressure Non-Invasive 96 mmHg mmHg Diastolic Blood Pressure Non-Invasive 61 mmHg mmHg 08/22/2025 13:45 EDT Heart Rate Monitored 79 bpm bpm Respiratory Rate - Anes 13 br/min br/min Systolic Blood Pressure Non-Invasive 99 mmHg mmHg Diastolic Blood Pressure Non-Invasive 62 mmHg mmHg 08/22/2025 13:40 EDT Heart Rate Monitored 79 bpm bpm Respiratory Rate - Anes 12 br/min br/min Systolic Blood Pressure Non-Invasive 103 mmHg mmHg Diastolic Blood Pressure Non-Invasive 63 mmHg mmHg 08/22/2025 13:35 EDT Heart Rate Monitored 88 bpm bpm Respiratory Rate - Anes 24 br/min br/min Systolic Blood Pressure Non-Invasive 123 mmHg mmHg Diastolic Blood Pressure Non-Invasive 74 mmHg mmHg 08/22/2025 13:30 EDT Temperature (Route Not Specified) 36 DegC DegC Heart Rate Monitored 87 bpm bpm Respiratory Rate - Anes 19 br/min br/min Systolic Blood Pressure Non-Invasive 115 mmHg mmHg Diastolic Blood Pressure Non-Invasive 73 mmHg mmHg 08/22/2025 13:25 EDT Temperature (Route Not Specified) 36 DegC DegC Heart Rate Monitored 93 bpm bpm Respiratory Rate - Anes 4 br/min br/min Systolic Blood Pressure Non-Invasive 120 mmHg mmHg Diastolic Blood Pressure Non-Invasive 88 mmHg mmHg 08/22/2025 13:21 EDT Systolic Blood Pressure Non-Invasive 130 mmHg mmHg Diastolic Blood Pressure Non-Invasive 89 mmHg mmHg 08/22/2025 11:56 EDT Temperature Temporal Artery 36.1 DegC Peripheral Pulse Rate 87 bpm Respiratory Rate 14 br/min Systolic Blood Pressure Non-Invasive 134 mmHg Diastolic Blood Pressure Non-Invasive 92 mmHg HI . Mental status: alert & oriented x 4. Respiratory function: lungs are clear to auscultation. Respiratory support: oxygen (===L/min, 2 L/min). CV function: Normal rate. Cardiovascular support: none. Pain: Reviewed Results: Pain assessment from flowsheet : Results(Date Range: 08/22/2024 0:00 EDT - 08/22/2025 14:05 EDT) . Nausea status: see nursing documentation of medications. Postoperative hydration status: within normal limits. Digitally Signed by MYRTLE CORDOVA on 08/22/2025 02:05 PM Digitally Signed by MYRTLE CORDOVA on 08/22/2025 02:05 PM [facility]10-17-2025 Anesthesiology Consult note Patient: ANDRIA HERNANDEZ Age: 55 years Sex: Male : 1970 Associated Diagnoses: None Author: MYRTLE CORDOVA Preoperative Information Time of last food or liquid consumption: 08/21/2025 22:00:00 Anesthesia history Patient's history: negative. Family's history: negative. Review of Systems Ear/Nose/Mouth/Throat: Negative except as documented in history of present illness. Respiratory: Negative except as documented in history of present illness. Cardiovascular: Negative except as documented in history of present illness. Gastrointestinal: Negative except as documented in history of present illness. Genitourinary: Negative except as documented in history of present illness. Endocrine: Negative except as documented in history of present illness. Musculoskeletal: Negative except as documented in history of present illness. Integumentary: Negative except as documented in history of present illness. Neurologic: Negative except as documented in history of present illness. Health Status Allergies: Allergic Reactions (Selected) Severity Not Documented Penicillin- Difficulty breathing., Allergies (1) ActiveSeverityReaction penicillinDifficulty breathing Current medications: (Selected) Inpatient Medications Ordered Kefzol: 2 gram(s), 200 mL/hr, IV Piggyback, PREOP pharm NS 1,000 mL: 50 mL/hr, Intravenous Documented Medications Documented acetaminophen-hydrocodone 325 mg-5 mg oral tablet: 1 tab(s), Oral, q6h, PRN: for pain, 12 tab(s), 0Refill(s) amLODIPine 5 mg oral tablet: 5 mg, 1 tab(s), Oral, qDay, 30 tab(s), 0 Refill(s) atorvastatin 20 mg oral tablet: 20 mg, 1 tab(s), Oral, Daily, 0 Refill(s) glipiZIDE 5 mg oral tablet: 5 mg, 1 tab(s), Oral, qDayAC, 0 Refill(s) metFORMIN 500 mg oral tablet (IR): 500 mg, 1 tab(s), Oral, BID, 60 tab(s), 0 Refill(s) ondansetron 4 mg oral tablet: 4 mg, 1 tab(s), Oral, q12h, PRN: Nausea/Vomiting semaglutide 2 mg/3 mL (0.25 mg or 0.5 mg dose) subcutaneous solution: 0.5 mg, Subcutaneous, Monday, 1 EA, 0 Refill(s) tamsulosin 0.4 mg oral capsule: 0.4 mg, 1 cap(s), Oral, qDayPC, 0 Refill(s) tiZANidine 4 mg oral tablet: 4 mg, 1 tab(s), Oral, q12h, PRN: as needed for muscle spasm, 90 tab(s), 0 Refill(s) traZODone 50 mg oral tablet: 50 mg, 1 tab(s), Oral, qHS, PRN: Insomnia, 30 tab(s), 0 Refill(s), Medications (2) Active Scheduled: (1) ceFAZolin 2 gram(s), IV Piggyback, PREOP pharm Continuous: (1) NS (0.9% nacl) 1,000 mL 1,000 mL, Intravenous, 50 mL/hr PRN: (0) Problem list: No problem items selected or recorded., Active Problems (3) Diabetes HTN (hypertension) Kidney stone Histories Past Medical History: No active or resolved past medical history items have been selected or recorded. Family History: Heart disease Father Stroke Father Procedure history: History of ureteroscopy and laser lithotripsy ([id number]) on 08/22/2025 at 55 Years. Eye ([id number]). Comments: 08/20/2025 11:04 EDT - Lindy Moreno RN bilateral Appendectomy ([id number]). Social History: Social & Psychosocial Habits Alcohol 08/22/2025Risk Assessment: Denies Alcohol Use 08/22/2025 Use: Current Frequency: 1-2 times per year Comment: [facility] - 02/09/2022 19:53 - Chetan, Huang Ingram RN Substance Abuse 08/22/2025Risk Assessment: Denies Substance Abuse 08/22/2025 Use: Never Tobacco 08/22/2025Risk Assessment: No Risk 08/22/2025 Tobacco Use: Former smoker, quit more Type: Oral (Snuff, Chew) Number of years: 20 Stopped at age: 54 Years Smokeless tobacco use: Former smokeless tobacco Home/Environment 08/22/2025 Living situation: Home/Independent Domestic Concerns None Primary Wallet Assembler: Self Current Home Treatments Blood Glucose monitoring Special Services and Community Resources None Spouse Name Terrie Marital Status of Patient if Patient Independent Adult: Nutrition/Health 08/22/2025 Type of diet: Regular Appetite Good Eating Difficulties None Physical Examination Vital Signs 08/22/2025 11:56 EDT Temperature Temporal Artery 36.1 DegC Peripheral Pulse Rate 87 bpm Respiratory Rate 14 br/min Systolic Blood Pressure Non-Invasive 134 mmHg Diastolic Blood Pressure Non-Invasive 92 mmHg ND Vital Signs (last 24 hrs) Last Charted Temp Cvfmnyxx31.1 DegC (AUG 22 11:56) CMC400 mmHg (AUG 22 11:56) DBPH 92 mmHg (AUG 22 11:56) Measurements from flowsheet : Measurements 08/22/2025 11:56 EDT Height 167 cm Admission Weight 77 kg Beatrice Body Weight 63.22 kg Pain assessment: Pain Assessment 08/22/2025 11:56 EDT Primary Pain Location Groin Primary Pain Laterality Left Primary Pain Intensity 3 Pain Scale Type 0-10 Pain scale . General: Alert and oriented. Airway: Normal neck range of motion. Mallampati classification: II (soft palate, fauces, uvula visible). Head: Normocephalic. Dentition Evaluation: Intact, Own teeth. Neck: Full range of motion. Respiratory: Lungs are clear to auscultation. Cardiovascular: Normal rate. Heart Sounds: Normal. Gastrointestinal: Soft. Musculoskeletal Normal range of motion. Integumentary: Intact, Warm, Dry. Neurologic: Alert, Oriented. Review / Management Results review: No qualifying data available , Lab results 08/22/2025 12:22 EDT SN - Preop - CTm Pt Ready for OR/Proced 08/22/2025 12:22 08/22/2025 12:16 EDT Sodium Chloride 0.9% Begin Bag 1,000 mL mL 08/22/2025 12:15 EDT Continuous IV Infusions ns Antecubital Right 08/22/2025 20 gauge Peripheral IV Activity: Insert new site Peripheral IV Dressing Condition: Clean, Dry, Intact Peripheral IV Dressing Activity: Applied, Transparent dressing Peripheral IV Line Status/Patency: Flushes easily Peripheral IV Line Care: Secured with tape Peripheral IV Site Condition: No complications Peripheral IV Equipment: Extension set, PRN Adaptor Peripheral IV Number of Attempts: 2 08/22/2025 12:10 EDT Blood Glucose, Capillary 193 mg/dL HI Respirations Unlabored Respiratory Pattern Regular Breath Sounds Auscultated Anterior and posterior All Lobes Breath Sounds Clear 08/22/2025 11:56 EDT Height 167 cm Admission Weight 77 kg Beatrice Body Weight 63.22 kg Temperature Temporal Artery 36.1 DegC Peripheral Pulse Rate 87 bpm Respiratory Rate 14 br/min Systolic Blood Pressure Non-Invasive 134 mmHg Diastolic Blood Pressure Non-Invasive 92 mmHg HI Primary Pain Location Groin Primary Pain Laterality Left Primary Pain Intensity 3 Pain Scale Type 0-10 Pain scale Heart Sounds ICU S1S2 Heart Rhythm Regular Oxygen Therapy Room air Oxygen Saturation 100 % Abdomen Description Non-distended Bowel Sounds All Quadrants Present Urinary Elimination Voiding, no difficulties Skin Description Normal for ethnicity Skin Integrity Intact IV Present Present Characteristics of Speech Clear Level of Consciousness Alert Affect/Behavior Appropriate, Calm, Cooperative Orientation Oriented x 4 Allergies Yes Hobbing Press Operator On Yes Consent Form Signed Yes Patient Dressed In Hospital gown Pre-op Preparation Glasses removed History & Physical Update On Chart Yes History & Physical On Chart Yes Belongings At Bedside Shirt, Shoes, Socks, T-shirt, Undergarments Positioning Repositions self Activity Status ADL Awake, Up ad sudhir Sequential Compression Device bilateral knee high applied/on NPO Status Maintained, More than 8 hours Standard Safety ID band on, Allergy Band on, Call device within reach, Bed in low position, Wheels locked, Safety level maintained, Non-Slip footwear Allergy Band on and Verified Yes Patient ID Band on and Verified Yes Implants Verified No Pacemaker/AICD Verified No Site Verified by Patient/Family Yes Anesthesia Consent Signed Yes Blood Consent Signed Yes Last Fluid Intake 08/21/2025 23:07 Last Food Intake 08/21/2025 20:00 Last Void 08/22/2025 11:57 08/22/2025 11:54 EDT Designated Person #1 We May Share PHI Terrie Hernandez [phone] Designated Person #1 Relationship Spouse Designated Person #2 We May Share PHI Ronny Hernandez [phone] Designated Person #2 Relationship Son Privacy Restrictions Requested None Status N/A Sensory Deficits None Sleep Apnea Snore No Sleep Apnea Tired No Sleep Apnea Obstruction No Sleep Apnea Pressure Yes Sleep Apnea BMI No Sleep Apnea Age Yes Sleep Apnea Neck No Sleep Apnea Gender Yes Sleep Apnea Score 3 Diagnosed With Sleep Apnea No Advanced Directives No - refuses information Infectious Disease Symptoms Patient states no symptoms Infectious Disease Recent Exposure No Alcohol and Drug Use No Employee of Institutional Living No Health Care Employee No History of Exposure to TB No History of Positive Chest X-Ray for TB No History of Positive TB Skin Test No Homeless No Known Immunosuppression No Recent Immigrant No Resident of Institutional Living No Bloody Sputum No Fatigue No Fever No Loss of Appetite No Night Sweats No Persistent Cough > 3 Weeks No Weight Loss No Pre-Op Patient Education NPO after midnight, No jewelry, Responsible Alliance Party, Aware of surgery location, Pre-op education done, Instructed to take ordered medications, SSI prevention handout given SN - Preprocedure Comments Spoke with patient, Verbalizes/Nonverbally indicates understanding, Other: amlodipine Barriers to Learning None evident Teaching Method Explanation, Printed materials Preferred Spoken Language Zambian Preferred Written Language Zambian Teaching Evaluation No further teaching needed Safety Brochure Information Reviewed Yes Ashley Russ Video Viewed No Patient's Current Physicians Patient's Current Physicians History of Malignant Hyperthermia No Discharge To, Anticipated Home independently Prev Test Positive/Diagnosis w/COVID-19 No Current Quarantine/Isolated any Illness No Any Contact with Sick Animals/Birds No Traveled Anywhere in Last 30 Days No Lost Weight Unintentionally Recently No Eat Poorly Due to Decreased Appetite No Total MST Score 0 N/A Personal Devices, Patient Valuables Glasses Anesthesia/Transfusions Prior anesthesia Admission Note-Nursing Same Day Patient History . Assessment and Plan [place] [employer] (ASA) physical status classification: Class II. Anesthetic Preoperative Plan Premedication: intravenous. Anesthetic technique: General. Induction: intravenously. Maintenance airway: Laryngeal mask airway. Postoperative pain management: Per surgeon. Risks discussed: nausea, vomiting, headache, sore throat, dental injury, hypotension, allergic reaction, serious complications. Informed consent: signed by patient. Digitally Signed by MYRTLE CORDOVA on 08/22/2025 01:17 PM [facility]10-12-2025 Discharge summary [facility] Medical Records Department [address] [place] [id number] Emergency Department Summary 08/17/25 MR#: [id number] Acct: [id number] Name: ANDRIA HERNANDEZ Rep #:[id number] : 1970 55 From: Brandon Gonzales PCP: Dr. Ronald Tong MD Status:DEP ER Location: ED HPI HPI - GI History of Present Illness Chief Complaint: Abd Pain Informant: patient Abdominal Pain/Flank Pain Onset: Weeks (1-2) Context: Gradual Onset Timing: Continuous Quality: Stabbing Location: LLQ Worsened by: Nothing Relieved by: Nothing Nausea/Vomiting/Emesis GI Symptom: Positive for Nausea and Vomiting Quality: Positive for Nonbilious; Negative for Blood streaks, Coffee ground or Hematemesis Diarrhea/Melena/Hematochezia GI Symptom: Negative for Diarrhea, Melena or Hematochezia Associated Symptoms Associated Symptoms: Negative for Dysuria, Frequency or Hematuria Narrative Narrative: Patient presents with abdominal pain that has been getting worse over the past 1to 2 weeks. Patientstates his pain is mainly over the left lower abdomen. Patient describes it as stabbing. Patient states it has been constant. Patientstates his pain radiates up into the left side of his neck and back. Patient states nothing makes it worse and nothing makes it better. Patient admits to some nausea and vomiting. Patient denies any hematemesis or coffee- ground emesis. Patient denies any diarrhea, melena, or hematochezia. Patient denies any dysuria, frequency, or hematuria. PFSH PFSH Medical History Abdominal pain Abdominal hernia Home Medications ?Medication ?Instructions ?Recorded ?Last Taken ?Type amlodipine 5 mg tablet 5 mg PO DAILY 08/17/25 Unkno wn History ciprofloxacin HCl 500 mg tablet 500 mg PO Q8H 08/17/25 Unknown History glipizide 5 mg tablet 5 mg PO DAILY 08/17/25 Unkno wn History hydrocodone-acetaminophen 5-325mg 1 tab PO Q6H PRN PRN Pain 3 days 08/17/25 Unknown Rx 5mg-325mg #10 TABLETS metformin 500 mg tablet 500 mg PO BID 08/17/25 Unkno wn History ondansetron HCl 4 mg tablet 4 mg PO BID PRN PRN nausea and 08/17/25 Unknown History vomiting semaglutide 0.25 mg or 0.5 mg (2 0.5 mg subcut QWEEK 1 Unknown History mg/3 mL) subcutaneous pen injector ([employer]) trazodone 50 mg tablet 50 mg PO QHS 08/17/25 Unknow n History Allergy/AdvReac Type Severity Reaction Status Date / Time Penicillins Allergy Severe Hives Verified 08/17/25 19:19 Family History (System 04/10/24 @ 12:38 by Vianeny Kelly) Father Diabetes Heart disease Hypertension CVA (cerebral vascular accident) High cholesterol Surgical History History of eye surgery History of appendectomy Social History Smoking Status: Never smoker alcohol intake: current alcohol intake frequency: a few times a month substance use type: does not use ROS ROS ED Constitutional Constitutional ED: Denies chills or fever(s) Eyes Eyes: Denies blurry vision or change in vision ENT ENT ED: Denies rhinorrhea or sore throat Cardiovascular Cardiovascular: Denies chest pain or palpitations Respiratory/Chest Respiratory/Chest: Denies cough or dyspnea Gastrointestinal Gastrointestinal: Reports abdominal pain, nausea and vomiting Genitourinary Genitourinary ED: Denies dysuria or hematuria Musculoskeletal Musculoskeletal: Reports neck pain; Denies back pain Integumentary Denies abscess or rash Neurologic Neurologic: Reports headache(s); Denies weakness Allergic/Immunologic Allergic/Immunologic ED: Denies mouth swelling or urticaria EXAM Physical Exam Const Vital Signs: 08/17/25 19:13 08/17/25 21:13 08/17/25 23:00 Temperature 98.3 F Temperature Source Oral Pulse Rate 101 H 68 77 Respiratory Rate 17 16 18 Blood Pressure 136/88 H 117/84 H 116/78 Blood Pressure Mean 104 95 90 Pulse Ox 100 97 97 Oxygen Delivery Method Room Air Room Air Room Air 08/17/25 23:50 Temperature 98.1 F Temperature Source Pulse Rate 74 Respiratory Rate 18 Blood Pressure 118/84 H Blood Pressure Mean 95 Pulse Ox 98 Oxygen Delivery Method Positive well nourished and well developed Constitutional Narrative: BMI is 29.0. General Appearance ED: well developed and NAD HEENT Reports moist mucous membranes normocephalic and atraumatic Neck supple and no JVD Resp normal respiratory effort and clear to auscultation bilaterally Cardio regular rate and regular rhythm GI non-distended Palpation: soft and tender LLQ and LUQ; Negative for guarding or rebound tenderness present Neuro CN's II-XII intact bilaterally, moves all extremities and no sensory deficits noted Sensorium / Orientation: alert Motor Exam: strength 5/5 throughout Psych mental status grossly normal MDM MDM MDM Narrative Medical decision making narrative: Differential diagnosis includes but is not limited to bowel obstruction, perforation, diverticulitis, electrolyte abnormality, urinary tract infection, pyelonephritis, ureteral calculus, and viral illness. CBC will be obtained to assess for leukocytosis and anemia. Comprehensive metabolic profile will be obtained to assess for hepatic function, renal function, and electrolyte abnormality. Urinalysis will be obtained to assess for urinary tract infection and hematuria. CT scan of the abdomen andpelvis will be obtained to assess forbowel obstruction, diverticulitis, ureteral calculus, pyelonephritis, and bowel perforation. Lab Data Attestation: I reviewed the patient's lab results. Lab results narrative: CBC was reviewed and was within normal limits. Comprehensive metabolic profile was reviewed. Glucose was mildly elevated at 186. The remainder is within normal limits. Urinalysis was reviewed. There is no evidence of urinary tract infection or hematuria. Labs: Laboratory Results - last 24 hr 08/17/25 08/17/25 19:42 22:45 WBC 7.4 RBC 5.45 Hgb 15.2 Hct 44.5 MCV 81.7 MCH 27.9 MCHC 34.2 RDW Std Deviation 37.2 RDW Coeff of Mike 12.5 Plt Count 299 MPV 9.1 Immature Gran % (Auto) 0.300 Neut % (Auto) 54.3 Lymph % (Auto) 35.0 [place] % (Auto) 9.7 Eos % (Auto) 0.4 Baso % (Auto) 0.3 Absolute Neuts (auto) 4.0 Absolute Lymphs (auto) 2.60 Nucleated RBC % 0 Sodium 137 Potassium 4.3 Chloride 101 Carbon Dioxide 23.9 Anion Gap 12 BUN 17 Creatinine 0.74 Estim Creat Clear Calc 108.76 Est GFR (MDRD) Non-Af 108 BUN/Creatinine Ratio 22.6 H Glucose 186 H Calcium 9.4 Total Bilirubin 0.66 AST 14 ALT 20 Alkaline Phosphatase 68 Total Protein 7.2 Albumin 4.3 Globulin 2.9 Albumin/Globulin Ratio 1.5 Urine Color Yellow Urine Clarity Clear Urine pH 6.0 Ur Specific [place] 1.010 Urine Protein Negative Urine Glucose (UA) 50 H Urine Ketones Negative Urine Occult Blood Negative Urine Nitrite Negative Urine Bilirubin Negative Urine Urobilinogen Normal Ur Leukocyte Esterase Negative Urine RBC 0 SEEN Urine WBC 0 SEEN Ur Squamous Epith Cells 0 SEEN Urine Bacteria 0 SEEN Urine Mucus 0 SEEN Radiography Diagnostic Testing: Clinical Impression(s) from Imaging Studies Abdomen/Pelvis CT 08/17/25 20:52 IMPRESSION: 3 mm obstructive stone at the right UVJ with associated minimal upstream hydroureteronephrosis. Reading [facility] scan of the abdomen and pelvis was obtained. There is a 3 mm obstructive stone at the right ureterovesicular junction causing hydronephrosis and hydroureter. There is no free air or free fluid. There is no other acute abnormality noted. This was interpreted by the radiologist and was also indepen dently reviewed by myself. Treatment and Re-Evaluation :: Patient was given IV fluids, morphine, and Zofran. Patient was advised of his findings. Patient wasinstructed to drink plenty of fluids. Patient was given a prescription for [place]. Patient was instructed to follow-up with his primary care physician in 5 to 7 days. Patient was also given a referralfor urology. Patient understood and was agreeable with the plan. All questions were answered. Discharge Plan Triage Chief Complaint: Abd Pain ED Provider: Brandon Abraham Dx/Rx/DC Orders Clinical Impression: Calculus of distal right ureter, Abdominal pain Instructions: ED Kidney Stone with Pain Prescriptions: New hydrocodone-acetaminophen 5-325 mg tablet 1 tab PO Q6H PRN PRN (Reason: Pain) 3 Days Qty: 10 0RF No Action amlodipine 5 mg tablet 5 mg PO DAILY ciprofloxacin HCl 500 mg tablet 500 mg PO Q8H metformin 500 mg tablet 500 mg PO BID trazodone 50 mg tablet 50 mg PO QHS ondansetron HCl 4 mg tablet 4 mg PO BID PRN PRN (Reason: nausea and vomiting) glipizide 5 mg tablet 5 mg PO DAILY Ozempic 0.25 mg or 0.5 mg (2 mg/3 mL) pen injector 0.5 mg subcut QWEEK Stand Alone Forms: ED Work / School Excuse Primary Care Provider: Ronald Tong Referrals: Ronald Tong MD [Primary Care Provider, Family Practice] - 3-5 Days Zachariah Mota MD [Med Staff - Active Staff, Urology] - 3-5 Days Print Language: Zambian Disposition Disposition: Home, Self Care Discharge Date/Time: 08/17/25 23:53 What to do if you have Problems For any increased pain, shortness of breath, bleeding, nausea or vomiting, chestpain, or any unexpected problems, contact your Primary Care Provider. Call [facility] ([phone]) or report tothe closest Emergency Room. Call 911 if necessary. 08/18/25 0117 Cosigner Signature (if applicable): CC: Dr. Ronald Tong MD ~ Signed [facility]10-12-2025 Radiology Diagnostic study note [facility] Imaging Services [address], [place] [id number] Abdomen/Pelvis W IV Cont ONLY MR#: [id number] Acct: [id number] Name: ANDRIA HERNANDEZ Rep #: [id number] : 1970 M 55 From: Anne-Marie Dobson MD PCP: Dr. Ronald Tong MD Status: REG ER Study:Abdomen/Pelvis W IV Cont ONLY Date of E xam: 08/17/25 Exam# [id number] Ordering Dr: Brandon Abraham DO PROCEDURE: ABDOMEN/PELVIS W IV CONT ONLY 08/17/2025 REASON FOR EXAM: ABDOMINAL PAIN TECHNIQUE: Procedure Code: [id number] Modality: CT Procedure: ABDOMEN/PELVIS W IV CONT ONLY Coronal and Sagittal reconstruction series were provided. CONTRAST: 100 mL of Isovue 370 One or more dose reduction techniques were used (e.g., Automated exposure control, adjustment of the mA and/or kV according to patient size, use of iterative reconstruction technique. RADIATION DOSE SUMMARY: DLP: 768 mGycm COMPARISON: None FINDINGS: Limited sections of the lung bases demonstrate no focal pulmonary mass or consolidations. The liver, spleen, pancreas, and both adrenal glands demonstrate no acute findings. Hepatic steatosis. Minimal hepatomegaly. The gallbladder is unremarkable. The stomach is unremarkable. The small bowel loops are not dilated. The appendix is surgically removed No colonic obstruction. Scattered colonic diverticuli without acute diverticulitis. There is no free air or significant free fluid. 3 mm obstructive stone at the right UVJ with associated minimal upstream hydroureteronephrosis. Theleft kidney is unremarkable. The urinary bladder is distended. The pelvic structures are intact. There is no solid pelvic mass. No significant lymphadenopathy. The aorta and IVC demonstrate no acute findings. Visualized osseous structures demonstrate no acute abnormality. CT/Abdomen/Pelvis W IV Cont ONLY IMPRESSION: 3 mm obstructive stone at the right UVJ with associated minimal upstream hydroureteronephrosis. Reading Location: [id number] CC: Dr. Ronald Tong MD; Dr. Brandon Abraham DO ~ Bisque Cleaner: Signed [facility]10-12-2025 Discharge summary Author Brandon Abraham [facility] Note Date/Time August 17, 2025 1 1:53pm [facility] Medical Records Department [address] [place] [address] Emergency Department Summary 08/17/25 MR#: [id number] Acct: [id number] Name: ANDRIA HERNANDEZ Rep #:[id number] : 1970 55 From: Brandon Gonzales PCP: Dr. Ronald Tong MD Status:DEP ER Location: ED HPI HPI - GI History of Present Illness Chief Complaint: Abd Pain Informant: patient Abdominal Pain/Flank Pain Onset: Weeks (1-2) Context: Gradual Onset Timing: Continuous Quality: Stabbing Location: LLQ Worsened by: Nothing Relieved by: Nothing Nausea/Vomiting/Emesis GI Symptom: Positive for Nausea and Vomiting Quality: Positive for Nonbilious; Negative for Blood streaks, Coffee ground or Hematemesis Diarrhea/Melena/Hematochezia GI Symptom: Negative for Diarrhea, Melena or Hematochezia Associated Symptoms Associated Symptoms: Negative for Dysuria, Frequency or Hematuria Narrative Narrative: Patient presents with abdominal pain that has been getting worse over the past 1to 2 weeks. Patient states his pain is mainly over the left lower abdomen. Patient describes it as stabbing. Patient states it has been constant. Patientstates his pain radiates up into the left side of his neck and back. Patient states nothing makes it worse and nothing makes it better. Patient admits to some nausea and vomiting. Patient denies any hematemesis or coffee-ground emesis. Patient denies any diarrhea, melena, or hematochezia. Patient denies any dysuria, frequency, or hematuria. [facility] Medical History Abdominal pain Abdominal hernia Home Medications ?Medication ?Instructions ?Recorded ?Last Taken ?Type amlodipine 5 mg tablet 5 mg PO DAILY 08/17/25 Unkno wn History ciprofloxacin HCl 500 mg tablet 500 mg PO Q8H 08/17/25 Unknown History glipizide 5 mg tablet 5 mg PO DAILY 08/17/25 Unkno wn History hydrocodone-acetaminophen 5-325mg 1 tab PO Q6H PRN PRN Pain 3 days 08/17/25 Unknown Rx 5mg-325mg #10 TABLETS metformin 500 mg tablet 500 mg PO BID 08/17/25 Unkno wn History ondansetron HCl 4 mg tablet 4 mg PO BID PRN PRN nausea and 08/17/25 Unknown History vomiting semaglutide 0.25 mg or 0.5 mg (2 0.5 mg subcut QWEEK 1 Unknown History mg/3 mL) subcutaneous pen injector (Ozempic) trazodone 50 mg tablet 50 mg PO QHS 08/17/25 Unknow n History Allergy/AdvReac Type Severity Reaction Status Date / Time Penicillins Allergy Severe Hives Verified 08/17/25 19:19 Family History (System 04/10/24 @ 12:38 by Vianney Kelly) Father Diabetes Heart disease Hypertension CVA (cerebral vascular accident) High cholesterol Surgical History History of eye surgery History of appendectomy Social History Smoking Status: Never smoker alcohol intake: current alcohol intake frequency: a few times a month substance use type: does not use ROS ROS ED Constitutional Constitutional ED: Denies chills or fever(s) Eyes Eyes: Denies blurry vision or change in vision ENT ENT ED: Denies rhinorrhea or sore throat Cardiovascular Cardiovascular: Denies chest pain or palpitations Respiratory/Chest Respiratory/Chest: Denies cough or dyspnea Gastrointestinal Gastrointestinal: Reports abdominal pain, nausea and vomiting Genitourinary Genitourinary ED: Denies dysuria or hematuria Musculoskeletal Musculoskeletal: Reports neck pain; Denies back pain Integumentary Denies abscess or rash Neurologic Neurologic: Reports headache(s); Denies weakness Allergic/Immunologic Allergic/Immunologic ED: Denies mouth swelling or urticaria EXAM Physical Exam Const Vital Signs: 08/17/25 19:13 08/17/25 21:13 08/17/25 23:00 Temperature 98.3 F Temperature Source Oral Pulse Rate 101 H 68 77 Respiratory Rate 17 16 18 Blood Pressure 136/88 H 117/84 H 116/78 Blood Pressure Mean 104 95 90 Pulse Ox 100 97 97 Oxygen Delivery Method Room Air Room Air Room Air 08/17/25 23:50 Temperature 98.1 F Temperature Source Pulse Rate 74 Respiratory Rate 18 Blood Pressure 118/84 H Blood Pressure Mean 95 Pulse Ox 98 Oxygen Delivery Method Positive well nourished and well developed Constitutional Narrative: BMI is 29.0. General Appearance ED: well developed and NAD HEENT Reports moist mucous membranes normocephalic and atraumatic Neck supple and no JVD Resp normal respiratory effort and clear to auscultation bilaterally Cardio regular rate and regular rhythm GI non-distended Palpation: soft and tender LLQ and LUQ; Negative for guarding or rebound tenderness present Neuro CN's II-XII intact bilaterally, moves all extremities and no sensory deficits noted Sensorium / Orientation: alert Motor Exam: strength 5/5 throughout Psych mental status grossly normal MDM MDM MDM Narrative Medical decision making narrative: Differential diagnosis includes but is not limited to bowel obstruction, perforation, diverticulitis, electrolyte abnormality, urinary tract infection, pyelonephritis, ureteral calculus, and viral illness. CBC will be obtained to assess for leukocytosis and anemia. Comprehensive metabolic profile will be obtained to assess for hepatic function, renal function, and electrolyte abnormality. Urinalysis will be obtained to assess for urinary tract infection and hematuria. CT scan of the abdomen and pelvis will be obtained to assess forbowel obstruction, diverticulitis, ureteral calculus, pyelonephritis, and bowel perforation. Lab Data Attestation: I reviewed the patient's lab results. Lab results narrative: CBC was reviewed and was within normal limits. Comprehensive metabolic profile was reviewed. Glucose was mildly elevated at 186. The remainder is within normal limits. Urinalysis was reviewed. There is no evidence of urinary tract infection or hematuria. Labs: Laboratory Results - last 24 hr 08/17/25 08/17/25 19:42 22:45 WBC 7.4 RBC 5.45 Hgb 15.2 Hct 44.5 MCV 81.7 MCH 27.9 MCHC 34.2 RDW Std Deviation 37.2 RDW Coeff of Mike 12.5 Plt Count 299 MPV 9.1 Immature Gran % (Auto) 0.300 Neut % (Auto) 54.3 Lymph % (Auto) 35.0 [place] % (Auto) 9.7 Eos % (Auto) 0.4 Baso % (Auto) 0.3 Absolute Neuts (auto) 4.0 Absolute Lymphs (auto) 2.60 Nucleated RBC % 0 Sodium 137 Potassium 4.3 Chloride 101 Carbon Dioxide 23.9 Anion Gap 12 BUN 17 Creatinine 0.74 Estim Creat Clear Calc 108.76 Est GFR (MDRD) Non-Af 108 BUN/Creatinine Ratio 22.6 H Glucose 186 H Calcium 9.4 Total Bilirubin 0.66 AST 14 ALT 20 Alkaline Phosphatase 68 Total Protein 7.2 Albumin 4.3 Globulin 2.9 Albumin/Globulin Ratio 1.5 Urine Color Yellow Urine Clarity Clear Urine pH 6.0 Ur Specific [place] 1.010 Urine Protein Negative Urine Glucose (UA) 50 H Urine Ketones Negative Urine Occult Blood Negative Urine Nitrite Negative Urine Bilirubin Negative Urine Urobilinogen Normal Ur Leukocyte Esterase Negative Urine RBC 0 SEEN Urine WBC 0 SEEN Ur Squamous Epith Cells 0 SEEN Urine Bacteria 0 SEEN Urine Mucus 0 SEEN Radiography Diagnostic Testing: Clinical Impression(s) from Imaging Studies Abdomen/Pelvis CT 08/17/25 20:52 IMPRESSION: 3 mm obstructive stone at the right UVJ with associated minimal upstream hydroureteronephrosis. Reading [facility]: [facility] scan of the abdomen and pelvis was obtained. There is a 3 mm obstructive stone at the right ureterovesicular junction causing hydronephrosis and hydroureter. There is no free air or free fluid. There is no other acute abnormality noted. This was interpreted by the radiologist and was also independently reviewed by myself. Treatment and Re-Evaluation :: Patient was given IV fluids, morphine, and Zofran. Patient was advised of his findings. Patient was instructed to drink plenty of fluids. Patient was given a prescription for [place]. Patient was instructed to follow-up with his primary care physician in 5 to 7 days. Patient was also given a referral for urology. Patient understood and was agreeable with the plan. All questions were answered. Discharge Plan Triage Chief Complaint: Abd Pain ED Provider: Brandon Abraham Dx/Rx/DC Orders Clinical Impression: Calculus of distal right ureter, Abdominal pain Instructions: ED Kidney Stone with Pain Prescriptions: New hydrocodone-acetaminophen 5-325 mg tablet 1 tab PO Q6H PRN PRN (Reason: Pain) 3 Days Qty: 10 0RF No Action amlodipine 5 mg tablet 5 mg PO DAILY ciprofloxacin HCl 500 mg tablet 500 mg PO Q8H metformin 500 mg tablet 500 mg PO BID trazodone 50 mg tablet 50 mg PO QHS ondansetron HCl 4 mg tablet 4 mg PO BID PRN PRN (Reason: nausea and vomiting) glipizide 5 mg tablet 5 mg PO DAILY Ozempic 0.25 mg or 0.5 mg (2 mg/3 mL) pen injector 0.5 mg subcut QWEEK Stand Alone Forms: ED Work / School Excuse Primary Care Provider: Ronald Tong Referrals: Ronald Tong MD [Primary Care Provider, Family Practice] - 3-5 Days Zachariah Mota MD [Med Staff - Active Staff, Urology] - 3-5 Days Print Language: Zambian Disposition Disposition: Home, Self Care Discharge Date/Time: 08/17/25 23:53 What to do if you have Problems For any increased pain, shortness of breath, bleeding, nausea or vomiting, chestpain, or any unexpected problems, contact your Primary Care Provider. Call [facility] ([phone]) or report to the closest Emergency Room. Call 911 if necessary. 08/18/25 0117 <Electronically signed by Brandon Abraham DO> Cosigner Signature (if applicable): CC: Dr. Ronald Tong MD ~ Signed [facility] Work Phone: [phone]) 691-857405-06-2024 NoteHNO ID: [id number] Author: ?, ?, ? Service: ? Author Type: ? Type: Progress Notes Filed: 03/11/2024 15:16 Note Text: Spoke to patient he is no longer a patient of [facility]. He is now with Dr. Tong at [facility]04-23-2024 NoteHNO ID: [id number] Author: ?, ?, ? Service: ? Author Type: ? Type: Progress Notes Filed: 03/11/2024 03:03 Note Text: 02-26 first attempt to contact patient, LVM to call and schedule wellness / est physical / last one of [facility]04-23-2024 History of Present illness Narrative* Rocio Case - 02/27/2024 1:51 PM EDT 02-26 first attempt to contact patient, LVM to call and schedule wellness / est physical / last oneof Rocio Case * Rocio Case - 02/07/2024 12:40 PM EDT Waiting to contact patient until order is placed documented in this [facility]04-03-2024 NoteHNO ID: [id number] Author: ?, ?, ? Service: ? Author Type: ? Type: Progress Notes Filed: 03/11/2024 03:03 Note Text: [facility] NotePatient Outreach (ASWSTR) ANDRIA HERNANDEZ ([id number]) 1970 M Date Time Provider Department 02/07/24 Juan Jose HANEY During your visit today, we recorded the following information about you: Rocio Case 03/11/2024 3:03 AM Signed Waiting to contact patient until order is placed Rocio Case 03/11/2024 3:03 AM Signed 02-26 first attempt to contact patient, LVM to call and schedule wellness / est physical / last one of Rocio Camacho 03/11/2024 3:16 PM Signed Spoke to patient he is no longer a patient of [facility]. He is now with Dr. Tong at [facility] Rocio Case Allergies As of Date: 02/07/2024 Noted Allergy Reaction PENICILLINS 01/22/2014 4 - Hives 7 - Swelling Comments: swells airway SEASONAL ALLERGIES 04/09/2018 14 - Other: See Comments Date Reviewed: 01/26/2023 Reviewed by: Opal Dietz MA - Fully Assessed Reason for Visit: colorectal cancer screening [Other] Prescriptions as of 03/11/2024 - dulaglutide (TRULICITY) 1.5 mg/0.5 mL pen injector Inject 1.5 mg subcutaneously one time a week. Inject once per week. Discard Pen After - fenofibrate nanocrystallized (TRICOR) 145 mg tablet Take 1 tablet by mouth once daily. - metFORMIN (GLUCOPHAGE) 1,000 mg tablet Take 1 tablet by mouth twice daily with meals. - atorvastatin (LIPITOR) 20 mg tablet Take 1 tablet by mouth daily at bedtime. For cholesterol. - blood sugar diagnostic (ONETOUCH VERIO) test strip Test blood sugar(s) 2 times daily. Dx: Type 2 DM - Controlled E11.9 Insulin: Yes - lancets (ONE TOUCH DELICA) 33 gauge misc Test blood sugar(s) 2 daily. Dx: Type 2 DM - Controlled E11.9 Insulin: Yes - Blood-Glucose Meter (ONETOUCH VERIO FLEX) misc Dispense One Kit - Verio Meter Kit Dx: Type 2 DM - Controlled E11.9 - Blood-Glucose Meter (ONETOUCH VERIO SYSTEM) misc Dispense One Kit - Verio Meter Kit Dx: Type 2 DM - Controlled E11.9 Problem List As Of Date 02/07/2024 Noted Resolved Type 2 diabetes mellitus with complication, wit*04/05/2019 Hyperlipidemia, mixed [E78.2] 07/11/2019 Hypertriglyceridemia [E78.1] 07/11/2019 Low vitamin D level [R79.89] 07/11/2019 Seasonal allergic rhinitis [J30.2] 01/26/2023 Encounter Status:Closed by EPIC, PRODUSER on 03/11/24[facility] Hospital Discharge instructions Patient Education 02/09/2022 20:44:57 Concussion Concussion A concussion is a type of brain injury. It can be caused by a direct hit or blow to the head, neck,face, or body. The force of the blow makes the head and brain shake quickly back and forth. In somecases you may lose consciousness. Depending on the severity of the blow, it will take from a few hours up to a few days to get better. Sometimes symptoms may last a few months or longer. This is called post-concussion syndrome. At first, you may have a headache, nausea, vomiting, or dizziness. You may also have problems concentrating or remembering things. This is normal. Symptoms should get better as the hours and days go by. Symptoms that get worse could be a sign of a more serious brain injury. This might be a bruise or bleeding in the brain. That s why it s important to watch for the warning signs listed below. School-age children are more at risk for symptoms that don t go away after a concussion. They should be watched very closely. Home care If your injury is mild and there are no serious signs or symptoms, your healthcare provider may recommend that you be watched at home. If there is evidence that the injury is more serious, you will be watched in the hospital. Follow these tips to help care for yourself at home: After a concussion, your healthcare provider may recommend that a family member or friend watched you for 12 to 24 hours. They may be told to wake you every few hours during sleep to check for the signs below. If your face or scalp swells, apply an ice pack for 20 minutes every 1 to 2 hours. Do this until the swelling starts to go down. To make an ice pack, put ice cubes in a plastic bag that seals at the top. Wrap the bag in a clean, thin towel or cloth. Never put ice or an ice pack directly on the skin. You may use acetaminophen to control pain, unless another pain medicine was prescribed. Don't use aspirin or ibuprofen after a head injury. If you have long-lasting (chronic) liver or kidney disease,talk with your healthcare provider before using these medicines. Also talk with your provider if you ever had a stomach ulcer or gastrointestinal bleeding. For the next 24 hours: oDon t drink alcohol or take sedatives or medicines that make you sleepy. oDon t drive or operate machinery. oDon't do anything strenuous. Don t lift or strain. Don t return right away to sports or to any activity where you could hit your head. Wait until all symptoms are gone and you have been cleared by your healthcare provider. Having a second head injurybefore you fully recover from the first one can lead to serious brain injury. After a few days, it s OK to go back to your normal daily activities. But don t do anything that could cause your head to be hit again. Follow-up care Follow up with your healthcare provider in 1 week, or as directed. A radiologist will review any X-rays or CT scans that were taken. You will be told of any new findings that may affect your care. When to seek medical advice Call your healthcare provider right away if any of these occur: Headache or dizziness that won t go away Redness, warmth, or pus from the swollen area Call 911 Call 911 or get medical care right away if any of these occur: Repeated vomiting (it s common to vomit once after a head injury) Headache or dizziness that is severe or gets worse Loss of consciousness Unusual drowsiness, or unable to wake up as usual Weakness or decreased ability to walk or move any limb Confusion, agitation, or change in behavior or speech, or memory loss Blurred vision Convulsion (seizure) Swelling on the scalp or face that gets worse Changes in pupil size (the black part of the eye) Fluid draining from or bleeding from the nose or ears [id number] The [employer]. [address] [place] [address]. All rights reserved. This information is not intended as a substitute for professional medical care. Always follow yourhealthcare professional's instructions. Follow Up Care 02/09/2022 19:40:23 With:Juan Jose HANEY Address: [place] [address] [place] [address]- When:2-4 days [facility] 12-07-2021 Hospital Discharge instructions Patient Education 10/12/2021 06:49:52 Viral Syndrome (Adult) Viral Syndrome (Adult) A viral illness may cause a number of symptoms such as fever. Other symptoms depend on the part of the body that the virus affects. If it settles in your nose, throat, and lungs, it may cause cough, sore throat, congestion, runny nose, headache, earache and other ear symptoms, or shortness of breath. If it settles in your stomach and intestinal tract, it may cause nausea, vomiting, cramping, and diarrhea. Sometimes it causes generalized symptoms like "aching all over," feeling tired, loss of energy, or loss of appetite. A viral illness usually lasts anywhere from several days to several weeks, but sometimes it lasts longer. In some cases, a more serious infection can look like a viral syndrome in the first few days of the illness. You may need another exam and additional tests to know the difference. Watch for thewarning signs listed below for when to seek medical advice. Home care Follow these guidelines for taking care of yourself at home: If symptoms are severe, rest at home for the first 2 to 3 days. Stay away from cigarette smoke - both your smoke and the smoke from others. You may use lrga-mor-hpgnjxf acetaminophen or ibuprofen for fever, muscle aching, and headache, unless another medicine was prescribed for this. If you have chronic liver or kidney disease or ever had a stomach ulcer or gastrointestinal bleeding, talk with your healthcare provider before using these medicines. No one who is younger than 18 and ill with a fever should take aspirin. It may cause severe disease or . Your appetite may be poor, so a light diet is fine. Avoid dehydration by drinking 8 to 12, 8-ounce glasses of fluids each day. This may include water; orange juice; lemonade; apple, grape, and cranberry juice; clear fruit drinks; electrolyte replacement and sports drinks; and decaffeinated teas andcoffee. If you have been diagnosed with a kidney disease, ask your healthcare provider how much andwhat types of fluids you should drink to prevent dehydration. If you have kidney disease, drinking too much fluid can cause it build up in the your body and be dangerous to your health. Zrvs-fou-rdcmcox remedies won't shorten the length of the illness but may be helpful for symptoms such as cough, sore throat, nasal and sinus congestion, or diarrhea. Don't use decongestants if you have high blood pressure. Follow-up care Follow up with your healthcare provider if you do not improve over the next week. Call 911 Call 911 if any of the following occur: Convulsion Feeling weak, dizzy, or like you are going to faint Chest pain, or more than mild shortness of breath When to seek medical advice Call your healthcare provider right away if any of these occur: Cough with lots of colored sputum (mucus) or blood in your sputum Chest pain, shortness of breath, wheezing, or trouble breathing Severe headache; face, neck, or ear pain Severe, constant pain in the lower right side of your belly (abdominal) Continued vomiting (can t keep liquids down) Frequent diarrhea (more than 5 times a day); blood (red or black color) or mucus in diarrhea Feeling weak, dizzy, or like you are going to faint Extreme thirst Fever of 100.4 F (38 C) or higher, or as directed by your healthcare provider [id number] The [employer]. [address] [place] [address], [place] [address]. All rights reserved. This information is not intended as a substitute for professional medical care. Always follow [facility] professional's instructions. 10/12/2021 06:49:47 Pneumonia (Adult) Pneumonia (Adult) Pneumonia is an infection deep within the lungs. It is in the small air sacs (alveoli). Pneumonia may be caused by a virus or bacteria. Pneumonia caused by bacteria is usually treated with an antibiotic. Severe cases may need to be treated in the hospital. Milder cases can be treated at home. Symptoms usually start to get better during the first 2 days of treatment. Home care Follow these guidelines when caring for yourself at home: Rest at home for the first 2 to 3 days, or until you feel stronger. Don t let yourself get overly tired when you go back to your activities. Stay away from cigarette smoke yours or other people s. You may use acetaminophen or ibuprofen to control fever or pain, unless another medicine was prescribed. If you have chronic liver or kidney disease, talk with your healthcare provider before using these medicines. Also talk with your provider if you ve had a stomach ulcer or gastrointestinal bleeding. Don t give aspirin to anyone younger than 18 years of age who is ill with a fever. It may causesevere liver damage. Your appetite may be poor, so a light diet is fine. Drink 6 to 8 glasses of fluids every day to make sure you are getting enough fluids. Beverages can include water, sport drinks, sodas without caffeine, juices, tea, or soup. Fluids will help loosen secretions in the lung. This will make it easier for you to cough up the phlegm (sputum). If you alsohave heart or kidney disease, check with your healthcare provider before you drink extra fluids. Take antibiotic medicine prescribed until it is all gone, even if you are feeling better after a few days. Follow-up care Follow up with your healthcare provider in the next 2 to 3 days, or as advised. This is to be sure the medicine is helping you get better. If you are 65 or older, you should get a pneumococcal vaccine and a yearly flu (influenza) shot. You should also get these vaccines if you have chronic lung disease like asthma, emphysema, or COPD. Recently, a second type of pneumonia vaccine has become available for everyone over 65 years old. This is in addition to the previous vaccine. Ask your provider about this. When to seek medical advice Call your healthcare provider right away if any of these occur: You don t get better within the first 48 hours of treatment Shortness of breath gets worse Rapid breathing (more than 25 breaths per minute) Coughing up blood Chest pain gets worse with breathing Fever of 100.4 F (38 C) or higher that doesn t get better with fever medicine Weakness, dizziness, or fainting that gets worse Thirst or dry mouth that gets worse Sinus pain, headache, or a stiff neck Chest pain not caused by coughing [id number] The [employer]. [address] [place] [address]. All rights reserved. This information is not intended as a substitute for professional medical care. Always follow yourhealthcare professional's instructions. Follow Up Care 10/12/2021 00:42:07 With:Juan Jose HANEY Address: [address] [place] [address]- When:2-4 days [facility] Evaluation + Plan note No data available for this section [facility] Evaluation + Plan note Future Appointments [facility] Evaluation noteNo assessment information available [facility] Work Phone: Evaluation note* Diagnosis Onset Date Resolution Status Admit Date Sepsis acute August 25, 2025 4:19pm [facility] Work Phone: Hospital Discharge instructions No data available for this section [facility] Progress note No data available for this section [facility] Reason for referral (narrative)No reason for referral information availableWOhio[facility] Work Phone: Summary Purpose Family History No Family History Records Found Relationship Condition Age at Onset Recorded Date/T lucy father Diabetes mellitus Unknown Cardiac disease Unknown Hypertension Unknown Cerebrovascular accident (CVA) Unknown High blood cholesterol Unknown Advance Directives No Advanced Directives Records Found Advance Directive Response Recorded Date/ Time Do you have a Healthcare Power of Tissue Packer? No August 17, 2025 7:13pm Do you have a Healthcare Power of Tissue Packer? 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 Дмитрий Clark MD Primary care physician Active Ronald Tong MD Primary care physician Active Team Status: Inactive Member Role/Relationship Status Dates Ronald Tong MD Primary care physician Active S tart: July 24, 2025 End: July 24, 2025 Ronald Tong MD Attending physician Active Star t: July 24, 2025 End: July 24, 2025 Team Status: Active Member Role/Relationship Status Dates Ronald Tong MD Primary care physician Active Team Status: Inactive Member Role/Relationship Status Dates Ronald Tong MD Primary care physician Active S tart: August 17, 2025 End: August 17, 2025 Dr. Brandon Abraham , Attending physician Active Start: August 17, 2025 End: August 17, 2025 Dr. Brandon Abraham DO Emergency Departm ent Physician Active Start: August 17, 2025 End: August 17, 2025 Team Status: Inactive Member Role/Relationship Status Dates Ronald Tong MD Primary care physician Active S tart: August 25, 2025 End: August 25, 2025 Dr. Zachariah Mota MD Attending physician Active Start: August 25, 2025 End: August 25, 2025 Dr. Zachariah Mota MD Referring Provider Active Start: August 25, 2025 End: August 25, 2025 Team Status: Inactive Member Role/Relationship Status Dates Ronald Tong MD Primary care physician Active S tart: August 25, 2025 End: August 30, 2025 Dr. Zachariah Mota MD Admitting physician Active Start: August 25, 2025 End: August 30, 2025 Dr. Zachariah Mota MD Attending physician Active Start: August 25, 2025 End: August 30, 2025 Dr. Zachariah Mota MD Referring Provider Active Start: August 25, 2025 End: August 30, 2025 Dr. Kenisha Mcgee MD Nurse Practitioner Active Start: August 25, 2025 End: August 30, 2025 Dr. Anthony Jaime DO Nurse Practitioner Active Start: August 25, 2025 End: August 30, 2025 Dr. Lucho Maki MD Nurse Practitioner Active Start: August 25, 2025 End: August 30, 2025 Team Status: Active Member Role/Relationship Status Dates Ronald Tong MD Primary care physician Active S tart: August 27, 2025 Dr. Zachariah Mota MD Admitting physician Active Start: August 27, 2025 Dr. Zachariah Mota MD Referring Provider Active Start: August 27, 2025 Dr. Zachariah Mota MD Nurse Practitioner Active Start: August 27, 2025 Dr. Kenisha Mcgee MD Attending physician Active Start: August 27, 2025 Dr. Kenisha Mcgee MD Nurse Practitioner Active Start: August 27, 2025 Dr. Anthony Jaime DO Nurse Practitioner Active Start: August 27, 2025 Dr. Lucho Maki MD Nurse Practitioner Active Start: August 27, 2025 Team Status: Active Member Role/Relationship Status Dates Ronald Tong MD Primary care physician Active S tart: August 28, 2025 Dr. Zachariah Mota MD Admitting physician Active Start: August 28, 2025 Dr. Zachariah Mota MD Referring Provider Active Start: August 28, 2025 Dr. Zachariah Mota MD Nurse Practitioner Active Start: August 28, 2025 Dr. Kenisha Mcgee MD Nurse Practitioner Active Start: August 28, 2025 Dr. Anthony Jaime , Nurse Practitioner Active Start: August 28, 2025 Dr. Lucho Maki MD Nurse Practitioner Active Start: August 28, 2025 MARISOL Willett Attending physician Active Start: August 28, 2025 Team Status: Active Member Role/Relationship Status Dates Ronald Tong MD Primary care physician Active S tart: August 29, 2025 Dr. Zachariah Mota MD Admitting physician Active Start: August 29, 2025 Dr. Zachariah Mota MD Referring Provider Active Start: August 29, 2025 Dr. Zachariah Mota MD Nurse Practitioner Active Start: August 29, 2025 Dr. Kenisha Mcgee MD Nurse Practitioner Active Start: August 29, 2025 Dr. Anthony Jaime DO Attending physician Activ e Start: August 29, 2025 Dr. Anthony Jaime , Nurse Practitioner Active Start: August 29, 2025 Dr. Lucho Maki MD Nurse Practitioner Active Start: August 29, 2025 (unrecognized sect ion and content) No Status Records FoundNo Status Records FoundNo Status Records FoundNo Status Records Found INFORMATION SOURCE (unrecogn ized section and content) DATE CREATED AUTHOR 03/05/2022 [facility] DATE CREATED AUTHOR AUTHOR'S ORGANIZ ATION 03/12/2024 [facility] DATE CREATED AUTHOR AUTHOR'S ORGANIZ ATION 09/04/2025 [facility] DATE CREATED AUTHOR AUTHOR'S ORGANIZ ATION 09/18/2025 [facility] Source Comments (unrecognize d section and content) In the event this informatio n is protected by the Federal Confidentiality of Alcohol and Drug Abuse Patient Records regulations: The Federal rules restrict any use of the information to criminally investigate or prosecute any alcohol or drug abuse patient.[facility] Reason for Visit (unrecogniz ed section and content) Reason Onset Date Comments colorectal cancer screening 02/07/2024 Goals (unrecognized section and content) Goals may be documented in a n alternate section FOR RECORDS PERTAINING TO PATIENTS WHO ARE OR HAVE BEEN ENROLLED IN A CHEMICAL DEPENDENCY/SUBSTANCEABUSE PROGRAM, SOME INFORMATION MAY BE OMITTED. This clinical summary was aggregated from multiple sources. Caution should be exercised in using it in the provision of clinical care. This summary normalizes information from multiple sources, and as a consequence, information in this document may materially change the coding, format and clinical context of patient data. In addition, data may be omitted in some cases. CLINICAL DECISIONS SHOULD BE BASED ON THE PRIMARY CLINICAL RECORDS. [employer] [facility]. provides no warranty or guarantee of the accuracy or completeness of information in this document.
[2025-09-20 12:00] LABS: Hematocrit 42.2 % (40-54); Hemoglobin 14.6 g/dL (13.0-16.5); Immature Granulocytes Count 0.050 X10^3/uL (0.0-0.0); Mean Corp Hgb Conc 34.6 g/dL (32-36); Mean Corpuscular Volume 81.5 fL (80-94); Mean Platelet Vol. 9.5 fl (6.2-12.0); NRBC Flagged by Analyzer 0 % (0-5); Platelet Count 232 K/mm3 (150-450); RBC Distribution Width CV 12.7 % (11.6-14.6); RBC Distribution Width SD 37.3 fl (35.1-43.9); Red Blood Count 5.18 M/mm3 (4.6-6.2); White Blood Count 9.9 K/mm3 (4.4-11.0)
[2025-09-20 12:24] LABS: AST(SGOT) 12 U/L (<=37); Alanine Aminotransfer ALT/SGPT 16 U/L (<=46); Albumin, Serum 3.9 g/dL (3.5-5.0); Alkaline Phosphatase 86 U/L (40-129); Anion Gap 14 (5-15); BUN 10 mg/dL (4-19); BUN/Creat Ratio 12.0 RATIO (10-20); Calcium,Total 9.2 mg/dL (7.6-11.0); Carbon Dioxide 22.7 mmol/L (21.0-32.0); Chloride 93 mmol/L (98-108); Estimated Creatinine Clearance 103.38 ml/min (50-250); Globulin 3.5 g/dL (2.2-4.2); Glucose 297 mg/dL (70-99); Potassium 4.1 mmol/L (3.3-5.1)
[2025-09-20 12:46] LABS: Mucous, Urine 0 SEEN /hpf (<or=2+); Red Blood Cells-Urine 0 SEEN /hpf (0-5); Squamous Epithelial Cells - UA 0 SEEN /hpf (0-5)
[2025-09-20 12:50] LABS: Color, Urine Yellow (Yellow); Glucose, Dipstick 1000 mg/dl (Normal); Ketone-Dipstick 50 mg/dl (Negative); Leukocyte Esterase-Dipstick Negative /ul (Negative); Nitrite-Dipstick Negative (Negative); Occult Blood-Urine Negative /ul (Negative); Protein-Dipstick 30 mg/dl (Negative); Specific Gravity, Urine 1.015 (1.002-1.030); Urine Bilirubin Dipstick Negative (Negative)
[2025-09-20 13:22] VITALS: BP 116/80; PULSE 83; RESP 14; O2SAT 96
[2025-09-20 13:30] VITALS: PULSE 83; RESP 14; O2SAT 96
[2025-09-20 13:45] VITALS: PULSE 83; RESP 18; O2SAT 93
[2025-09-20 14:00] VITALS: BP 117/82; PULSE 79; O2SAT 97
[2025-09-20 14:15] VITALS: BP 117/82; PULSE 79; RESP 18; TEMP 36.6; O2SAT 97
== END 2025-09-20 14:16 | disposition home or self-care (01) ==
PROVIDERS: Emergency Provider Emergency Medicine; PCP Family Medicine; Visit Provider Emergency Medicine
DX: M54.50 Low back pain, unspecified (principal); E11.9 Type 2 diabetes mellitus without complications; R10.A0 Flank pain, unspecified side; I10 Essential (primary) hypertension; R68.83 Chills (without fever); R53.1 Weakness
CPT/HCPCS: 74176; 80053; 81001; 85025; 87040; 87086; 87088; 96361; 96374; 96375; 99284; A4216; J2405

== ENCOUNTER → 2025-10-09 | Outpatient (CLI) | payer OTHER, SELFPAY ==
[2025-10-09 12:54] LABS: Mucous, Urine 0 SEEN /hpf (<or=2+); Red Blood Cells-Urine 0 SEEN /hpf (0-5); Squamous Epithelial Cells - UA 0 SEEN /hpf (0-5)
[2025-10-09 14:27] LABS: Color, Urine Yellow (Yellow); Glucose, Dipstick 1000 mg/dl (Normal); Ketone-Dipstick Negative (Negative); Leukocyte Esterase-Dipstick Negative /ul (Negative); Nitrite-Dipstick Negative (Negative); Occult Blood-Urine Negative /ul (Negative); Protein-Dipstick Negative (Negative); Specific Gravity, Urine 1.015 (1.002-1.030); Urine Bilirubin Dipstick Negative (Negative)
== END | disposition home or self-care (01) ==
LOC: LAB 12:51
PROVIDERS: PCP Family Medicine; Referring Provider Internal Medicine Nephrology; Visit Provider Internal Medicine Nephrology
DX: R39.9 Unspecified symptoms and signs involving the genitourinary system (principal)
CPT/HCPCS: 81001; 87086

== ENCOUNTER → 2025-10-10 | Outpatient (CLI) | payer OTHER, SELFPAY ==
--- OUTSIDE RECORDS SUMMARY | 2025-10-10 15:17 | XMS RPT_ITS | CCD ---
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 Zachariah Heller Nurse Practitioner Dr. Kenisha Mcgee MD Attending Physician Joseline Britton Attending Physician Dr. Anthony Jaime DO Attending Physician LYNDON HANSEN, MR Juan Jsoe GODOY Primary Care Unavailthompson MOTA MD, DR [...] allergy 7 hives and unable to breath [facility] (4 sources) Penicillin; Translations: [penicillins] Drug Allergy Difficulty breathing (finding) [facility] (1 source) Penicillins Drug Intolerance 4 Hives, Swelling [facility] (1 source) Seasonal allergy Allergy to substance 8 Other: See Comments [facility] (2 sources) Penicillins Allergy to substance 4 Hives [facility] Comment on above: SOB (1 source) Penicillins Drug allergy (disorder) 5 [facility] Repository Medications Current Medications Medication Drug Class(es) [...] s ix hours as needed for pain [id number] 200 actuat albuterol 0.09 mg/actuat metered dose [...] 0 Refill(s), 08/27/25 2:01:00 PM EDT, Pharmacy: [facility] 1812, 167, cm, 08/22/25 12:01:00 EDT, Height, [...] 0 Refill(s), 08/25/25 2:00:00 PM EDT, Pharmacy: [facility] 181, Bilateral kidney stones, 167, cm, [...] Absolute Lymph 3.19 X10 3/uL Normal 0.83-4.51 [facility] Comment on above: Performed By: #### L 500.2500, L100.0100 #### [facility] [address] [facility] [place], [address] Absolute Neut 3.6 X10 3/uL Normal 2.0-7.7 [facility] Comment on above: Performed By: #### L 500.2500, L100.0100 #### [facility] [address] [place], [address] Basophils/100 WBC (Bld) 0.8 % Normal 0-1 [facility] Comment on above: Performed By: #### L 500.2500, L100.0100 #### [facility] [address] [facility] [place], [address] Eosinophils/100 WBC (Bld) 2.4 % Normal 0-5 [facility] Comment on above: Performed By: #### L 500.2500, L100.0100 #### [facility] [address] [place], [address] Erythrocyte distribution width (RBC) [Ratio] 12.9 % Normal 11.6-14.6 [facility] Comment on above: Performed By: #### L 500.2500, L100.0100 #### [facility] [address] [place], [address] Hematocrit (Bld) [Volume fraction] 44.3 % Normal 40-54 [facility] Comment on above: Performed By: #### L 500.2500, L100.0100 #### [facility] [address] [place], [address] Hemoglobin (Bld) [Mass/Vol] 15.1 g/dL Normal 13.0-16.5 [facility] Comment on above: Performed By: #### L 500.2500, L100.0100 #### [facility] [address] [place], [address] IG% 2.200 High 0.0-0.9 [facility] Comment on above: Result Comment: IG% - Immature Granulocytes (promyelocytes, myelocytes and metamyelocytes) > 1% indicates that a LEFT SHIFT is Present. Performed By: #### L 500.2500, L100.0100 #### [facility] [address] [place], [address] Lymphocytes/100 WBC (Bld) 40.5 % Normal 19-41 [facility] Comment on above: Performed By: #### L 500.2500, L100.0100 #### [facility] [address] [place], [address] MCH (RBC) [Entitic mass] 28.2 pg Normal 27.0-32.0 [facility] Comment on above: Performed By: #### L 500.2500, L100.0100 #### [facility] [address] [place], [address] MCHC (RBC) [Mass/Vol] 34.1 g/dL Normal 32-36 [facility] Comment on above: Performed By: #### L 500.2500, L100.0100 #### [facility] [address] [place], [address] MCV (RBC) [Entitic vol] 82.8 fL Normal 80-94 [facility] Comment on above: Performed By: #### L 500.2500, L100.0100 #### [facility] [address] [place], [address] Monocytes/100 WBC (Bld) 8.6 % Normal 0-10 [facility] Comment on above: Performed By: #### L 500.2500, L100.0100 #### [facility] [address] [place], [address] Neutrophils/100 WBC (Bld) 45.5 % Low 47-70 [facility] Comment on above: Performed By: #### L 500.2500, L100.0100 #### [facility] [address] [place], [address] Nucleated RBC (Bld) [#/Vol] 0 10*3/uL Normal 0-5 [facility] Comment on above: Performed By: #### L 500.2500, L100.0100 #### [facility] [address] [place], [address] Platelet mean volume (Bld) [Entitic vol] 8.9 fL Normal 6.2-12.0 [facility] Comment on above: Performed By: #### L 500.2500, L100.0100 #### [facility] [address] [place], [address] Platelets (Bld) [#/Vol] 489 10*3/uL High 150-450 [facility] Comment on above: Performed By: #### L 500.2500, L100.0100 #### [facility] [address] [place], [address] RBC (Bld) [#/Vol] 5.35 10*6/uL Normal 4.6-6.2 [facility] Comment on above: Performed By: #### L 500.2500, L100.0100 #### [facility] [address] [place], [address] RDW SD 38.5 fl Normal 35.1-43.9 [facility] Comment on above: Performed By: #### L 500.2500, L100.0100 #### [facility] [address] [place], [address] WBC (Bld) [#/Vol] 7.9 10*3/uL Normal 4.4-11.0 [facility] Comment on above: Performed By: #### L 500.2500, L100.0100 #### [facility] [address] [place], [address] Basic Metabolic Profile (BMP )on 09-03-2025 BUN Normal - [facility] Comment on above: Result Comment: Canc elled via OM: Order cancelled - Patient discharged Performed By: #### L 500.2500, L100.0100 #### [facility] [address] [place], [address] BUN/CRE Normal - [facility] Comment on above: Result Comment: Canc elled via OM: Order cancelled - Patient discharged Performed By: #### L 500.2500, L100.0100 #### [facility] [address] [place], [address] Calcium Normal 7.6-11.0 [facility] Comment on above: Result Comment: Canc elled via OM: Order cancelled - Patient discharged Performed By: #### L 500.2500, L100.0100 #### [facility] [address] [place], [address] CL Normal 98-108 [facility] Comment on above: Result Comment: Canc elled via OM: Order cancelled - Patient discharged Performed By: #### L 500.2500, L100.0100 #### [facility] [address] [place], [address] CO2 Normal 21.0-32.0 [facility] Comment on above: Result Comment: Canc elled via OM: Order cancelled - Patient discharged Performed By: #### L 500.2500, L100.0100 #### [facility] [address] [place], [address] CREAT,SERUM Normal 0.70-1.20 [facility] Comment on above: Result Comment: Canc elled via OM: Order cancelled - Patient discharged Performed By: #### L 500.2500, L100.0100 #### [facility] [address] [place], [address] eGFR Normal >60 [facility] Comment on above: Result Comment: Canc elled via OM: Order cancelled - Patient discharged Performed By: #### L 500.2500, L100.0100 #### [facility] [address] [place], [address] GAP Normal 5-15 [facility] Comment on above: Result Comment: Canc elled via OM: Order cancelled - Patient discharged Performed By: #### L 500.2500, L100.0100 #### [facility] [address] [place], [address] GLU Normal 70-99 [facility] Comment on above: Result Comment: Canc elled via OM: Order cancelled - Patient discharged Performed By: #### L 500.2500, L100.0100 #### [facility] [address] [place], [address] Potassium Normal 3.3-5.1 [facility] Comment on above: Result Comment: Canc elled via OM: Order cancelled - Patient discharged Performed By: #### L 500.2500, L100.0100 #### [facility] [address] [place], [address] Basic Metabolic Profile (BMP) Normal 133-145 [facility] Comment on above: Result Comment: Canc elled via OM: Order cancelled - Patient discharged Performed By: #### L 500.2500, L100.0100 #### [facility] [address] [place], [address] CBC W/Diff, Automatedon 10-2 Absolute Neut Normal 2.0-7.7 [facility] Comment on above: Result Comment: Canc elled via OM: Order cancelled - Patient discharged Performed By: #### L 500.2500, L100.0100 #### [facility] [address] [place], [address] HCT Normal 40-54 [facility] Comment on above: Result Comment: Canc elled via OM: Order cancelled - Patient discharged Performed By: #### L 500.2500, L100.0100 #### [facility] [address] [place], [address] HGB Normal 13.0-16.5 [facility] Comment on above: Result Comment: Canc elled via OM: Order cancelled - Patient discharged Performed By: #### L 500.2500, L100.0100 #### [facility] [address] [place], [address] MCH Normal 27.0-32.0 [facility] Comment on above: Result Comment: Canc elled via OM: Order cancelled - Patient discharged Performed By: #### L 500.2500, L100.0100 #### [facility] [address] [place], [address] MCHC Normal 32-36 [facility] Comment on above: Result Comment: Canc elled via OM: Order cancelled - Patient discharged Performed By: #### L 500.2500, L100.0100 #### [facility] [address] [place], [address] MCV Normal 80-94 [facility] Comment on above: Result Comment: Canc elled via OM: Order cancelled - Patient discharged Performed By: #### L 500.2500, L100.0100 #### [facility] [address] [place], [address] NEUT% Normal 47-70 [facility] Comment on above: Result Comment: Canc elled via OM: Order cancelled - Patient discharged Performed By: #### L 500.2500, L100.0100 #### [facility] [address] [place], [address] PLT Normal 150-450 [facility] Comment on above: Result Comment: Canc elled via OM: Order cancelled - Patient discharged Performed By: #### L 500.2500, L100.0100 #### [facility] [address] [place], [address] RBC Normal 4.6-6.2 [facility] Comment on above: Result Comment: Canc elled via OM: Order cancelled - Patient discharged Performed By: #### L 500.2500, L100.0100 #### [facility] [address] [place], [address] RDW CV Normal 11.6-14.6 [facility] Comment on above: Result Comment: Canc elled via OM: Order cancelled - Patient discharged Performed By: #### L 500.2500, L100.0100 #### [facility] [address] [place], [address] RDW SD Normal 35.1-43.9 [facility] Comment on above: Result Comment: Canc elled via OM: Order cancelled - Patient discharged Performed By: #### L 500.2500, L100.0100 #### [facility] [address] [place], [address] WBC Normal 4.4-11.0 [facility] Comment on above: Result Comment: Canc elled via OM: Order cancelled - Patient discharged Performed By: #### L 500.2500, L100.0100 #### [facility] [address] [place], [address] Basic Metabolic Profile (BMP )on 09-02-2025 BUN Normal 4-19 [facility] Comment on above: Result Comment: Canc elled via OM: Order cancelled - Patient discharged Performed By: #### L 501.080 #### [facility] [address] [place], [address] BUN/CRE Normal 10-20 [facility] Comment on above: Result Comment: Canc elled via OM: Order cancelled - Patient discharged Performed By: #### L 501.080 #### [facility] [address] [place], [address] Calcium Normal 7.6-11.0 [facility] Comment on above: Result Comment: Canc elled via OM: Order cancelled - Patient discharged Performed By: #### L 501.080 #### [facility] [address] [place], [address] CL Normal 98-108 [facility] Comment on above: Result Comment: Canc elled via OM: Order cancelled - Patient discharged Performed By: #### L 501.080 #### [facility] [address] [place], [address] CO2 Normal 21.0-32.0 [facility] Comment on above: Result Comment: Canc elled via OM: Order cancelled - Patient discharged Performed By: #### L 501.080 #### [facility] [address] [place], [address] CREAT,SERUM Normal 0.70-1.20 [facility] Comment on above: Result Comment: Canc elled via OM: Order cancelled - Patient discharged Performed By: #### L 501.080 #### [facility] [address] [place], [address] eGFR Normal >60 [facility] Comment on above: Result Comment: Canc elled via OM: Order cancelled - Patient discharged Performed By: #### L 501.080 #### [facility] [address] [place], [address] GAP Normal 5-15 [facility] Comment on above: Result Comment: Canc elled via OM: Order cancelled - Patient discharged Performed By: #### L 501.080 #### [facility] [address] [place], [address] GLU Normal 70-99 [facility] Comment on above: Result Comment: Canc elled via OM: Order cancelled - Patient discharged Performed By: #### L 501.080 #### [facility] [address] [place], [address] Potassium Normal 3.3-5.1 [facility] Comment on above: Result Comment: Canc elled via OM: Order cancelled - Patient discharged Performed By: #### L 501.080 #### [facility] [address] [place], [address] Basic Metabolic Profile (BMP) Normal 133-145 [facility] Comment on above: Result Comment: Canc elled via OM: Order cancelled - Patient discharged Performed By: #### L 501.080 #### [facility] [address] [place], [address] CBC W/Diff, Automatedon 10-2 Absolute Neut Normal 2.0-7.7 [facility] Comment on above: Result Comment: Canc elled via OM: Order cancelled - Patient discharged Performed By: #### L 501.080 #### [facility] [address] [place], [address] HCT Normal 40-54 [facility] Comment on above: Result Comment: Canc elled via OM: Order cancelled - Patient discharged Performed By: #### L 501.080 #### [facility] [address] [place], [address] HGB Normal 13.0-16.5 [facility] Comment on above: Result Comment: Canc elled via OM: Order cancelled - Patient discharged Performed By: #### L 501.080 #### [facility] [address] [place], [address] MCH Normal 27.0-32.0 [facility] Comment on above: Result Comment: Canc elled via OM: Order cancelled - Patient discharged Performed By: #### L 501.080 #### [facility] [address] [place], [address] MCHC Normal 32-36 [facility] Comment on above: Result Comment: Canc elled via OM: Order cancelled - Patient discharged Performed By: #### L 501.080 #### [facility] [address] [place], [address] MCV Normal 80-94 [facility] Comment on above: Result Comment: Canc elled via OM: Order cancelled - Patient discharged Performed By: #### L 501.080 #### [facility] [address] [place], [address] NEUT% Normal 47-70 [facility] Comment on above: Result Comment: Canc elled via OM: Order cancelled - Patient discharged Performed By: #### L 501.080 #### [facility] [address] [place], [address] PLT Normal 150-450 [facility] Comment on above: Result Comment: Canc elled via OM: Order cancelled - Patient discharged Performed By: #### L 501.080 #### [facility] [address] [place], [address] RBC Normal 4.6-6.2 [facility] Comment on above: Result Comment: Canc elled via OM: Order cancelled - Patient discharged Performed By: #### L 501.080 #### [facility] [address] [place], [address] RDW CV Normal 11.6-14.6 [facility] Comment on above: Result Comment: Canc elled via OM: Order cancelled - Patient discharged Performed By: #### L 501.080 #### [facility] [address] [place], [address] RDW SD Normal 35.1-43.9 [facility] Comment on above: Result Comment: Canc elled via OM: Order cancelled - Patient discharged Performed By: #### L 501.080 #### [facility] [address] [place], [address] WBC Normal 4.4-11.0 [facility] Comment on above: Result Comment: Canc elled via OM: Order cancelled - Patient discharged Performed By: #### L 501.080 #### [facility] [address] [place], [address] Basic Metabolic Profile (BMP )on 09-01-2025 BUN Normal 4-19 [facility] Comment on above: Result Comment: Canc elled via OM: Order cancelled - Patient discharged Performed By: #### L 500.2500, L100.0100 #### [facility] [address] [place], [address] BUN/CRE Normal 10-20 [facility] Comment on above: Result Comment: Canc elled via OM: Order cancelled - Patient discharged Performed By: #### L 500.2500, L100.0100 #### [facility] [address] [place], [address] Calcium Normal 7.6-11.0 [facility] Comment on above: Result Comment: Canc elled via OM: Order cancelled - Patient discharged Performed By: #### L 500.2500, L100.0100 #### [facility] [address] [place], [address] CL Normal 98-108 [facility] Comment on above: Result Comment: Canc elled via OM: Order cancelled - Patient discharged Performed By: #### L 500.2500, L100.0100 #### [facility] [address] [place], [address] CO2 Normal 21.0-32.0 [facility] Comment on above: Result Comment: Canc elled via OM: Order cancelled - Patient discharged Performed By: #### L 500.2500, L100.0100 #### [facility] [address] [place], [address] CREAT,SERUM Normal 0.70-1.20 [facility] Comment on above: Result Comment: Canc elled via OM: Order cancelled - Patient discharged Performed By: #### L 500.2500, L100.0100 #### [facility] [address] [place], [address] eGFR Normal >60 [facility] Comment on above: Result Comment: Canc elled via OM: Order cancelled - Patient discharged Performed By: #### L 500.2500, L100.0100 #### [facility] [address] [place], [address] GAP Normal 5-15 [facility] Comment on above: Result Comment: Canc elled via OM: Order cancelled - Patient discharged Performed By: #### L 500.2500, L100.0100 #### [facility] [address] [place], [address] GLU Normal 70-99 [facility] Comment on above: Result Comment: Canc elled via OM: Order cancelled - Patient discharged Performed By: #### L 500.2500, L100.0100 #### [facility] [address] [place], [address] Potassium Normal 3.3-5.1 [facility] Comment on above: Result Comment: Canc elled via OM: Order cancelled - Patient discharged Performed By: #### L 500.2500, L100.0100 #### [facility] [address] [place], [address] Basic Metabolic Profile (BMP) Normal 133-145 [facility] Comment on above: Result Comment: Canc elled via OM: Order cancelled - Patient discharged Performed By: #### L 500.2500, L100.0100 #### [facility] [address] [place], [address] CBC W/Diff, Automatedon 10-2 -2024 Absolute Neut Normal 2.0-7.7 [facility] Comment on above: Result Comment: Canc elled via OM: Order cancelled - Patient discharged Performed By: #### L 500.2500, L100.0100 #### [facility] [address] [place], [address] HCT Normal 40-54 [facility] Comment on above: Result Comment: Canc elled via OM: Order cancelled - Patient discharged Performed By: #### L 500.2500, L100.0100 #### [facility] [address] [place], [address] HGB Normal 13.0-16.5 [facility] Comment on above: Result Comment: Canc elled via OM: Order cancelled - Patient discharged Performed By: #### L 500.2500, L100.0100 #### [facility] [address] [place], [address] MCH Normal 27.0-32.0 [facility] Comment on above: Result Comment: Canc elled via OM: Order cancelled - Patient discharged Performed By: #### L 500.2500, L100.0100 #### [facility] [address] [place], [address] MCHC Normal 32-36 [facility] Comment on above: Result Comment: Canc elled via OM: Order cancelled - Patient discharged Performed By: #### L 500.2500, L100.0100 #### [facility] [address] [place], [address] MCV Normal 80-94 [facility] Comment on above: Result Comment: Canc elled via OM: Order cancelled - Patient discharged Performed By: #### L 500.2500, L100.0100 #### [facility] [address] [place], [address] NEUT% Normal 47-70 [facility] Comment on above: Result Comment: Canc elled via OM: Order cancelled - Patient discharged Performed By: #### L 500.2500, L100.0100 #### [facility] [address] [place], [address] PLT Normal 150-450 [facility] Comment on above: Result Comment: Canc elled via OM: Order cancelled - Patient discharged Performed By: #### L 500.2500, L100.0100 #### [facility] [address] [place], [address] RBC Normal 4.6-6.2 [facility] Comment on above: Result Comment: Canc elled via OM: Order cancelled - Patient discharged Performed By: #### L 500.2500, L100.0100 #### [facility] [address] [place], [address] RDW CV Normal 11.6-14.6 [facility] Comment on above: Result Comment: Canc elled via OM: Order cancelled - Patient discharged Performed By: #### L 500.2500, L100.0100 #### [facility] [address] [place], [address] RDW SD Normal 35.1-43.9 [facility] Comment on above: Result Comment: Canc elled via OM: Order cancelled - Patient discharged Performed By: #### L 500.2500, L100.0100 #### [facility] [address] [place], [address] WBC Normal 4.4-11.0 [facility] Comment on above: Result Comment: Canc elled via OM: Order cancelled - Patient discharged Performed By: #### L 500.2500, L100.0100 #### [facility] [address] [place], [address] Basic Metabolic Profile (BMP )on 08-31-2025 BUN Normal 4-19 [facility] Comment on above: Result Comment: Canc elled via OM: Order cancelled - Patient discharged Performed By: #### L 500.2500, L100.0100 #### [facility] [address] [place], [address] BUN/CRE Normal 10-20 [facility] Comment on above: Result Comment: Canc elled via OM: Order cancelled - Patient discharged Performed By: #### L 500.2500, L100.0100 #### [facility] [address] [place], [address] Calcium Normal 7.6-11.0 [facility] Comment on above: Result Comment: Canc elled via OM: Order cancelled - Patient discharged Performed By: #### L 500.2500, L100.0100 #### [facility] [address] [place], [address] CL Normal 98-108 [facility] Comment on above: Result Comment: Canc elled via OM: Order cancelled - Patient discharged Performed By: #### L 500.2500, L100.0100 #### [facility] [address] [place], [address] CO2 Normal 21.0-32.0 [facility] Comment on above: Result Comment: Canc elled via OM: Order cancelled - Patient discharged Performed By: #### L 500.2500, L100.0100 #### [facility] [address] [place], [address] CREAT,SERUM Normal 0.70-1.20 [facility] Comment on above: Result Comment: Canc elled via OM: Order cancelled - Patient discharged Performed By: #### L 500.2500, L100.0100 #### [facility] [address] [place], [address] eGFR Normal >60 [facility] Comment on above: Result Comment: Canc elled via OM: Order cancelled - Patient discharged Performed By: #### L 500.2500, L100.0100 #### [facility] [address] [place], [address] GAP Normal 5-15 [facility] Comment on above: Result Comment: Canc elled via OM: Order cancelled - Patient discharged Performed By: #### L 500.2500, L100.0100 #### [facility] [address] [place], [address] GLU Normal 70-99 [facility] Comment on above: Result Comment: Canc elled via OM: Order cancelled - Patient discharged Performed By: #### L 500.2500, L100.0100 #### [facility] [address] [place], [address] Potassium Normal 3.3-5.1 [facility] Comment on above: Result Comment: Canc elled via OM: Order cancelled - Patient discharged Performed By: #### L 500.2500, L100.0100 #### [facility] [address] [place], [address] Basic Metabolic Profile (BMP) Normal 133-145 [facility] Comment on above: Result Comment: Canc elled via OM: Order cancelled - Patient discharged Performed By: #### L 500.2500, L100.0100 #### [facility] [address] [place], [address] CBC W/Diff, Automatedon 10-2 Absolute Neut Normal 2.0-7.7 [facility] Comment on above: Result Comment: Canc elled via OM: Order cancelled - Patient discharged Performed By: #### L 500.2500, L100.0100 #### [facility] [address] [place], [address] HCT Normal 40-54 [facility] Comment on above: Result Comment: Canc elled via OM: Order cancelled - Patient discharged Performed By: #### L 500.2500, L100.0100 #### [facility] [address] [place], [address] HGB Normal 13.0-16.5 [facility] Comment on above: Result Comment: Canc elled via OM: Order cancelled - Patient discharged Performed By: #### L 500.2500, L100.0100 #### [facility] [address] [place], [address] MCH Normal 27.0-32.0 [facility] Comment on above: Result Comment: Canc elled via OM: Order cancelled - Patient discharged Performed By: #### L 500.2500, L100.0100 #### [facility] [address] [place], [address] MCHC Normal 32-36 [facility] Comment on above: Result Comment: Canc elled via OM: Order cancelled - Patient discharged Performed By: #### L 500.2500, L100.0100 #### [facility] [address] [place], [address] MCV Normal 80-94 [facility] Comment on above: Result Comment: Canc elled via OM: Order cancelled - Patient discharged Performed By: #### L 500.2500, L100.0100 #### [facility] [address] [place], [address] NEUT% Normal 47-70 [facility] Comment on above: Result Comment: Canc elled via OM: Order cancelled - Patient discharged Performed By: #### L 500.2500, L100.0100 #### [facility] [address] [place], [address] PLT Normal 150-450 [facility] Comment on above: Result Comment: Canc elled via OM: Order cancelled - Patient discharged Performed By: #### L 500.2500, L100.0100 #### [facility] [address] [place], [address] RBC Normal 4.6-6.2 [facility] Comment on above: Result Comment: Canc elled via OM: Order cancelled - Patient discharged Performed By: #### L 500.2500, L100.0100 #### [facility] [address] [place], [address] RDW CV Normal 11.6-14.6 [facility] Comment on above: Result Comment: Canc elled via OM: Order cancelled - Patient discharged Performed By: #### L 500.2500, L100.0100 #### [facility] [address] [place], [address] RDW SD Normal 35.1-43.9 [facility] Comment on above: Result Comment: Canc elled via OM: Order cancelled - Patient discharged Performed By: #### L 500.2500, L100.0100 #### [facility] [address] [place], [address] WBC Normal 4.4-11.0 [facility] Comment on above: Result Comment: Canc elled via OM: Order cancelled - Patient discharged Performed By: #### L 500.2500, L100.0100 #### [facility] [address] [place], [address] Absolute lymphocyte countOrd ered By: Kenisha Mcgee on 08-30-2025 Lymphocytes Auto (Unsp spec) [#/Vol] 1.79 10*3/uL 0.83-4.51 [facility] Absolute neutrophil countOrd ered By: Kenisha Mcgee on 08-30-2025 Neutrophils (Bld) [#/Vol] 3.8 10*3/uL 2.0-7.7 [facility] Anion gap in Serum or Plasma Ordered By: Kenisha Mcgee on 08-30-2025 Anion gap [Moles/Vol] 10 mmol/L - [facility] Automated lymphocyte count a s percentage of total leukocytesOrdered By: Kenisha Mcgee on 08-30-2025 Lymphocytes/100 WBC Auto (Unsp spec) 27.2 % - [facility] BUN/creatinine ratioOrdered By: Kenisha Mcgee on 08-30-2025 Urea nitrogen/Creatinine [Mass ratio] 14.6 mg/mg - [facility] Basic Metabolic Profile (BMP )on 08-30-2025 BUN/CRE 14.6 RATIO Normal - [facility] Comment on above: Performed By: #### L 500.2500, L100.0100 #### [facility] [address] [place], [address] Calcium [Mass/Vol] 8.7 mg/dL Normal 7.6-11.0 [facility] Comment on above: Performed By: #### L 500.2500, L100.0100 #### [facility] [address] [place], [address] Chloride [Moles/Vol] 103 mmol/L Normal 98-108 [facility] Comment on above: Performed By: #### L 500.2500, L100.0100 #### [facility] [address] [place], [address] CO2 [Moles/Vol] 23.8 mmol/L Normal 21.0-32.0 [facility] Comment on above: Performed By: #### L 500.2500, L100.0100 #### [facility] [address] [place], [address] Creatinine [Mass/Vol] 0.64 mg/dL Low 0.70-1.20 [facility] Comment on above: Performed By: #### L 500.2500, L100.0100 #### [facility] [address] [place], [address] ECRCL 119.07 ml/min Normal 50-250 [facility] Comment on above: Performed By: #### L 500.2500, L100.0100 #### [facility] [address] [place], [address] GAP 10 Normal 5-15 [facility] Comment on above: Performed By: #### L 500.2500, L100.0100 #### [facility] [address] [place], [address] GFR/1.73 sq M.predicted among non-blacks MDRD (S/P/Bld) [Vol rate/Area] 112 mL/min/{1.73_m2} Normal >60 [facility] Comment on above: Result Comment: mL/m in/1.73m2 CKD-EPI Creatinine Equation (2020) Performed By: #### L 500.2500, L100.0100 #### [facility] [address] [place], [address] Glucose [Mass/Vol] 228 mg/dL High 70-99 [facility] Comment on above: Performed By: #### L 500.2500, L100.0100 #### [facility] [address] [place], [address] Potassium [Moles/Vol] 3.8 mmol/L Normal 3.3-5.1 [facility] Comment on above: Performed By: #### L 500.2500, L100.0100 #### [facility] [address] [place], [address] Sodium [Moles/Vol] 136 mmol/L Normal 133-145 [facility] Comment on above: Performed By: #### L 500.2500, L100.0100 #### [facility] [address] [place], [address] Urea nitrogen [Mass/Vol] 9 mg/dL Normal 4-19 [facility] Comment on above: Performed By: #### L 500.2500, L100.0100 #### [facility] [address] [place], [address] Basophil percentageOrdered B y: Kenishacamilo Mcgee on 08-30-2025 Basophils/100 WBC (Bld) 0.3 % 0-1 [facility] Bedside Glucoseon 08-30-2025 FINGERSTICK GLU 197 mg/dL High 74-106 [facility] Comment on above: Result Comment: KATIE BENJAMIN OF PATIENT CARE PER NURSING PROTOCOL Performed By: #### L 501.080 #### [facility] [address] [place], [address] CBC W/Diff, Automatedon 08-07 Absolute Lymph 1.79 X10 3/uL Normal 0.83-4.51 [facility] Comment on above: Performed By: #### L 500.2500, L100.0100 #### [facility] [address] [place], [address] Absolute Neut 3.8 X10 3/uL Normal 2.0-7.7 [facility] Comment on above: Performed By: #### L 500.2500, L100.0100 #### [facility] [address] [place], [address] Basophils/100 WBC (Bld) 0.3 % Normal 0-1 [facility] Comment on above: Performed By: #### L 500.2500, L100.0100 #### [facility] [address] [place], [address] Eosinophils/100 WBC (Bld) 2.0 % Normal 0-5 [facility] Comment on above: Performed By: #### L 500.2500, L100.0100 #### [facility] [address] [place], [address] Erythrocyte distribution width (RBC) [Ratio] 12.4 % Normal 11.6-14.6 [facility] Comment on above: Performed By: #### L 500.2500, L100.0100 #### [facility] [address] [place], [address] Hematocrit (Bld) [Volume fraction] 36.3 % Low 40-54 [facility] Comment on above: Performed By: #### L 500.2500, L100.0100 #### [facility] [address] [place], [address] Hemoglobin (Bld) [Mass/Vol] 12.9 g/dL Low 13.0-16.5 [facility] Comment on above: Performed By: #### L 500.2500, L100.0100 #### [facility] [address] [place], [address] IG% 0.800 Normal 0.0-0.9 [facility] Comment on above: Result Comment: IG% - Immature Granulocytes (promyelocytes, myelocytes and metamyelocytes) > 1% indicates that a LEFT SHIFT is Present. Performed By: #### L 500.2500, L100.0100 #### [facility] [address] [place], [address] Lymphocytes/100 WBC (Bld) 27.2 % Normal 19-41 [facility] Comment on above: Performed By: #### L 500.2500, L100.0100 #### [facility] [address] [place], [address] MCH (RBC) [Entitic mass] 28.4 pg Normal 27.0-32.0 [facility] Comment on above: Performed By: #### L 500.2500, L100.0100 #### [facility] [address] [place], [address] MCHC (RBC) [Mass/Vol] 35.5 g/dL Normal 32-36 [facility] Comment on above: Performed By: #### L 500.2500, L100.0100 #### [facility] [address] [place], [address] MCV (RBC) [Entitic vol] 79.8 fL Low 80-94 [facility] Comment on above: Performed By: #### L 500.2500, L100.0100 #### [facility] [address] [place], [address] Monocytes/100 WBC (Bld) 11.4 % High 0-10 [facility] Comment on above: Performed By: #### L 500.2500, L100.0100 #### [facility] [address] [place], [address] Neutrophils/100 WBC (Bld) 58.3 % Normal 47-70 [facility] Comment on above: Performed By: #### L 500.2500, L100.0100 #### [facility] [address] [place], [address] Nucleated RBC (Bld) [#/Vol] 0 10*3/uL Normal 0-5 [facility] Comment on above: Performed By: #### L 500.2500, L100.0100 #### [facility] [address] [place], [address] Platelet mean volume (Bld) [Entitic vol] 9.6 fL Normal 6.2-12.0 [facility] Comment on above: Performed By: #### L 500.2500, L100.0100 #### [facility] [address] [place], [address] Platelets (Bld) [#/Vol] 215 10*3/uL Normal 150-450 [facility] Comment on above: Performed By: #### L 500.2500, L100.0100 #### [facility] [address] [place], [address] RBC (Bld) [#/Vol] 4.55 10*6/uL Low 4.6-6.2 [facility] Comment on above: Performed By: #### L 500.2500, L100.0100 #### [facility] [address] [place], [address] RDW SD 35.6 fl Normal 35.1-43.9 [facility] Comment on above: Performed By: #### L 500.2500, L100.0100 #### [facility] [address] [place], [address] WBC (Bld) [#/Vol] 6.6 10*3/uL Normal 4.4-11.0 [facility] Comment on above: Performed By: #### L 500.2500, L100.0100 #### [facility] [address] [place], [address] Carbon dioxide, total [Moles /volume] in Central venous bloodOrdered By: Kenisha Mcgee on 08-30-2025 CO2 [Moles/Vol] 23.8 mmol/L 21.0-32.0 [facility] Chloride assayOrdered By: Willy Mcgee on 08-30-2025 Chloride [Moles/Vol] 103 mmol/L 98-108 [facility] Culture, Blood (WB)on 2024 CUB Blood [...] TMP SMX Islt SATHISH <=20 S Normal [facility] Comment on above: Performed By: #### L 500.2500, L100.0100 #### [facility] [address] [place], [address] Eosinophil percentageOrdered By: Kenisha Mcgee on 08-30-2025 Eosinophils/100 WBC (Bld) 2.0 % 0-5 [facility] Erythrocyte distribution wid th ratioOrdered By: Kenisha Mcgee on 08-30-2025 Erythrocyte distribution width (RBC) [Ratio] 12.4 % 11.6-14.6 [facility] Erythrocyte distribution wid th standard deviationOrdered By: Kenisha Mcgee on 08-30-2025 Erythrocyte distribution width (RBC) [Ratio] 35.6 fl 35.1-43.9 [facility] Glomerular filtration rate ( GFR) estimation/1.73 sq m using serum, plasma, or whole bOrdered By: Kenisha Mcgee on 08-30-2025 GFR/1.73 sq M.predicted among non-blacks MDRD (S/P/Bld) [Vol rate/Area] 112 mL/min/{1.73_m2} >60 [facility] Comment on above: mL/min/1.73m2 CKD-EP I Creatinine Equation (2020) [facility]Ordered By: Zachariah Mota on 08-30-2025 Glucose [Mass/Vol] 197 mg/dL High 74-106 [facility] Comment on above: MANAGEMENT OF PATIEN T CARE PER NURSING PROTOCOL Hematocrit Auto (Bld) [Volum e fraction]Ordered By: Kenisha Mcgee on 08-30-2025 Hematocrit (Bld) [Volume fraction] 36.3 % Low 40-54 [facility] Hemoglobin measurementOrdere d By: Kenisha Mcgee on 08-30-2025 Hemoglobin (Bld) [Mass/Vol] 12.9 g/dL Low 13.0-16.5 [facility] Immature granulocytes/100 WB C Auto (Bld)Ordered By: Kenisha Mcgee on 08-30-2025 Immature granulocytes/100 WBC (Bld) 0.800 % 0.0-0.9 [facility] Comment on above: IG% - Immature Granu locytes (promyelocytes, myelocytes and metamyelocytes) > 1% indicates that a LEFT SHIFT is Present. MCV (mean corpuscular volume ) determinationOrdered By: Kenisha Mcgee on 08-30-2025 MCV (RBC) [Entitic vol] 79.8 fL Low 80-94 [facility] Mean corpuscular hemoglobin (MCH) determinationOrdered By: Kenisha Mcgee on 08-30-2025 MCH (RBC) [Entitic mass] 28.4 pg 27.0-32.0 [facility] Mean corpuscular hemoglobin concentration (MCHC) determinationOrdered By: Kenisha Mcgee on 08-30-2025 MCHC (RBC) [Mass/Vol] 35.5 g/dL 32-36 [facility] Mean platelet volume determi nationOrdered By: Kenisha Mcgee on 08-30-2025 Platelet mean volume (Bld) [Entitic vol] 9.6 fL 6.2-12.0 [facility] Monocyte percentageOrdered B y: Kenisha Mcgee on 08-30-2025 Monocytes/100 WBC (Bld) 11.4 % High 0-10 [facility] Neutrophil percentageOrdered By: Kenisha Mcgee on 08-30-2025 Neutrophils/100 WBC (Bld) 58.3 % 47-70 [facility] Nucleated red blood cell per centageOrdered By: Kenisha Mcgee on 08-30-2025 Nucleated RBC/100 WBC (Bld) [Ratio] 0 % 0-5 [facility] Platelet countOrdered By: Willy Mcgee on 08-30-2025 Platelets (Bld) [#/Vol] 215 10*3/uL 150-450 [facility] Potassium measurement (mass/ volume)Ordered By: Kenisha Mcgee on 08-30-2025 Potassium (Unsp spec) [Mass/Vol] 3.8 mmol/L 3.3-5.1 [facility] RBC Auto (Bld) [#/Vol]Ordere d By: Kenisha Mcgee on 08-30-2025 RBC (Bld) [#/Vol] 4.55 10*6/uL Low 4.6-6.2 [facility] Serum creatinine measurement (mass/volume)Ordered By: Kenisha Mcgee on 08-30-2025 Creatinine [Mass/Vol] 0.64 mg/dL Low 0.70-1.20 [facility] Serum glucose measurement (m ass/volume)Ordered By: Kenisha Mcgee on 08-30-2025 Glucose [Mass/Vol] 228 mg/dL High 70-99 [facility] Serum or plasma calcium agus urement (mass/volume)Ordered By: Kenisha Mcgee on 08-30-2025 Calcium [Mass/Vol] 8.7 mg/dL 7.6-11.0 [facility] Serum or plasma urea nitroge n measurement (mass/volume)Ordered By: Kenisha Mcgee on 08-30-2025 Urea nitrogen [Mass/Vol] 9 mg/dL 4-19 [facility] Sodium levelOrdered By: Lola Mcgee on 08-30-2025 Sodium [Moles/Vol] 136 mmol/L 133-145 [facility] Urine Cultureon 08-30-2025 [facility] Comments: urine for culture collected in [place] Burkholderia glachen [place] Count 11,000-25,000 Burkholderia gladioli: REACTION levoFLOXacin Islt SATHISH 1 Meropenem Islt SATHISH 1 S Pip+Tazo Islt SATHISH <=4 S TMP SMX Islt SATHISH <=20 S Normal [facility] Comment on above: Performed By: #### L 501.080 #### [facility] [address] [place], [place], [address] [facility] Culture exhibits no growth. Normal [facility] Comment on above: Performed By: #### L 500.2500, L100.0100 #### [facility] [address] [place], [address] White blood cell (WBC) count Ordered By: Kenisha Mcgee on 08-30-2025 WBC (Bld) [#/Vol] 6.6 10*3/uL 4.4-11.0 [facility] Basic Metabolic Profile (BMP )on 08-29-2025 BUN/CRE 11.9 RATIO Normal 10-20 [facility] Comment on above: Performed By: #### L 500.2500, L100.0100 #### [facility] [address] [place], [address] Calcium [Mass/Vol] 8.4 mg/dL Normal 7.6-11.0 [facility] Comment on above: Performed By: #### L 500.2500, L100.0100 #### [facility] [address] [place], [address] Chloride [Moles/Vol] 100 mmol/L Normal 98-108 [facility] Comment on above: Performed By: #### L 500.2500, L100.0100 #### [facility] [address] [place], [address] CO2 [Moles/Vol] 23.1 mmol/L Normal 21.0-32.0 [facility] Comment on above: Performed By: #### L 500.2500, L100.0100 #### [facility] [address] [place], [address] Creatinine [Mass/Vol] 0.62 mg/dL Low 0.70-1.20 [facility] Comment on above: Performed By: #### L 500.2500, L100.0100 #### [facility] [address] [place], [address] ECRCL 135.47 ml/min Normal 50-250 [facility] Comment on above: Performed By: #### L 500.2500, L100.0100 #### [facility] [address] [place], [address] GAP 9 Normal 5-15 [facility] Comment on above: Performed By: #### L 500.2500, L100.0100 #### [facility] [address] [place], [address] GFR/1.73 sq M.predicted among non-blacks MDRD (S/P/Bld) [Vol rate/Area] 114 mL/min/{1.73_m2} Normal >60 [facility] Comment on above: Result Comment: mL/m in/1.73m2 CKD-EPI Creatinine Equation (2020) Performed By: #### L 500.2500, L100.0100 #### [facility] [address] [place], [address] Glucose [Mass/Vol] 195 mg/dL High 70-99 [facility] Comment on above: Performed By: #### L 500.2500, L100.0100 #### [facility] [address] [place], [address] Potassium [Moles/Vol] 4.1 mmol/L Normal 3.3-5.1 [facility] Comment on above: Performed By: #### L 500.2500, L100.0100 #### [facility] [address] [place], [address] Sodium [Moles/Vol] 133 mmol/L Normal 133-145 [facility] Comment on above: Performed By: #### L 500.2500, L100.0100 #### [facility] [address] [place], [address] Urea nitrogen [Mass/Vol] 7 mg/dL Normal 4-19 [facility] Comment on above: Performed By: #### L 500.2500, L100.0100 #### [facility] [address] [place], [address] Bedside Glucoseon 10-24-2025 FINGERSTICK GLU 349 mg/dL High [address] [place] [address] Comment on above: Result Comment: KATIE GEMENT OF PATIENT CARE PER NURSING PROTOCOL Performed By: #### L 500.2500, L100.0100 #### [facility] [address] [place], [address] FINGERSTICK GLU 210 mg/dL [address] Comment on above: Result Comment: KATIE GEMENT OF PATIENT CARE PER NURSING PROTOCOL Performed By: #### L 500.2500, L100.0100 #### [facility] [address] [place], [address] FINGERSTICK GLU 229 mg/dL High [address] [place] [address] Comment on above: Result Comment: KATIE GEMENT OF PATIENT CARE PER NURSING PROTOCOL Performed By: #### L 501.080 #### [facility] [address] [place], [address] FINGERSTICK GLU 193 mg/dL [address] Comment on above: Result Comment: KATIE GEMENT OF PATIENT CARE PER NURSING PROTOCOL Performed By: #### L 501.080 #### [facility] [address] [place], [address] FINGERSTICK GLU 192 mg/dL [address] Comment on above: Result Comment: KATIE GEMENT OF PATIENT CARE PER NURSING PROTOCOL Performed By: #### L 500.2500, L100.0100 #### [facility] [address] [place], [address] Bilirubin Test strip Ql (U)O rdered By: Kenisha Mcgee on 08-29-2025 Bilirubin Ql (U) Negative Negative [facility] CBC W/Diff, Automatedon 08-07 Absolute Lymph 0.86 X10 3/uL Normal 0.83-4.51 [facility] Comment on above: Performed By: #### L 500.2500, L100.0100 #### [facility] [address] [place], [address] Absolute Neut 4.7 X10 3/uL Normal 2.0-7.7 [facility] Comment on above: Performed By: #### L 500.2500, L100.0100 #### [facility] [address] [place], [address] Basophils/100 WBC (Bld) 0.3 % Normal 0-1 [facility] Comment on above: Performed By: #### L 500.2500, L100.0100 #### [facility] [address] [place], [address] Eosinophils/100 WBC (Bld) 0.5 % Normal 0-5 [facility] Comment on above: Performed By: #### L 500.2500, L100.0100 #### [facility] [address] [place], [address] Erythrocyte distribution width (RBC) [Ratio] 12.2 % Normal 11.6-14.6 [facility] Comment on above: Performed By: #### L 500.2500, L100.0100 #### [facility] [address] [place], [address] Hematocrit (Bld) [Volume fraction] 34.5 % Low 40-54 [facility] Comment on above: Performed By: #### L 500.2500, L100.0100 #### [facility] [address] [place], [address] Hemoglobin (Bld) [Mass/Vol] 12.1 g/dL Low 13.0-16.5 [facility] Comment on above: Performed By: #### L 500.2500, L100.0100 #### [facility] [address] [place], [address] IG% 0.500 Normal 0.0-0.9 [facility] Comment on above: Result Comment: IG% - Immature Granulocytes (promyelocytes, myelocytes and metamyelocytes) > 1% indicates that a LEFT SHIFT is Present. Performed By: #### L 500.2500, L100.0100 #### [facility] [address] [place], [address] Lymphocytes/100 WBC (Bld) 13.6 % Low 19-41 [facility] Comment on above: Performed By: #### L 500.2500, L100.0100 #### [facility] [address] [place], [address] MCH (RBC) [Entitic mass] 28.0 pg Normal 27.0-32.0 [facility] Comment on above: Performed By: #### L 500.2500, L100.0100 #### [facility] [address] [place], [address] MCHC (RBC) [Mass/Vol] 35.1 g/dL Normal 32-36 [facility] Comment on above: Performed By: #### L 500.2500, L100.0100 #### [facility] [address] [place], [address] MCV (RBC) [Entitic vol] 79.9 fL Low 80-94 [facility] Comment on above: Performed By: #### L 500.2500, L100.0100 #### [facility] [address] [place], [address] Monocytes/100 WBC (Bld) 10.0 % Normal 0-10 [facility] Comment on above: Performed By: #### L 500.2500, L100.0100 #### [facility] [address] [place], [address] Neutrophils/100 WBC (Bld) 75.1 % High 47-70 [facility] Comment on above: Performed By: #### L 500.2500, L100.0100 #### [facility] [address] [place], [address] Nucleated RBC (Bld) [#/Vol] 0 10*3/uL Normal 0-5 [facility] Comment on above: Performed By: #### L 500.2500, L100.0100 #### [facility] [address] [place], [address] Platelet mean volume (Bld) [Entitic vol] 10.0 fL Normal 6.2-12.0 [facility] Comment on above: Performed By: #### L 500.2500, L100.0100 #### [facility] [address] [place], [address] Platelets (Bld) [#/Vol] 165 10*3/uL Normal 150-450 [facility] Comment on above: Performed By: #### L 500.2500, L100.0100 #### [facility] [address] [place], [address] RBC (Bld) [#/Vol] 4.32 10*6/uL Low 4.6-6.2 [facility] Comment on above: Performed By: #### L 500.2500, L100.0100 #### [facility] [address] [place], [address] RDW SD 35.5 fl Normal 35.1-43.9 [facility] Comment on above: Performed By: #### L 500.2500, L100.0100 #### [facility] [address] [place], [address] WBC (Bld) [#/Vol] 6.3 10*3/uL Normal 4.4-11.0 [facility] Comment on above: Performed By: #### L 500.2500, L100.0100 #### [facility] [address] [place], [address] Discharge Instructionon 08-07 Discharge Instruction [facility] Medical Records Department [address] [place] [address] Instructions for Home/Discharge Instructions 08/29/25 1227 MR#: [id number] Acct: [id number] Name: ANDRIA HERNANDEZ Rep #: [id number] : 1970 55 From: Zachariah Mota MD [...] Up With: Zachariah Mota MD When: Call [phone] for an appointment, 2 weeks to remove [...] MD; Dr. Kenisha Mcgee MD Signed Normal [facility] Ketones Test strip Ql (U)Ord ered By: Kenisha Mcgee on 08-29-2025 Ketones Ql (U) 5 mg/dl High Negative [facility] Microscopic analysis of urin e for red blood cells (RBC)Ordered By: Kenisha Mcgee on 08-29-2025 Microscopic analysis of urine for red blood cells (RBC) > 100 SEEN /hpf 0-5 [facility] Mucus LM Ql (Urine sed)Order ed By: Kenisha Mcgee on 08-29-2025 Mucus Ql (Urine sed) 0 SEEN /hpf [facility] Nitrite Test strip Ql (U)Ord ered By: Kenisha Mcgee on 08-29-2025 Nitrite Ql (U) Positive High Negative [facility] Protein Test strip Ql (U)Ord ered By: Kenisha Mcgee on 08-29-2025 Protein Ql (U) 100 mg/dl High Negative [facility] Squamous epithelial cells de tection in urine sediment by light microscopyOrdered By: Kenisha Mcgee on 08-29-2025 Epithelial cells.squamous LM Ql (Urine sed) 0 SEEN /hpf 0- [facility] Urinalysis, Completeon 08-29 BACTERIA 1+ /hpf Normal None Seen [facility] Comment on above: Order Comment: COLOR OF URINE MAY AFFECT DIPSTICK RESULTS.CLEAN CATCH Performed By: #### L 500.2500, L100.0100 #### [facility] [address] [place], [address] RBC > 100 SEEN Normal 0-5 [facility] Comment on above: Order Comment: COLOR OF URINE MAY AFFECT DIPSTICK RESULTS.CLEAN CATCH Performed By: #### L 500.2500, L100.0100 #### [facility] [address] [place], [address] WBC 5-10 SEEN Normal 0-5 [facility] Comment on above: Order Comment: COLOR OF URINE MAY AFFECT DIPSTICK RESULTS.CLEAN CATCH Performed By: #### L 500.2500, L100.0100 #### [facility] [address] [place], [address] EPI,SQUAMOUS 0 SEEN Normal 0-5 [facility] Comment on above: Order Comment: COLOR OF URINE MAY AFFECT DIPSTICK RESULTS.CLEAN CATCH Performed By: #### L 500.2500, L100.0100 #### [facility] [address] [place], [address] Mucus Ql (Urine sed) 0 SEEN Normal [facility] Comment on above: Order Comment: COLOR OF URINE MAY AFFECT DIPSTICK RESULTS.CLEAN CATCH Performed By: #### L 500.2500, L100.0100 #### [facility] [address] [place], [address] Urine clarityOrdered By: Rena Mcgee on 08-29-2025 Clarity (U) Turbid Clear [facility] Urine color determinationOrd ered By: Kenisha Mcgee on 08-29-2025 Color (U) Red Yellow [facility] Urine cultureOrdered By: Rena Mcgee on 08-29-2025 Bacteria identified Cx Nom (U) Culture exhibits no growth. [facility] Urine glucose detectionOrder ed By: Kenisha Mcgee on 08-29-2025 Glucose Ql (U) 1000 mg/dl High Normal [facility] Urine leukocyte esterase det ection by dipstickOrdered By: Kenisha Mcgee on 08-29-2025 Leukocyte esterase Test strip Ql (U) 100 /ul High Negative [facility] Urine pHOrdered By: Kenisha hannah on 08-29-2025 pH (U) 8.0 [pH] 5.0 - 8.0 [facility] Urine sediment bacteria coun t by microscopy (number/high power field)Ordered By: Kenisha Mcgee on 08-29-2025 Bacteria LM.HPF (Urine sed) [#/Area] 1 /[HPF] None Seen [facility] Urine specific gravity measu rementOrdered By: Kenisha Mcgee on 08-29-2025 Specific gravity (U) [Rel density] 1.015 1.002-1.030 [facility] Urine urobilinogen measureme ntOrdered By: Kenisha Mcgee on 08-29-2025 Urobilinogen Ql (U) 1 mg/dl High Normal [facility] White blood cell countOrdere d By: Kenisha Mcgee on 08-29-2025 White blood cell count 5-10 SEEN /hpf 0-5 [facility] Basic Metabolic Profile (BMP )on 08-28-2025 BUN/CRE 13.7 RATIO Normal 10-20 [facility] Comment on above: Performed By: #### L 500.2500, L100.0100 #### [facility] [address] [place], [address] Calcium [Mass/Vol] 8.1 mg/dL Normal 7.6-11.0 [facility] Comment on above: Performed By: #### L 500.2500, L100.0100 #### [facility] [address] [place], [address] Chloride [Moles/Vol] 105 mmol/L Normal 98-108 [facility] Comment on above: Performed By: #### L 500.2500, L100.0100 #### [facility] [address] [place], [address] CO2 [Moles/Vol] 24.1 mmol/L Normal 21.0-32.0 [facility] Comment on above: Performed By: #### L 500.2500, L100.0100 #### [facility] [address] [place], [address] Creatinine [Mass/Vol] 0.88 mg/dL Normal 0.70-1.20 [facility] Comment on above: Performed By: #### L 500.2500, L100.0100 #### [facility] [address] [place], [address] ECRCL 95.45 ml/min Normal 50-250 [facility] Comment on above: Performed By: #### L 500.2500, L100.0100 #### [facility] [address] [place], [address] GAP 8 Normal 5-15 [facility] Comment on above: Performed By: #### L 500.2500, L100.0100 #### [facility] [address] [place], [address] GFR/1.73 sq M.predicted among non-blacks MDRD (S/P/Bld) [Vol rate/Area] 102 mL/min/{1.73_m2} Normal >60 [facility] Comment on above: Result Comment: mL/m in/1.73m2 CKD-EPI Creatinine Equation (2020) Performed By: #### L 500.2500, L100.0100 #### [facility] [address] [place], [address] Glucose [Mass/Vol] 173 mg/dL High 70-99 [facility] Comment on above: Performed By: #### L 500.2500, L100.0100 #### [facility] [address] [place], [address] Potassium [Moles/Vol] 3.8 mmol/L Normal 3.3-5.1 [facility] Comment on above: Performed By: #### L 500.2500, L100.0100 #### [facility] [address] [place], [address] Sodium [Moles/Vol] 137 mmol/L Normal 133-145 [facility] Comment on above: Performed By: #### L 500.2500, L100.0100 #### [facility] [address] [place], [address] Urea nitrogen [Mass/Vol] 12 mg/dL Normal 4-19 [facility] Comment on above: Performed By: #### L 500.2500, L100.0100 #### [facility] [address] [place], [address] Bedside Glucoseon 08-28-2025 FINGERSTICK GLU 207 mg/dL High 74-106 [facility] Comment on above: Result Comment: KATIE GEMENT OF PATIENT CARE PER NURSING PROTOCOL Performed By: #### L 500.2499, L100.0100 #### [facility] [address] [place], [address] FINGERSTICK GLU 279 mg/dL High -106 [facility] Comment on above: Result Comment: KATIE GEMENT OF PATIENT CARE PER NURSING PROTOCOL Performed By: #### L 501.080 #### [facility] [address] [place], [address] FINGERSTICK GLU 162 mg/dL High [facility]106 [facility] Comment on above: Result Comment: KATIE GEMENT OF PATIENT CARE PER NURSING PROTOCOL Performed By: #### L 500.2499, L100.0100 #### [facility] [address] [place], [address] FINGERSTICK GLU 203 mg/dL High [facility]106 [facility] Comment on above: Result Comment: KATIE GEMENT OF PATIENT CARE PER NURSING PROTOCOL Performed By: #### L 501.080 #### [facility] [address] [place], [address] FINGERSTICK GLU 186 mg/dL High -106 [facility] Comment on above: Result Comment: KATIE GEMENT OF PATIENT CARE PER NURSING PROTOCOL Performed By: #### L 500.2499, L100.0100 #### [facility] [address] [place], [address] CBC W/Diff, Automatedon 10-2 Absolute Lymph 0.61 X10 3/uL Low 0.83-4.51 [facility] Comment on above: Performed By: #### L 500.2500, L100.0100 #### [facility] [address] [place], [address] Absolute Neut 7.7 X10 3/uL Normal 2.0-7.7 [facility] Comment on above: Performed By: #### L 500.2500, L100.0100 #### [facility] [address] [place], [address] Basophils/100 WBC (Bld) 0.2 % Normal 0-1 [facility] Comment on above: Performed By: #### L 500.2500, L100.0100 #### [facility] [address] [place], [address] Eosinophils/100 WBC (Bld) 0.2 % Normal 0-5 [facility] Comment on above: Performed By: #### L 500.2500, L100.0100 #### [facility] [address] [place], [address] Erythrocyte distribution width (RBC) [Ratio] 12.5 % Normal 11.6-14.6 [facility] Comment on above: Performed By: #### L 500.2500, L100.0100 #### [facility] [address] [place], [address] Hematocrit (Bld) [Volume fraction] 34.6 % Low 40-54 [facility] Comment on above: Performed By: #### L 500.2500, L100.0100 #### [facility] [address] [place], [address] Hemoglobin (Bld) [Mass/Vol] 11.7 g/dL Low 13.0-16.5 [facility] Comment on above: Performed By: #### L 500.2500, L100.0100 #### [facility] [address] [place], [address] IG% 0.400 Normal 0.0-0.9 [facility] Comment on above: Result Comment: IG% - Immature Granulocytes (promyelocytes, myelocytes and metamyelocytes) > 1% indicates that a LEFT SHIFT is Present. Performed By: #### L 500.2500, L100.0100 #### [facility] [address] [place], [address] Lymphocytes/100 WBC (Bld) 6.8 % Low 19-41 [facility] Comment on above: Performed By: #### L 500.2500, L100.0100 #### [facility] [address] [place], [address] MCH (RBC) [Entitic mass] 27.8 pg Normal 27.0-32.0 [facility] Comment on above: Performed By: #### L 500.2500, L100.0100 #### [facility] [address] [place], [address] MCHC (RBC) [Mass/Vol] 33.8 g/dL Normal 32-36 [facility] Comment on above: Performed By: #### L 500.2500, L100.0100 #### [facility] [address] [place], [address] MCV (RBC) [Entitic vol] 82.2 fL Normal 80-94 [facility] Comment on above: Performed By: #### L 500.2500, L100.0100 #### [facility] [address] [place], [address] Monocytes/100 WBC (Bld) 6.4 % Normal 0-10 [facility] Comment on above: Performed By: #### L 500.2500, L100.0100 #### [facility] [address] [place], [address] Neutrophils/100 WBC (Bld) 86.0 % High 47-70 [facility] Comment on above: Performed By: #### L 500.2500, L100.0100 #### [facility] [address] [place], [address] Nucleated RBC (Bld) [#/Vol] 0 10*3/uL Normal 0-5 [facility] Comment on above: Performed By: #### L 500.2500, L100.0100 #### [facility] [address] [place], [address] Platelet mean volume (Bld) [Entitic vol] 9.2 fL Normal 6.2-12.0 [facility] Comment on above: Performed By: #### L 500.2500, L100.0100 #### [facility] [address] [place], [address] Platelets (Bld) [#/Vol] 158 10*3/uL Normal 150-450 [facility] Comment on above: Performed By: #### L 500.2500, L100.0100 #### [facility] [address] [place], [address] RBC (Bld) [#/Vol] 4.21 10*6/uL Low 4.6-6.2 [facility] Comment on above: Performed By: #### L 500.2500, L100.0100 #### [facility] [address] [place], [address] RDW SD 37.6 fl Normal 35.1-43.9 [facility] Comment on above: Performed By: #### L 500.2500, L100.0100 #### [facility] [address] [place], [address] WBC (Bld) [#/Vol] 8.9 10*3/uL Normal 4.4-11.0 [facility] Comment on above: Performed By: #### L 500.2500, L100.0100 #### [facility] [address] [place], [address] Urine Cultureon 08-28-2025 URC Culture exhibits no growth. Normal [facility] Comment on above: Performed By: #### M 100.2200 #### [facility] [address] [place], [address] 12 Lead EKGon 08-27-2025 12 Lead EKG [facility] Cardi[facility] Services [address] [place] [address] 12 Lead EKG 08/27/25 1734 MR#: [id number] Acct: [id number] Name: ANDRIA HERNANDEZ Rep #: [id number] : 1970 55 From: Tor Sykes MD Attending Dr: Dr. Zachariah Mota MD Status: ADM IN Ordering Dr: Kenisha Mcgee MD Date: 08/27/25 Location: [place] Sex: M C Admitted: 08/25/25 Test Reason [...] IS UNCONFIRMED Confirmed by Tor Sykes ([id number]), school photograph editor CEHVY MOLINA ([id number]) on 08/29/2025 7:09:41 AM Referred By: Zachariah Mota Confirmed By: Tor Sykes 08/29/25 0709 Date Tor Sykes MD CC: Dr. Ronald Tong MD; Dr. Zachariah Mota MD; Dr. Kenisha Mcgee MD Signed Normal [facility] 12 Lead EKG [facility] [address] [facility] [place] [address] 12 Lead EKG 08/27/25 1401 MR#: [id number] Acct: [id number] Name: ANDRIA HERNANDEZ Rep #: [id number] : 1970 55 From: Tor Sykes MD Attending Dr: Dr. Zachariah Mota MD Status: ADM IN Ordering Dr: Craig Rudolph MD Date: 08/27/25 Location: [place] Sex: M C Admitted: 08/25/25 Test Reason [...] was found Confirmed by Tor Sykes ([id number]), school photograph editor CHEVY MOLINA ([id number]) on 08/29/2025 7:09:51 AM Referred By: Zachariah Mota Confirmed By: Tor Sykes 08/29/25708 Date Tor Sykes MD CC: Dr. Craig Rudolph MD; Dr. Ronald Tong MD; Dr. Zachariah oMta MD Signed Normal [facility] Basic Metabolic Profile (BMP )on 08-27-2025 BUN/CRE 9.5 RATIO Low 08-25 [facility] Comment on above: Performed By: #### L 500.2500, L100.0100 #### [facility] [address] [place], [address] Calcium [Mass/Vol] 8.6 mg/dL Normal 7.6-11.0 [facility] Comment on above: Performed By: #### L 500.2500, L100.0100 #### [facility] [address] [place], [address] Chloride [Moles/Vol] 97 mmol/L Low 98-108 [facility] Comment on above: Performed By: #### L 500.2500, L100.0100 #### [facility] [address] [place], [address] CO2 [Moles/Vol] 21.6 mmol/L Normal 21.0-32.0 [facility] Comment on above: Performed By: #### L 500.2500, L100.0100 #### [facility] [address] [place], [address] Creatinine [Mass/Vol] 1.41 mg/dL High 0.70-1.20 [facility] Comment on above: Performed By: #### L 500.2500, L100.0100 #### [facility] [address] [place], [address] ECRCL 54.05 ml/min Normal 50-250 [facility] Comment on above: Performed By: #### L 500.2500, L100.0100 #### [facility] [address] [place], [address] GAP 15 Normal 5-15 [facility] Comment on above: Performed By: #### L 500.2500, L100.0100 #### [facility] [address] [place], [address] GFR/1.73 sq M.predicted among non-blacks MDRD (S/P/Bld) [Vol rate/Area] 59 mL/min/{1.73_m2} Low >60 [facility] Comment on above: Result Comment: mL/m in/1.73m2 CKD-EPI Creatinine Equation (2020) Performed By: #### L 500.2500, L100.0100 #### [facility] [address] [place], [address] Glucose [Mass/Vol] 269 mg/dL High 70-99 [facility] Comment on above: Performed By: #### L 500.2500, L100.0100 #### [facility] [address] [place], [address] Potassium [Moles/Vol] 4.1 mmol/L Normal 3.3-5.1 [facility] Comment on above: Performed By: #### L 500.2500, L100.0100 #### [facility] [address] [place], [address] Sodium [Moles/Vol] 133 mmol/L Normal 133-145 [facility] Comment on above: Performed By: #### L 500.2500, L100.0100 #### [facility] [address] [place], [address] Urea nitrogen [Mass/Vol] 13 mg/dL Normal 4-19 [facility] Comment on above: Performed By: #### L 500.2500, L100.0100 #### [facility] [address] [place], [address] Bedside Glucoseon 08-27-2025 FINGERSTICK GLU 267 mg/dL High 74-106 [facility] Comment on above: Result Comment: KATIE GEMENT OF PATIENT CARE PER NURSING PROTOCOL Performed By: #### L 500.2500, L100.0100 #### [facility] [address] [place], [address] FINGERSTICK GLU 259 mg/dL High 74-106 [facility] Comment on above: Result Comment: KATIE GEMENT OF PATIENT CARE PER NURSING PROTOCOL Performed By: #### L 500.2500, L100.0100 #### [facility] [address] [place], [address] FINGERSTICK GLU 268 mg/dL High 74-106 [facility] Comment on above: Result Comment: KATIE GEMENT OF PATIENT CARE PER NURSING PROTOCOL Performed By: #### L 500.2500, L100.0100 #### [facility] [address] [place], [address] FINGERSTICK GLU 218 mg/dL High 74-106 [facility] Comment on above: Result Comment: KATIE GEMENT OF PATIENT CARE PER NURSING PROTOCOL Performed By: #### L 501.080 #### [facility] [address] [place], [address] FINGERSTICK GLU 275 mg/dL High 74-106 [facility] Comment on above: Result Comment: KATIE BENJAMIN OF PATIENT CARE PER NURSING PROTOCOL Performed By: #### L 500.2500, L100.0100 #### [facility] [address] [place], [address] Bilirubin, totalOrdered By: Kenisha Mcgee on 08-27-2025 Bilirubin [Mass/Vol] 0.85 mg/dL 0.00-1.30 [facility] Blood cultureOrdered By: Rena Mcgee on 08-27-2025 Bacteria identified Cx Nom (Bld) Negative Abnormal [facility] Bacteria identified Cx Nom (Bld) Burkholderia gladioli Abnormal [facility] CBC W/Diff, Automatedon 08-07 Absolute Lymph 0.43 X10 3/uL Low 0.83-4.51 [facility] Comment on above: Performed By: #### L 501.080 #### [facility] [address] [place], [address] Absolute Neut 13.4 X10 3/uL High 2.0-7.7 [facility] Comment on above: Performed By: #### L 501.080 #### [facility] [address] [place], [address] Basophils/100 WBC (Bld) 0.1 % Normal 0-1 [facility] Comment on above: Performed By: #### L 501.080 #### [facility] [address] [place], [address] Eosinophils/100 WBC (Bld) 0.1 % Normal 0-5 [facility] Comment on above: Performed By: #### L 501.080 #### [facility] [address] [place], [address] Erythrocyte distribution width (RBC) [Ratio] 12.5 % Normal 11.6-14.6 [facility] Comment on above: Performed By: #### L 501.080 #### [facility] [address] [place], [address] Hematocrit (Bld) [Volume fraction] 38.0 % Low 40-54 [facility] Comment on above: Performed By: #### L 501.080 #### [facility] [address] [place], [address] Hemoglobin (Bld) [Mass/Vol] 13.3 g/dL Normal 13.0-16.5 [facility] Comment on above: Performed By: #### L 501.080 #### [facility] [address] [place], [address] IG% 0.400 Normal 0.0-0.9 [facility] Comment on above: Result Comment: IG% - Immature Granulocytes (promyelocytes, myelocytes and metamyelocytes) > 1% indicates that a LEFT SHIFT is Present. Performed By: #### L 501.080 #### [facility] [address] [place], [address] Lymphocytes/100 WBC (Bld) 3.0 % Low 19-41 [facility] Comment on above: Performed By: #### L 501.080 #### [facility] [address] [place], [address] MCH (RBC) [Entitic mass] 28.4 pg Normal 27.0-32.0 [facility] Comment on above: Performed By: #### L 501.080 #### [facility] [address] [place], [address] MCHC (RBC) [Mass/Vol] 35.0 g/dL Normal 32-36 [facility] Comment on above: Performed By: #### L 501.080 #### [facility] [address] [place], [address] MCV (RBC) [Entitic vol] 81.0 fL Normal 80-94 [facility] Comment on above: Performed By: #### L 501.080 #### [facility] [address] [place], [address] Monocytes/100 WBC (Bld) 4.4 % Normal 0-10 [facility] Comment on above: Performed By: #### L 501.080 #### [facility] [address] [place], [address] Neutrophils/100 WBC (Bld) 92.0 % High 47-70 [facility] Comment on above: Performed By: #### L 501.080 #### [facility] [address] [place], [address] Nucleated RBC (Bld) [#/Vol] 0 10*3/uL Normal 0-5 [facility] Comment on above: Performed By: #### L 501.080 #### [facility] [address] [place], [address] Platelet mean volume (Bld) [Entitic vol] 9.6 fL Normal 6.2-12.0 [facility] Comment on above: Performed By: #### L 501.080 #### [facility] [address] [place], [address] Platelets (Bld) [#/Vol] 208 10*3/uL Normal 150-450 [facility] Comment on above: Performed By: #### L 501.080 #### [facility] [address] [place], [address] RBC (Bld) [#/Vol] 4.69 10*6/uL Normal 4.6-6.2 [facility] Comment on above: Performed By: #### L 501.080 #### [facility] [address] [place], [address] RDW SD 36.2 fl Normal 35.1-43.9 [facility] Comment on above: Performed By: #### L 501.080 #### [facility] [address] [place], [address] WBC (Bld) [#/Vol] 14.5 10*3/uL High 4.4-11.0 [facility] Comment on above: Performed By: #### L 501.080 #### [facility] [address] [place], [address] Absolute Lymph 0.41 X10 3/uL Low 0.83-4.51 [facility] Comment on above: Performed By: #### L 500.2500, L100.0100 #### [facility] [address] [place], [address] Absolute Neut 14.3 X10 3/uL High 2.0-7.7 [facility] Comment on above: Performed By: #### L 500.2500, L100.0100 #### [facility] [address] [place], [address] Basophils/100 WBC (Bld) 0.3 % Normal 0-1 [facility] Comment on above: Performed By: #### L 500.2500, L100.0100 #### [facility] [address] [place], [address] Eosinophils/100 WBC (Bld) 0.0 % Normal 0-5 [facility] Comment on above: Performed By: #### L 500.2500, L100.0100 #### [facility] [address] [place], [address] Erythrocyte distribution width (RBC) [Ratio] 12.3 % Normal 11.6-14.6 [facility] Comment on above: Performed By: #### L 500.2500, L100.0100 #### [facility] [address] [place], [address] Hematocrit (Bld) [Volume fraction] 38.7 % Low 40-54 [facility] Comment on above: Performed By: #### L 500.2500, L100.0100 #### [facility] [address] [place], [address] Hemoglobin (Bld) [Mass/Vol] 13.7 g/dL Normal 13.0-16.5 [facility] Comment on above: Performed By: #### L 500.2500, L100.0100 #### [facility] [address] [place], [address] IG% 0.300 Normal 0.0-0.9 [facility] Comment on above: Result Comment: IG% - Immature Granulocytes (promyelocytes, myelocytes and metamyelocytes) > 1% indicates that a LEFT SHIFT is Present. Performed By: #### L 500.2500, L100.0100 #### [facility] [address] [facility] [place], [address] Lymphocytes/100 WBC (Bld) 2.7 % Low 19-41 [facility] Comment on above: Performed By: #### L 500.2500, L100.0100 #### [facility] [address] [place], [address] MCH (RBC) [Entitic mass] 29.0 pg Normal 27.0-32.0 [facility] Comment on above: Performed By: #### L 500.2500, L100.0100 #### [facility] [address] [place], [address] MCHC (RBC) [Mass/Vol] 35.4 g/dL Normal 32-36 [facility] Comment on above: Performed By: #### L 500.2500, L100.0100 #### [facility] [address] [place], [address] MCV (RBC) [Entitic vol] 81.8 fL Normal 80-94 [facility] Comment on above: Performed By: #### L 500.2500, L100.0100 #### [facility] [address] [place], [address] Monocytes/100 WBC (Bld) 3.6 % Normal 0-10 [facility] Comment on above: Performed By: #### L 500.2500, L100.0100 #### [facility] [address] [place], [address] Neutrophils/100 WBC (Bld) 93.1 % High 47-70 [facility] Comment on above: Performed By: #### L 500.2500, L100.0100 #### [facility] [address] [place], [address] Nucleated RBC (Bld) [#/Vol] 0 10*3/uL Normal 0-5 [facility] Comment on above: Performed By: #### L 500.2500, L100.0100 #### [facility] [address] [place], [address] Platelet mean volume (Bld) [Entitic vol] 9.3 fL Normal 6.2-12.0 [facility] Comment on above: Performed By: #### L 500.2500, L100.0100 #### [facility] [address] [place], [address] Platelets (Bld) [#/Vol] 202 10*3/uL Normal 150-450 [facility] Comment on above: Performed By: #### L 500.2500, L100.0100 #### [facility] [address] [place], [address] RBC (Bld) [#/Vol] 4.73 10*6/uL Normal 4.6-6.2 [facility] Comment on above: Performed By: #### L 500.2500, L100.0100 #### [facility] [address] [place], [address] RDW SD 36.9 fl Normal 35.1-43.9 [facility] Comment on above: Performed By: #### L 500.2500, L100.0100 #### [facility] [address] [place], [address] WBC (Bld) [#/Vol] 15.3 10*3/uL High 4.4-11.0 [facility] Comment on above: Performed By: #### L 500.2500, L100.0100 #### [facility] [address] [place], [address] Chest 1 View (Portable)on Chest 1 View (Portable) [facility] Imaging Services [address] [place] [address] Chest 1 View (Portable) MR#: [id number] Acct: [id number] Name: ANDRIA HERNANDEZ Rep #: [id number] : 1970 M 55 From: Anthoyn Andujar MD PCP: Dr. Ronald Tong MD Status: ADM IN Study: Chest 1 View (Portable) Date of Exam: 08/27/25 Exam# [id number] Ordering Dr: Kenisha Mcgee MD PROCEDURE: CHEST [...] airspace consolidation or pleural effusion. Reading Location: [id number] CC: Dr. Ronald Tong MD; Dr. Kenisha Mcgee MD Morphology Teacher: Signed Normal [facility] Comprehensive Metabolic Prof ilon 08-27-2025 Albumin [Mass/Vol] 3.7 g/dL Normal 3.5-5.0 [facility] Comment on above: Performed By: #### L 501.080 #### [facility] [address] [place], [address] Albumin/Globulin [Mass ratio] 1.3 {ratio} Normal 0.9-2.4 [facility] Comment on above: Performed By: #### L 501.080 #### [facility] [address] [place], [address] ALK PHOS 53 U/L Normal 40-129 [facility] Comment on above: Performed By: #### L 501.080 #### [facility] [address] [place], [address] ALT [Catalytic activity/Vol] 8 U/L Normal <=46 [facility] Comment on above: Performed By: #### L 501.080 #### [facility] [address] [place], [address] AST [Catalytic activity/Vol] 17 U/L Normal <=37 [facility] Comment on above: Performed By: #### L 501.080 #### [facility] [address] [place], [address] Bilirubin [Mass/Vol] 0.85 mg/dL Normal 0.00-1.30 [facility] Comment on above: Performed By: #### L 501.080 #### [facility] [address] [place], [address] BUN/CRE 9.9 RATIO Low 10-20 [facility] Comment on above: Performed By: #### L 501.080 #### [facility] [address] [place], [address] Calcium [Mass/Vol] 8.9 mg/dL Normal 7.6-11.0 [facility] Comment on above: Performed By: #### L 501.080 #### [facility] [address] [place], [address] Chloride [Moles/Vol] 98 mmol/L Normal 98-108 [facility] Comment on above: Performed By: #### L 501.080 #### [facility] [address] [place], [address] CO2 [Moles/Vol] 18.6 mmol/L Low 21.0-32.0 [facility] Comment on above: Performed By: #### L 501.080 #### [facility] [address] [place], [address] Creatinine [Mass/Vol] 1.34 mg/dL High 0.70-1.20 [facility] Comment on above: Performed By: #### L 501.080 #### [facility] [address] [place], [address] ECRCL 56.87 ml/min Normal 50-250 [facility] Comment on above: Performed By: #### L 501.080 #### [facility] [address] [place], [address] GAP 17 High 5-15 [facility] Comment on above: Performed By: #### L 501.080 #### [facility] [address] [place], [address] GFR/1.73 sq M.predicted among non-blacks MDRD (S/P/Bld) [Vol rate/Area] 63 mL/min/{1.73_m2} Normal >60 [facility] Comment on above: Result Comment: mL/m in/1.73m2 CKD-EPI Creatinine Equation (2020) Performed By: #### L 501.080 #### [facility] [address] [place], [address] Globulin (S) [Mass/Vol] 2.8 g/dL Normal 2.2-4.2 [facility] Comment on above: Performed By: #### L 501.080 #### [facility] [address] [place], [address] Glucose [Mass/Vol] 265 mg/dL High 70-99 [facility] Comment on above: Performed By: #### L 501.080 #### [facility] [address] [place], [address] Potassium [Moles/Vol] 3.7 mmol/L Normal 3.3-5.1 [facility] Comment on above: Performed By: #### L 501.080 #### [facility] [address] [place], [address] Sodium [Moles/Vol] 134 mmol/L Normal 133-145 [facility] Comment on above: Performed By: #### L 501.080 #### [facility] [address] [place], [address] T PROT 6.5 g/dL Normal 5.9-8.4 [facility] Comment on above: Performed By: #### L 501.080 #### [facility] [address] [place], [address] Urea nitrogen [Mass/Vol] 13 mg/dL Normal 4-19 [facility] Comment on above: Performed By: #### L 501.080 #### [facility] [address] [place], [address] Consultation - [facility]iston 08-27-2025 Consultation - Hospitalist [facility] Medical Records Department [address] [place] [address] Consultation - Hospitalist 08/27/25 1814 MR#: [id number] Acct: [id number] Name: ANDRIA HERNANDEZ Rep #: [id number] : 1970 55 From: Kenisha Mcgee MD PCP: Dr. Ronald Tong MD Status:ADM IN [facility] Assessment Plan Assessment/Plan (1) Sepsis: PLAN: Plan [...] II, HTN, BPH, kidney stone presented to [facility] 08/26/25 d/t severe renal colic. Per urology [...] would not answer specific questions and answered I do not know to every ROS question. Antibiotics broadened, cultures ordered and repeat labs obtained. [facility] Medical History Diabetes Kidney stones [...] of eye (more content not included)... Normal [facility] Discharge Instructionon 10-2 Discharge Instruction [facility] Medical Records Department [address] [place] [address] Instructions for Home/Discharge Instructions 08/27/25729 MR#: [id number] Acct: [id number] Name: ANDRIA HERNANDEZ Rep #: [id number] : 1970 55 From: Zachariah Mota MD [...] Up With: Zachariah Mota MD When: Call [phone] for an appointment Test Results: Test results [...] CC: Dr. Ronald Tong MD Signed Normal [facility] International normalized rat io (INR) calculationOrdered By: Kenisha Mcgee on 08-27-2025 INR Coag (Bld) [Relative time] 1.2 {INR} [facility] - Chemistry and C hemistry - challengeOrdered By: Kenisha Mcgee on 08-27-2025 AST [Catalytic activity/Vol] 17 U/L <38 [facility] Lactic Acidon 08-27-2025 Lactate [Moles/Vol] 1.8 mmol/L Normal 0.0-2.0 [facility] Comment on above: Performed By: #### L 500.2500, L100.0100 #### [facility] [address] [facility] [place], [address] Lactate [Moles/Vol] 5.2 mmol/L Invalid Interpretation Code 0.0-2.0 [facility] Comment on above: Order Comment: Comme nts: if result >2, system reflex orders 2nd test @ 4hrsY Result Comment: Crit ical Result(s) Called ANY at: 1950 by: ONEAL??Results read back by same. Performed By: #### L 500.2500, L100.0100 #### [facility] [address] [place], [address] Lactic acid measurementOrder ed By: Kenisha Mcgee on 08-27-2025 Lactate [Moles/Vol] 1.8 mmol/L 0.0-2.0 [facility] MR/POSTOP.ANEon 08-27-2025 MR/POSTOP.ANE [facility] Medical Records Department [address] [place] [address] Anesthesia Postop Eval I 08/27/25 1635 MR#: [id number] Acct: [id number] Name: ANDRIA HERNANDEZ Rep #: [id number] : 1970 55 From: Huang Iniguez CRNA PCP: Dr. Ronald Tong MD Status:ADM IN Y Race: C Location: [place] [id number] Anesthesia: Postop Eval I Current Vital Signs [...] completed: Yes 08/27/25 1636 Date Huang Iniguez RELIGIOUS EDUCATOR Cosigner Signature: Date CC: Signed Normal [facility] MR/[id number] 08-27-2025 [facility] Medical Records Department [address] [place] [address] Anesthesia Postop Eval II 08/27/25 1711 MR#: [id number] Acct: [id number] Name: ANDRIA HERNANDEZ SORAIDA Rep #: [id number] : 1970 55 From: Craig Rudolph MD PCP: Dr. Ronadl Tong MD Status:ADM IN Y Race: C Location: [place] [address] Anesthesia Postop Eval I Sum Postop Eval Completion status Anesthesia document: Postop Eval 1 completed: Yes Anesthesia Postop Eval I Summary Anesthesia Postop Eval I Summary: Anesthesia Postop Eval I: Assessment Summary Airway patent Yes 08/27/25 16:36 RELIGIOUS EDUCATOR.SHOF Spontaneous unlabored Yes 08/27/25 16:36 RELIGIOUS EDUCATOR.SHOF respirations Mental status Awake,Calm 08/27/25 16:36 RELIGIOUS EDUCATOR.SHOF nausea No 08/27/25 16:36 RELIGIOUS EDUCATOR.SHOF Vomiting No 08/27/25 16:36 RELIGIOUS EDUCATOR.SHOF Anesthesia Postop Eval I: Fluid Summary Crystalloid volume administer 400 08/27/25 16:36 RELIGIOUS EDUCATOR.SHOF (ml) Colloids volume administered ( ml) Blood Product volume administered (ml) Total IV fluid infused 400 10/22/25 16:36 RELIGIOUS EDUCATOR.SHOF Anesthesia Postop Eval I: Summary Notes Anesthesia Complication No 08/27/25 16:36 RELIGIOUS EDUCATOR.SHOF Anesthesia Complication Comment: Post-operative progress note Anesthesia: Postop Eval II Evaluation Mental status: Awake Pain Level: 0 nausea: No Vomiting: No 08/27/25 1712 Date Craig Kaufman Signature: Date CC: Signed Normal [facility] Operative Reporton 5 Operative Report [facility] Medical Records Department [address] [place] [address] Operative Report 08/27/25 1612 MR#: [id number] Acct: [id number] Name: ANDRIA HERNANDEZ Rep #: [id number] : 1970 55 From: Zachariah Mota MD PCP: Dr. Ronald Tong MD Status:ADM IN [id number] Operative Report (Standard) Operative Information Date of Procedure: 08/27/25 Pre-Operative Diagnosis: Right ureteral spasms right ureteritis Post-Operative Diagnosis: The same Surgery/Procedure Performed: Cystoscopy right retrograde pyelogram right stent placement buffing machine tender: No Type of Anesthesia: General RN Documented [...] in usual sterile fashion. Using a 21 Belarusian rigid cystourethroscope the entire length of the urethra was normal then went into the bladder. Identified the trigone the left and right ureteral orifice. I then cannulated the right ureteral orifice and advanced a wire up into the kidney. I then backloaded a 5 Belarusian open ended catheter over the wire and injected contrast to delineate the anatomy. After the retrograde was performed I then used fluoroscopic images and guidance to advanced a wire up into the kidney and over the 0.038 glidewire I advanced a 6 Belarusian by 26 cm double pigtail stent. I [...] SCD's VTE Pharm Prophylaxis ordered?: No 08/27/25 3494 Cosigner Signature (if applicable): CC: Dr. Ronald Tong MD; Dr. Zachariah Mota MD Signed Normal [facility] Prothrombin Time w/INRon INR Coag (PPP) [Relative time] 1.2 {INR} Normal [facility] Comment on above: Performed By: #### L 501.080 #### [facility] [address] [place], [place], [address] (362) PT Coag (PPP) [Time] 15.8 s High 11.7-14.9 [facility] Comment on above: Performed By: #### L 501.080 #### [facility] [address] [place], [address] Prothrombin timeOrdered By: Kenisha Mcgee on 08-27-2025 PT Coag (PPP) [Time] 15.8 s High 11.7-14.9 [facility] Serum globulin measurementOr dered By: Kenisha Mcgee on 08-27-2025 Globulin (S) [Mass/Vol] 2.8 g/dL 2.2-4.2 [facility] Serum or plasma alanine dixon otransferase (ALT) measurementOrdered By: Kenisha Mcgee on 08-27-2025 ALT [Catalytic activity/Vol] 8 U/L <47 [facility] Serum or plasma albumin agus urement (mass/volume)Ordered By: Kenisha Mcgee on 08-27-2025 Albumin [Mass/Vol] 3.7 g/dL 3.5-5.0 [facility] Serum or plasma albumin/glob ulin mass ratioOrdered By: Kenisha Mcgee on 08-27-2025 Albumin/Globulin [Mass ratio] 1.3 {ratio} 0.9-2.4 [facility] Serum or plasma alkaline tom sphatase measurementOrdered By: Kenisha Mcgee on 08-27-2025 ALP [Catalytic activity/Vol] 53 U/L 40-129 [facility] Total proteinOrdered By: Rnea Mcgee on 08-27-2025 Protein [Mass/Vol] 6.5 g/dL 5.9-8.4 [facility] Urine cultureOrdered By: Wing Mota on 08-27-2025 Bacteria identified Cx Nom (U) Burkholderia gladioli Abnormal [facility] Bacteria identified Cx Nom (U) Culture exhibits no growth. [facility] Abdomen/Pelvis without Conto n 08-25-2025 Abdomen/Pelvis without Cont [facility] Imaging Services [address] [place], [place] [address] Abdomen/Pelvis without Cont MR#: [id number] Acct: [id number] Name: ANDRIA HERNANDEZ Rep #: [id number] : 1970 M 55 From: Phu Ford PCP: Dr. Ronald Tong MD Status: REG CLI Study: Abdomen/Pelvis without Cont Date of Exam: 08/07 Exam# [id number] Ordering Dr: Zachariah Mota MD PROCEDURE: ABDOMEN/PELVIS [...] no free air or significant free fluid. Xlzj-wq-ywryfczl right hydroureteronephrosis without definite CT evidence of [...] no acute abnormality. CT/Abdomen/Pelvis without Cont IMPRESSION: Hapa-lt-nyxswrwf right hydroureteronephrosis without definite CT evidence of obstructive ureteral stone although recent passage of stone or ascending infection is not entirely excluded. Reading Location: [facility] CC: Dr. Ronald Tong MD; Dr. Zachariah Mota MD Morphology Teacher: Signed Normal [facility] Basic Metabolic Profile (BMP )on 08-25-2025 BUN/CRE 10.6 RATIO Normal 08-25 [facility] Comment on above: Performed By: #### L 501.080 #### [facility] [address] [place], [address] Calcium [Mass/Vol] 9.3 mg/dL Normal 7.6-11.0 [facility] Comment on above: Performed By: #### L 501.080 #### [facility] [address] [place], [address] Chloride [Moles/Vol] 95 mmol/L Low 98-108 [facility] Comment on above: Performed By: #### L 501.080 #### [facility] [address] [place], [address] CO2 [Moles/Vol] 22.6 mmol/L Normal 21.0-32.0 [facility] Comment on above: Performed By: #### L 501.080 #### [facility] [address] [place], [address] Creatinine [Mass/Vol] 1.04 mg/dL Normal 0.70-1.20 [facility] Comment on above: Performed By: #### L 501.080 #### [facility] [address] [place], [address] ECRCL 73.27 ml/min Normal 50-250 [facility] Comment on above: Performed By: #### L 501.080 #### [facility] [address] [place], [address] GAP 15 Normal 5-15 [facility] Comment on above: Performed By: #### L 501.080 #### [facility] [address] [place], [address] GFR/1.73 sq M.predicted among non-blacks MDRD (S/P/Bld) [Vol rate/Area] 85 mL/min/{1.73_m2} Normal >60 [facility] Comment on above: Result Comment: mL/m in/1.73m2 CKD-EPI Creatinine Equation (2020) Performed By: #### L 501.080 #### [facility] [address] [place], [address] Glucose [Mass/Vol] 235 mg/dL High 70-99 [facility] Comment on above: Performed By: #### L 501.080 #### [facility] [address] [place], [address] Potassium [Moles/Vol] 4.6 mmol/L Normal 3.3-5.1 [facility] Comment on above: Performed By: #### L 501.080 #### [facility] [address] [place], [address] Sodium [Moles/Vol] 133 mmol/L Normal 133-145 [facility] Comment on above: Performed By: #### L 501.080 #### [facility] [address] [place], [address] Urea nitrogen [Mass/Vol] 11 mg/dL Normal 4-19 [facility] Comment on above: Performed By: #### L 501.080 #### [facility] [address] [place], [address] Bedside Glucoseon 08-25-2024 FINGERSTICK GLU 226 mg/dL High 74-106 [facility] Comment on above: Result Comment: KATIE BENJAMIN OF PATIENT CARE PER NURSING PROTOCOL Performed By: #### L 501.080 #### [facility] [address] [place], [address] CBC W/Diff, Automatedon 10- 0-2024 Absolute Lymph 0.75 X10 3/uL Low 0.83-4.51 [facility] Comment on above: Performed By: #### L 100.0100, L500.2500 #### [facility] [address] [place], [address] Absolute Neut 13.4 X10 3/uL High 2.0-7.7 [facility] Comment on above: Performed By: #### L 100.0100, L500.2500 #### [facility] [address] [place], [address] Basophils/100 WBC (Bld) 0.3 % Normal 0-1 [facility] Comment on above: Performed By: #### L 100.0100, L500.2500 #### [facility] [address] [place], [address] Eosinophils/100 WBC (Bld) 0.1 % Normal 0-5 [facility] Comment on above: Performed By: #### L 100.0100, L500.2500 #### [facility] [address] [place], [address] Erythrocyte distribution width (RBC) [Ratio] 12.3 % Normal 11.6-14.6 [facility] Comment on above: Performed By: #### L 100.0100, L500.2500 #### [facility] [address] [place], [address] Hematocrit (Bld) [Volume fraction] 45.5 % Normal 40-54 [facility] Comment on above: Performed By: #### L 100.0100, L500.2500 #### [facility] [address] [place], [address] Hemoglobin (Bld) [Mass/Vol] 15.8 g/dL Normal 13.0-16.5 [facility] Comment on above: Performed By: #### L 100.0100, L500.2500 #### [facility] [address] [place], [address] IG% 0.500 Normal 0.0-0.9 [facility] Comment on above: Result Comment: IG% - Immature Granulocytes (promyelocytes, myelocytes and metamyelocytes) > 1% indicates that a LEFT SHIFT is Present. Performed By: #### L 100.0100, L500.2500 #### [facility] [address] [place], [address] Lymphocytes/100 WBC (Bld) 4.9 % Low 19-41 [facility] Comment on above: Performed By: #### L 100.0100, L500.2500 #### [facility] [address] [place], [address] MCH (RBC) [Entitic mass] 28.5 pg Normal 27.0-32.0 [facility] Comment on above: Performed By: #### L 100.0100, L500.2500 #### [facility] [address] [place], [address] MCHC (RBC) [Mass/Vol] 34.7 g/dL Normal 32-36 [facility] Comment on above: Performed By: #### L 100.0100, L500.2500 #### [facility] [address] [place], [address] MCV (RBC) [Entitic vol] 82.1 fL Normal 80-94 [facility] Comment on above: Performed By: #### L 100.0100, L500.2500 #### [facility] [address] [place], [address] Monocytes/100 WBC (Bld) 7.2 % Normal 0-10 [facility] Comment on above: Performed By: #### L 100.0100, L500.2500 #### [facility] [address] [place], [address] Neutrophils/100 WBC (Bld) 87.0 % High 47-70 [facility] Comment on above: Performed By: #### L 100.0100, L500.2500 #### [facility] [address] [place], [address] Nucleated RBC (Bld) [#/Vol] 0 10*3/uL Normal 0-5 [facility] [place] Comment on above: Performed By: #### L 100.0100, L500.2500 #### [facility] [place] [facility] [address] [place], [address] Platelet mean volume (Bld) [Entitic vol] 9.9 fL Normal 6.2-12.0 [facility] [place] Comment on above: Performed By: #### L 100.0100, L500.2500 #### [facility] [place] [facility] [address] [place], [address] Platelets (Bld) [#/Vol] 280 10*3/uL Normal 150-450 [facility] [place] Comment on above: Performed By: #### L 100.0100, L500.2500 #### [facility] [place] [facility] [address] [place], [address] RBC (Bld) [#/Vol] 5.54 10*6/uL Normal 4.6-6.2 [facility] Comment on above: Performed By: #### L 100.0100, L500.2500 #### [facility] [place] [facility] [address] [place], [address] RDW SD 37.1 fl Normal 35.1-43.9 [facility] [place] Comment on above: Performed By: #### L 100.0100, L500.2500 #### [facility] [place] [facility] [address] [place], [address] WBC (Bld) [#/Vol] 15.3 10*3/uL High 4.4-11.0 [facility] Comment on above: Performed By: #### L 100.0100, L500.2500 #### [facility] [place] [facility] [address] [place], [address] LABORATORYOrdered By: Ivone Hitchcock on 08-22-2025 Glucose [Mass/Vol] 193 mg/dL High 70 - 110 mg/dL [facility] XR FLUORO < 1HR TECH TIMEon 08-22-2025 XR FLUORO < 1HR TECH TIME ORIGINAL Images acquired, not reported on this accession number. Normal [facility] Abdomen/Pelvis W IV Cont ONL Yon 08-17-2025 Abdomen/Pelvis W IV Cont ONLY [facility] Imaging Services [address] [place] [address] Abdomen/Pelvis W IV Cont ONLY MR#: [id number] Acct: [id number] Name: ANDRIA HERNANDEZ Rep #: [id number] : 1970 M 55 From: [place] PCP: Dr. Ronald Tong MD Status: REG ER Study: Abdomen/Pelvis W IV Cont ONLY Date of Exam: Exam# [id number] Ordering Dr: Brandon Abraham DO PROCEDURE: ABDOMEN/PELVIS [...] with associated minimal upstream hydroureteronephrosis. Reading Location: [facility] CC: Dr. Ronald Tong MD; Dr. Brandon Abraham DO Morphology Teacher: Signed Normal [facility] [place] Absolute lymphocyte countOrd ered By: Brandon Abraham on 08-17-2025 Lymphocytes Auto (Unsp spec) [#/Vol] 2.60 10*3/uL 0.83-4.51 [facility] [place] Absolute neutrophil countOrd ered By: Brandon Abraham on 08-17-2025 Neutrophils (Bld) [#/Vol] 4.0 10*3/uL 2.0-7.7 [facility] [place] Anion gap in Serum or Plasma Ordered By: Brandon Abraham on 08-17-2025 Anion gap [Moles/Vol] 12 mmol/L - [facility] Automated lymphocyte count a s percentage of total leukocytesOrdered By: Brandon Abraham on 08-17-2025 Lymphocytes/100 WBC Auto (Unsp spec) 35.0 % - [facility] [place] BUN/creatinine ratioOrdered By: Brandon Abraham on 08-17-2025 Urea nitrogen/Creatinine [Mass ratio] 22.6 mg/mg High - [facility] [place] Basophil percentageOrdered B y: Brandon Abraham on 08-17-2025 Basophils/100 WBC (Bld) 0.3 % 0-1 [facility] [place] Bilirubin Test strip Ql (U)O rdered By: Brandon Abraham on 08-17-2025 Bilirubin Ql (U) Negative Negative [facility] [place] Bilirubin, totalOrdered By: Brandon Abraham on 08-17-2025 Bilirubin [Mass/Vol] 0.66 mg/dL 0.00-1.30 [facility] CBC W/Diff, Automatedon 08-06 Absolute Lymph 2.60 X10 3/uL Normal 0.83-4.51 [facility] [place] Comment on above: Performed By: #### L 501.080 #### [facility] [place] [facility] [address] [place], [address] Absolute Neut 4.0 X10 3/uL Normal 2.0-7.7 [facility] [place] Comment on above: Performed By: #### L 501.080 #### [facility] [place] [facility] [address] [place], [address] Basophils/100 WBC (Bld) 0.3 % Normal 0-1 [facility] [place] Comment on above: Performed By: #### L 501.080 #### [facility] [place] [facility] [address] [place], [address] Eosinophils/100 WBC (Bld) 0.4 % Normal 0-5 [facility] [place] Comment on above: Performed By: #### L 501.080 #### [facility] [place] [facility] [address] [place], [address] Erythrocyte distribution width (RBC) [Ratio] 12.5 % Normal 11.6-14.6 [facility] [place] Comment on above: Performed By: #### L 501.080 #### [facility] [place] [facility] [address] [place], [address] Hematocrit (Bld) [Volume fraction] 44.5 % Normal 40-54 [facility] [place] Comment on above: Performed By: #### L 501.080 #### [facility] [place] [facility] [address] [place], [address] Hemoglobin (Bld) [Mass/Vol] 15.2 g/dL Normal 13.0-16.5 [facility] [place] Comment on above: Performed By: #### L 501.080 #### [facility] [place] [facility] [address] [place], [address] IG% 0.300 Normal 0.0-0.9 [facility] [place] Comment on above: Result Comment: IG% - Immature Granulocytes (promyelocytes, myelocytes and metamyelocytes) > 1% indicates that a LEFT SHIFT is Present. Performed By: #### L 501.080 #### [facility] [place] [facility] [address] [place], [address] Lymphocytes/100 WBC (Bld) 35.0 % Normal 19-41 [facility] [place] Comment on above: Performed By: #### L 501.080 #### [facility] [place] [facility] [address] [place], [address] MCH (RBC) [Entitic mass] 27.9 pg Normal 27.0-32.0 [facility] [place] Comment on above: Performed By: #### L 501.080 #### [facility] [place] [facility] [address] [place], [address] MCHC (RBC) [Mass/Vol] 34.2 g/dL Normal 32-36 [facility] Comment on above: Performed By: #### L 501.080 #### [facility] [place] [facility] [address] [place], [address] MCV (RBC) [Entitic vol] 81.7 fL Normal 80-94 [facility] [place] Comment on above: Performed By: #### L 501.080 #### [facility] [place] [facility] [address] [place], [address] Monocytes/100 WBC (Bld) 9.7 % Normal 0-10 [facility] [place] Comment on above: Performed By: #### L 501.080 #### [facility] [place] [facility] [address] [place], [address] Neutrophils/100 WBC (Bld) 54.3 % Normal 47-70 [facility] [place] Comment on above: Performed By: #### L 501.080 #### [facility] [place] [facility] [address] [place], [address] Nucleated RBC (Bld) [#/Vol] 0 10*3/uL Normal 0-5 [facility] [place] Comment on above: Performed By: #### L 501.080 #### [facility] [place] [facility] [address] [place], [address] Platelet mean volume (Bld) [Entitic vol] 9.1 fL Normal 6.2-12.0 [facility] [place] Comment on above: Performed By: #### L 501.080 #### [facility] [place] [facility] [address] [place], [address] Platelets (Bld) [#/Vol] 299 10*3/uL Normal 150-450 [facility] [place] Comment on above: Performed By: #### L 501.080 #### [facility] [place] [facility] [address] [place], [address] RBC (Bld) [#/Vol] 5.45 10*6/uL Normal 4.6-6.2 [facility] Comment on above: Performed By: #### L 501.080 #### [facility] [place] [facility] [address] [place], [address] RDW SD 37.2 fl Normal 35.1-43.9 [facility] [place] Comment on above: Performed By: #### L 501.080 #### [facility] [place] [facility] [address] [place], [address] WBC (Bld) [#/Vol] 7.4 10*3/uL Normal 4.4-11.0 [facility] Comment on above: Performed By: #### L 501.080 #### [facility] [place] [facility] [address] [place], [address] Carbon dioxide, total [Moles /volume] in Central venous bloodOrdered By: Brandon Abraham on 08-17-2025 CO2 [Moles/Vol] 23.9 mmol/L 21.0-32.0 [facility] [place] Chloride assayOrdered By: Kwesi Abraham on 08-17-2025 Chloride [Moles/Vol] 101 mmol/L 98-108 [facility] Comprehensive Metabolic Prof ilon 08-17-2025 Albumin [Mass/Vol] 4.3 g/dL Normal 3.5-5.0 [facility] Comment on above: Performed By: #### L 501.080 #### [facility] [place] [facility] [address] [place], [address] Albumin/Globulin [Mass ratio] 1.5 {ratio} Normal 0.9-2.4 [facility] [place] Comment on above: Performed By: #### L 501.080 #### [facility] [place] [facility] [address] [place], [address] ALK PHOS 68 U/L Normal 40-129 [facility] [place] Comment on above: Performed By: #### L 501.080 #### [facility] [place] [facility] [address] [place], [address] ALT [Catalytic activity/Vol] 20 U/L Normal <=46 [facility] [place] Comment on above: Performed By: #### L 501.080 #### [facility] [place] [facility] [address] [place], [address] AST [Catalytic activity/Vol] 14 U/L Normal <=37 [facility] [place] Comment on above: Performed By: #### L 501.080 #### [facility] [place] [facility] [address] [place], [address] Bilirubin [Mass/Vol] 0.66 mg/dL Normal 0.00-1.30 [facility] Comment on above: Performed By: #### L 501.080 #### [facility] [place] [facility] [address] [place], [address] BUN/CRE 22.6 RATIO High 10-20 [facility] [place] Comment on above: Performed By: #### L 501.080 #### [facility] [place] [facility] [address] [place], [address] Calcium [Mass/Vol] 9.4 mg/dL Normal 7.6-11.0 [facility] Comment on above: Performed By: #### L 501.080 #### [facility] [place] [facility] [address] [place], [address] Chloride [Moles/Vol] 101 mmol/L Normal 98-108 [facility] Comment on above: Performed By: #### L 501.080 #### [facility] [place] [facility] [address] [place], [address] CO2 [Moles/Vol] 23.9 mmol/L Normal 21.0-32.0 [facility] [place] Comment on above: Performed By: #### L 501.080 #### [facility] [place] [facility] [address] [place], [address] Creatinine [Mass/Vol] 0.74 mg/dL Normal 0.70-1.20 [facility] Comment on above: Performed By: #### L 501.080 #### [facility] [place] [facility] [address] [place], [address] ECRCL 108.76 ml/min Normal 50-250 [facility] [place] Comment on above: Performed By: #### L 501.080 #### [facility] [place] [facility] [address] [place], [address] GAP 12 Normal 5-15 [facility] [place] Comment on above: Performed By: #### L 501.080 #### [facility] [place] [facility] [address] [place], [address] GFR/1.73 sq M.predicted among non-blacks MDRD (S/P/Bld) [Vol rate/Area] 108 mL/min/{1.73_m2} Normal >60 [facility] [place] Comment on above: Result Comment: mL/m in/1.73m2 CKD-EPI Creatinine Equation (2020) Performed By: #### L 501.080 #### [facility] [place] [facility] [address] [place], [address] Globulin (S) [Mass/Vol] 2.9 g/dL Normal 2.2-4.2 [facility] [place] Comment on above: Performed By: #### L 501.080 #### [facility] [place] [facility] [address] [place], [address] Glucose [Mass/Vol] 186 mg/dL High 70-99 [facility] Comment on above: Performed By: #### L 501.080 #### [facility] [place] [facility] [address] [place], [address] Potassium [Moles/Vol] 4.3 mmol/L Normal 3.3-5.1 [facility] Comment on above: Performed By: #### L 501.080 #### [facility] [place] [facility] [address] [place], [address] Sodium [Moles/Vol] 137 mmol/L Normal 133-145 [facility] Comment on above: Performed By: #### L 501.080 #### [facility] [place] [facility] [address] [place], [address] T PROT 7.2 g/dL Normal 5.9-8.4 [facility] [place] Comment on above: Performed By: #### L 501.080 #### [facility] [place] [facility] [address] [place], [place], [address] Urea nitrogen [Mass/Vol] 17 mg/dL Normal 4-19 [facility] [place] Comment on above: Performed By: #### L 501.080 #### [facility] [place] [facility] [address] [place], [address] Emergency Department Summary on 08-17-2025 Emergency Department Summary [facility] Medical Records Department [address] [place] [address] Emergency Department Summary 08/17/25 MR#: [id number] Acct: [id number] Name: ANDRIA HERNANDEZ Rep #: [id number] : 1970 55 From: Brandon Abraham DO [...] Patient denies any dysuria, frequency, or hematuria. [facility] Medical History Abdominal pain Abdominal hernia Home [...] bilaterally, moves (more content not included)... Normal [facility] [place] Eosinophil percentageOrdered By: Brandon Abraham on 08-17-2025 Eosinophils/100 WBC (Bld) 0.4 % 0-5 [facility] [place] Erythrocyte distribution wid th ratioOrdered By: Brandon Abraham on 08-17-2025 Erythrocyte distribution width (RBC) [Ratio] 12.5 % 11.6-14.6 [facility] [place] Erythrocyte distribution wid th standard deviationOrdered By: Brandon Abraham on 08-17-2025 Erythrocyte distribution width (RBC) [Ratio] 37.2 fl 35.1-43.9 [facility] [place] Glomerular filtration rate ( GFR) estimation/1.73 sq m using serum, plasma, or whole bOrdered By: Brandon Abraham on 08-17-2025 GFR/1.73 sq M.predicted among non-blacks MDRD (S/P/Bld) [Vol rate/Area] 108 mL/min/{1.73_m2} >60 [facility] [place] Comment on above: mL/min/1.73m2 CKD-EP I Creatinine Equation (2020) Hematocrit Auto (Bld) [Volum e fraction]Ordered By: Brandon Abraham on 08-17-2025 Hematocrit (Bld) [Volume fraction] 44.5 % 40-54 [facility] [place] Hemoglobin measurementOrdere d By: Brandon Abraham on 08-17-2025 Hemoglobin (Bld) [Mass/Vol] 15.2 g/dL 13.0-16.5 [facility] [place] Immature granulocytes/100 WB C Auto (Bld)Ordered By: Brandon Abraham on 08-17-2025 Immature granulocytes/100 WBC (Bld) 0.300 % 0.0-0.9 [facility] [place] Comment on above: IG% - Immature Granu locytes (promyelocytes, myelocytes and metamyelocytes) > 1% indicates that a LEFT SHIFT is Present. Ketones Test strip Ql (U)Ord ered By: Brandon Abraham on 08-17-2025 Ketones Ql (U) Negative Negative [facility] [place] [facility] - Chemistry and C hemistry - challengeOrdered By: Brandon Abraham 08-17-2025 AST [Catalytic activity/Vol] 14 U/L <38 [facility] [place] MCV (mean corpuscular volume ) determinationOrdered By: Brandon Abraham on 08-17-2025 MCV (RBC) [Entitic vol] 81.7 fL 80-94 [facility] [place] Mean corpuscular hemoglobin (MCH) determinationOrdered By: Brandon Abraham 08-17-2025 MCH (RBC) [Entitic mass] 27.9 pg 27.0-32.0 [facility] [place] Mean corpuscular hemoglobin concentration (MCHC) determinationOrdered By: Brandon Abraham 08-17-2025 MCHC (RBC) [Mass/Vol] 34.2 g/dL 32-36 [facility] Mean platelet volume determi nationOrdered By: Brandon Abraham on 08-17-2025 Platelet mean volume (Bld) [Entitic vol] 9.1 fL 6.2-12.0 [facility] [place] Microscopic analysis of urin e for red blood cells (RBC)Ordered By: Brandon Abraham on 08-17-2025 Microscopic analysis of urine for red blood cells (RBC) 0 SEEN /hpf 0-5 [facility] [place] Monocyte percentageOrdered B y: Brnadon Abraham on 08-17-2025 Monocytes/100 WBC (Bld) 9.7 % 0-10 [facility] [place] Mucus LM Ql (Urine sed)Order ed By: Brandon Abraham on 08-17-2025 Mucus Ql (Urine sed) 0 SEEN /hpf [facility] Neutrophil percentageOrdered By: Brandon Abraham on 08-17-2025 Neutrophils/100 WBC (Bld) 54.3 % 47-70 [facility] [place] Nitrite Test strip Ql (U)Ord ered By: Brandon Abraham on 08-17-2025 Nitrite Ql (U) Negative Negative [facility] [place] Nucleated red blood cell per centageOrdered By: Brandon Abraham on 08-17-2025 Nucleated RBC/100 WBC (Bld) [Ratio] 0 % 0-5 [facility] [place] Platelet countOrdered By: Kwesi Abraham on 08-17-2025 Platelets (Bld) [#/Vol] 299 10*3/uL 150-450 [facility] [place] Potassium measurement (mass/ volume)Ordered By: Brandon Abraham on 08-17-2025 Potassium (Unsp spec) [Mass/Vol] 4.3 mmol/L 3.3-5.1 [facility] [place] Protein Test strip Ql (U)Ord ered By: Brandon Abraham on 08-17-2025 Protein Ql (U) Negative Negative [facility] [place] RBC Auto (Bld) [#/Vol]Ordere d By: Brandon Abraham on 08-17-2025 RBC (Bld) [#/Vol] 5.45 10*6/uL 4.6-6.2 [facility] Serum creatinine measurement (mass/volume)Ordered By: rBandon Abraham on 08-17-2025 Creatinine [Mass/Vol] 0.74 mg/dL 0.70-1.20 [facility] Serum globulin measurementOr dered By: Brandon Abraham on 08-17-2025 Globulin (S) [Mass/Vol] 2.9 g/dL 2.2-4.2 [facility] [place] Serum glucose measurement (m ass/volume)Ordered By: Brandon Abraham on 08-17-2025 Glucose [Mass/Vol] 186 mg/dL High 70-99 [facility] Serum or plasma alanine dixon otransferase (ALT) measurementOrdered By: Brandon Abraham on 08-17-2025 ALT [Catalytic activity/Vol] 20 U/L <47 [facility] [place] Serum or plasma albumin agus urement (mass/volume)Ordered By: Brandon Abraham on 08-17-2025 Albumin [Mass/Vol] 4.3 g/dL 3.5-5.0 [facility] Serum or plasma albumin/glob ulin mass ratioOrdered By: Brandon Abraham on 08-17-2025 Albumin/Globulin [Mass ratio] 1.5 {ratio} 0.9-2.4 [facility] [place] Serum or plasma alkaline tom sphatase measurementOrdered By: Brandon Abraham on 08-17-2025 ALP [Catalytic activity/Vol] 68 U/L 40-129 [facility] [place] Serum or plasma calcium agus urement (mass/volume)Ordered By: Brandon Abraham on 08-17-2025 Calcium [Mass/Vol] 9.4 mg/dL 7.6-11.0 [facility] Serum or plasma urea nitroge n measurement (mass/volume)Ordered By: Brandon Abraham on 08-17-2025 Urea nitrogen [Mass/Vol] 17 mg/dL 4-19 [facility] [place] Sodium levelOrdered By: Brandon Abraham on 08-17-2025 Sodium [Moles/Vol] 137 mmol/L 133-145 [facility] Squamous epithelial cells de tection in urine sediment by light microscopyOrdered By: Brandon Abraham on 08-17-2025 Epithelial cells.squamous LM Ql (Urine sed) 0 SEEN /hpf 0-5 [facility] [place] Total proteinOrdered By: Tiffany Abraham on 08-17-2025 Protein [Mass/Vol] 7.2 g/dL 5.9-8.4 [facility] Urinalysis, Completeon 08-17 BACTERIA 0 SEEN Normal None Seen [facility] [place] Comment on above: Order Comment: CLEAN CATCH Performed By: #### L 400.0001 #### [facility] [place] [facility] [address] [place], [address] EPI,SQUAMOUS 0 SEEN Normal 0-5 [facility] [place] Comment on above: Order Comment: CLEAN CATCH Performed By: #### L 400.0001 #### [facility] [place] [facility] [address] [place], [address] Mucus Ql (Urine sed) 0 SEEN Normal [facility] Comment on above: Order Comment: CLEAN CATCH Performed By: #### L 400.0001 #### [facility] [place] [facility] [address] [place], [address] RBC 0 SEEN Normal 0-5 [facility] [place] Comment on above: Order Comment: CLEAN CATCH Performed By: #### L 400.0001 #### [facility] [place] [facility] [address] [place], [address] WBC 0 SEEN Normal 0-[address] [place] [address] Comment on above: Order Comment: CLEAN CATCH Performed By: #### L 400.0001 #### [facility] [place] [facility] [address] [place], [address] Urine clarityOrdered By: Tiffany Abraham on 08-17-2025 Clarity (U) Clear Clear [facility] [place] Urine color determinationOrd ered By: Brandon Abraham on 08-17-2025 Color (U) Yellow Yellow [facility] [place] Urine glucose detectionOrder ed By: Brandon Abraham on 08-17-2025 Glucose Ql (U) 50 mg/dl High Normal [facility] [place] Urine leukocyte esterase det ection by dipstickOrdered By: Brandon Abraham on 08-17-2025 Leukocyte esterase Test strip Ql (U) Negative Negative [facility] [place] Urine pHOrdered By: Brandon zarco on 08-17-2025 pH (U) 6.0 [pH] 5.0 - 8.0 [facility] [place] Urine sediment bacteria coun t by microscopy (number/high power field)Ordered By: Brandon Abraham on 08-17-2025 Bacteria LM.HPF (Urine sed) [#/Area] 0 /[HPF] None Seen [facility] [place] Urine specific gravity measu rementOrdered By: Brandon Abraham on 08-17-2025 Specific gravity (U) [Rel density] 1.010 1.002-1.030 [facility] [place] Urine urobilinogen measureme ntOrdered By: Brandon Abraham on 08-17-2025 Urobilinogen Ql (U) Normal mg/dl Normal [facility] White blood cell (WBC) count Ordered By: Brandon Abraham on 08-17-2025 WBC (Bld) [#/Vol] 7.4 10*3/uL 4.4-11.0 [facility] White blood cell countOrdere d By: Brandon Abraham on 08-17-2025 White blood cell count 0 SEEN /hpf 0-5 [facility] Anion gap in Serum or Plasma Ordered By: Ronald Tong on 07-24-2025 Anion gap [Moles/Vol] 13 mmol/L 5-15 [facility] BUN/creatinine ratioOrdered By: Ronald Tong on 07-24-2025 Urea nitrogen/Creatinine [Mass ratio] 10.9 mg/mg 10- [facility] Bilirubin, totalOrdered By: Ronald Tong on 07-24-2025 Bilirubin [Mass/Vol] 0.52 mg/dL 0.00-1.30 [facility] CBC-Complete Blood Cnt No Di ffon 07-24-2025 Erythrocyte distribution width (RBC) [Ratio] 12.8 % Normal 11.6-14.6 [facility] Comment on above: Order Comment: Order Date: 07/24/25Order Info: [id number] - CBC Performed By: #### L 501.080 #### [facility] [place] [place] [address], [address] Hematocrit (Bld) [Volume fraction] 45.8 % Normal 40-54 [facility] [place] Comment on above: Order Comment: Order Date: 07/24/25Order Info: [id number] - CBC Performed By: #### L 501.080 #### [facility] [place] [facility] [address] [place], [address] Hemoglobin (Bld) [Mass/Vol] 15.8 g/dL Normal 13.0-16.5 [facility] [place] Comment on above: Order Comment: Order Date: 07/24/25Order Info: [id number] - CBC Performed By: #### L 501.080 #### [facility] [place] [facility] [address] [place], [address] MCH (RBC) [Entitic mass] 28.2 pg Normal 27.0-32.0 [facility] [place] Comment on above: Order Comment: Order Date: 07/24/25Order Info: [id number] - CBC Performed By: #### L 501.080 #### [facility] [place] [facility] [address] [place], [address] MCHC (RBC) [Mass/Vol] 34.5 g/dL Normal 32-36 [facility] Comment on above: Order Comment: Order Date: 07/24/25Order Info: [id number] - CBC Performed By: #### L 501.080 #### [facility] [place] [facility] [address] [place], [address] MCV (RBC) [Entitic vol] 81.8 fL Normal 80-94 [facility] Comment on above: Order Comment: Order Date: 07/24/25Order Info: [id number] - CBC Performed By: #### L 501.080 #### [facility] [place] [facility] [address] [place], [address] Platelet mean volume (Bld) [Entitic vol] 10.3 fL Normal 6.2-12.0 [facility] Comment on above: Order Comment: Order Date: 07/24/25Order Info: [id number] - CBC Performed By: #### L 501.080 #### [facility] [place] [facility] [address] [place], [address] Platelets (Bld) [#/Vol] 266 10*3/uL Normal 150-450 [facility] Comment on above: Order Comment: Order Date: 07/24/25Order Info: [id number] - CBC Performed By: #### L 501.080 #### [facility] [place] [address] [place], [address] RBC (Bld) [#/Vol] 5.60 10*6/uL Normal 4.6-6.2 [facility] Comment on above: Order Comment: Order Date: 07/24/25Order Info: [id number] - CBC Performed By: #### L 501.080 #### [facility] [place] [address] [place], [address] RDW SD 38.2 fl Normal 35.1-43.9 [facility] Comment on above: Order Comment: Order Date: 07/24/25Order Info: [id number] - CBC Performed By: #### L 501.080 #### [facility] [place] [address] [place], [address] WBC (Bld) [#/Vol] 7.3 10*3/uL Normal 4.4-11.0 [facility] Comment on above: Order Comment: Order Date: 07/24/25Order Info: [id number] - CBC Performed By: #### L 501.080 #### [facility] [address] [place], [address] Calculated very low density lipoprotein (VLDL) cholesterol measurementOrdered By: Ronald Tong on 07-24-2025 Calculated very low density lipoprotein (VLDL) cholesterol measurement 126 mg/dL High 5-40 [facility] Carbon dioxide, total [Moles /volume] in Central venous bloodOrdered By: Ronald Tong on 07-24-2025 CO2 [Moles/Vol] 21.0 mmol/L 21.0-32.0 [facility] Chloride assayOrdered By: Alena Tong on 07-24-2025 Chloride [Moles/Vol] 100 mmol/L 98-108 [facility] Comprehensive Metabolic Prof ilon 07-24-2025 Albumin [Mass/Vol] 3.9 g/dL Normal 3.5-5.0 [facility] Comment on above: Order Comment: Order Date: 07/24/25Order Info: [id number] - CMPOrder Info: [id number] - LIPIDOrder Info: [id number] - TSH Performed By: #### L 501.080 #### [facility] [address] [place], [address] Albumin/Globulin [Mass ratio] 1.4 {ratio} Normal 0.9-2.4 [facility] Comment on above: Order Comment: Order Date: 07/24/25Order Info: [id number] - CMPOrder Info: [id number] - LIPIDOrder Info: [id number] - TSH Performed By: #### L 501.080 #### [facility] [address] [place], [address] ALK PHOS 78 U/L Normal 40-129 [facility] Comment on above: Order Comment: Order Date: 07/24/25Order Info: [id number] - CMPOrder Info: [id number] - LIPIDOrder Info: [id number] - TSH Performed By: #### L 501.080 #### [facility] [address] [place], [address] ALT [Catalytic activity/Vol] 22 U/L Normal <=46 [facility] Comment on above: Order Comment: Order Date: 07/24/25Order Info: [id number] - CMPOrder Info: [id number] - LIPIDOrder Info: [id number] - TSH Performed By: #### L 501.080 #### [facility] [address] [place], [address] AST [Catalytic activity/Vol] 17 U/L Normal <=37 [facility] Comment on above: Order Comment: Order Date: 07/24/25Order Info: [id number] - CMPOrder Info: [id number] - LIPIDOrder Info: [id number] - TSH Performed By: #### L 501.080 #### [facility] [address] [place], [address] Bilirubin [Mass/Vol] 0.52 mg/dL Normal 0.00-1.30 [facility] Comment on above: Order Comment: Order Date: 07/24/25Order Info: [id number] - CMPOrder Info: [id number] - LIPIDOrder Info: [id number] - TSH Performed By: #### L 501.080 #### [facility] [address] [place], [address] BUN/CRE 10.9 RATIO Normal 10-20 [facility] Comment on above: Order Comment: Order Date: 07/24/25Order Info: [id number] - CMPOrder Info: [id number] - LIPIDOrder Info: [id number] - TSH Performed By: #### L 501.080 #### [facility] [address] [place], [address] Calcium [Mass/Vol] 9.2 mg/dL Normal 7.6-11.0 [facility] Comment on above: Order Comment: Order Date: 07/24/25Order Info: [id number] - CMPOrder Info: [id number] - LIPIDOrder Info: [id number] - TSH Performed By: #### L 501.080 #### [facility] [address] [place], [address] Chloride [Moles/Vol] 100 mmol/L Normal 98-108 [facility] Comment on above: Order Comment: Order Date: 07/24/25Order Info: 86-1 - CMPOrder Info: [id number] - LIPIDOrder Info: [id number] - TSH Performed By: #### L 501.080 #### [facility] [address] [place], [address] CO2 [Moles/Vol] 21.0 mmol/L Normal 21.0-32.0 [facility] Comment on above: Order Comment: Order Date: 07/24/25Order Info: [id number] - CMPOrder Info: [id number] - LIPIDOrder Info: [id number] - TSH Performed By: #### L 501.080 #### [facility] [address] [place], [address] Creatinine [Mass/Vol] 0.71 mg/dL Normal 0.70-1.20 [facility] Comment on above: Order Comment: Order Date: 07/24/25Order Info: [id number] - CMPOrder Info: [id number] - LIPIDOrder Info: [id number] - TSH Performed By: #### L 501.080 #### [facility] [address] [place], [address] GAP 13 Normal 5-15 [facility] Comment on above: Order Comment: Order Date: 07/24/25Order Info: [id number] - CMPOrder Info: [id number] - LIPIDOrder Info: [id number] - TSH Performed By: #### L 501.080 #### [facility] [address] [place], [address] GFR/1.73 sq M.predicted among non-blacks MDRD (S/P/Bld) [Vol rate/Area] 109 mL/min/{1.73_m2} Normal >60 [facility] Comment on above: Order Comment: Order Date: 07/24/25Order Info: [id number] - CMPOrder Info: [id number] - LIPIDOrder Info: [id number] - TSH Result Comment: mL/m in/1.73m2 CKD-EPI Creatinine Equation (2020) Performed By: #### L 501.080 #### [facility] [address] [place], [address] Globulin (S) [Mass/Vol] 2.9 g/dL Normal 2.2-4.2 [facility] Comment on above: Order Comment: Order Date: 07/24/25Order Info: [id number] - CMPOrder Info: [id number] - LIPIDOrder Info: [id number] - TSH Performed By: #### L 501.080 #### [facility] [address] [place], [address] Glucose [Mass/Vol] 235 mg/dL High 70-99 [facility] Comment on above: Order Comment: Order Date: 07/24/25Order Info: [id number] - CMPOrder Info: [id number] - LIPIDOrder Info: [id number] - TSH Performed By: #### L 501.080 #### [facility] [address] [place], [address] Potassium [Moles/Vol] 4.1 mmol/L Normal 3.3-5.1 [facility] Comment on above: Order Comment: Order Date: 07/24/25Order Info: [id number]- - CMPOrder Info: [id number] - LIPIDOrder Info: 3 - TSH Performed By: #### L 501.080 #### [facility] [address] [place], [address] Sodium [Moles/Vol] 135 mmol/L Normal 133-145 [facility] Comment on above: Order Comment: Order Date: 07/24/25Order Info: [id number]- - CMPOrder Info: [id number] - LIPIDOrder Info: [id number] - TSH Performed By: #### L 501.080 #### [facility] [address] [place], [address] T PROT 6.8 g/dL Normal 5.9-8.4 [facility] Comment on above: Order Comment: Order Date: 07/24/25Order Info: [id number] - CMPOrder Info: [id number] - LIPIDOrder Info: [id number] - TSH Performed By: #### L 501.080 #### [facility] [address] [place], [address] Urea nitrogen [Mass/Vol] 8 mg/dL Normal 4-19 [facility] Comment on above: Order Comment: Order Date: 07/24/25Order Info: [id number] - CMPOrder Info: [id number] - LIPIDOrder Info: [id number] - TSH Performed By: #### L 501.080 #### [facility] [address] [place], [address] Erythrocyte distribution wid th ratioOrdered By: Akankshasonny Alycia on 07-24-2025 Erythrocyte distribution width (RBC) [Ratio] 12.8 % 11.6-14.6 [facility] Erythrocyte distribution wid th standard deviationOrdered By: [facility] Alycia on 07-24-2025 Erythrocyte distribution width (RBC) [Ratio] 38.2 fl 35.1-43.9 [facility] Glomerular filtration rate ( GFR) estimation/1.73 sq m using serum, plasma, or whole bOrdered By: [facility] Systemsonny Tong on 07-24-2025 GFR/1.73 sq M.predicted among non-blacks MDRD (S/P/Bld) [Vol rate/Area] 109 mL/min/{1.73_m2} >60 [facility] Comment on above: mL/min/1.73m2 CKD-EP I Creatinine Equation (2020) Hematocrit Auto (Bld) [Volum e fraction]Ordered By: Ronald Tong on 07-24-2025 Hematocrit (Bld) [Volume fraction] 45.8 % 40-54 [facility] Hemoglobin A1con 07-24-2025 HbA1c (Bld) [Mass fraction] 12.3 % High <=5.6 [facility] Comment on above: Order Comment: Order Date: 07/24/25Order Info: [id number] - A1C Result Comment: Norm al < 5.7 % Prediabetic 5.7 - 6.4 % Diabetic >or= 6.5 % Please note range changes. Performed By: #### L 501.080 #### [facility] [address] [place], [place], [id number] Hemoglobin A1c percentageOrd ered By: Ronald Tong on 07-24-2025 HbA1c (Bld) [Mass fraction] 12.3 % High <5.7 [facility] Comment on above: Normal < 5.7 % Predi abetic 5.7 - 6.4 % Diabetic >or= 6.5 % Please note range changes. Hemoglobin measurementOrdere d By: Ronald Tong on 07-24-2025 Hemoglobin (Bld) [Mass/Vol] 15.8 g/dL 13.0-16.5 [facility] LDL calc ser/plasOrdered By: Ronald Tong on 07-24-2025 Cholesterol in LDL [Mass/Vol] 174 mg/dL [facility] Comment on above: Oenizcqdxj=336-879 m g/dL & Higher Uwls=330 mg/dL or greaterFriedwald Equation for LDL-C Laboratory - Chemistry and C hemistry - challengeOrdered By: Ronald Tong on 07-24-2025 AST [Catalytic activity/Vol] 17 U/L <38 [facility] Lipid Profileon 07-24-2025 CHOL:HDL 8.60 Normal [facility] Comment on above: Order Comment: Order Date: 07/24/25Order Info: [id number] - CMPOrder Info: [id number] - LIPIDOrder Info: [id number] - TSH Performed By: #### L 501.080 #### [facility] [address] [place], [place], [id number] (299) Cholesterol [Mass/Vol] 339 mg/dL High <=200 [facility] Comment on above: Order Comment: Order Date: 07/24/25Order Info: [id number] - CMPOrder Info: [id number] - LIPIDOrder Info: [id number] - TSH Result Comment: Chol esterol level, Desirable <200 mg/dL Borderline high cholesterol 200-239 mg/dL High cholesterol >=240 mg/dL Recommendations of the NCEP Adult Treatment Panel for the following risk-cutoff thresholds for the [place] population. Performed By: #### L 501.080 #### [facility] [address] [place], [address] Cholesterol in HDL [Mass/Vol] 39 mg/dL Low [facility] Comment on above: Order Comment: Order Date: 07/24/25Order Info: [id number] - CMPOrder Info: [id number] - LIPIDOrder Info: [id number] - TSH Result Comment: Thelma onal Cholesterol Education Program (NCEP) guidelines: <40 mg/dL: Low HDL-cholesterol (major risk factor for CHD) >= 60 mg/dL: High HDL-cholesterol (negative risk factor for CHD) HDL-cholesterol is affected by a number of factors, e.g. smoking, exercise, hormones, sex and age. Performed By: #### L 501.080 #### [facility] [address] [place], [address] Cholesterol in LDL [Mass/Vol] 174 mg/dL Normal [facility] Comment on above: Order Comment: Order Date: 07/24/25Order Info: [id number] - CMPOrder Info: [id number] - LIPIDOrder Info: [id number] - TSH Result Comment: Bord mcculf=082-445 mg/dL Higher Xddg=360 mg/dL or greater Friedwald Equation for LDL-C Performed By: #### L 501.080 #### [facility] [address] [place], [address] Cholesterol in VLDL [Mass/Vol] 126 mg/dL High 5-40 [facility] Comment on above: Order Comment: Order Date: 07/24/25Order Info: [id number] - CMPOrder Info: [id number] - LIPIDOrder Info: [id number] - TSH Performed By: #### L 501.080 #### [facility] [address] [place], [address] Triglyceride [Mass/Vol] 629 mg/dL High [facility] Comment on above: Order Comment: Order Date: 07/24/25Order Info: [id number] - CMPOrder Info: [id number] - LIPIDOrder Info: [id number] - TSH Result Comment: The drugs N-Acetylcysteine and Metamizole may falsely depress this assay. Normal range: <150 mg/dL Borderline High: 150-199 mg/dL High: 200-499 mg/dL Very High: >500 mg/dL Performed By: #### L 501.080 #### [facility] [address] [facility] [place], [address] MCV (mean corpuscular volume ) determinationOrdered By: Ronald Tong on 07-24-2025 MCV (RBC) [Entitic vol] 81.8 fL 80-94 [facility] Mean corpuscular hemoglobin (MCH) determinationOrdered By: Ronald Tong on 07-24-2025 MCH (RBC) [Entitic mass] 28.2 pg 27.0-32.0 [facility] Mean corpuscular hemoglobin concentration (MCHC) determinationOrdered By: Ronald Tong on 07-24-2025 MCHC (RBC) [Mass/Vol] 34.5 g/dL 32-36 [facility] Mean platelet volume determi nationOrdered By: Ronald Tong on 07-24-2025 Platelet mean volume (Bld) [Entitic vol] 10.3 fL 6.2-12.0 [facility] Platelet countOrdered By: Alena Tong on 07-24-2025 Platelets (Bld) [#/Vol] 266 10*3/uL 150-450 [facility] Potassium measurement (mass/ volume)Ordered By: Ronald Tong on 07-24-2025 Potassium (Unsp spec) [Mass/Vol] 4.1 mmol/L 3.3-5.1 [facility] RBC Auto (Bld) [#/Vol]Ordere d By: Ronald Tong on 07-24-2025 RBC (Bld) [#/Vol] 5.60 10*6/uL 4.6-6.2 [facility] Screening total cholesterol/ high density lipoprotein (HDL) cholesterol ratioOrdered By: Ronald Tong on 07-24-2025 Cholesterol.total/Chol esterol in HDL [Mass ratio] 8.60 {ratio} [facility] Serum creatinine measurement (mass/volume)Ordered By: Ronald Tong on 07-24-2025 Creatinine [Mass/Vol] 0.71 mg/dL 0.70-1.20 [facility] Serum globulin measurementOr dered By: Ronald Tong on 07-24-2025 Globulin (S) [Mass/Vol] 2.9 g/dL 2.2-4.2 [facility] Serum glucose measurement (m ass/volume)Ordered By: Ronald Tong on 07-24-2025 Glucose [Mass/Vol] 235 mg/dL High 70-99 [facility] Serum or plasma alanine dixon otransferase (ALT) measurementOrdered By: Akankshasonny Tong on 07-24-2025 ALT [Catalytic activity/Vol] 22 U/L <47 [facility] Serum or plasma albumin agus urement (mass/volume)Ordered By: [facility] Alycia on 07-24-2025 Albumin [Mass/Vol] 3.9 g/dL 3.5-5.0 [facility] Serum or plasma albumin/glob ulin mass ratioOrdered By: [facility] on 07-[facility]-2025 Albumin/Globulin [Mass ratio] 1.4 {ratio} 0.9-2.4 [facility] Serum or plasma alkaline tom sphatase measurementOrdered By: [facility] on 07-24-2025 ALP [Catalytic activity/Vol] 78 U/L 40-129 [facility] Serum or plasma calcium agus urement (mass/volume)Ordered By: Ronald Alycia on 07-24-2025 Calcium [Mass/Vol] 9.2 mg/dL 7.6-11.0 [facility] Serum or plasma cholesterol in HDL measurement (mass/volume)Ordered By: Ronald Tong on 07-24-2025 Cholesterol in HDL [Mass/Vol] 39 mg/dL Low >40 [facility] Comment on above: National Cholesterol Education Program (NCEP) guidelines:<40 mg/dL: Low HDL-cholesterol (major risk factor for CHD)>= 60 mg/dL: High HDL-cholesterol (negative risk factor for CHD)HDL-cholesterol is affected by a number of factors, e.g. smoking, exercise, hormones, sex and age. Serum or plasma cholesterol measurement (mass/volume)Ordered By: Ronald Tong on 07-24-2025 Cholesterol [Mass/Vol] 339 mg/dL High <201 [facility] Comment on above: Cholesterol level, D esirable <200 mg/dLBorderline high cholesterol 200-239 mg/dLHigh cholesterol >=240 mg/dLRecommendations of the NCEP Adult Treatment Panel for the following risk-cutoff thresholds for the [place] population. Serum or plasma urea nitroge n measurement (mass/volume)Ordered By: Ronald Alycia on 07-24-2025 Urea nitrogen [Mass/Vol] 8 mg/dL 4-19 [facility] Sodium levelOrdered By: Akanksha Tong on 07-24-2025 Sodium [Moles/Vol] 135 mmol/L 133-145 [facility] TSH DL <= 0.005 mIU/L QnOrde red By: Ronald Hernandezke on 07-24-2025 TSH Qn 2.090 uIU/mL 0.300-4.200 [facility] Thyroid Stim Hormone (TSH)on 07-24-2025 TSH 2.090 uIU/mL Normal 0.300-4.200 [facility] Comment on above: Order Comment: Order Date: 07/24/25Order Info: [id number] - CMPOrder Info: [id number] - LIPIDOrder Info: [id number] - TSH Performed By: #### L 501.080 #### [facility] [place], [address] Total proteinOrdered By: Alayna Hernandezke on 07-24-2025 Protein [Mass/Vol] 6.8 g/dL 5.9-8.4 [facility] Triglycerides measurementOrd ered By: Ronald Hernandezke on 07-24-2025 Triglyceride [Mass/Vol] 629 mg/dL High <199 [facility] Comment on above: The drugs N-Acetylcy steine and Metamizole may falsely depress this assay. Normal range: <150 mg/dLBorderline High: 150-199 mg/dLHigh: 200-499 mg/dLVery High: >500 mg/dL White blood cell (WBC) count Ordered By: Akankshasonny Tong on 07-24-2025 WBC (Bld) [#/Vol] 7.3 10*3/uL 4.4-11.[address] [facility] CT HEAD OR BRAIN W/O CONTRAS Ton [...] 02/09/2022 9:18:56 PM Ordering Provider: ESTEFANI ROMO [facility] ([place] CT SPINE CERVICAL W/O CONTRA Patrizia 02-09-2022 CT SPINE CERVICAL W/O CONTRAST [...] 02/09/2022 8:42:02 PM Ordering Provider: ESTEFANI Bellamy [facility] ([place]) .Auto Diffon 10-12-2021 Basophil, Absolute 0.00 10 3/mcL Normal 0.00-0.19 [facility] ([place]) Comment on above: Performed By: #### P BNP, TROPHS, BMP, GFR, CBC, ADIFF, ANEU #### [address] [address] Basophils/100 WBC (Bld) 0.2 % Normal 0.0-2.5 [facility] ([place]) Comment on above: Performed By: #### P BNP, TROPHS, BMP, GFR, CBC, ADIFF, ANEU #### [address] [address] Eosinophil, Absolute 0.00 10 3/mcL Normal 0.00-0.40 [facility] ([place]) Comment on above: Performed By: #### P BNP, TROPHS, BMP, GFR, CBC, ADIFF, ANEU #### [address] [address] Eosinophils/100 WBC (Bld) 0.0 % Normal 0.0-7.0 [facility] ([place] Comment on above: Performed By: #### P BNP, TROPHS, BMP, GFR, CBC, ADIFF, ANEU #### [address] [address] Lymphocyte, Absolute 0.70 10 3/mcL Low 0.77-3.85 [facility] ([place]) Comment on above: Performed By: #### P BNP, TROPHS, BMP, GFR, CBC, ADIFF, ANEU #### [address] [address] Lymphocytes/100 WBC (Bld) 10.3 % Normal 10.0-50.0 [facility] ([place] Comment on above: Performed By: #### P BNP, TROPHS, BMP, GFR, CBC, ADIFF, ANEU #### [address] [address] Monocyte, Absolute 0.60 10 3/mcL Normal 0.15-1.00 [facility] ([place]) Comment on above: Performed By: #### P BNP, TROPHS, BMP, GFR, CBC, ADIFF, ANEU #### [address] [address] Monocytes/100 WBC (Bld) 8.0 % Normal 1.7-13.0 [facility] ([place] Comment on above: Performed By: #### P BNP, TROPHS, BMP, GFR, CBC, ADIFF, ANEU #### [address] [address] Neutrophils/100 WBC (Bld) 81.5 % High 37.0-80.0 [facility] ([place] Comment on above: Performed By: #### P BNP, TROPHS, BMP, GFR, CBC, ADIFF, ANEU #### [address] [address] .GFRon 10-12-2021 GFR 114 ml/min/1.73sqm Normal [facility] ([place] Comment on above: Result Comment: GFR Population [...] TROPHS, BMP, GFR, CBC, ADIFF, ANEU #### [address] [address] GFR Non- 94 ml/min/1.73sqm Normal [facility] ([place]) Comment on above: Result Comment: GFR Population [...] TROPHS, BMP, GFR, CBC, ADIFF, ANEU #### [address] [address] .NEUABSon 10-12-2021 Neutrophil, Absolute 5.70 10 3/mcL Normal 2.85-6.16 [facility] ([place]) Comment on above: Performed By: #### P BNP, TROPHS, BMP, GFR, CBC, ADIFF, ANEU #### [address] [address] BMPon 10-12-2021 BUN/Creatinine Ratio 10 ratio Normal 7-27 [facility] ([place]) Comment on above: Performed By: #### P BNP, TROPHS, BMP, GFR, CBC, ADIFF, ANEU #### [address] [address] Calcium [Mass/Vol] 8.4 mg/dL Normal 8.4-10.2 [facility] ([place]) Comment on above: Performed By: #### P BNP, TROPHS, BMP, GFR, CBC, ADIFF, ANEU #### [address] [address] Chloride [Moles/Vol] 94 mmol/L Low 98-107 [facility] ([place]) Comment on above: Performed By: #### P BNP, TROPHS, BMP, GFR, CBC, ADIFF, ANEU #### [address] [address] CO2 [Moles/Vol] 26 mmol/L Normal 22-29 [facility] ([place] Comment on above: Performed By: #### P BNP, TROPHS, BMP, GFR, CBC, ADIFF, ANEU #### [address] [address] Creatinine [Mass/Vol] 0.86 mg/dL Normal 0.70-1.30 [facility] ([place]) Comment on above: Performed By: #### P BNP, TROPHS, BMP, GFR, CBC, ADIFF, ANEU #### [address] [address] Electrolyte Balance 13.0 mEq/L Normal [facility] ([place]) Comment on above: Performed By: #### P BNP, TROPHS, BMP, GFR, CBC, ADIFF, ANEU #### [address] [address] Glucose [Mass/Vol] 259 mg/dL High 70-105 [facility] ([place]) Comment on above: Performed By: #### P BNP, TROPHS, BMP, GFR, CBC, ADIFF, ANEU #### [address] [address] Potassium [Moles/Vol] 3.3 mmol/L Low 3.5-5.1 [facility] ([place]) Comment on above: Performed By: #### P BNP, TROPHS, BMP, GFR, CBC, ADIFF, ANEU #### [address] [address] Sodium [Moles/Vol] 133 mmol/L Low 136-145 [facility] ([place] Comment on above: Performed By: #### P BNP, TROPHS, BMP, GFR, CBC, ADIFF, ANEU #### [address] [address] Urea nitrogen [Mass/Vol] 9 mg/dL Normal 7-18 [facility] ([place] Comment on above: Performed By: #### P BNP, TROPHS, BMP, GFR, CBC, ADIFF, ANEU #### [address] [address] CBCon 10-12-2021 Erythrocyte distribution width (RBC) [Ratio] 13.6 % Normal 11.5-14.5 [facility] ([place] Comment on above: Performed By: #### P BNP, TROPHS, BMP, GFR, CBC, ADIFF, ANEU #### [address] [address] Hematocrit (Bld) [Volume fraction] 42.8 % Normal 42.0-52.0 [facility] ([place] Comment on above: Performed By: #### P BNP, TROPHS, BMP, GFR, CBC, ADIFF, ANEU #### [address] [address] Hgb 14.6 G/dL Normal 14.0-18.0 [facility] ([place] Comment on above: Performed By: #### P BNP, TROPHS, BMP, GFR, CBC, ADIFF, ANEU #### [address] [address] MCH (RBC) [Entitic mass] 27.5 pg Normal 27.0-31.2 [facility] ([place] Comment on above: Performed By: #### P BNP, TROPHS, BMP, GFR, CBC, ADIFF, ANEU #### [place] [address] MCHC 34.1 G/dL Normal 31.8-35.4 [facility] ([place] Comment on above: Performed By: #### P BNP, TROPHS, BMP, GFR, CBC, ADIFF, ANEU #### [place] [id number] MCV (RBC) [Entitic vol] 80.6 fL Normal 80.0-94.0 [facility] ([place] Comment on above: Performed By: #### P BNP, TROPHS, BMP, GFR, CBC, ADIFF, ANEU #### [address] [address] Platelet 338 10 3/mcL Normal 130-400 [facility] ([place] Comment on above: Performed By: #### P BNP, TROPHS, BMP, GFR, CBC, ADIFF, ANEU #### [place] [id number] Platelet mean volume (Bld) [Entitic vol] 8.3 fL Normal 7.4-10.4 [facility] ([place] Comment on above: Performed By: #### P BNP, TROPHS, BMP, GFR, CBC, ADIFF, ANEU #### [place] [address] [address] RBC 5.31 10 6/mcL Normal 4.04-6.13 [facility] ([place] Comment on above: Performed By: #### P BNP, TROPHS, BMP, GFR, CBC, ADIFF, ANEU #### [place] [address] [address] WBC 7.00 10 3/mcL Normal 4.60-10.80 [facility] ([place] Comment on above: Performed By: #### P BNP, TROPHS, BMP, GFR, CBC, ADIFF, ANEU #### [place] [address] [id number] 10-12-2021 Date of Onset [id number] Invalid Interpretation Code [facility] ([place] Comment on above: Performed By: #### C OVD19 #### [place] [address] Employed in Healthcare No [facility] ([place] Comment on above: Performed By: #### C OVD19 #### [place] [address] [address] First Test No [facility] ([place]) Comment on above: Performed By: #### C OVD19 #### [place] [address] [address] Hospitalized No [facility] ([place] Comment on above: Performed By: #### C OVD19 #### [place] [address] ICU No [facility] ([place] Comment on above: Performed By: #### C OVD19 #### [place] [address] [address] Not [facility] ([place] Comment on above: Performed By: #### C OVD19 #### [place] [address] [place], [place] [address] Resides in Congregate Care Setting No Normal [facility] ([place] Comment on above: Performed By: #### C OVD19 #### [place] [address] [place], [place] [address] SARS-CoV-2 (COVID-19) RNA JULY+probe Ql (Unsp spec) Positive Abnormal Negative [facility] ([place] Comment on above: Performed By: #### C OVD19 #### [place] [address] SARS-CoV-2 (COVID-19) RNA JULY+probe Ql (Unsp spec) Normal [facility] ([place] Comment on above: Result Comment: Posi tive results are indicative of the presence of SARS-CoV-2 RNA; clinical correlation with patient history and other diagnostic information is necessary to determine patient infection status. Positive results do not rule out bacterial infection or co-infection with other viruses. The agent detected may not be the definite cause of disease. Laboratories within the [facility] and its territories are required to report [...] Performed By: #### C OVD19 #### [place] [address] [address] Symptomatic as Defined by CDC Yes Normal [facility] ([place]) Comment on above: Performed By: #### C OVD19 #### [place] [address] [place], [place] [address] LABORATORYOrdered By: Lulú Lo on 10-12-2021 Blood Glucose Interventions Notify physician (10/12/21 8:29 AM) [facility] Blood Glucose Testing Reason Routine (10/12/21 8:29 AM) [facility] Glucose [Mass/Vol] 302 mg/dL Invalid Interpretation Code 70 - 110 mg/dL [facility] LABORATORYOrdered By: Jessica Siegel on 10-12-2021 ADMITTED [...] definite cause of disease. Laboratories within the [place] and its territories are required to [...] B (Bld) [Mass/Vol] 27 pg/mL Normal 0-125 [facility] ([place]) Comment on above: Result Comment: NT-p roBNP results of less than 300 pg/mL effectively rules out acute congestive heart failure with 99% negative predictive value. Performed By: #### P BNP, TROPHS, BMP, GFR, CBC, ADIFF, ANEU #### [address] [address] TROPHSon 10-12-2021 Troponin I High Sensitivity 12.7 ng/L Normal 0.0-76.2 [facility] ([place]) Comment on above: Performed By: #### P BNP, TROPHS, BMP, GFR, CBC, ADIFF, ANEU #### [address] [address] XR CHEST 1 VIEWon 10-12-2021 XR CHEST [...] 10/12/2021 3:57:42 AM Ordering Provider: HUANG WEN [facility] ([place]) Office Visit: [facility] f/u: R knee injuryon 05-29-2017 Documentation of current medications (procedure) Done Invalid Interpretation Code [facility] Work Phone: Documentation of current medications (procedure) T Invalid Interpretation Code [facility] Work Phone: Fall risk assessment No [facility] Work Phone: Protein mass conc Done [facility] Work Phone: Protein mass conc T [facility] Work Phone: Tobacco smoking status NHIS Current [facility] Work Phone: Tobacco smoking status NHIS Never smoker [facility] Work Phone: Tobacco use HS Never smoker Invalid Interpretation Code [facility] Work Phone: Office Visit: [facility], rt. knee injury, [place] 2017 Documentation of current medications (procedure) Done Invalid Interpretation Code [facility] Documentation of current medications (procedure) T Invalid Interpretation Code [facility] Tobacco smoking status NHIS Current Invalid Interpretation Code [facility] Tobacco use [facility] Never smoker Invalid Interpretation Code [facility] Vital Signs Date Time Vital Sign Value Performing Clinician Facility 08-30-2025 08:45-0400 Body temperature 97.5 [degF] Ronald Tong MD Work Phone: [facility] 08-30-2025 08:45-0400 Diastolic blood pressure 84 mm[Hg] Ronald Tong MD Work Phone: [facility] 08-30-2025 08:45-0400 Heart rate 76 /min Ronald Tong MD Work Phone: [facility] 08-30-2025 08:45-0400 Respiratory rate 17 /min Ronald Tong MD Work Phone: [facility] 08-30-2025 08:45-0400 SaO2% (BldA) [Mass fraction] 100 % Ronald Tong MD Work Phone: [facility] 08-30-2025 08:45-0400 Systolic blood pressure 138 mm[Hg] Ronald Tong MD Work Phone: [facility] 08-30-2025 05:41-0400 Body mass index (BMI) [Ratio] 26.9 kg/m2 Ronald Tong MD Work Phone: [facility] 08-30-2025 05:41-0400 Body weight 75.6 kg Ronald Tong MD Work Phone: [facility] 08-28-2025 04:00-0400 Inhaled oxygen flow rate 2 L/min Ronald Tong MD Work Phone: [facility] 08-27-2025 14:37-0400 Body height 167.64 cm Ronald Tong MD Work Phone: [facility] 08-22-2025 14:40-0400 Diastolic Blood Pressure Non-Invasive 84 mm[Hg] DR ZACHARIAH MOTA MD [facility] 08-22-2025 14:40-0400 Heart rate 78 /min DR ZACHARIAH MOTA MD [facility] 08-22-2025 14:40-0400 Respiratory rate 12 /min DR ZACHARIAH MOTA MD [facility] 08-22-2025 14:40-0400 Systolic Blood Pressure Non-Invasive 130 mm[Hg] DR ZACHARIAH MOTA MD [facility] 08-22-2025 14:35-0400 Diastolic Blood Pressure Non-Invasive 86 mm[Hg] DR ZACHARIAH MOTA MD [facility] 08-22-2025 14:35-0400 Heart rate 80 /min DR ZACHARIAH MOTA MD [facility] 08-22-2025 14:35-0400 Respiratory rate 13 /min DR ZACHARIAH MOTA MD [facility] 08-22-2025 14:35-0400 Systolic Blood Pressure Non-Invasive 124 mm[Hg] DR ZACHARIAH MOTA MD [facility] 08-22-2025 14:30-0400 Diastolic Blood Pressure Non-Invasive 87 mm[Hg] DR ZACHARIAH MOTA MD [facility] 08-22-2025 14:30-0400 Heart rate 85 /min DR ZACHARIAH MOTA MD [facility] 08-22-2025 14:30-0400 Respiratory rate 16 /min DR ZACHARIAH MOTA MD [facility] 08-22-2025 14:30-0400 Systolic Blood Pressure Non-Invasive 132 mm[Hg] DR ZACHARIAH MOTA MD [facility] 08-22-2025 14:00-0400 Body temperature 97.34 [degF] DR ZACHARIAH MOTA MD [facility] 08-22-2025 13:55-0400 Respiratory Rate - Anes 12 br/min DR ZACHARIAH MOTA MD [facility] 08-22-2025 13:50-0400 Respiratory Rate - Anes 14 br/min DR ZACHARIAH MOTA MD [facility] 08-22-2025 13:45-0400 Respiratory Rate - Anes 13 br/min DR ZACHARIAH MOTA MD [facility] 08-22-2025 13:30-0400 Body temperature 96.8 [degF] DR ZACHARIAH MOTA MD [facility] 08-22-2025 13:25-0400 Body temperature 96.8 [degF] DR ZACHARIAH MOTA MD [facility] 08-22-2025 11:56-0400 Body height [address] ZACHARIAH MOTA MD [facility] 08-22-2025 11:56-0400 Body temperature 96.98 [degF] DR ZACHARIAH MOTA MD [facility] 08-22-2025 11:56-0400 Body weight [address] ZACHARIAH MOTA MD [facility] 08-22-2025 11:56-0400 Heart rate 87 /min DR ZACHARIAH MOTA MD [facility] 08-20-2025 11:07-0400 Body height 167.[address] ZACHARIAH MOTA MD [facility] 08-20-2025 11:07-0400 Body weight 77.[address] ZACHARIAH MOTA MD [facility] 08-20-2025 11:07-0400 Body weight 27.52 kg/m2 DR ZACHARIAH MOTA MD [facility] 08-20-2025 11:07-0400 Diastolic Blood Pressure Non-Invasive 86 mm[Hg] DR ZACHARIAH MOTA MD [facility] 08-20-2025 11:07-0400 Heart rate 92 /min DR ZACHARIAH MOTA MD [facility] 08-20-2025 11:07-0400 Respiratory rate 20 /min DR ZACHARIAH MOTA MD [facility] 08-20-2025 11:07-0400 Systolic Blood Pressure Non-Invasive 147 mm[Hg] DR ZACHARIAH MOTA MD [facility] 08-17-2025 23:50-0400 Body temperature 98.1 [degF] Ronald Tong MD Work Phone: [facility] 08-17-2025 23:50-0400 Diastolic blood pressure 84 mm[Hg] Ronald Tong MD Work Phone: [facility] 08-17-2025 23:50-0400 Heart rate 74 /min Ronald Tong MD Work Phone: [facility] 08-17-2025 23:50-0400 Respiratory rate 18 /min Ronald Tong MD Work Phone: [facility] 08-17-2025 23:50-0400 SaO2% (BldA) [Mass fraction] 98 % Ronald Tong MD Work Phone: [facility] 08-17-2025 23:50-0400 Systolic blood pressure 118 mm[Hg] Ronald Tong MD Work Phone: [facility] 08-17-2025 19:13-0400 Body mass index (BMI) [Ratio] 27.9 kg/m2 Ronald Tong MD Work Phone: [facility] 08-17-2025 19:13-0400 Body weight 76.2 kg Ronald Tong MD Work Phone: [facility] 02-09-2022 19:45-0400 Body height 167.6 cm ESTEFANI ROMO MD [facility] 02-09-2022 19:45-0400 Body temperature 98.06 [degF] ESTEFANI ROMO MD [facility] 02-09-2022 19:45-0400 Body weight 77.3 kg ESTEFANI ROMO MD [facility] 02-09-2022 19:45-0400 Diastolic blood pressure 95 mm[Hg] ESTEFANI ROMO MD [facility] 02-09-2022 19:45-0400 Heart rate 92 /min ESTEFANI ROMO MD [facility] 02-09-2022 19:45-0400 Respiratory rate 18 /min ESTEFANI ROMO MD [facility] 02-09-2022 19:45-0400 Systolic blood pressure 146 mm[Hg] ESTEFANI ROMO MD [facility] 10-12-2021 11:00-0500 Diastolic blood pressure 78 mm[Hg] KIMBERLEE FROMMELT DO [facility] 10-12-2021 11:00-0500 Systolic blood pressure 134 mm[Hg] KIMBERLEE FROMMELT DO [facility] 10-12-2021 09:32-0500 Diastolic blood pressure 87 mm[Hg] KIMBERLEE FROMMELT DO [facility] 10-12-2021 09:32-0500 Heart rate 82 /min KIMBERLEE FROMMELT DO [facility] 10-12-2021 09:32-0500 Respiratory rate 16 /min KIMBERLEE FROMBRIGETTET DO [facility] 10-12-2021 09:32-0500 Systolic blood pressure 136 mm[Hg] KIMBERLEE FROMMELT DO [facility] 10-12-2021 08:30-0500 Body temperature 97.52 [degF] KIMBERLEE FROMMELT DO [facility] 10-12-2021 08:30-0500 Diastolic blood pressure 99 mm[Hg] KIMBERLEE GRIFFITHT DO [facility] 10-12-2021 08:30-0500 Heart rate 83 /min KIMBERLEE GRIFFITHT DO [facility] 10-12-2021 08:30-0500 Systolic blood pressure 145 mm[Hg] KIMBERLEE FROMMELT DO [facility] 10-12-2021 02:30-0500 Body temperature 99.14 [degF] KIMBERLEE FROMMELT DO [facility] 10-12-2021 01:01-0500 Body height 165.1 cm KIMBERLEE FROMMELT DO [facility] 10-12-2021 01:01-0500 Body temperature 101.48 [degF] KIMBERLEE FROMMELT DO [facility] 10-12-2021 01:01-0500 Body weight 80.9 kg KIMBERLEE MCRAE DO [facility] 10-12-2021 01:01-0500 Heart rate 111 /min KIMBERLEE MCRAE DO [facility] 05-29-2017 08:49-0400 BMI (Body Mass Index) 32.54 kg/m2 Kathleen Adorno [facility] Work Phone: 05-29-2017 08:49-0400 Body Temperature 98.6 [degF] Kathleen Adorno [facility] Work Phone: 05-29-2017 08:49-0400 BP Diastolic 82 mm[Hg] Kathleen Adonro [facility] Work Phone: 05-29-2017 08:49-0400 BP Systolic 126 mm[Hg] Kathleen Adorno ATOMIC PHYSICS PROFESSOR [facility] Work Phone: 05-29-2017 08:49-0400 Height 167.64 cm Kathleen Adorno LPN [facility] Work Phone: 05-29-2017 08:49-0400 Pulse (Heart Rate) 95 /min Ktahleen Adorno [facility] Work Phone: 05-29-2017 08:49-0400 Respiratory Rate 14 /min Kathleen Adorno [facility] Work Phone: 05-29-2017 08:49-0400 Weight 91.45 kg Kathleen Adorno [facility] Work Phone: 2017 09:24-0400 BMI (Body Mass Index) 32.83 kg/m2 [facility] 2017 09:24-0400 Body Temperature 98.8 [degF] [facility] 2017 09:24-0400 BP Diastolic 92 mm[Hg] [facility] 2017 09:24-0400 BP Systolic 138 mm[Hg] [facility] 2017 09:24-0400 Height 167.64 cm [facility] 2017 09:24-0400 Pulse (Heart Rate) 96 /min [facility] 2017 09:24-0400 Respiratory Rate 12 /min [facility] 2017 09:24-0400 Weight 92.26 kg [facility] Encounters Encounter Date Encounter Type Care Provider Facility Start: 09-05-2025 End: 09-05-2025 ambulatory Ronald Tong Facility:[facility] Start: 08-25-2025 ambulatory Anthony Packer ility:[facility] Start: 08-25-2025 End: 08-30-2025 Evaluation and management of inpatient Kenisha Mcgee Facility:[facility] Start: 08-25-2025 End: 08-25-2025 ambulatory Zachariah Mota Facility:[facility] Start: 08-22-2025 End: 08-22-2025 ambulatory MR Ingram JAYNE HANSEN Facility:[facility] Start: 08-22-2025 End: 08-22-[address] ZACHARIAH MOTA MD [facility] Start: 08-20-2025 End: 08-20-[address] ZACHARIAH MOTA MD [facility] Start: 08-20-2025 End: 08-20-2025 ambulatory MR Ingram JAYNE HANSEN Facility:[facility] Start: 08-17-2025 End: 08-17-2025 Emergency department patient visit Dr. Brandon Abraham DO -Emergency Department Work Phone: Start: 07-24-2025 End: 07-24-2025 ambulatory [facility] Start: 07-24-2025 End: 07-24-[address] Ronald Tong MD -Laboratory [facility] Start: 07-24-2025 End: 07-24-2025 ambulatory Ronald Tong Facility:[facility] Start: 02-07-[address] [facility] Juan Jose Jayne Haney PA-C Work Phone: Ambulatory Surgery Comment on above: colorectal cancer sc reening Start: 02-07-2024 ambulatory Juan Jose Jayne dennis PA-C Work Phone: Ambulatory Surgery Start: 02-09-2022 End: 02-09-2022 Emergency department patient visit ESTEFANI ROMO MD [facility] Start: 10-12-2021 End: 10-12-2021 Emergency department patient visit KIMBERLEE MCRAE DO [facility] Procedures Date Procedure Procedure Detail Performing Clinician [...] DTaP,Tdap,Td Vaccine (3 - Td or Tdap) [facility] Start: 08-30-2025 Patient discharge [facility] Start: 08-29-2025 Urine culture Urine Culture [facility] Start: 08-29-2025 Non-patient / Non-visit Non-patient / Non-visit -[facility] Work Phone: Start: 08-28-2025 [facility] Start: 08-28-2025 Non-patient / Non-visit Non-patient / Non-visit -[facility] Work Phone: Start: 08-27-2025 Non-patient / Non-visit Non-patient / Non-visit -[facility] Work Phone: Start: 08-27-2025 Plain chest X-ray Chest 1 View (Portable) [facility] Start: 08-27-2025 Care regimes management [facility] Start: 08-27-2025 Notification of physician [facility] Start: 08-27-2025 Catheterization of vein [facility] Start: 08-27-2025 End: 08-27-2025 [facility] Start: 08-27-2025 Fluoroscopic guidance O.R. Fluoro for C-Arm [facility] Start: 08-27-2025 Introduction to urinary tract Cysto,Insertion Stent (Right) [facility] Start: 08-27-2025 Consultation [facility] Start: 08-27-2025 Blood culture Blood Culture [facility] Start: 08-27-2025 Urine culture Urine Culture [facility] Start: 08-27-2025 [facility] Start: 08-25-2025 Application of intermittent pneumatic compression device [facility] Start: 08-25-2025 Following clinical pathway protocol [facility] Start: 08-25-2025 Vital signs measurements [facility] Start: 08-25-2025 Admission procedure [facility] Start: 08-25-2025 End: 08-30-2025 Evaluation and management of inpatient Sepsis -[facility] Work Phone: Start: 08-25-2025 CT of abdomen and pelvis without contrast Abdomen/Pelvis without Cont [facility] Start: 08-25-2025 End: 08-25-2025 Patient encounter procedure Departed Clinical -Cat Scan [facility] Work Phone: Start: 08-25-2025 Patient referral to dietitian [facility] Start: 08-17-2025 [facility] Start: 07-07-2024 Influenza vaccination Influenza Vaccine (Season Ended) [facility] Start: 01-27-2024 Annual PCP Team Chronic Disease Visit Annual PCP Team Chronic Disease Visit [facility] Start: 01-27-2024 Diabetic foot examination Diabetic Foot Exam [facility] Start: 12-12-2023 Glaucoma screening Dilated Retinal Exam [facility] Start: 11-06-2023 Behavioral Health Screening Behavioral Health Screening [facility] Start: 2021 Shingrix Vaccine (1 of 2) Shingrix Vaccine (1 of 2) [facility] Start: 12-27-2020 Hepatitis B surface antibody level LDL Cholesterol [facility] Start: 03-26-2020 [facility]c [facility] Start: 05-29-2017 End: 05-29-2017 Appointment [facility] Start: 2017 End: 2017 Appointment Appointment [facility] Start: 2016 Screening for malignant neoplasm of colon [facility] Start: 1990 Hepatitis B Vaccine (1 of 3 - 19+ 3-dose series) Hepatitis B Vaccine (1 of 3 - 19+ 3-dose series) [facility] Start: 1989 Hepatitis C screening Hepatitis C Screening [facility] Start: 1989 HIV screening HIV Screening [facility] Start: 1977 Pneumococcal vaccination Pneumococcal Vaccine (1 of 2 - PCV) [facility] Patient Education ED Kidney Ston e with Pain [facility] Work Phone: Immunizations Immunization Date Immunization Notes Care Provider [facility] 09-08-2018 tetanus toxoid, redu kris diphtheria toxoid, and acellular pertussis vaccine, adsorbed KIMBERLEE MCRAE DO [facility] 10-06-2016 influenza virus vaccine, unspecified formulation HERACLIO Lyndon EMERY Work Phone: [facility] 03-30-2016 tetanus toxoid, redu kris diphtheria toxoid, and acellular pertussis vaccine, adsorbed NA Lyndon MEERY Work Phone: [facility] Payers Date Payer Category Payer Private Health Insurance [id number] 2025 Private Health Insurance [id number] 2025 Self-pay 2022 Unknown [employer] PPO OOS [id number] 2022-Present [phone] [address] [place] [address] PPO [id number] 1970 Unknown [id number] 1970 Unknown [id number] Self-pay [id number] Unknown [id number] Unknown . Unknown [id number] Unknown [id number] Unknown [id number] Unknown [id number] Unknown [id number] Unknown [id number] Unknown [id number] Unknown 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 Monthly or less [facility] How many standard dr inks containing alcohol do you have on a typical day? 1 or 2 [facility] How often do you hav e 6 or more drinks on 1 occasion? Never [facility] Do you feel stress - tense, restless, nervous, or anxious, or unable to sleep at night because your mind is troubled all the time - these days [OSQ] Not at all [facility] (I/We) worried annabelle er (my/our) food would run out before (I/we) got money to buy more. Never true [facility] In the past 12 month s, was there a time when you were not able to pay the mortgage or rent on time? No [facility] Start: 04-22-2020 Education 12 [facility] Start: 1970 Sex Assigned At Not on file [facility] Start: 1970 Sex Assigned At Male [facility] Start: 08-20-2025 Tobacco smoking status Ex-smoker (fi nding) [facility] Start: 02-06-2015 Sex Male (finding) [facility] Start: 08-20-2025 End: 08-22-2025 Not applicable (qualifier value) [facility] Medical Equipment Procedure Code Equipment Code Equipment Origin al Text Equipment Identifier Dates Cystoscopic insertion of stent STENT,URETERAL PIGTAIL [id number] FDA Start: 08-27-2025 Test blood sugar (s) 2 times daily. Dx: Type 2 DM - Controlled E11.9 Insulin: Yes [id number] Start: 07-26-2019 Test blood sugar (s) 2 daily. Dx: Type 2 DM - Controlled E11.9 Insulin: Yes [id number] Start: 07-26-2019 Goals Date Patient Goal Desired Activity /State Functional Status Date Assessment Result Facility 08-30-2025 Functional status Independent [facility] Work Phone: 08-27-2025 Functional status Patient Activity Ambula nisha [facility] Work Phone: 08-22-2025 Functional Status Repositions self [facility] 08-22-2025 Functional Status Maintained, More than 8 hours [facility] 08-20-2025 Functional Status Sensory Deficits None A [facility] 02-09-2022 Functional Status [facility] 02-09-2022 Functional Status [facility] Mental Status Date Assessment Result Facility 08-30-2025 Cognitive function Voice/Name [facility] Work Phone: 08-22-2025 Mental Status Orientation Oriented x 4 [facility] 08-22-2025 Mental Status [facility] 02-09-2022 Mental Status [facility] 02-09-2022 Mental Status [facility] Clinical Notes 10-12-2021 to 08-29-2025 Note Date & Type Note Facility 08-29-2025 Note [facility] Medical Records Department [address] [place] [address] Discharge Summary 08/29/25 1228 MR#: [id number] Acct: [id number] Name: ANDRIA HERNANDEZ Rep #: [id number] : [id number] 55 From: Zachariah Mota MD PCP: Dr. Ronald Tong MD Status:ADM IN Location: [id number] Providers Date of Admission: 08/25/25 Primary Care Physician: Ronald Tong MD Consultations 08/27/25 15:03 Consult: Hospitalist Routine Consulting Provider: [facility] Reason for Consult: medical manegment EMERGENT [...] 75.1 H, Lymph % (Auto) 13.6 L, [place] % (Auto) 10.0, Eos % (Auto) 0.5, [...] Catheterized Urine Culture - Preliminary GNR lactose health policy nurse 08/27/25 18:11 Blood Culture (Wb) - Left [...] Up With: Zachariah Mota MD When: Call [phone] for an appointment, 2 weeks to remove [...] PO DAILY Refe (more content not included)... [facility] 08-27-2025 Note [facility] Medical Records Department [address] [place] [address] Discharge Summary 08/27/25 0725 MR#: [id number] Acct: [id number] Name: ANDRIA HERNANDEZ Rep #: [id number] : 1970 55 From: Zachariah Mota MD PCP: Dr. Ronald Tong MD Status:ADM IN Location: [facility] [place] [id number] Providers Date of Admission: 08/25/25 Date of [...] Tong MD; Dr. Zachariah Mota MD Signed [facility] 08-26-2025 Note [facility] Medical Records Department [address] [place] [address] History Physical Exam 08/26/25 0735 MR#: [id number] Acct: [id number] Name: ANDRIA HERNANDEZ Rep #: [id number] : 1970 55 From: Zachariah Mota MD PCP: Dr. Ronald Tong MD Status:ADM IN Location: [facility] [place] [id number] HPI - General General Date of Admission: [...] home later this morning or this afternoon [facility] Medical History (Updated 08/25/25 @ [...] 87.0 H, Lymph % (Auto) 4.9 L, Laurens % (Auto) 7.2, Eos % (Auto) 0.1, [...] Tong MD; Dr. Zachariah Mota MD Signed [facility] 08-22-2025 Hospital Discharge instructions Patient Education 08/22/2025 [...] as possible. If the spirometer includes a softball coach indicator, use this to guide you in [...] 03/04/2008 Document Revised: 11/15/2018 Document Reviewed: 09/05/2018 [employer] Patient Education 2020 [employer]. 08/22/2025 14:37:15 Ureteral Stent Implantation, Care After [...] Follow these instructions at home: Medicines Take urrb-tzb-uykbifr and prescription medicines only as told by [...] of blood in your urine increases. Take ktlj-aof-tqynjgz and prescription medicines only as told by your health care provider. Drink enough fluid to keep your urine pale yellow. This information is not intended to replace advice given to you by your health care provider. Make sure you discuss any questions you have with your health care provider. Document Released: 06/25/2014 Document Revised: 07/30/2019 Document Reviewed: 07/31/2019 [employer] Patient Education 2020 [employer] 08/22/2025 14:37:03 Ureteroscopy, Care After Ureteroscopy, Care [...] Follow these instructions at home: Medicines Take uxhs-njw-cbbbzto and prescription medicines only as told by [...] 10/28/2014 Document Revised: 10/05/2018 Document Reviewed: 08/04/2017 [employer] Patient Education 2020 [employer] 08/22/2025 14:36:40 General Anesthesia, Adult, Care [...] what activities are safe for you. Take llyl-xbe-bexlxkv and prescription medicines only as told by [...] 01/29/2002 Document Revised: 10/26/2018 Document Reviewed: 06/08/2018 [employer] Patient Education 2020 [employer]. Follow Up Care 08/19/2025 14:47:18 With:ZACHARIAH MOTA Address: [address] [place] [address] [place] [address]- [phone] Business (1) When: Unknown Comments:CALL TO SCHEDULE FOLLOW UP WITHIN 2 WEEKS [facility] 08-22-2025 Note Discharge Instructions Thank you for allowing [facility] to assist you with your healthcare needs. The following is important discharge information regarding your hospital visit. Your Care Team Juan Jose HANEY Your Diagnosis Bilateral kidney stones What to do next Follow Up Appointments Follow Up with ZACHARIAH MOTA Where:[address] [place] [address] [place] [address]- [phone] Business (1) Additional Information: CALL TO SCHEDULE [...] 12 hours Duration: 5 Days Pickup at [facility] [address] New oxyCODONE (oxyCODONE 5 mg oral [...] bedtime as needed for Insomnia Pharmacy Information [facility] [address]: [address] [place], [place] [id number] [phone] Please take this list to your next [...] as possible. If the spirometer includes a softball coach indicator, use this to guide you in [...] 03/04/2008 Document Revised: 11/15/2018 Document Reviewed: 09/05/2018 [employer] Patient Education 2020 [employer] Ureteral Stent Implantation, Care After This [...] Follow these instructions at home: Medicines Take mxzf-rdp-typvwvy and prescription medicines only as told by [...] of blood in your urine increases. Take ibbw-cyo-evbtzyi and prescription medicines only as told by your health care provider. Drink enough fluid to keep your urine pale yellow. This information is not intended to replace advice given to you by your health care provider. Make sure you discuss any questions you have with your health care provider. Document Released: 06/25/2014 Document Revised: 07/30/2019 Document Reviewed: 07/31/2019 [employer] Patient Education 2020 [employer]. Ureteroscopy, Care After This sheet gives you [...] Follow these instructions at home: Medicines Take daai-jfh-kkiuuyy and prescription medicines only as told by [...] 10/28/2014 Document Revised: 10/05/2018 Document Reviewed: 08/04/2017 [employer] Patient Education 2020 [employer]. General Anesthesia, Adult, Care After This sheet [...] what activities are safe for you. Take smvv-fdx-allbfsg and prescription medicines only as told by [...] 01/29/2002 Document Revised: 10/26/2018 Document Reviewed: 06/08/2018 [employer] Patient Education 2020 [employer]. Additional Information VACCINATE! IT SAVES LIVES! Members of the community who have not yet received the COVID-19 vaccine and would like to receive it can visit one of [facility] vaccine clinics. There are many vaccine clinic locations within the [facility]. For locations and available times, please visit https://gettheshot.coronavirus.o hio.gov/. It is important to note that some COVID mobile vaccine clinics are held outdoors and may be canceled in rainy or stormy conditions. To learn more about pediatric vaccinations (ages 5-11), we invite you to visit the [facility] webpage. https://www.[email or web address].org/p ages/4809-Cobha-Fhhhqnaybut-Freq svfubg-Cengi-Bjkffoohl.html To learn more about the COVID-19 vaccine, we invite you to visit the CDC website for a list of frequently asked questions.https://www.cdc.gov/co ronavirus/2019-ncov/vaccines/faq .html blabfeed Patient Portal Access Instructions: Stay connected with your healthcare team and access your personal medical information anytime with the [facility]abfeed Patient Portal. Please follow the directions below to create your [facility] account: 1.Access the email account you provided upon registration to the hospital/physician office.2.Look for an invitation email from [facility].3.Open the email and access the invitation link: Accept Invitation to [facility].4.Fill in the required stuart to create your account. To access your account, visit [email or web address]. or scan the ClearApp code above. Click the blue button labeled Access Patient Portal and then log in with the username [...] you will allow to register on the [facility] [employer] Patient Portal for access to your information. You can also access the [facility] Patient Portal on the [facility] stoney. Simply click on Patient Portal and then log into your account. If you would like to receive a full copy of your medical records, please contact the [facility] Medical Records Department by calling [phone], Monday through Monday between 8 a.m. and [...] Call your local pharmacy or go to http://bit.ly/4A6Oq4a to find one close to you.3.Make use of household items: Use cat litter or old coffee grounds to dispose medications if other options are not available. Mix your drugs with these household products, seal them in an airtight container and throw it into the garbage. Call [facility]: [phone] to be sure your drugs can be [...] aware that I should contact my doctor. Patient/Decaler Signature: Date/Time: Relationship to Patient: Witness Name/Signature: Date/Time: [facility] 08-22-2025 Note Exam Date Time Procedure Performing Provider Status 08/22/25 2:20 PM XR Fluoro < 1Hr Tech Time Modified [id number] ORIGINAL Images acquired, not reported on this accession number. [facility]10-17-2025 Anesthesiology Consult note Patient: ANDRIA HERNANDEZ Age: 55 years Sex: Male : 1970 Associated Diagnoses: None Author: MYRTLE CORDOVA IT NETWORK ENGINEER-RELIGIOUS EDUCATOR Assessment Postanesthesia assessment Vitals: Vital signs from [...] by MYRTLE CORDOVA on 08/22/2025 02:05 PM [facility]10-17-2025 Anesthesiology Consult note Patient: ANDRIA HERNANDEZ Age: [...] history: History of ureteroscopy and laser lithotripsy ([id number]) on 08/22/2025 at 55 Years. Eye ([id number]). Comments: 08/20/2025 11:04 EDT - Lindy Moreno RN bilateral Appendectomy ([id number]). Social History: Social & Psychosocial Habits Alcohol 08/22/2025Risk Assessment: Denies Alcohol Use 08/22/2025 Use: Current Frequency: 1-2 times per year Comment: [facility] - 02/09/2022 19:53 - Chetan, Huang Ingram RN Substance Abuse 08/22/2025Risk Assessment: Denies Substance Abuse 08/22/2025 Use: Never Tobacco 08/22/2025Risk Assessment: No Risk 08/22/2025 Tobacco Use: Former smoker, quit more Type: Oral (Snuff, Chew) Number of years: 20 Stopped at age: 54 Years Smokeless tobacco use: Former smokeless tobacco Home/Environment 08/22/2025 Living situation: Home/Independent Domestic Concerns None Primary Engine Lathe Tender: Self Current Home Treatments Blood Glucose monitoring [...] Diastolic Blood Pressure Non-Invasive 92 mmHg HI Vital Signs (last 24 hrs) Last Charted Temp Gnarxgdr17.1 DegC (AUG 22 11:56) CCU615 mmHg (AUG 22 11:56) DBPH 92 mmHg (AUG 22 11:56) Measurements from flowsheet : Measurements 08/22/2025 11:56 EDT Height 167 cm Admission Weight 77 kg Austin Body Weight 63.22 kg Pain assessment: Pain [...] Height 167 cm Admission Weight 77 kg [place] Body Weight 63.22 kg Temperature Temporal Artery [...] Cooperative Orientation Oriented x 4 Allergies Yes Pet Counselor On Yes Consent Form Signed Yes Patient [...] #1 We May Share PHI Terrie Hernandez [phone] Designated Person #1 Relationship Spouse Designated Person #2 We May Share PHI Ronny Hernandez [phone] Designated Person #2 Relationship Son Privacy Restrictions [...] Education NPO after midnight, No jewelry, Responsible Democrat, Aware of surgery location, Pre-op education done, Instructed to take ordered medications, SSI prevention handout given SN - Preprocedure Comments Spoke with patient, Verbalizes/Nonverbally indicates understanding, Other: amlodipine Barriers to Learning None evident Teaching Method Explanation, Printed materials Preferred Spoken Language Citizen [place] Preferred Written Language Citizen [place] Teaching Evaluation No further teaching needed Safety [...] Day Patient History . Assessment and Plan [place] Society of Anesthesiologists (ASA) physical status classification: Class II. Anesthetic Preoperative Plan Premedication: intravenous. Anesthetic technique: General. Induction: intravenously. Maintenance airway: Laryngeal mask airway. Postoperative pain management: Per surgeon. Risks discussed: nausea, vomiting, headache, sore throat, dental injury, hypotension, allergic reaction, serious complications. Informed consent: signed by patient. Digitally Signed by MYRTLE CORDOVA on 08/22/2025 01:17 PM [facility]10-12-2025 Discharge summary [facility] Medical Records Department [address] [place] [address] Emergency Department Summary 08/17/25 MR#: [id number] Acct: [id number] Name: ANDRIA HERNANDEZ Rep #:[id number] : 1970 55 From: Brandon Gonzales PCP: [...] denies any dysuria, frequency, or hematuria. PFSH PFS Medical History Abdominal pain Abdominal hernia Home [...] % (Auto) 54.3 Lymph % (Auto) 35.0 Laurens % (Auto) 9.7 Eos % (Auto) 0.4 [...] Clarity Clear Urine pH 6.0 Ur Specific [place] 1.010 Urine Protein Negative Urine Glucose (UA) [...] with associated minimal upstream hydroureteronephrosis. Reading Location: [facility] CT scan of the abdomen and [...] fluids. Patient was given a prescription for [place]. Patient was instructed to follow-up with his [...] Staff, Urology] - 3-5 Days Print Language: Citizen [place] Disposition Disposition: Home, Self Care Discharge Date/Time: 08/17/25 23:53 What to do if you have Problems For any increased pain, shortness of breath, bleeding, nausea or vomiting, chestpain, or any unexpected problems, contact your Primary Care Provider. Call [facility] ([phone]) or report tothe closest Emergency Room. Call 911 if necessary. 08/18/25 0117 Cosigner Signature (if applicable): CC: Dr. Ronald Tong MD ~ Signed [facility]10-12-2025 Radiology Diagnostic study note [facility] Imaging Services [address] [place], [place] [address] Abdomen/Pelvis W IV Cont ONLY MR#: [id number] Acct: [id number] Name: ANDRIA HERNANDEZ Rep #: [id number] : 1970 M 55 From: Anne-Marie Dobson MD PCP: Dr. Ronald Tong MD Status: REG ER Study:Abdomen/Pelvis W IV Cont ONLY Date of E xam: 08/17/25 Exam# [id number] Ordering Dr: Brandon Abraham DO PROCEDURE: ABDOMEN/PELVIS [...] with associated minimal upstream hydroureteronephrosis. Reading Location: [facility] CC: Dr. Ronald Tong MD; Dr. Brandon Abraham DO ~ Morphology Teacher: Signed [facility]10-12-2025 Discharge summary Author Brandon Abraham [facility] Note Date/Time August 17, 2025 1 1:53pm [facility] Medical Records Department [address] [place] [address] Emergency Department Summary 08/17/25 MR#: [id number] Acct: [id number] Name: ANDRIA HERNANDEZ Rep #:[id number] : 1970 55 From: Brandon Gonzales PCP: [...] Patient denies any dysuria, frequency, or hematuria. [facility] Medical History Abdominal pain Abdominal hernia Home [...] % (Auto) 54.3 Lymph % (Auto) 35.0 Laurens % (Auto) 9.7 Eos % (Auto) 0.4 [...] Clarity Clear Urine pH 6.0 Ur Specific [place] 1.010 Urine Protein Negative Urine Glucose (UA) [...] with associated minimal upstream hydroureteronephrosis. Reading Location: [facility] CT scan of the abdomen and [...] fluids. Patient was given a prescription for [place]. Patient was instructed to follow-up with his [...] Staff, Urology] - 3-5 Days Print Language: Citizen [place] Disposition Disposition: Home, Self Care Discharge Date/Time: 08/17/25 23:53 What to do if you have Problems For any increased pain, shortness of breath, bleeding, nausea or vomiting, chestpain, or any unexpected problems, contact your Primary Care Provider. Call [facility] ([phone]) or report to the closest Emergency Room. Call 911 if necessary. 08/18/25 0117 <Electronically signed by Brandon Abraham DO> Cosigner Signature (if applicable): CC: Dr. Ronald Tong MD ~ Signed [facility] Work Phone: [phone] NoteHNO ID: [id number] Author: ?, ?, ? Service: ? Author Type: ? Type: Progress Notes Filed: 03/11/2024 15:16 Note Text: Spoke to patient he is no longer a patient of [facility]. He is now with Dr. Tong at [facility] NoteHNO ID: [id number] Author: ?, ?, ? Service: ? Author Type: ? Type: Progress Notes Filed: 03/11/2024 03:03 Note Text: 02-26 first attempt to contact patient, LVM to call and schedule wellness / est physical / last one of Rocio [facility]04-23-2024 History of Present illness Narrative* Rocio Case - 02/27/2024 1:51 PM EDT 02-26 first attempt to contact patient, LVM to call and schedule wellness / est physical / last oneof Rocio Case * Rocio Case - 02/07/2024 12:40 PM EDT Waiting to contact patient until order is placed documented in [facility]24 NoteHNO ID: [id number] Author: ?, ?, ? Service: ? Author Type: ? Type: Progress Notes Filed: 03/11/2024 03:03 Note Text: [facility] NotePatient Outreach (ASWSTR) ANDRIA HERNANDEZ ([id number]) 1970 M Date Time Provider Department 02/07/24 Juan Jose HANEY ASTELLO During your visit today, we recorded the [...] he is no longer a patient of [facility]. He is now with Dr. Tong at [facility] Rocio Case Allergies As of Date: 02/07/2024 [...] allergic rhinitis [J30.2] 01/26/2023 Encounter Status:Closed by MANUELA, PRODUSER on 03/11/24[facility] 02-09[facility]22 Hospital Discharge instructions Patient Education 02/09/2022 [...] or bleeding from the nose or ears [phone] [employer]. [address] [place] [address]. All rights reserved. This information is not intended as a substitute for professional medical care. Always follow yourhealthcare professional's instructions. Follow Up Care 02/09/2022 19:40:23 With:Juan Jose HANEY Address: [address] [place] [address]- When:2-4 days [facility] 12-07-2021 Hospital Discharge instructions Patient Education 10/12/2021 [...] diarrhea. Sometimes it causes generalized symptoms like aching all over, feeling tired, loss of energy, or loss [...] the smoke from others. You may use cavd-hyy-fnlectb acetaminophen or ibuprofen for fever, muscle aching, [...] body and be dangerous to your health. Iked-dom-etsccil remedies won't shorten the length of the [...] or as directed by your healthcare provider [phone] [employer]. [address] [place] [address], [place] [address]. All rights reserved. This information is not intended as a substitute for professional medical care. Always follow yourhealthcare professional's instructions. 10/12/2021 06:49:47 Pneumonia (Adult) Pneumonia [...] neck Chest pain not caused by coughing [phone] [employer]. [address] [place] [address]. All rights reserved. This information is not intended as a substitute for professional medical care. Always follow yourhealthcare professional's instructions. Follow Up Care 10/12/2021 00:42:07 With:Juan Jose HANEY Address: [address] [place] [address]- When:2-4 days [facility] Evaluation + Plan note No data available for this section [facility] Evaluation + Plan note Future Appointments [facility] Evaluation noteNo assessment information available [facility] Work Phone: Evaluation note* Diagnosis Onset Date Resolution Status Admit Date Sepsis acute August 25, 2025 4:19pm [facility] Work Phone: Hospital Discharge instructions No data available for this section [facility] Progress note No data available for this section [facility] Reason for referral (narrative)No reason for referral information availableWUniversity [facility]als Health [facility] Work Phone: Summary Purpose Family History No Family History Records Found Relationship Condition Age at Onset Recorded Date/T lucy father Diabetes mellitus Unknown Cardiac disease Unknown Hypertension Unknown Cerebrovascular accident (CVA) Unknown High blood cholesterol Unknown Advance Directives No Advanced Directives Records Found Advance Directive Response Recorded Date/ Time Do you have a Healthcare Power of Clinical Social Work Aide? No August 17, 2025 7:13pm Do you have a Healthcare Power of Clinical Social Work Aide? 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 Дмитрий Clark MD Primary care physician Active Ronald Tong MD Primary care physician Active Team Status: Inactive Member Role/Relationship Status Tika Tong MD Primary care physician Active S tart: July 24, 2025 End: July 24, 2025 Ronald Tong MD Attending physician Active Star t: July 24, 2025 End: July 24, 2025 Team Status: Active Member Role/Relationship Status Tika Tong MD Primary care physician Active Team Status: Inactive Member Role/Relationship Status Tika Tong MD Primary care physician Active S tart: August 17, 2025 End: August 17, 2025 Dr. Brandon Abraham DO Attending physician Active Start: August 17, 2025 End: August 17, 2025 Dr. Brandon Abraham DO Emergency Departm ent Physician Active Start: August 17, 2025 End: August 17, 2025 Team Status: Inactive Member Role/Relationship Status Tika Tong MD Primary care physician Active S [...] Start: August 28, 2025 Dr. Anthony Jaime DO Nurse Practitioner Active Start: August 28, 2025 [...] August 29, 2025 Dr. Anthony Jaime DO Nurse Practitioner Active Start: August 29, 2025 Dr. Lucho Maki MD Nurse Practitioner Active Start: August 29, 2025 (unrecognized sect ion and content) No Status Records FoundNo Status Records FoundNo Status Records FoundNo Status Records Found INFORMATION SOURCE (unrecogn ized section and content) DATE CREATED AUTHOR 03/05/2022 [facility] DATE CREATED AUTHOR AUTHOR'S ORGANIZ ATION 03/12/2024 [facility] DATE CREATED AUTHOR AUTHOR'S ORGANIZ ATION 09/04/2025 [facility] DATE CREATED AUTHOR AUTHOR'S ORGANIZ ATION 09/18/2025 [facility] Source Comments (unrecognize d section and content) In the event this informatio n is protected by the Federal Confidentiality of Alcohol and Drug Abuse Patient Records regulations: The Federal rules restrict any use of the information to criminally investigate or prosecute any alcohol or drug abuse patient.[facility] Reason for Visit (unrecogniz ed section and [...] BE BASED ON THE PRIMARY CLINICAL RECORDS. [facility] [employer] [facility]. provides no warranty or guarantee of the accuracy or completeness of information in this document.
== END | disposition home or self-care (01) ==
PROVIDERS: PCP Family Medicine; Referring Provider Family Medicine; Visit Provider Family Medicine
DX: Z88.0 Allergy status to penicillin (principal)
CPT/HCPCS: 36415